=== PATIENT | female | born 1940 | race Caucasian/White ===

== ENCOUNTER → 2017-05-03 12:42 | Outpatient (CLI) | payer MEDICARE, SELFPAY ==
--- NOTE | 2017-05-03 12:50 | RAD_ITS ---
STUDY: X-RAY CHEST REASON FOR EXAM: Female, 76 years old. COPD, hypoxemia TECHNIQUE: PA and lateral views of the chest. COMPARISON: Previous study of April 03, 2015 FINDINGS: The lungs are hyperinflated. There is no demonstrated pleural abnormality. Normal size heart. Normal mediastinum and grace. Normal visualized pulmonary arteries. Normal visualized aortic arch and descending thoracic aorta. The bones are osteopenic. There is an increased thoracic kyphosis. There is endplate spondylosis of the upper thoracic spine. A mid thoracic dextroscoliosis is present. Normal visualized ribs, clavicles, and shoulders. There is a small hiatal hernia. RAD/Chest PA and Lateral IMPRESSION: 1. Hyperinflation of the lungs consistent with COPD. 2. Increased thoracic kyphosis and mild thoracic dextroscoliosis. Generalized osteopenia. Spondylosis of the upper thoracic spine. 3. Small hiatal hernia. 4. No acute cardiopulmonary disease process is seen. Chest findings are stable in the interval. Electronically Signed: Morgan Wills MD at 18:45 EDT , Service support ,
== END ==
PROVIDERS: Family Provider Internal Medicine; PCP Internal Medicine; Visit Provider Internal Medicine Pulmonary Disease
DX: J44.9 Chronic obstructive pulmonary disease, unspecified (principal); R09.02 Hypoxemia
CPT/HCPCS: 71046

== ENCOUNTER → 2017-08-14 13:28 | Outpatient (CLI) | payer MEDICARE, SELFPAY | LOC: LAB 13:29 → LABSPEC 13:31 | PROVIDERS: Family Provider Internal Medicine; PCP Internal Medicine; Visit Provider Internal Medicine Pulmonary Disease | DX: R05 Cough (principal) | CPT/HCPCS: 87015; 87116; 87206 ==

== ENCOUNTER → 2020-06-10 | Outpatient (CLI) | payer MEDICARE, SELFPAY ==
[2020-06-10 14:31] LABS: Hemoglobin A1c 5.2 % (3.8-5.6)
== END | disposition home or self-care (01) ==
PROVIDERS: Referring Provider Nurse Practitioner; Visit Provider Nurse Practitioner
DX: Z13.1 Encounter for screening for diabetes mellitus (principal)
CPT/HCPCS: 83036

== ENCOUNTER 2021-01-30 15:43 | Observation (INO) | payer MEDICARE, SELFPAY ==
[2021-01-30 15:45] VITALS: BP 142/67; PULSE 86; RESP 14; TEMP 36.7; O2SAT 98; BMI 17.6
--- NOTE | 2021-01-30 18:44 | EKG12_ITS ---
Test Reason : FALL Blood Pressure : / mmHG Vent. Rate : 085 BPM Atrial Rate : 085 BPM P-R Int : 138 ms QRS Dur : 110 ms QT Int : 388 ms P-R-T Axes : 080 -61 056 degrees QTc Int : 461 ms Normal sinus rhythm Left axis deviation Abnormal ECG Confirmed by LEONARDO OLGUIN, DAVIS ([id number]), editorial project manager JADE PRABHAKAR ([id number]) on 02/01/2021 12:12:32 PM Referred By: CHIDI Confirmed By:DAVIS PATTERSON MD
--- NOTE | 2021-01-30 18:44 | CT_ITS ---
STUDY: CT BRAIN WITHOUT CONTRAST REASON FOR EXAM: Female, 80 years old. ALTERED MENTAL STATUS Fall change in mental status Individualized dose optimization techniques were used for this CT. TECHNIQUE: Transaxial CT imaging of the brain was performed without administration of intravenous contrast material. COMPARISON: None FINDINGS: There are calcifications around the carotid artery. These are noted in the cavernous carotid arteries. Normal calvarium. Normal soft tissues. There is mild cerebral atrophy with widening of the extra-axial spaces and ventricular dilatation. There are areas of decreased attenuation within the white matter tracts of the supratentorial brain, consistent with microvascular disease changes. Normal basal ganglia and thalami. Normal brainstem. There is mild cerebellar atrophy. There is no intracranial hemorrhage. There are no findings of an acute ischemic infarction. Normal visualized paranasal sinuses. ASPECTS Score for Acute Strokes: 11/27 CT/Brain/Head without Contrast IMPRESSION: There are no acute findings. Chronic involutional changes of the brain. Electronically Signed: Juan Reeder MD at 19:34 EST , Service support ,
[2021-01-30 19:22] VITALS: BP 146/81; PULSE 84; RESP 19; O2SAT 96
[2021-01-30 19:48] LABS: Absolute Lymphocyte Count 2.18 X10^3/uL (0.83-4.51); Absolute Neutrophil Count 3.2 X10^3/uL (2.0-7.7); Basophil# 0.01 X10^3/uL; Basophil% 0.2 % (0-1); Eosinophil# 0.24 X10^3/uL; Eosinophils% 3.9 % (0-5); Hematocrit 42.4 % (37-47); Hemoglobin 13.6 g/dL (12.0-15.0); Lymphocyte # 2.18 X10^3/ul (0.83-4.51); Lymphocyte % 35.4 % (19-41); Mean Corp Hgb Conc 32.1 g/dL (32-36); Mean Corpuscular Hgb 30.5 pg (27.0-32.0); Mean Corpuscular Volume 95.1 fL (81-99); Mean Platelet Vol. 8.7 fl (6.2-12.0); Monocyte# 0.53 X10^3/uL; Monocyte% 8.6 % (0-10); NRBC Flagged by Analyzer 0 % (0-5); Neutrophil # 3.18 X10^3/uL (2.7-7.7); Neutrophil % 51.7 % (47-70); Platelet Count 259 K/mm3 (150-450); RBC Distribution Width CV 12.7 % (11.6-14.6); RBC Distribution Width SD 44.7 fl (35.1-43.9); Red Blood Count 4.46 M/mm3 (4.2-5.4); White Blood Count 6.2 K/mm3 (4.4-11.0)
[2021-01-30 19:58] LABS: Bacteria 0 SEEN /hpf (None Seen); Mucous, Urine 0 SEEN /hpf (<or=2+); Red Blood Cells-Urine 0 SEEN /hpf (0-5); Squamous Epithelial Cells - UA 0 SEEN /hpf (5-10); White Blood Cells 0 SEEN /hpf (0-5)
--- NOTE | 2021-01-30 20:07 | EX.ED.DYSGE1 ---
HPI History of Present Illness Chief Complaint: Fall Detail of Chief Complaint: Altered mental status, fall, generalized weakness Informant: patient and family Onset/Context/Timing Onset: Today (Today prior to arrival unable to get up and walk even with assistance was difficult) and Yesterday (Patient fell yesterday. Unwitnessed.) Context: Sudden Onset Current Severity: Unable to quantitate or qualitate Maximum Severity: Unable to quantitate or qualitate Worsened by: Nothing Relieved by: Nothing Associated Symptoms Associated Symptoms: Nothing Narrative Narrative: Patient is an 80-year-old woman who lives with family. She does have dementia. She has deteriorated according to family. Yesterday she fell. She had an unwitnessed fall. Everything sprawled out on the floor. Family did not think much of it. At that time she did not complain of head pain or headache. Today she was in the chair. She was unable to get out of the chair. Even with assistance she was unable to ambulate. Patient is not able to contribute to history because of dementia. Patient denied head pain. She denied trouble with her vision. She denied chest pain. She denied shortness of breath. She denied abdominal pain. She denies vomiting or diarrhea. She denies urinary symptoms. She presently has no complaints. Prior similar symptoms: No Recent Illness/Hospitalization: No PFSH PFSH Home Medications fluticasone furoate-vilanterol [Breo Ellipta Inhaler] 1 ea IH DAILY 04/04/15 [History Last Taken Unknown] hydroxyzine HCl 10 mg PO Q6H PRN 04/04/15 [History Last Taken Unknown] lorazepam 1 mg PO DAILY PRN PRN 04/04/15 [History Last Taken 04/05/15] tiotropium bromide [Spiriva 18 MCG] 1 puff INHALATION DAILY 04/04/15 [History Last Taken Unknown] Allergy/AdvReac Type Severity Reaction Status Date / Time Tetanus Vaccines and Toxoid Allergy Unknown Verified 01/30/21 15:45 [Tetanus Vaccines & Toxoid] Surgical History unable to obtain unable to obtain Social History (Updated 01/30/21 @ 20:[address] Enrique Torres MD) household members: family Smoking Status: Never smoker substance use type: does not use ROS ROS ED Review of Systems ROS Unobtainable: due to mental status Constitutional Constitutional ED: Denies chills, fever(s), subjective or sweats Eyes Eyes: Denies blurry vision or change in vision ENT ENT ED: Denies ear pain, rhinorrhea or sore throat Cardiovascular Cardiovascular: Denies chest pain or palpitations Respiratory/Chest Respiratory/Chest: Denies cough, dyspnea or dyspnea on exertion Gastrointestinal Gastrointestinal: Denies abdominal pain, diarrhea, nausea or vomiting Genitourinary Genitourinary ED: Denies dysuria, hematuria or urinary frequency Musculoskeletal Musculoskeletal: Denies arthralgias, back pain, myalgias or neck pain Integumentary Denies Abrasions or rash Neurologic Neurologic: Reports weakness; Denies headache(s) or paresthesias Endocrine Endocrinology: Denies polydipsia, polyphagia or polyuria Allergic/Immunologic Allergic/Immunologic ED: Denies urticaria EXAM Physical Exam Const Vital Signs: 01/30/21 15:45 01/30/21 19:20 01/30/21 19:22 Temperature 98.1 F Temperature Source Temporal Pulse Rate 86 84 Respiratory Rate 14 19 H Respiratory Effort Normal Respiratory Depth Normal Respiratory Pattern Normal Blood Pressure 142/67 H 146/81 H Blood Pressure Mean 92 102 Pulse Ox 98 96 Oxygen Delivery Method Nasal Cannula Room Air Oxygen Flow Rate (L/min) 3 Positive well nourished and well developed; Negative for obese, cachectic or contractures General Appearance ED: well developed and NAD; Negative for cachectic, contractures, cyanotic, diaphoretic or pallor Nutritional Appearance: Negative for cachectic or obese HEENT Reports TM's clear and moist mucous membranes Negative for trauma or tenderness Tympanic Membrane ED: Yes TM's clear Eyes PERRL and EOMs intact bilaterally General Eye ED: Negative for pale conjunctiva or scleral icterus Neck no lymphadenopathy, supple and no JVD General: Negative for tenderness Chest Wall inspection of chest normal and palpation of chest normal Resp normal respiratory effort and clear to auscultation bilaterally Cardio regular rate, regular rhythm, S1 normal heart sound, S2 normal heart sound and no murmurs GI normal to inspection, nondistended, normoactive bowel sounds and non-tender Palpation: soft Back/Spine no CVA tenderness Cervical Spine: Negative for cervical spine tenderness Thoracic Spine / Upper Back: Negative for thoracic spinal tenderness Extremity normal to inspection Neuro No oriented x3 and CN's II-XII intact bilaterally Sensorium / Orientation: alert Motor Exam: strength 5/5 throughout Psych mental status grossly normal Skin no rashes or lesions noted and no wounds General Skin Exam: Negative for jaundice or pallor MDM MDM MDM Narrative Medical decision making narrative: With history of change in mental status obtain CT of the head rule out intracranial process and specifically bleed. Since he is elderly will obtain UA to rule out UA urinary tract infection. Will obtain cath specimen. CBC to assess white count and rule out anemia. Basic metabolic panel to assess renal function, glucose and electrolytes since she needs a work-up to rule out metabolic and infectious causes for her change in mental status. Patient is unable to get out of bed. The 2 attempt she made resulted in near falls. Nurse states she is very unstable and is not safe to go home. Therefore hospitalist was paged. Lab Data Attestation: I reviewed the patient's lab results. Labs: Laboratory Results - last 24 hr 01/30/21 01/30/21 01/30/21 19:45 19:45 19:50 WBC 6.2 RBC 4.46 Hgb 13.6 Hct 42.4 MCV 95.1 MCH 30.5 MCHC 32.1 RDW Std Deviation 44.7 H RDW Coeff of Toney 12.7 Plt Count 259 MPV 8.7 Immature Gran % (Auto) 0.200 Neut % (Auto) 51.7 Lymph % (Auto) 35.4 [place] % (Auto) 8.6 Eos % (Auto) 3.9 Baso % (Auto) 0.2 Absolute Neuts (auto) 3.2 Absolute Lymphs (auto) 2.18 Nucleated RBC % 0 Sodium 142 Potassium 3.9 Chloride 105 Carbon Dioxide 34.0 H Anion Gap 3 L BUN 19 H Creatinine 0.64 Estim Creat Clear Calc 32.54 Est GFR (MDRD) Af Amer 114 Est GFR (MDRD) Non-Af 94 BUN/Creatinine Ratio 29.5 H Glucose 88 Calcium 9.6 Total Bilirubin 0.50 AST 19 ALT 18 Alkaline Phosphatase 91 Total Protein 7.6 Albumin 3.5 Globulin 4.1 Albumin/Globulin Ratio 0.9 Urine Color Yellow Urine Clarity Clear Urine pH 6.0 Ur Specific [place] 1.015 Urine Protein Negative Urine Glucose (UA) Normal Urine Ketones Negative Urine Occult Blood Negative Urine Nitrite Negative Urine Bilirubin Negative Urine Urobilinogen Normal Ur Leukocyte Esterase Negative Radiography Diagnostic Testing: Clinical Impression(s) from Imaging Studies Brain CT 12/13/21 18:44 IMPRESSION: There are no acute findings. Chronic involutional changes of the brain. Electronically Signed: Juan Reeder MD at 19:34 EST , Service support , EKG Initial EKG: Attestation: I personally reviewed and interpreted this EKG as follows: Interpretation: Sinus Rhythm (Ventricular rate is 85. AK interval is 138 ms. Cures duration under 10 ms. QT duration 388 ms. [place] is left. Other than the left axis EKG is unremarkable/.) Discharge Plan Triage Chief Complaint: Fall ED Provider: Enrique Torres Dx/Rx/DC Orders Clinical Impression: Debility, Inability to walk, Acute alteration in mental status, Falls Prescriptions: No Action lorazepam 1 MG tablet 1 mg PO DAILY PRN PRN (Reason: Anxiety) RF: 0 hydroxyzine HCl 10 MG tablet 10 mg PO Q6H PRN RF: 0 tiotropium bromide [Spiriva with HandiHaler] 1 PUFF inhaler 1 puff inhalation DAILY RF: 0 fluticasone furoate-vilanterol [Breo Ellipta] 1 EACH Aer.Pow.Ba 1 ea IH DAILY RF: 0 Primary Care Provider: Marcello Cobb Referrals: Marcello Cobb MD [Primary Care Provider] -
[2021-01-30 20:12] LABS: Color, Urine Yellow (Yellow); Glucose, Dipstick Normal (Normal); Ketone-Dipstick Negative (Negative); Leukocyte Esterase-Dipstick Negative /ul (Negative); Nitrite-Dipstick Negative (Negative); Occult Blood-Urine Negative /ul (Negative); Protein-Dipstick Negative (Negative); Specific Gravity, Urine 1.015 (1.002-1.030); Urine Bilirubin Dipstick Negative (Negative); Urine Clarity Clear (Clear); Urine Urobilinogen Normal (Normal)
[2021-01-30 20:13] LABS: ALB/GLOB Ratio 0.9 RATIO (0.9-2.4); AST(SGOT) 19 U/L (15-37); Alanine Aminotransfer ALT/SGPT 18 U/L (13-56); Albumin, Serum 3.5 g/dL (3.2-5.0); Alkaline Phosphatase 91 U/L (45-117); Anion Gap 3 (5-15); BUN 19 mg/dL (7-18); BUN/Creat Ratio 29.5 RATIO (10-20); Calcium,Total 9.6 mg/dL (8.5-10.1); Chloride 105 mmol/L (98-107); Creatinine, Serum 0.64 mg/dL (0.55-1.02); EST Glomerular Filtration Rate 94 mL/min (>60); Est Glom Filt Rate - Afr Amer 114 mL/min (>60); Estimated Creatinine Clearance 32.54 ml/min; Globulin 4.1 g/dL (2.2-4.2); Glucose 88 mg/dL (74-106); Potassium 3.9 mmol/L (3.5-5.1); Protein, Total 7.6 g/dL (6.4-8.2); Sodium Level 142 mmol/L (136-145)
--- NOTE | 2021-01-30 20:49 | ED.RN ---
Attempt to walk patient was unsuccessful as patient was unable to stand at side of bed without becoming unsteady and weak. Attempt x2 was same and patient was helped back into bed.
[2021-01-30 20:54] VITALS: BP 134/107; PULSE 87; RESP 16; TEMP 36.3
[2021-01-30 21:19] VITALS: PULSE 93; RESP 15
--- NOTE | 2021-01-30 21:51 | ED.RN ---
Patient and family requested patient to eat something, refused options that was available to them.
[2021-01-30] MEDS: LORazepam 2 MG/ML Syringe 1 MG IV (22:05)
--- NOTE | 2021-01-30 22:29 | PCM.HP.STD ---
HPI - General General Date of Admission: 01/30/21 HPI Narrative NEERAJ LYNN, is a 80 F who presents to the emergency room with a change in mental status. The patient has a significant past medical history of severe dementia and is a very poor historian. She was seen in the emergency room with her daughter present who states the patient had a significant fall yesterday and was found sprawled across the room but denied any injuries and she stayed at home at that time. Today she is unable to get herself up from a chair or stand safely and this is different from her normal baseline. CT scan of the head reveals no acute changes in the emergency room and urinary tract infection has been ruled out. CBC and BMP are also unremarkable. The patient will be admitted due to change in her physical strength and sudden weakness. The patient wishes to be full code and this was verified with her daughter present. The daughter was adamant that the patient would not go to a halfway however she did not feel safe to take her home in her present condition. PFSH Home Medications hydroxyzine HCl 10 mg PO Q6H PRN 04/04/15 [History Last Taken Unknown] lorazepam 1 mg PO DAILY PRN PRN 04/04/15 [History Last Taken 04/05/15] albuterol sulfate 01/30/21 [History Last Taken Unknown] albuterol sulfate 1 puff INHALATION DAILY 01/30/21 [History Last Taken Unknown] fluconazole 150 mg PO DAILY 01/30/21 [History Last Taken Unknown] bxxdvhezwyi-ufwdvxoca-onkrmopc [Trelegy Ellipta] 1 inh INHALATION DAILY 01/30/21 [History Last Taken Unknown] Allergy/AdvReac Type Severity Reaction Status Date / Time Tetanus Vaccines and Toxoid Allergy Unknown Verified 01/30/21 15:45 [Tetanus Vaccines & Toxoid] Surgical History unable to obtain Social History (Updated 01/30/21 @ 20:[address] Enrique Torres MD) household members: family Smoking Status: Never smoker substance use type: does not use ROS Review of Systems ROS Unobtainable: due to mental condition Vital Signs Vital Signs Vital Signs: 01/30/21 15:45 01/30/21 19:20 01/30/21 19:22 Temperature 98.1 F Temperature Source Temporal Pulse Rate 86 84 Respiratory Rate 14 19 H Respiratory Effort Normal Respiratory Depth Normal Respiratory Pattern Normal Blood Pressure 142/67 H 146/81 H Blood Pressure Mean 92 102 Pulse Ox 98 96 Oxygen Delivery Method Nasal Cannula Room Air Oxygen Flow Rate (L/min) 3 01/30/21 20:54 01/30/21 21:19 Temperature 97.3 F L Temperature Source Temporal Pulse Rate 87 93 Respiratory Rate 16 15 Respiratory Effort Respiratory Depth Respiratory Pattern Blood Pressure 134/107 H Blood Pressure Mean 116 Pulse Ox Oxygen Delivery Method Oxygen Flow Rate (L/min) Weight Weight: 103 lb Body Mass Index (BMI) 17.6 Physical Exam Const alert General Appearance: cooperative Orientation / Consciousness: confused HEENT normocephalic and head/scalp atraumatic Eyes PERRL Neck supple Lymph Lymphatic: no lymphadenopathy noted Resp normal respiratory effort and clear to auscultation bilaterally Cardio regular rate, regular rhythm, S1 normal heart sound and S2 normal heart sound GI normal to inspection, nondistended, normoactive bowel sounds Extremity no clubbing, cyanosis or edema Skin General Skin Exam: turgor normal Neuro Motor Exam: general weakness Psych Psych Narrative: AxOX1 Results Lab / Micro Data Result Diagrams: 01/30/21 19:45 01/30/21 19:45 Labs: Laboratory Results - last 24 hr 01/30/21 19:45: WBC 6.2, RBC 4.46, Hgb 13.6, Hct 42.4, MCV 95.1, MCH 30.5, MCHC 32.1, RDW Std Deviation 44.7 H, RDW Coeff of Tonye 12.7, Plt Count 259, MPV 8.7, Immature Gran % (Auto) 0.200, Neut % (Auto) 51.7, Lymph % (Auto) 35.4, [place] % (Auto) 8.6, Eos % (Auto) 3.9, Baso % (Auto) 0.2, Absolute Neuts (auto) 3.2, Absolute Lymphs (auto) 2.18, Nucleated RBC % 0 01/30/21 19:45: Sodium 142, Potassium 3.9, Chloride 105, Carbon Dioxide 34.0 H, Anion Gap 3 L, BUN 19 H, Creatinine 0.64, Estim Creat Clear Calc 32.54, Est GFR (MDRD) Af Amer 114, Est GFR (MDRD) Non-Af 94, BUN/Creatinine Ratio 29.5 H, Glucose 88, Calcium 9.6, Total Bilirubin 0.50, AST 19, ALT 18, Alkaline Phosphatase 91, Total Protein 7.6, Albumin 3.5, Globulin 4.1, Albumin/Globulin Ratio 0.9 01/30/21 19:50: Urine Color Yellow, Urine Clarity Clear, Urine pH 6.0, Ur Specific [place] 1.015, Urine Protein Negative, Urine Glucose (UA) Normal, Urine Ketones Negative, Urine Occult Blood Negative, Urine Nitrite Negative, Urine Bilirubin Negative, Urine Urobilinogen Normal, Ur Leukocyte Esterase Negative, Urine RBC 0 SEEN, Urine WBC 0 SEEN, Ur Squamous Epith Cells 0 SEEN, Urine Bacteria 0 SEEN, Urine Mucus 0 SEEN Radiology Impression Brain CT 01/30/21 18:44 IMPRESSION: There are no acute findings. Chronic involutional changes of the brain. Electronically Signed: Juan Reeder MD at 19:34 EST , Service support , Assessment & Plan Assessment/Plan (1) Debility: (2) Inability to walk: (3) Acute alteration in mental status: (4) Falls: (5) COPD (chronic obstructive pulmonary disease): (6) Dementia: PLAN: 1. Inability to walk, change in mental status and generalized weakness with falls?admit patient to medical surgical floor, consult case management for discharge planning, consult physical therapy for evaluation and treatment, repeat CBC and BMP in the morning, consult nutrition and check prealbumin level and nutritional status. Patient daughter will not likely agree to rehab facility however she may be amenable to home health assistance. 2. Dementia?irreversible seems to be progressing 3. Fall risk?add fall precautions 4. DVT prophylaxis?SCDs Charges/Coding Visit Charges OBSV E&M: 87589 Initial observation care L2
[2021-01-30 23:39] VITALS: BP 146/77; PULSE 94; RESP 22; TEMP 36.6; O2SAT 98; BMI 17.6
--- NOTE | 2021-01-31 02:44 | PCS.PANDOC ---
PANDEMIC DOCUMENTATION INITIATED: Date: 01/30/2021 Time: 1132
[2021-01-31 06:03] LABS: Absolute Neutrophil Count 4.8 X10^3/uL (2.0-7.7); Basophil# 0.01 X10^3/uL; Basophil% 0.1 % (0-1); Eosinophil# 0.36 X10^3/uL; Eosinophils% 4.4 % (0-5); Hematocrit 41.8 % (37-47); Hemoglobin 14.1 g/dL (12.0-15.0); Lymphocyte % 28.1 % (19-41); Mean Corp Hgb Conc 33.7 g/dL (32-36); Mean Corpuscular Hgb 31.1 pg (27.0-32.0); Mean Corpuscular Volume 92.3 fL (81-99); Mean Platelet Vol. 8.8 fl (6.2-12.0); Monocyte# 0.66 X10^3/uL; Monocyte% 8.1 % (0-10); NRBC Flagged by Analyzer 0 % (0-5); Neutrophil # 4.83 X10^3/uL (2.7-7.7); Neutrophil % 59.1 % (47-70); Platelet Count 268 K/mm3 (150-450); RBC Distribution Width CV 12.8 % (11.6-14.6); RBC Distribution Width SD 43.2 fl (35.1-43.9); Red Blood Count 4.53 M/mm3 (4.2-5.4); White Blood Count 8.2 K/mm3 (4.4-11.0)
[2021-01-31 06:34] LABS: Anion Gap 4 (5-15); BUN 25 mg/dL (7-18); BUN/Creat Ratio 38.8 RATIO (10-20); Calcium,Total 9.8 mg/dL (8.5-10.1); Chloride 105 mmol/L (98-107); Creatinine, Serum 0.64 mg/dL (0.55-1.02); EST Glomerular Filtration Rate 94 mL/min (>60); Est Glom Filt Rate - Afr Amer 113 mL/min (>60); Estimated Creatinine Clearance 32.54 ml/min; Glucose 105 mg/dL (74-106); Potassium 3.8 mmol/L (3.5-5.1); Sodium Level 141 mmol/L (136-145)
[2021-01-31] MEDS: Ipratropium/Albuterol Sulfate 3 ML AMPUL.NEB INHALATION ×2 (07:18→13:13)
[2021-01-31] MEDS: Budesonide Respules 0.5 MG/2 ML AMPUL.NEB. INHALATION (07:18)
[2021-01-31 07:19] VITALS: PULSE 101; RESP 18; O2SAT 92
[2021-01-31 09:06] VITALS: BP 142/84; PULSE 104; RESP 18; TEMP 36.7; O2SAT 95
[2021-01-31] MEDS: FLUCONAZOLE 150 MG TABLET PO (09:10)
--- NOTE | 2021-01-31 09:10 | NURSING ---
PT SITTING IN CHAIR IN [facility] [employer], IV ACCESS REMOVED BY PT.PT VOICES DESIRE TO GO HOME. PT DAUGHTER STATES THAT PT WAS REPORTING DIZZINESS. PT DENIES DIZZINESS. WILL NOTIFY DR OF PT'S DESIRE TO GO HOME.
--- NOTE | 2021-01-31 09:45 | CASEMGMT ---
RN CLIFF Face to Face with patient for initial transition planning/care coordination assessment. RN CM introduced self and role at [facility]. Patient sitting in chair, alert and oriented, daughter at bedside, slightly confused at times. Patient and daughter willing to participate in assessment and is able to answer all questions appropriately. Care providers, pharmacy, and demographics verified. Patient wishes to discharge home, denies need for home health at this time. Patient provided with list of HHC agency in-network with insurance. RN CM updated patient and daughter that if they reconsider HHC after discharge, to follow-up with PCP for setup. Daughter, Fani, voiced understanding. Patient states she has no further needs or concerns at this time. CM to follow for discharge planning needs that may arise. PCP: Reza Specialists: Nataliia Marcelo Pharmacy: [facility] Insurance: [employer] [facility] Prescription Benefit: yes Living Will/HPOA: none, SW updated regarding request for information. LNOK: , daughter Living Arrangements: Patient lives with and daughter in a 2 story home with bed and bath on first floor for patient. 4-5 steps and railing to enter the home. Patient states she is independent for self care, daughter able to assist if needed. Transportation: DME/HHC: Patient states she has walker, wheelchair, nebulizer, and home oxygen with portable concentrator through [facility] at 3lpm. Patient denies previous HHC or SNF. Disposition Plan: Patient to discharge home with family support and follow-up plans in place. Angelica PURI, RN, CM
--- NOTE | 2021-01-31 12:40 | PCM.PN.HOSP ---
Objective Data Objective Data Vital Signs: Vital Signs Temp Pulse Resp BP Pulse Ox 98.1 F 104 H 18 142/84 H 95 01/31/21 09:06 01/31/21 09:06 01/31/21 09:06 01/31/21 09:06 01/31/21 09:06 Oxygen Flow Rate (L/min) 3 Oxygen Delivery Method Nasal Cannula Weight: 46.72 kg Body Mass Index (BMI) 17.6 Lab / Micro Data Result Diagrams: 01/31/21 05:50 01/31/21 05:50 Labs: Laboratory Results - last 24 hr 01/30/21 19:45: WBC 6.2, RBC 4.46, Hgb 13.6, Hct 42.4, MCV 95.1, MCH 30.5, MCHC 32.1, RDW Std Deviation 44.7 H, RDW Coeff of Toney 12.7, Plt Count 259, MPV 8.7, Immature Gran % (Auto) 0.200, Neut % (Auto) 51.7, Lymph % (Auto) 35.4, [place] % (Auto) 8.6, Eos % (Auto) 3.9, Baso % (Auto) 0.2, Absolute Neuts (auto) 3.2, Absolute Lymphs (auto) 2.18, Nucleated RBC % 0 01/30/21 19:45: Sodium 142, Potassium 3.9, Chloride 105, Carbon Dioxide 34.0 H, Anion Gap 3 L, BUN 19 H, Creatinine 0.64, Estim Creat Clear Calc 32.54, Est GFR (MDRD) Af Amer 114, Est GFR (MDRD) Non-Af 94, BUN/Creatinine Ratio 29.5 H, Glucose 88, Calcium 9.6, Total Bilirubin 0.50, AST 19, ALT 18, Alkaline Phosphatase 91, Total Protein 7.6, Albumin 3.5, Globulin 4.1, Albumin/Globulin Ratio 0.9 01/30/21 19:50: Urine Color Yellow, Urine Clarity Clear, Urine pH 6.0, Ur Specific [place] 1.015, Urine Protein Negative, Urine Glucose (UA) Normal, Urine Ketones Negative, Urine Occult Blood Negative, Urine Nitrite Negative, Urine Bilirubin Negative, Urine Urobilinogen Normal, Ur Leukocyte Esterase Negative, Urine RBC 0 SEEN, Urine WBC 0 SEEN, Ur Squamous Epith Cells 0 SEEN, Urine Bacteria 0 SEEN, Urine Mucus 0 SEEN 01/31/21 05:50: WBC 8.2, RBC 4.53, Hgb 14.1, Hct 41.8, MCV 92.3, MCH 31.1, MCHC 33.7, RDW Std Deviation 43.2, RDW Coeff of Toney 12.8, Plt Count 268, MPV 8.8, Immature Gran % (Auto) 0.200, Neut % (Auto) 59.1, Lymph % (Auto) 28.1, [place] % (Auto) 8.1, Eos % (Auto) 4.4, Baso % (Auto) 0.1, Absolute Neuts (auto) 4.8, Absolute Lymphs (auto) 2.30, Nucleated RBC % 0 01/31/21 05:50: Sodium 141, Potassium 3.8, Chloride 105, Carbon Dioxide 32.0, Anion Gap 4 L, BUN 25 H, Creatinine 0.64, Estim Creat Clear Calc 32.54, Est GFR (MDRD) Af Amer 113, Est GFR (MDRD) Non-Af 94, BUN/Creatinine Ratio 38.8 H, Glucose 105, Calcium 9.8 Radiography Diagnostic Testing: Radiology Impression Brain CT 01/30/21 18:44 IMPRESSION: There are no acute findings. Chronic involutional changes of the brain. Electronically Signed: Juan Reeder MD at 19:34 EST , Service support , Assessment & Plan Assessment/Plan (1) Debility: (2) Inability to walk: (3) Acute alteration in mental status: (4) Falls: (5) COPD (chronic obstructive pulmonary disease): (6) Dementia: PLAN: 1. Inability to walk, change in mental status and generalized weakness with falls?admit patient to medical surgical floor, consult case management for discharge planning, consult physical therapy for evaluation and treatment, repeat CBC and BMP in the morning, consult nutrition and check prealbumin level and nutritional status. Patient daughter will not likely agree to rehab facility however she may be amenable to home health assistance. 2. Dementia?irreversible seems to be progressing 3. Fall risk?add fall precautions 4. DVT prophylaxis?SCDs
--- NOTE | 2021-01-31 12:57 | PCM.DC ---
Discharge Instructions Follow Up Care Test Results: Test results from this visit will be discussed in further detail at your follow-up appointment, if applicable. 1. Plan to follow-up with Dr. Cobb in the next 7 to 10 days 2. As discussed with Fani, ask Dr. Cobb about palliative care services Discharge Plan Admission Admit Date/Time: 01/30/21 22:36 Primary Reason for Your Visit: Weakness and fall Attending Provider: Karl Vela Primary Care Provider: Marcello Cobb Discharge Orders/Prescriptions Prescriptions: Continued lorazepam 1 MG tablet 1 mg PO DAILY PRN PRN (Reason: Anxiety) RF: 0 albuterol sulfate 2.5 mg /3 mL (0.083 %) solution for nebulization RF: 0 fluconazole 150 mg tablet 150 mg PO DAILY RF: 0 albuterol sulfate 90 mcg/actuation HFA aerosol inhaler 1 puff INHALATION DAILY RF: 0 Trelegy Ellipta 100-62.5-25 mcg blister with device 1 inh INHALATION DAILY RF: 0 Discontinued hydroxyzine HCl 10 MG tablet 10 mg PO Q6H PRN RF: 0 Referrals / Follow Up: Marcello Cobb MD [Primary Care Provider] - Disposition Disposition (needs filled in before D/C Order can be placed): Home, Self Care
[2021-01-31 13:14] VITALS: PULSE 110; RESP 18
--- NOTE | 2021-01-31 15:34 | PCM.DC.SUM ---
Providers Date of Admission: 01/30/21 Primary Care Physician: Dr. Marcello Cobb MD Reason For Visit: DEBILITY, FALL RISK, ALTERED MENTAL STATE Diagnosis Discharge Diagnosis (1) Dementia: Status: Acute Code(s): F03.90 - Unspecified dementia without behavioral disturbance (2) Debility: Status: Acute Code(s): R53.81 - Other malaise (3) Falls: Status: Acute Code(s): W19.XXXA - Unspecified fall, initial encounter (4) COPD (chronic obstructive pulmonary disease): Status: Chronic Code(s): J44.9 - Chronic obstructive pulmonary disease, unspecified Medications at Discharge Home Medications lorazepam 1 mg PO DAILY PRN PRN 04/04/15 Trelegy Ellipta 1 inh INHALATION DAILY 01/30/21 albuterol sulfate 01/30/21 albuterol sulfate 1 puff INHALATION DAILY 01/30/21 fluconazole 150 mg PO DAILY 01/30/21 Hospital Course Summary of Care Provided Hospital Course: The patient was hospitalized because of a change in mental status and a fall at home. The patient was unable to provide any details of her presentation because of her baseline dementia. According to the daughter, she was unable to stand safely and this was different from her baseline. Her work-up in the emergency department did not show any acute issues by CT scan of the head and she had no clinical evidence of a UTI. Her white blood cell count was in the 6200 range her hemoglobin was 13.6 (these were stable during her stay). Her serum bicarbonate was at the 34 range on presentation and her BUN was 19 with a creatinine of 0.64 (her serum bicarbonate went down to 32 and her creatinine was at 0.64 at discharge as well). UA was clear with no nitrites or leukocyte esterase or bacteria. The patient was placed under observation status given her inability to walk and her reported change in mental status with generalized weakness. The admitting provider discussed the possibility of discharge to a rehab facility but the family was confident that the patient would be able to return home under their care. Patient was treated with IV fluids given her compromised nutritional status. By the morning of 01/31/2021, the patient was able to stand independently. While her mental status remained compromised, she was cooperative and talkative. The patient was unable to provide any details of her presentation, hospital stay, or plan of care. I did speak with both the patient's at the bedside as well as with the patient's daughter, Fani, by phone. We talked at length about her severe protein calorie malnutrition and her declining oral intake in the context of her dementia. The patient's daughter, Fani, was somewhat surprised by the discussion of the dementia. We talked about the progression of her disease. In retrospect, Fani noted that her mother had been having problems with memory for some time (she has noted a decreased memory at least over the past year and likely longer). We talked about the implications of her memory loss, weight loss, compromised oral intake, and falls. As result, I explained the benefits of palliative care services (the patient is approaching comfort care with hospice services as well given her FAST score in the 6b range) and the daughter was open to the discussion and was willing to talk to the patient's primary care provider about a palliative care referral at discharge. In the patient's clinical stability, improvement in her balance, and plans for supportive care, she was recommended for discharge home on 01/31/2021. Physical Exam Narrative Patient was sitting up in the bedside chair fully clothed wearing her jacket. She was kyphotic with temporal wasting and prominent clavicles. She had decreased breath sounds but no rales, rhonchi, or wheezing. She had distant, regular heart sounds with a heart rate in the 90s to 100s. Her abdomen was soft and nontender with normal bowel sounds. She had no pretibial edema or chronic venous stasis changes. She had a flat affect and was withdrawn but engaged when directly addressed. She was unaware of her circumstances, location, plan of care. She did know her name but did not know the day, date, month, or year. Weight / BMI Weight Weight: 103 lb Body Mass Index (BMI) 17.6 ABG / Lab / Microbiology Data Result Diagrams: 01/31/21 05:50 01/31/21 05:50 Laboratory: Laboratory Results - last 24 hr 01/31/21 05:50: WBC 8.2, RBC 4.53, Hgb 14.1, Hct 41.8, MCV 92.3, MCH 31.1, MCHC 33.7, RDW Std Deviation 43.2, RDW Coeff of Toney 12.8, Plt Count 268, MPV 8.8, Immature Gran % (Auto) 0.200, Neut % (Auto) 59.1, Lymph % (Auto) 28.1, [place] % (Auto) 8.1, Eos % (Auto) 4.4, Baso % (Auto) 0.1, Absolute Neuts (auto) 4.8, Absolute Lymphs (auto) 2.30, Nucleated RBC % 0 01/31/21 05:50: Sodium 141, Potassium 3.8, Chloride 105, Carbon Dioxide 32.0, Anion Gap 4 L, BUN 25 H, Creatinine 0.64, Estim Creat Clear Calc 32.54, Est GFR (MDRD) Af Amer 113, Est GFR (MDRD) Non-Af 94, BUN/Creatinine Ratio 38.8 H, Glucose 105, Calcium 9.8 Radiography Diagnostic Testing: Radiology Impression Brain CT 01/30/21 18:44 IMPRESSION: There are no acute findings. Chronic involutional changes of the brain. Electronically Signed: Juan Reeder MD at 19:34 EST , Service support , D/C Instructions Additional Instructions: The family is to follow-up with a palliative care referral pursue comfort care measures Meaningful Use Info Meaningful Use Diagnoses (Choose all that apply): None applicable Discharge Plan Admission Admit Date/Time: 01/30/21 22:36 Primary Reason for Your Visit: Weakness and fall Attending Provider: Karl Vela Primary Care Provider: Marcello Cobb Instructions Additional Instructions / Restrictions: 1. Plan to follow-up with Dr. Cobb in the next 7 to 10 days 2. As discussed with Fani, ask Dr. Cobb about palliative care services Discharge Orders/Prescriptions Prescriptions: Continued lorazepam 1 MG tablet 1 mg PO DAILY PRN PRN (Reason: Anxiety) RF: 0 albuterol sulfate 2.5 mg /3 mL (0.083 %) solution for nebulization RF: 0 fluconazole 150 mg tablet 150 mg PO DAILY RF: 0 albuterol sulfate 90 mcg/actuation HFA aerosol inhaler 1 puff INHALATION DAILY RF: 0 Trelegy Ellipta 100-62.5-25 mcg blister with device 1 inh INHALATION DAILY RF: 0 Discontinued hydroxyzine HCl 10 MG tablet 10 mg PO Q6H PRN RF: 0 Referrals / Follow Up: Marcello Cobb MD [Primary Care Provider] - Disposition Disposition (needs filled in before D/C Order can be placed): Home, Self Care Charges/Coding Visit Charges OBSV E&M: 56043 Observation care discharge
== END 2021-01-31 13:30 | disposition home or self-care (01) ==
LOC: ED 19:55 → MS3 23:12
PROVIDERS: Admitting Provider Family Medicine; Emergency Provider Emergency Medicine; PCP Internal Medicine; Visit Provider Internal Medicine
DX: F03.90 Unspecified dementia, unspecified severity, without behavioral disturbance, psychotic disturbance, mood disturbance, and anxiety (principal); J44.9 Chronic obstructive pulmonary disease, unspecified; R53.1 Weakness; R26.2 Difficulty in walking, not elsewhere classified; Z79.899 Other long term (current) drug therapy; Z79.51 Long term (current) use of inhaled steroids; Z91.81 History of falling
CPT/HCPCS: 36415; 70450; 80048; 80053; 81001; 85025; 93005; 94640; 96374; 99218; 99285; P9612; A4216; G0378

== ENCOUNTER → 2021-12-29 | Outpatient (CLI) | payer MEDICARE, SELFPAY ==
--- NOTE | 2021-12-29 16:11 | RAD_ITS ---
STUDY: XR Chest 2 Views 12/29/2021 4:18 PM REASON FOR EXAM: Female, 81 years old. CHEST PAIN COUGH COMPARISON: 05/03/17 TECHNIQUE: XR Chest 2 Views FINDINGS: There is no demonstrated pleural abnormality. The lung avila are hyperexpanded. Normal heart size. Normal mediastinum. Normal grace. Prominent appearing increased interstitial lung markings. Normal visualized pulmonary arteries. There is atherosclerotic calcification of the aortic arch with tortuosity. There are diffuse degenerative changes of the visualized thoracic spine. There is degenerative osteoarthritis of the bilateral shoulders. There is no demonstrated abnormality of the visualized soft tissue structures of the upper abdomen. RAD/Chest PA and Lateral IMPRESSION: There are no acute findings. Electronically Signed: Juan Reeder MD at 17:13 EST ,
[2021-12-29 18:06] LABS: BNP,B-Type NATRIURETIC PEPTIDE 16.8 pg/mL (0-100)
== END | disposition home or self-care (01) ==
PROVIDERS: PCP Internal Medicine; Referring Provider Internal Medicine Pulmonary Disease; Visit Provider Internal Medicine Pulmonary Disease
DX: R05.9 Cough, unspecified (principal); J44.9 Chronic obstructive pulmonary disease, unspecified; I10 Essential (primary) hypertension; R07.9 Chest pain, unspecified; R06.02 Shortness of breath
CPT/HCPCS: 36415; 71046; 83880

== ENCOUNTER → 2021-12-30 | Outpatient (CLI) | payer MEDICARE, SELFPAY | END | disposition home or self-care (01) | LOC: LABSPEC 12:37 | PROVIDERS: PCP Internal Medicine; Referring Provider Internal Medicine Pulmonary Disease; Visit Provider Internal Medicine Pulmonary Disease | DX: R05.9 Cough, unspecified (principal); J44.9 Chronic obstructive pulmonary disease, unspecified; I10 Essential (primary) hypertension | CPT/HCPCS: 87070; 87205 ==

== ENCOUNTER 2022-03-14 15:49 | Inpatient (IN) | payer MEDICARE, SELFPAY ==
[2022-03-14] VITALS (13 sets, daily range): BP systolic 107–162; BP diastolic 65–130; PULSE 115–130; RESP 15–31; TEMP 36.4–37; O2SAT 84–97; BMI 16.9; BMI 16.8
--- NOTE | 2022-03-14 15:58 | ED.VIS.FALL ---
HPI HPI - Fall History of Present Illness Chief Complaint: Fall Informant: patient Occured/Mechanism Occurred: Today Mechanism/Context: Yes same level fall and Yes trip Pain/Injury Pain Location: head and chest Quality of Pain: Aching and - (Heaviness) Worsened by: Nothing Relieved by: Nothing Associated Symptoms Associated Symptoms: Negative for Parasthesias, Weakness, Loss of function, Inability to ambulate or Loss of consciousness Narrative Narrative: Patient presents with headache that began after a fall today. Patient states she tripped and fell. Patient denies any loss of consciousness. Patient is unsure if she hit her head. Patient states her pain is mainly over the top of her head. Patient states nothing makes it better nothing makes it worse. Patient denies any other injuries. Patient does admit to some heaviness in her chest as well. Patient also admits to some shortness of breath. Patient denies any fevers or chills. Patient denies any paresthesias or weakness. Patient states she was able to ambulate after the fall. [facility] Medical History (Updated 03/14/22 @ 22:[address] Jose Rebolledo DO) Anxiety Anxiety and depression Chronic respiratory failure with hypoxia Emphysema lung Pulmonary fibrosis Pulmonary HTN Severe protein-calorie malnutrition Valvular heart disease Home Medications lorazepam 1 mg tablet 1 mg PO DAILY PRN PRN Anxiety 04/04/15 [History Last Taken 04/05/15] albuterol sulfate 90 mcg/actuation aerosol inhaler 1 puff inhalation DAILY shortness of breath 01/30/21 [History Last Taken Unknown] fluticasone fur. 100 mcg-umeclid 62.5 mcg-vilant 25 mcg inhalat.powder (Trelegy Ellipta) 1 inh inhalation DAILY emphysema 01/30/21 [History Last Taken Unknown] ropinirole 0.25 mg tablet 0.25 mg PO QHS 03/14/22 [History Last Taken Unknown] venlafaxine 37.5 mg capsule,extended release 24 hr 1 mg PO DAILY 03/14/22 [History Last Taken Unknown] Allergy/AdvReac Type Severity Reaction Status Date / Time Tetanus Vaccines and Toxoid Allergy Unknown Verified 03/14/22 15:58 [Tetanus Vaccines & Toxoid] Surgical History History of cholecystectomy Social History household members: family Smoking Status: Never smoker substance use type: does not use ROS ROS ED Constitutional Constitutional ED: Denies chills or fever(s) Eyes Eyes: Denies blurry vision or change in vision ENT ENT ED: Denies rhinorrhea or sore throat Cardiovascular Cardiovascular: Reports chest pain; Denies palpitations Respiratory/Chest Respiratory/Chest: Denies cough or dyspnea Gastrointestinal Gastrointestinal: Denies nausea or vomiting Genitourinary Genitourinary ED: Denies dysuria or hematuria Musculoskeletal Musculoskeletal: Denies back pain or neck pain Integumentary Denies abscess or rash Neurologic Neurologic: Reports headache(s); Denies weakness Allergic/Immunologic Allergic/Immunologic ED: Denies mouth swelling or urticaria EXAM Physical Exam Const Vital Signs: 03/14/22 15:50 03/14/22 15:58 03/14/22 15:59 Temperature 97.5 F L Temperature Source Temporal Pulse Rate 116 H Respiratory Rate 15 Respiratory Effort Respiratory Depth Respiratory Pattern Blood Pressure 133/84 H Blood Pressure Mean 100 Pulse Ox 84 88 Oxygen Delivery Method Non-Rebreather Nasal Cannula Nasal Cannula Oxygen Flow Rate (L/min) 3 4 03/14/22 15:59 03/14/22 15:59 03/14/22 16:22 Temperature Temperature Source Pulse Rate 115 H Respiratory Rate 26 H Respiratory Effort Respiratory Depth Respiratory Pattern Tachypnea Blood Pressure Blood Pressure Mean Pulse Ox 89 92 Oxygen Delivery Method Nasal Cannula Nasal Cannula Oxygen Flow Rate (L/min) 5 6 03/14/22 16:38 03/14/22 17:32 03/14/22 17:50 Temperature Temperature Source Pulse Rate 119 H Respiratory Rate 26 H Respiratory Effort Normal Non-Labored Respiratory Depth Normal Respiratory Pattern Normal Blood Pressure 159/89 H Blood Pressure Mean 112 Pulse Ox 97 91 Oxygen Delivery Method Nasal Cannula Nasal Cannula Oxygen Flow Rate (L/min) 4 4 03/14/22 19:00 03/14/22 19:31 03/14/22 19:53 Temperature 98.6 F Temperature Source Oral Pulse Rate 127 H 123 H 130 H Respiratory Rate 31 H 25 H 24 H Respiratory Effort Respiratory Depth Respiratory Pattern Blood Pressure 148/130 H 119/106 H 155/93 H Blood Pressure Mean 136 110 113 Pulse Ox 95 95 90 Oxygen Delivery Method Nasal Cannula Room Air Nasal Cannula Oxygen Flow Rate (L/min) 4 6 03/14/22 21:00 Temperature Temperature Source Pulse Rate 125 H Respiratory Rate 24 H Respiratory Effort Respiratory Depth Respiratory Pattern Blood Pressure 107/65 Blood Pressure Mean 79 Pulse Ox 95 Oxygen Delivery Method Room Air Oxygen Flow Rate (L/min) Positive well nourished and well developed General Appearance ED: well developed and NAD HEENT Reports moist mucous membranes Neck supple and no JVD Resp normal respiratory effort Auscultation: diminished lung sounds Cardio regular rhythm Rate: tachycardic GI normal to inspection, nondistended, normoactive bowel sounds and non-tender Palpation: soft Extremity normal to inspection General Extremety ED: Negative for edema or tenderness General Extremity: Negative for edema Neuro oriented x3, CN's II-XII intact bilaterally and no sensory deficits noted Sensorium / Orientation: alert Motor Exam: strength 5/5 throughout Psych mental status grossly normal Skin no rashes or lesions noted MDM MDM MDM Narrative Medical decision making narrative: Patient was placed on oxygen. Differential diagnosis includes head injury, intracranial bleeding, myocardial infarction, cardiac ischemia, pneumonia, CHF, pulmonary embolism, and COPD exacerbation. Will obtain CT scan of the brain to check for intracranial bleeding. Will obtain EKG to assess for cardiac dysrhythmia and ischemia. Will obtain CBC to check for leukocytosis and anemia. We will obtain a basic metabolic profile to assess for electrolyte abnormalities and renal function. Will obtain troponin and repeat 2-hour troponin to assess for cardiac ischemia. Will obtain urinalysis to assess for urinary tract infection and hematuria. Will obtain a D-dimer to assess for possible pulmonary embolism. Will obtain COVID and flu antigens to assess for infection. Will obtain PT with INR and PTT to assess for coagulation status. Will obtain chest x-ray to assess for pneumonia and congestive heart failure. Patient will be given a DuoNeb aerosol. Lab Data Attestation: I reviewed the patient's lab results. Lab results narrative: CBC was reviewed and showed a slight leukocytosis of 11.7. Remainder was within normal limits. PT with INR and PTT were reviewed and were within normal limits. D-dimer was reviewed and was elevated at greater than 20. Basic metabolic profile was reviewed and was essentially within normal limits. Initial high-sensitivity troponin was reviewed and was normal at 8. 2-hour repeat high-sensitivity troponin was reviewed and was normal at 10. Urinalysis was reviewed and showed a leukocyte esterases of 100 with 10-25 white blood cells and positive nitrates. There is 3+ bacteria. COVID-19 rapid antigen was reviewed and was negative. Influenza A and influenza B rapid antigens were reviewed and were negative. Labs: Laboratory Results - last 24 hr 03/14/22 03/14/22 03/14/22 16:15 16:15 16:15 WBC 11.7 H RBC 4.51 Hgb 13.8 Hct 44.4 MCV 98.4 MCH 30.6 MCHC 31.1 L RDW Std Deviation 45.3 H RDW Coeff of Toney 12.5 Plt Count 250 MPV 9.9 Immature Gran % (Auto) 1.200 H Neut % (Auto) 84.9 H Lymph % (Auto) 7.4 L [place] % (Auto) 5.7 Eos % (Auto) 0.5 Baso % (Auto) 0.3 Absolute Neuts (auto) 9.9 H Absolute Lymphs (auto) 0.87 Nucleated RBC % 0 PT 13.6 INR 1.1 APTT 28.8 D-Dimer Quant (PE/DVT) > 20.00 H* Sodium 142 Potassium 4.1 Chloride 103 Carbon Dioxide 36.0 H Anion Gap 3 L BUN 21 H Creatinine 0.56 Estim Creat Clear Calc 30.61 Est GFR (MDRD) Af Amer 133 Est GFR (MDRD) Non-Af 110 BUN/Creatinine Ratio 37.6 H Glucose 114 H Calcium 9.4 Troponin I High Sens 8 Urine Color Urine Clarity Urine pH Ur Specific [place] Urine Protein Urine Glucose (UA) Urine Ketones Urine Occult Blood Urine Nitrite Urine Bilirubin Urine Urobilinogen Ur Leukocyte Esterase Urine RBC Urine WBC Ur Squamous Epith Cells Urine Bacteria Urine Mucus 03/14/22 03/14/22 17:25 18:55 WBC RBC Hgb Hct MCV MCH MCHC RDW Std Deviation RDW Coeff of Toney Plt Count MPV Immature Gran % (Auto) Neut % (Auto) Lymph % (Auto) [place] % (Auto) Eos % (Auto) Baso % (Auto) Absolute Neuts (auto) Absolute Lymphs (auto) Nucleated RBC % PT INR APTT D-Dimer Quant (PE/DVT) Sodium Potassium Chloride Carbon Dioxide Anion Gap BUN Creatinine Estim Creat Clear Calc Est GFR (MDRD) Af Amer Est GFR (MDRD) Non-Af BUN/Creatinine Ratio Glucose Calcium Troponin I High Sens 10 Urine Color Yellow Urine Clarity Clear Urine pH 5.0 Ur Specific [place] 1.020 Urine Protein 15 H Urine Glucose (UA) Normal Urine Ketones Negative Urine Occult Blood 50 Urine Nitrite POSITIVE H Urine Bilirubin Negative Urine Urobilinogen Normal Ur Leukocyte Esterase 100 H Urine RBC 0 SEEN Urine WBC 10-25 SEEN Ur Squamous Epith Cells 0 SEEN Urine Bacteria 3+ Urine Mucus 0 SEEN Radiography Diagnostic Testing: Clinical Impression(s) from Imaging Studies Brain CT 03/14/22 16:03 IMPRESSION: No acute intracranial findings. Stable senescent changes. Electronically Signed: Francisco Bran MD at 17:18 EST , Chest X-Ray 03/14/22 16:50 IMPRESSION: No radiographic evidence of acute cardiopulmonary disease. COPD. Electronically Signed: Francisco Bran MD at 17:23 EST Reading Location ID and State: [facility] / [place] Tel , Service support , Chest CTA 03/14/22 17:21 IMPRESSION: Normal CTA chest examination, without a demonstrated pulmonary embolism or arterial dissection. COPD with scattered groundglass pulmonary opacities of unknown chronicity. In the appropriate clinical setting these findings may indicate infection including atypical or viral pneumonia. Electronically Signed: Francisco Bran MD at 19:09 EST , Lumbar Spine X-Ray 03/14/22 21:00 IMPRESSION: No acute bony abnormality or significant degenerative disc disease. Electronically Signed: Francisco Bran MD at 21:26 EST , Portable 1 view chest x-ray was obtained. On my independent interpretation, lung avila show evidence of COPD but there is no acute infiltrate. There is normal cardiac silhouette. Bony thorax is normal. There is no acute process noted. Radiologist also interpreted the x-ray and agrees. X-rays of the lumbar spine were obtained. There are 3 views. On my independent interpretation, there is degenerative changes noted. There is no acute fracture or spondylolisthesis. Radiologist also interpreted the x-rays and agrees. Because of the elevated D-dimer, CTA of the chest was obtained. On my independent review, there is no evidence of pulmonary embolism or aortic dissection. Radiologist also interpreted the CTA of the chest and showed scattered ground glass pulmonary opacities of unknown chronicity. EKG Initial EKG: Attestation: I personally reviewed and interpreted this EKG as follows: Interpretation: Sinus Tachycardia (114) and Non-Specific ST Changes Comments: EKG was obtained. On my interpretation it shows a sinus tachycardia with a rate of 114. IA interval was at 148 ms. QRS interval was normal at 100 ms. QTc interval was 468 ms. There is left axis deviation at -74. There are nonspecific ST-T wave changes. This is unchanged compared to previous EKG dated 01/30/2021. Prior EKG tracings: available for review Prior: Unchanged Treatment and Re-Evaluation Narrative: Patient and family were advised of the findings. Given the patient's hypoxia, I recommended admission to the hospital. Patient was given a dose of prednisone here. Urine culture was ordered. Patient was started on Rocephin for the urinary tract infection. Case was discussed with the hospitalist. She will admit the patient to the hospital. Patient and family understood and were agreeable with the plan. All questions were answered. Discharge Plan Triage Chief Complaint: Fall ED Provider: Jose Rebolledo Dx/Rx/DC Orders Clinical Impression: Hypoxia, Acute exacerbation of chronic obstructive pulmonary disease (COPD), Urinary tract infection Prescriptions: No Action lorazepam 1 MG tablet 1 mg PO DAILY PRN PRN (Reason: Anxiety) albuterol sulfate 90 mcg/actuation HFA aerosol inhaler 1 puff INHALATION DAILY Trelegy Ellipta 100-62.5-25 mcg blister with device 1 inh INHALATION DAILY venlafaxine 37.5 mg capsule,extended release 24hr 1 mg PO DAILY Label Comments: TAKE 1 CAPSULE BY MOUTH ONCE DAILY ropinirole 0.25 mg tablet 0.25 mg PO QHS Label Comments: TAKE 1 TO 2 TABLETS BY MOUTH ONE HOUR BEFORE BEDTIME Primary Care Provider: Marcello Cobb Referrals: Marcello Cobb MD [Primary Care Provider] - Disposition Disposition: Acute Care Hospital [facility]
--- NOTE | 2022-03-14 16:03 | CT_ITS ---
INDICATION: Trauma, fall, head injury EXAMINATION: CT BRAIN - CT Head or Brain W/O Contrast Injection TECHNIQUE: Multiple axial images were obtained of the head without intravenous contrast. A radiation dose optimization technique was used for this scan. IV Contrast dosage and agent: None. COMPARISON: 01/30/2021 FINDINGS: BRAIN PARENCHYMA: No intra- or extra-axial hemorrhage. No evidence of acute infarct. No intracranial mass or mass effect. Stable volume loss with low attenuation of the periventricular white matter typical of chronic small vessel disease. Posterior fossa structures are unremarkable. CSF SPACES: Appropriate for age. No hydrocephalus. Basal cisterns are patent. CALVARIUM, SKULL BASE, PARANASAL SINUSES AND MASTOID AIR CELLS: Scattered mucoperiosteal thickening. No acute fracture. CT/Brain/Head without Contrast IMPRESSION: No acute intracranial findings. Stable senescent changes. Electronically Signed: Francisco Bran MD at 17:18 EST ,
[2022-03-14] MEDS: Ipratropium/Albuterol Sulfate 3 ML AMPUL.NEB INHALATION (16:17)
[2022-03-14 16:29] LABS: Absolute Lymphocyte Count 0.87 X10^3/uL (0.83-4.51); Absolute Neutrophil Count 9.9 X10^3/uL (2.0-7.7); Basophil# 0.04 X10^3/uL; Basophil% 0.3 % (0-1); Eosinophil# 0.06 X10^3/uL; Eosinophils% 0.5 % (0-5); Hematocrit 44.4 % (37-47); Hemoglobin 13.8 g/dL (12.0-15.0); Lymphocyte # 0.87 X10^3/ul (0.83-4.51); Lymphocyte % 7.4 % (19-41); Mean Corp Hgb Conc 31.1 g/dL (32-36); Mean Corpuscular Hgb 30.6 pg (27.0-32.0); Mean Corpuscular Volume 98.4 fL (81-99); Mean Platelet Vol. 9.9 fl (6.2-12.0); Monocyte# 0.67 X10^3/uL; Monocyte% 5.7 % (0-10); NRBC Flagged by Analyzer 0 % (0-5); Neutrophil # 9.92 X10^3/uL (2.7-7.7); Neutrophil % 84.9 % (47-70); Platelet Count 250 K/mm3 (150-450); RBC Distribution Width CV 12.5 % (11.6-14.6); RBC Distribution Width SD 45.3 fl (35.1-43.9); Red Blood Count 4.51 M/mm3 (4.2-5.4); White Blood Count 11.7 K/mm3 (4.4-11.0)
[2022-03-14 16:49] LABS: Anion Gap 3 (5-15); BUN 21 mg/dL (7-18); BUN/Creat Ratio 37.6 RATIO (10-20); Calcium,Total 9.4 mg/dL (8.5-10.1); Chloride 103 mmol/L (98-107); Creatinine, Serum 0.56 mg/dL (0.55-1.02); EST Glomerular Filtration Rate 110 mL/min (>60); Est Glom Filt Rate - Afr Amer 133 mL/min (>60); Estimated Creatinine Clearance 30.61 ml/min; Glucose 114 mg/dL (74-106); Potassium 4.1 mmol/L (3.5-5.1); Sodium Level 142 mmol/L (136-145); Troponin-I HS (w/2H Reflex) 8 pg/mL (3.0-54.0)
--- NOTE | 2022-03-14 16:50 | RAD_ITS ---
INDICATION: Dyspnea EXAMINATION/TECHNIQUE: X-RAY - portable upright AP chest x-ray COMPARISON: 12/29/2021 FINDINGS: LINES/DEVICES: None. LUNGS: Stable hyperinflation with coarsening of interstitial markings. No consolidation, vascular congestion or pleural effusion. MEDIASTINUM AND CARDIOVASCULAR STRUCTURES: Cardiac silhouette not enlarged. Central airways and mediastinal contour are unremarkable. BONES AND SOFT TISSUES: No acute changes. RAD/Chest 1 View (Portable) IMPRESSION: No radiographic evidence of acute cardiopulmonary disease. COPD. Electronically Signed: Francisco Bran MD at 17:23 EST ,
[2022-03-14 17:10] LABS: International Normalized Ratio 1.1; Partial Thromboplast Time 28.8 Seconds (24.1-36.2); Prothrombin Time (Protime)PT. 13.6 SECONDS (11.7-14.9)
[2022-03-14 17:17] LABS: D-Dimer Quantitative (DVT/PE) > 20.00 FEU/ug/m (0.27-0.49)
--- NOTE | 2022-03-14 17:18 | ED.RN ---
d-dimer eleveted provider aware.
--- NOTE | 2022-03-14 17:21 | CT_ITS ---
STUDY: CTA CHEST REASON FOR EXAM: Female, 81 years old. Dyspnea and elevated d-dimer RADIATION DOSAGE (If Supplied By Facility): CTDIvol = ( 4.75 ) mGy, DLP = ( 176.90 ) mGycm TECHNIQUE: The examination was performed with the intravenous administration of 100mL Isovue-370. Post-processing of the angiographic images was performed, with multiplanar reformation and 3D reconstruction. Individualized dose optimization techniques were used for this CT. COMPARISON: 04/06/2016 FINDINGS: Normal enhancement of the main pulmonary artery and right and left pulmonary arteries. Normal enhancement of the bilateral peripheral pulmonary arteries. There is no demonstrated pulmonary embolism. Mild ectasia ascending thoracic aorta. There is no demonstrated aortic dissection. Normal heart and pericardium. Normal mediastinum. Normal hilar regions. Normal visualized trachea and bronchi. Diffuse emphysematous changes with scattered groundglass opacities, upper lobe predominant. No consolidations or pleural effusions. Normal chest wall structures. No acute or aggressive osseous abnormality. Stable moderate hiatal hernia. No acute findings in the upper abdomen. CT/CTA Chest W/WO Contrast IMPRESSION: Normal CTA chest examination, without a demonstrated pulmonary embolism or arterial dissection. COPD with scattered groundglass pulmonary opacities of unknown chronicity. In the appropriate clinical setting these findings may indicate infection including atypical or viral pneumonia. Electronically Signed: Francisco Bran MD at 19:09 EST ,
[2022-03-14 17:40] LABS: Mucous, Urine 0 SEEN /hpf (<or=2+); Red Blood Cells-Urine 0 SEEN /hpf (0-5); Squamous Epithelial Cells - UA 0 SEEN /hpf (5-10)
[2022-03-14 17:51] LABS: Color, Urine Yellow (Yellow); Glucose, Dipstick Normal (Normal); Ketone-Dipstick Negative (Negative); Urine Bilirubin Dipstick Negative (Negative); Urine Clarity Clear (Clear)
[2022-03-14 17:52] LABS: Leukocyte Esterase-Dipstick 100 /ul (Negative); Nitrite-Dipstick POSITIVE (Negative); Occult Blood-Urine 50 /ul (Negative); Protein-Dipstick 15 mg/dl (Negative); Urine Urobilinogen Normal (Normal)
[2022-03-14 17:55] LABS: White Blood Cells 10-25 SEEN /hpf (0-5)
[2022-03-14 17:56] LABS: Bacteria 3+ /hpf (None Seen)
[2022-03-14 18:21] LABS: Reflex Troponin-HS? (from REC) Y
[2022-03-14] MEDS: LORazepam 2 MG/ML Syringe 0.5 MG IV (19:15)
[2022-03-14 19:32] LABS: Troponin-I HS 10 pg/mL (3.0-54.0)
--- NOTE | 2022-03-14 20:07 | CPS ---
CHIE[employer] INS[employer]OR holding off on Aerosal Breathing TX due to HR in the 120's. ED Dr. HILTON and nurse aware
[2022-03-14] MEDS: predniSONE 20 MG Tablet 60 MG PO (20:45)
--- NOTE | 2022-03-14 21:00 | RAD_ITS ---
INDICATION: Injury/Pain EXAMINATION/TECHNIQUE: X-RAY - XR Spine Lumbar 2 or 3 Views COMPARISON: None. FINDINGS: VERTEBRAE: Preserved vertebral body height. No acute fracture. No spondylolisthesis. Preservation of the normal lumbar lordosis. DISCS: Disc spaces are maintained. INCLUDED ABDOMEN: Residual contrast in the bilateral renal collecting systems. RAD/Lumbar Spine 2 or 3 Views IMPRESSION: No acute bony abnormality or significant degenerative disc disease. Electronically Signed: Francisco Bran MD at 21:26 EST ,
--- NOTE | 2022-03-14 21:31 | ED.RN ---
Pt d/c own IV. Another IV placed by Allegra GUAJARDO.
[2022-03-14] MEDS: Ceftriaxone 1 GM/50 ML BAG IV (22:02)
--- NOTE | 2022-03-14 23:17 | PCM.HP.STD ---
HPI - General General Date of Admission: 03/14/22 Date of Service: 03/14/22 Chief Complaint: Fall, headache, dyspnea/chest heaviness HPI Narrative The patient is an 81 y/o F w/ PMHx: COPD w/ Chronic Hypoxic Respiratory Failure (3-4L NC) with no tobacco use history but significant heavy tobacco exposure, Anxiety and Depression, RLS, Dementia unclear type with unclear behavioral disturbance history, Severe Protein-Calorie Malnutrition, Valvular Heart Disease who presents to the [facility] ED on 03/14/22 with history of onset of headache following a fall the day prior reportedly tripping and falling with no loss of consciousness although unsure if she hit her head or not with discomfort primarily on the top of her head and ongoing with some concurrent heaviness in her chest with some dyspnea associated with no recent fevers or chills however given ongoing head discomfort as well as heaviness and aching in her chest with dyspnea sensation prompted ED evaluation. Patient has had recent increased productive cough but is mostly clear she notes. She denies any marked weight gain or orthopnea. From discussion with patient and family she is chronically soft-spoken. Work-up in the ED included initially T97.5, heart 116, BP 133/84, initially presented on a nonrebreather 83% on 3 L nasal cannula eventually requiring 6 L nasal cannula to maintain 90% oxygenation with most recent vital signs heart rate 130, BP 155/93, respiratory rate 24, CBC with WBC 11.7, hemoglobin 13.8, platelet 258 with left shift, coags with D-dimer greater than 20 otherwise not marked appearing, BMP with carbon oxide 36, BUN/creat 21/0.56, glucose 114, initial troponin 8 with delta repeat 10, urinalysis with positive nitrite, leukocyte Estrace 100, urine WC is 10-25 with 3+ urine bacteria, urine culture pending per ED, rapid SARS COVID and influenza antigens negative, CT the brain with no acute intracranial findings with stable senescent changes, chest x-ray with no acute cardiopulmonary findings with chronic COPD type changes, CTPA with no obvious evidence of PE or dissection, COPD with scattered ground-glass pulmonary opacities of unknown chronicity potentially indicative of infection including atypical or viral pneumonia, EKG with ST 114 with nonspecific changes without acute evidence of ischemia, plan film of the lumbar spine with degenerative changes only. In the ED patient administered oral prednisone 60 mg x 1, Zofran 4 mg IV x1, Ativan 0.5 mg IV x1 as well as albuterol and DuoNeb therapies and IV rocephin. [facility] Medical History (Updated 03/14/22 @ 22:[address] Jose Rebolledo DO) Anxiety Anxiety and depression Chronic respiratory failure with hypoxia Emphysema lung Pulmonary fibrosis Pulmonary HTN Severe protein-calorie malnutrition Valvular heart disease Home Medications lorazepam 1 mg tablet 1 mg PO DAILY PRN PRN Anxiety 04/04/15 [History Last Taken 04/05/15] albuterol sulfate 90 mcg/actuation aerosol inhaler 1 puff inhalation DAILY shortness of breath 01/30/21 [History Last Taken Unknown] fluticasone fur. 100 mcg-umeclid 62.5 mcg-vilant 25 mcg inhalat.powder (Trelegy Ellipta) 1 inh inhalation DAILY emphysema 01/30/21 [History Last Taken Unknown] ropinirole 0.25 mg tablet 0.25 mg PO QHS 03/14/22 [History Last Taken Unknown] venlafaxine 37.5 mg capsule,extended release 24 hr 1 mg PO DAILY 03/14/22 [History Last Taken Unknown] Allergy/AdvReac Type Severity Reaction Status Date / Time Tetanus Vaccines and Toxoid Allergy Unknown Verified 03/14/22 15:58 [Tetanus Vaccines & Toxoid] Family History other other (Denies marked maternal/paternal family history including HD, DM, CA.) Surgical History History of cholecystectomy Social History (Updated 03/14/22 @ 23:[address] Kalli Malcolm MD) household members: spouse and family Smoking Status: Never smoker alcohol intake: never substance use type: does not use ROS ROS Narrative Admission Review of Systems: CONSTITUTIONAL: No weight loss, fever, chills, + weakness or fatigue. HEENT: Eyes: No visual loss, blurred vision, double vision or yellow sclerae. Ears, Nose, Throat: No hearing loss, sneezing, congestion, runny nose or sore throat. SKIN: No rash or itching, lesions, wounds. CARDIOVASCULAR: + Pleuritic discomfort, worse with coughing, No palpitations, edema, orthopnea, syncopal events. RESPIRATORY: + shortness of breath, cough with increased colorless sputum, wheezing, No hemoptysis. GASTROINTESTINAL: + anorexia, No nausea, vomiting or diarrhea, abdominal pain, melena, BRBPR. GENITOURINARY: No dysuria, frequency, urgency or retention. NEUROLOGICAL: + headache, No dizziness, syncope, paralysis, ataxia, numbness or tingling in the extremities, focal weakness, change in bowel or bladder control, seizure. MUSCULOSKELETAL: + muscle, back pain, joint pain or stiffness. HEMATOLOGIC: + Easy bleeding or bruising. LYMPHATICS: No enlarged nodes. No history of splenectomy. PSYCHIATRIC: + history of depression or anxiety. ENDOCRINOLOGIC: No reports of sweating, cold or heat intolerance. No polyuria or polydipsia. ALLERGIES: + history of rhinitis. Vital Signs Vital Signs Vital Signs: 03/14/22 15:50 03/14/22 15:58 03/14/22 15:59 Temperature 97.5 F L Temperature Source Temporal Pulse Rate 116 H Respiratory Rate 15 Respiratory Effort Respiratory Depth Respiratory Pattern Blood Pressure 133/84 H Blood Pressure Mean 100 Pulse Ox 84 88 Oxygen Delivery Method Non-Rebreather Nasal Cannula Nasal Cannula Oxygen Flow Rate (L/min) 3 4 03/14/22 15:59 03/14/22 15:59 03/14/22 16:22 Temperature Temperature Source Pulse Rate 115 H Respiratory Rate 26 H Respiratory Effort Respiratory Depth Respiratory Pattern Tachypnea Blood Pressure Blood Pressure Mean Pulse Ox 89 92 Oxygen Delivery Method Nasal Cannula Nasal Cannula Oxygen Flow Rate (L/min) 5 6 03/14/22 16:38 03/14/22 17:32 03/14/22 17:50 Temperature Temperature Source Pulse Rate 119 H Respiratory Rate 26 H Respiratory Effort Normal Non-Labored Respiratory Depth Normal Respiratory Pattern Normal Blood Pressure 159/89 H Blood Pressure Mean 112 Pulse Ox 97 91 Oxygen Delivery Method Nasal Cannula Nasal Cannula Oxygen Flow Rate (L/min) 4 4 03/14/22 19:00 03/14/22 19:31 03/14/22 19:53 Temperature 98.6 F Temperature Source Oral Pulse Rate 127 H 123 H 130 H Respiratory Rate 31 H 25 H 24 H Respiratory Effort Respiratory Depth Respiratory Pattern Blood Pressure 148/130 H 119/106 H 155/93 H Blood Pressure Mean 136 110 113 Pulse Ox 95 95 90 Oxygen Delivery Method Nasal Cannula Room Air Nasal Cannula Oxygen Flow Rate (L/min) 4 6 Weight Weight: 98 lb 8.746 oz Body Mass Index (BMI) 16.9 Physical Exam Narrative Physical Examination: General: Awake, alert, oriented to self, place and recent events, very soft-spoken which is chronic, remains cooperative, laying in the ED bed, fatigued. Skin: Normal color, normal turgor, no icterus, no cyanosis except occasional staged ecchymoses. HEENT: AT/NC, EOMI, PERRLA, dry MM, chronically soft-spoken, no carotid bruits or JVD noted. Lungs: Severely diminished, greater bases, occasional end expiratory wheeze, mildly increased respiratory rate but distress noted, no marked rhonchi or rales. Heart: Mildly tachycardic with regular rhythm; no gallop, rub audible. Abdomen: Soft, thin cachectic habitus, NTTP, ND, distant normal BS, no HSM. Extremities: No cyanosis, clubbing, or edema. Neurological: Patient awake, alert, oriented as noted, cognitive function appears baseline intact per discussion with family; pupils equally reactive to light and accommodation, cranial nerves grossly normal, moving all 4 extremities, no focal deficits, strength severely global decrease secondary to acute presentation Psychiatric: Affect appears fatigued, flat, no acute evidence of depressive or anxiety feelings. Results Lab / Micro Data Result Diagrams: 03/14/22 16:15 03/14/22 16:15 Labs: Laboratory Results - last 24 hr 03/14/22 16:15: WBC 11.7 H, RBC 4.51, Hgb 13.8, Hct 44.4, MCV 98.4, MCH 30.6, MCHC 31.1 L, RDW Std Deviation 45.3 H, RDW Coeff of Toney 12.5, Plt Count 250, MPV 9.9, Immature Gran % (Auto) 1.200 H, Neut % (Auto) 84.9 H, Lymph % (Auto) 7.4 L, Dillon % (Auto) 5.7, Eos % (Auto) 0.5, Baso % (Auto) 0.3, Absolute Neuts (auto) 9.9 H, Absolute Lymphs (auto) 0.87, Nucleated RBC % 0 03/14/22 16:15: PT 13.6, INR 1.1, APTT 28.8, D-Dimer Quant (PE/DVT) > 20.00 H* 03/14/22 16:15: Sodium 142, Potassium 4.1, Chloride 103, Carbon Dioxide 36.0 H, Anion Gap 3 L, BUN 21 H, Creatinine 0.56, Estim Creat Clear Calc 30.61, Est GFR (MDRD) Af Amer 133, Est GFR (MDRD) Non-Af 110, BUN/Creatinine Ratio 37.6 H, Glucose 114 H, Calcium 9.4, Troponin I High Sens 8 03/14/22 17:25: Urine Color Yellow, Urine Clarity Clear, Urine pH 5.0, Ur Specific [place] 1.020, Urine Protein 15 H, Urine Glucose (UA) Normal, Urine Ketones Negative, Urine Occult Blood 50, Urine Nitrite POSITIVE H, Urine Bilirubin Negative, Urine Urobilinogen Normal, Ur Leukocyte Esterase 100 H, Urine RBC 0 SEEN, Urine WBC 10-25 SEEN, Ur Squamous Epith Cells 0 SEEN, Urine Bacteria 3+, Urine Mucus 0 SEEN 03/14/22 18:55: Troponin I High Sens 10 Micro: Microbiology 03/14/22 16:35 Nasal Secretion SARS-CoV-2 & FLU Antigen (Rapid) - Final Radiology Impression Brain CT 03/14/22 16:03 IMPRESSION: No acute intracranial findings. Stable senescent changes. Electronically Signed: Francisco Bran MD at 17:18 EST , Chest X-Ray 03/14/22 16:50 IMPRESSION: No radiographic evidence of acute cardiopulmonary disease. COPD. Electronically Signed: Francisco Bran MD at 17:23 EST , Chest CTA 03/14/22 17:21 IMPRESSION: Normal CTA chest examination, without a demonstrated pulmonary embolism or arterial dissection. COPD with scattered groundglass pulmonary opacities of unknown chronicity. In the appropriate clinical setting these findings may indicate infection including atypical or viral pneumonia. Electronically Signed: Francisco Bran MD at 19:09 EST , Assessment & Plan Assessment/Plan (1) Acute exacerbation of chronic obstructive pulmonary disease (COPD): PLAN: Plan The patient is an 81 y/o F w/ PMHx: COPD w/ Chronic Hypoxic Respiratory Failure (3-4L NC) with no tobacco use history but significant heavy tobacco exposure, Anxiety and Depression, RLS, Dementia unclear type with unclear behavioral disturbance history, Severe Protein-Calorie Malnutrition, Valvular Heart Disease who presents to the [facility] ED on 03/14/22 with history of onset of headache following a fall the day prior reportedly tripping and falling with no loss of consciousness although unsure if she hit her head or not with discomfort primarily on the top of her head and ongoing with some concurrent heaviness in her chest with some dyspnea associated with no recent fevers or chills however given ongoing head discomfort as well as heaviness and aching in her chest with dyspnea sensation prompted ED evaluation. #1. Frequent falls, debility, multifactorial, likely secondary to Acute on Chronic COPD exacerbation/pulmonary fibrosis following with Dr. William with Acute Hypoxia on Chronic Hypoxic Respiratory Failure with questionable possible underlying acute viral syndrome/pneumonia/atypical pneumonia (Lower suspicion) and #2 UTI: Will admit to PCU, maintain on oxygen with wean as tolerated to home oxygen supplementation, continue ATC budesonide given therapy associated tachycardia noted in the ED, PRN albuterol, IV methylprednisolone, HOB, IS parameters, given concurrent possible UTI will maintain on IV rocephin, requesting sputum Cx, urine antigens, full respiratory viral panel, procalcitonin, BNP also requested, ECHO requested especially given significant prior valvular heart disease which certainly if worsening could be contributing, maintain on telemetry and will continue to cycle enyzmes to be cautious. #2. Possible Acute Urinary Tract Infection: Patient with no marked urinary symptoms but she has increased weakness fatigue and falls which certainly could be associated, UA upon ED evaluation remarkable, pending UCx, monitor I/Os, continue IV Rocephin w/ transition as able pending sensitivities and speciation. If no marked findings on urine culture we will de-escalate off antibiotic therapy as able. #3. Valvular heart disease: Patient with significant history of aortic disease, most recent ECHO noted 12/14/14 w/ EF 65%, mild concentric LVH, stage I diastolic dysfunction, RVSP 40 mmHg, mild pulmonary hypertension, moderate aortic stenosis based on valve inspection. Repeat ECHO requested. #4. Dementia, unclear type with unclear behavioral disturbance history: Complicates presentation, maintain on fall and aspiration precautions, therapies and case management consulted for discharge planning. #5. Severe protein calorie malnutrition: Evidenced by significantly reduced BMI, obvious muscle and fat loss, nutrition consulted. #6. Anxiety and depression: We will continue patient home venlafaxine as well as Ativan regimen. #7. Restless leg syndrome: We will continue nightly Requip regimen. #8. DVT prophylaxis: SCDs, renally dosed lovenox. #9. CODE status: Patient's spouse and her daughter are present. Discussed CODE status at length including difference between FULL code, DNR-CCA and DNR-CC status. Following discussions about the differences in these status, requested Full Code status. Discussed given patient's advanced age and underlying history certainly would have a poor prognosis if patient did have a cardiopulmonary arrest event and family and patient noted understanding this. Advanced Care Planning Face to Face Time: 16 minutes. Admission Evaluation Time spent evaluating chart, patient history, patient evaluation, care planning and discussion with specialists: 76 minutes. Charges/Coding Visit Charges Inpatient E&M: 12530 Init Hosp L3 Procedures Hospitalists Procedures: 87131 Advncd Care Plan 30 Min
--- NOTE | 2022-03-14 23:26 | ECHOD_ITS ---
Reason For Study: OTHER Procedure This was a 2D Doppler, Color Flow transthoracic echocardiogram. The study was technically difficult. Exam performed portable in patient room. Left Ventricle Based upon the 2D echocardiographic images obtained there appears to be normal left ventricular size, wall motion, and systolic function. The estimated ejection fraction is 65 %. Stage 2 diastolic dysfunction. Right Ventricle Based upon the 2D echocardiographic images obtained there appears to be normal right ventricular size and systolic function. Atria Normal left atrium. Normal right atrium. No doppler evidence for ASD. Mitral Valve There is mild mitral annular calcification. Normal mitral valve. Trivial mitral valve insufficiency. Tricuspid Valve Normal tricuspid valve. Moderate (2+) tricuspid valve insufficiency. Right ventricular systolic pressure estimated to be 52 mmHg. Aortic Valve Trisinus/trileaflet aortic valve. Severe diffuse aortic valve calcification. Moderate to severe calcific aortic valve stenosis. Pulmonic Valve The pulmonic valve is not well visualized. Great Vessels Normal sized aortic root. Pericardium/Pleural No pericardial effusion. MMode/2D Measurements & Calculations LVIDd: 3.3 cm IVSd: 0.74 cm Ao root diam: 3.0 cm LVIDs: 1.8 cm LVPWd: 0.98 cm RVDd: 2.8 cm FS: 45.9 % LAV(MOD-bp): 23.0 ml LA A4 area: 10.1 cm2 LA dimension(2D): 3.1 cm LAV(MOD-bp) Indexed: 16.2 ml/m2 LAV(MOD-sp2): 22.7 ml LAV(MOD-sp4): 20.7 ml Time Measurements MV dec time: 0.23 sec Doppler Measurements & Calculations MV E max bret: 65.0 cm/sec Lat Peak E' Bret: 8.8 cm/sec Med Peak E' Bret: 4.1 cm/sec MV A max bret: 108.4 cm/sec E/E' lat: 7.4 E/E' med: 16.0 MV E/A: 0.60 Ao V2 max: 314.3 cm/sec LV V1 max: 85.7 cm/sec PA V2 max: 80.3 cm/sec Ao max P.7 mmHg LV V1 max P.9 mmHg Ao V2 mean: 238.8 cm/sec LV V1 mean P.8 mmHg Ao mean P.0 mmHg LV V1 mean: 65.6 cm/sec Ao V2 VTI: 50.8 cm LV V1 VTI: 14.0 cm AV (velocity ratio): 0.28 TR max bret: 350.0 cm/sec TR max P.0 mmHg ECHO/Echo Complete Interpretation Summary The study was technically difficult. Based upon the 2D echocardiographic images obtained there appears to be normal left ventricular size, wall motion, and systolic function. The estimated ejection fraction is 65 %. There is mild mitral annular calcification. Trivial mitral valve insufficiency. Moderate (2+) tricuspid valve insufficiency. Moderate to severe calcific aortic valve stenosis. Right ventricular systolic pressure estimated to be 52 mmHg c/w pulmonary hyper tension. Stage 2 diastolic dysfunction. Ordering Physician: Kalli Malcolm Referring Physician: Marcello Cobb Performed By: Lisbeth Carson RDCS, RVT
[2022-03-14 23:43] LABS: BNP,B-Type NATRIURETIC PEPTIDE 21.1 pg/mL (0-100)
[2022-03-15] VITALS (25 sets, daily range): BP systolic 100–146; BP diastolic 72–98; PULSE 114–140; RESP 11–30; TEMP 36.5–37.1; O2SAT 90–100
[2022-03-15 00:54] LABS: Troponin-I HS 10 pg/mL (3.0-54.0)
[2022-03-15 00:59] LABS: Procalcitonin 0.05 ng/mL (0.00-0.09)
[2022-03-15] MEDS: Pramipexole Di-HCl 0.125 MG Tablet PO ×2 (01:20→22:22)
[2022-03-15] MEDS: 0.9% Saline Lock 10 ML Syringe IV ×2 (02:43→05:38)
[2022-03-15 04:48] LABS: Absolute Lymphocyte Count 0.47 X10^3/uL (0.83-4.51); Absolute Neutrophil Count 8.5 X10^3/uL (2.0-7.7); Basophil# 0.01 X10^3/uL; Basophil% 0.1 % (0-1); Hematocrit 40.3 % (37-47); Hemoglobin 12.8 g/dL (12.0-15.0); Lymphocyte # 0.47 X10^3/ul (0.83-4.51); Lymphocyte % 5.2 % (19-41); Mean Corp Hgb Conc 31.8 g/dL (32-36); Mean Corpuscular Hgb 30.4 pg (27.0-32.0); Mean Corpuscular Volume 95.7 fL (81-99); Mean Platelet Vol. 10.4 fl (6.2-12.0); Monocyte# 0.08 X10^3/uL; Monocyte% 0.9 % (0-10); NRBC Flagged by Analyzer 0 % (0-5); Neutrophil # 8.49 X10^3/uL (2.7-7.7); Neutrophil % 93.4 % (47-70); POSITIVE DIFFERENTIAL YES; Platelet Count 232 K/mm3 (150-450); RBC Distribution Width CV 12.5 % (11.6-14.6); RBC Distribution Width SD 43.7 fl (35.1-43.9); Red Blood Count 4.21 M/mm3 (4.2-5.4); White Blood Count 9.1 K/mm3 (4.4-11.0)
[2022-03-15 04:54] LABS: Differential Indicated SCAN CRITERIA MET
[2022-03-15 05:31] LABS: ALB/GLOB Ratio 0.9 RATIO (0.9-2.4); AST(SGOT) 23 U/L (15-37); Alanine Aminotransfer ALT/SGPT 19 U/L (13-56); Albumin, Serum 3.2 g/dL (3.2-5.0); Alkaline Phosphatase 92 U/L (45-117); Anion Gap 8 (5-15); BUN 19 mg/dL (7-18); Calcium,Total 8.6 mg/dL (8.5-10.1); Chloride 103 mmol/L (98-107); Creatinine, Serum 0.48 mg/dL (0.55-1.02); EST Glomerular Filtration Rate 133 mL/min (>60); Est Glom Filt Rate - Afr Amer 161 mL/min (>60); Estimated Creatinine Clearance 29.51 ml/min; Globulin 3.4 g/dL (2.2-4.2); Glucose 143 mg/dL (74-106); Potassium 4.2 mmol/L (3.5-5.1); Protein, Total 6.6 g/dL (6.4-8.2); Sodium Level 142 mmol/L (136-145)
[2022-03-15] MEDS: Budesonide Respules 0.5 MG/2 ML AMPUL.NEB. INHALATION ×2 (07:47→19:07)
--- NOTE | 2022-03-15 07:56 | PN.HOSP_ITS ---
Subjective Subjective Follow-up generalized debility, fall, chest heaviness and mild dyspnea Objective Data Objective Data Vital Signs: Vital Signs Temp Pulse Resp BP Pulse Ox O2 Del Method O2 Flow Rate 97.8 F 114 H 27 H 145/98 H 99 Nasal Cannula 5 03/15/22 06:00 03/15/22 07:00 03/15/22 06:00 03/15/22 06:00 03/15/22 06:00 03/15/22 06:00 03/15/22 06:00 Oxygen Flow Rate (L/min) 5 Oxygen Delivery Method Nasal Cannula Weight: 95 lb 0.308 oz Body Mass Index (BMI) 16.8 Intake & Output: Intake and Output for Last 24 Hours 03/13/22 03/14/22 03/15/22 23:59 23:59 23:59 Intake Total 50 / 50 500 / 500 Balance 50 / 50 500 / 500 Lab / Micro Data Result Diagrams: 03/15/22 03:52 03/15/22 03:52 Labs: Laboratory Results - last 24 hr 03/14/22 16:15: WBC 11.7 H, RBC 4.51, Hgb 13.8, Hct 44.4, MCV 98.4, MCH 30.6, MCHC 31.1 L, RDW Std Deviation 45.3 H, RDW Coeff of Toney 12.5, Plt Count 250, MPV 9.9, Immature Gran % (Auto) 1.200 H, Neut % (Auto) 84.9 H, Lymph % (Auto) 7.4 L, [place] % (Auto) 5.7, Eos % (Auto) 0.5, Baso % (Auto) 0.3, Absolute Neuts (auto) 9.9 H, Absolute Lymphs (auto) 0.87, Nucleated RBC % 0 03/14/22 16:15: PT 13.6, INR 1.1, APTT 28.8, D-Dimer Quant (PE/DVT) > 20.00 H* 03/14/22 16:15: Sodium 142, Potassium 4.1, Chloride 103, Carbon Dioxide 36.0 H, Anion Gap 3 L, BUN 21 H, Creatinine 0.56, Estim Creat Clear Calc 30.61, Est GFR (MDRD) Af Amer 133, Est GFR (MDRD) Non-Af 110, BUN/Creatinine Ratio 37.6 H, Glucose 114 H, Calcium 9.4, Troponin I High Sens 8 03/14/22 16:15: B-Natriuretic Peptide 21.1 03/14/22 16:15: Procalcitonin 0.05 03/14/22 17:25: Urine Color Yellow, Urine Clarity Clear, Urine pH 5.0, Ur Specific [place] 1.020, Urine Protein 15 H, Urine Glucose (UA) Normal, Urine Ketones Negative, Urine Occult Blood 50, Urine Nitrite POSITIVE H, Urine Bilirubin Negative, Urine Urobilinogen Normal, Ur Leukocyte Esterase 100 H, Urine RBC 0 SEEN, Urine WBC 10-25 SEEN, Ur Squamous Epith Cells 0 SEEN, Urine Bacteria 3+, Urine Mucus 0 SEEN 03/14/22 18:55: Troponin I High Sens 10 03/15/22 00:03: Troponin I High Sens 10 03/15/22 03:52: WBC 9.1, RBC 4.21, Hgb 12.8, Hct 40.3, MCV 95.7, MCH 30.4, MCHC 31.8 L, RDW Std Deviation 43.7, RDW Coeff of Toney 12.5, Plt Count 232, MPV 10.4, Immature Gran % (Auto) 0.400, Neut % (Auto) 93.4 H, Lymph % (Auto) 5.2 L, [place] % (Auto) 0.9, Eos % (Auto) 0.0, Baso % (Auto) 0.1, Absolute Neuts (auto) 8.5 H, Absolute Lymphs (auto) 0.47 L, Nucleated RBC % 0 03/15/22 03:52: Sodium 142, Potassium 4.2, Chloride 103, Carbon Dioxide 31.0, Anion Gap 8, BUN 19 H, Creatinine 0.48 L, Estim Creat Clear Calc 29.51, Est GFR (MDRD) Af Amer 161, Est GFR (MDRD) Non-Af 133, BUN/Creatinine Ratio 40.0 H, Glucose 143 H, Calcium 8.6, Total Bilirubin 0.60, AST 23, ALT 19, Alkaline Phosphatase 92, Total Protein 6.6, Albumin 3.2, Globulin 3.4, Albumin/Globulin Ratio 0.9 Micro: Microbiology 03/15/22 03:25 Mucosa - Nasopharyngeal Respiratory Panel (PCR) - Final 03/14/22 16:35 Nasal Secretion SARS-CoV-2 & FLU Antigen (Rapid) - Final Radiography Diagnostic Testing: Radiology Impression Brain CT 03/14/22 16:03 IMPRESSION: No acute intracranial findings. Stable senescent changes. Electronically Signed: Francisco Bran MD at 17:18 EST , Chest X-Ray 03/14/22 16:50 IMPRESSION: No radiographic evidence of acute cardiopulmonary disease. COPD. Electronically Signed: Francisco Bran MD at 17:23 EST , Chest CTA 03/14/22 17:21 IMPRESSION: Normal CTA chest examination, without a demonstrated pulmonary embolism or arterial dissection. COPD with scattered groundglass pulmonary opacities of unknown chronicity. In the appropriate clinical setting these findings may indicate infection including atypical or viral pneumonia. Electronically Signed: Francisco Bran MD at 19:09 EST , Lumbar Spine X-Ray 03/14/22 21:00 IMPRESSION: No acute bony abnormality or significant degenerative disc disease. Electronically Signed: Francisco Bran MD at 21:26 EST , Physical Exam Narrative Patient fell down. Does not remember well. I talked to the patient's daughter and she has some vocal cord paralysis and her voice is too low. She answers questions mainly by nodding head. Denies burning micturition or new urinary tract symptoms. Physical exam General: Mildly lethargic. Awake on voice command. Orientation cannot be ascertained HEENT: Atraumatic, PERRLA, EOMI, Normocephalic Oral: White exudate on bilateral lateral pharyngeal wall. Uvula Moves more to the right. No Gingival or oral ulcerations Neck: Supple, No JVD, Negative Carotid Bruits Lungs: Air entry diminished in bilateral lung bases. No crepitation/rhonchi Cardiovascular: Regular rate, Regular Rhythm, Normal S1, Normal S2, No murmurs Abdomen: Bowel Sounds Present, Soft, Non Tender, Non-Distended : No renal angle tenderness. No suprapubic tenderness. Extremities: No edema, Capillary Refill Less than 3 Seconds Skin: No rashes, No breakdown Musculoskeletal: No Tenderness to Palpation of Joints or Extremities, muscle strength 4/5 at knee and hip joints. Moderate muscle atrophy of extremities. Neurological: Cranial nerves II-XII grossly intact, DTR 2+/4. Psych/Mental Status: Flat affect. Assessment & Plan Assessment/Plan (1) Acute exacerbation of chronic obstructive pulmonary disease (COPD): PLAN: Plan The patient is an 81 y/o F who was admitted with headache after a fall day prior due to trip with no loss of consciousness. Unclear whether she hit her head. Patient has mild chest heaviness and dyspnea but no fever or chill. #1. Frequent falls, debility multifactorial due to COPD exacerbation, pulmonary fibrosis, chronic hypoxic respiratory failure with suspicion of atypical or viral pneumonia: Brain CT does not show acute intracranial finding. Chest x-ray no radiographic evidence of acute cardiopulmonary process but COPD. Chest CTA was done which did not show PE or arterial dissection. It showed scattered groundglass opacity of unknown chronicity but may indicate have atypical or viral pneumonia. Pneumonia work-up is ordered with a sputum culture. Antibiotics, respiratory pa misty. Patient on bronchodilator, budesonide, oxygen therapy. IV Rocephin for possible UTI. #2. Suspicion of UTI: Patient does not have acute urinary tract symptoms including burning micturition but might have atypical symptoms of fall and fatigue. Urine culture has been ordered. On empirically IV Rocephin #3. Valvular heart disease: Patient with significant history of aortic disease, most recent ECHO noted 12/14/14 w/ EF 65%, mild concentric LVH, stage I diastolic dysfunction, RVSP 40 mmHg, mild pulmonary hypertension, moderate aortic stenosis based on valve inspection. Repeat ECHO requested. #4. Dementia, unclear type with unclear behavioral disturbance history: Complicates presentation, maintain on fall and aspiration precautions, therapies and case management consulted for discharge planning. #5. Severe protein calorie malnutrition: Evidenced by significantly reduced BMI, obvious muscle and fat loss, nutrition consulted. #6. Anxiety and depression: We will continue patient home venlafaxine as well as Ativan regimen. #7. Restless leg syndrome: We will continue nightly Requip regimen. #8. DVT prophylaxis: SCDs, renally dosed lovenox. #9. CODE status: Patient's spouse and her daughter are present. Discussed CODE status at length including difference between FULL code, DNR-CCA and DNR-CC status. Following discussions about the differences in these status, requested Full Code status. Charges/Coding Visit Charges Inpatient E&M: 13103 Subs Hosp L2
[2022-03-15] MEDS: Enoxaparin 30 MG/0.3 ML Syringe SC (08:48)
[2022-03-15] MEDS: Venlafaxine XR 37.5 MG Capsule PO (08:48)
[2022-03-15] MEDS: Ensure Plus High Protein 120 ML LIQUID PO ×2 (08:48→16:29)
[2022-03-15] MEDS: LORazepam 1 MG Tablet PO (10:02)
--- NOTE | 2022-03-15 15:00 | CASEMGMT ---
BENNETT CORONADO Face to Face with patient for initial transition planning/care coordination assessment. RN CM introduced self and role at [facility]. Patient lying in bed, alert and oriented, and daughter at bedside. Patient willing to participate in assessment and is able to answer all questions appropriately. Care providers, pharmacy, and demographics verified. Patient wishes to discharge home, denies need for home health at this time. Patient states she has no further needs or concerns at this time. CM to follow for discharge planning needs that may arise. PCP: Reza Specialists: Nataliia Marcelo Pharmacy: [facility] Insurance: [employer] [facility] Prescription Benefit: yes Living Will/HPOA: none LNOK: , daughter Living Arrangements: Patient lives with and daughter in a 2 story home with bed and bath on first floor, 5 steps and railing to enter the home. Daughter assists patient with ADLs. Transportation: DME/HHC: Patient has cane, walker, wheelchair, pulse ox, and home oxygen through [facility] with portability at 3-4lpm. No previous HHC or SNF. Patient declining HHC at this time. Disposition Plan: Patient to discharge home with family support and follow-up plans in place. Angelica PURI, RN, CM
--- NOTE | 2022-03-15 15:38 | CHAPLAIN ---
Type of Pastoral Visit _x__ Initial Visit ___ Follow-up Visit ___ On-call Visit ___ General Patient Visit ___ Spiritual Assessment ___ Family Conference ___ Bereavement ___ Rapid Response ___ Code Blue ___ Other (describe below) Pastoral Care Referral From _x__ Patient ___ Family ___ Nurse ___ Physician ___ Shoe Patternmaker ___ Commercial Construction Superintendent ___ Other (describe below) Sacrament/Intervention ___ Active listening ___ Anointing ___ Scientology ___ Bereavement ___ Communion ___ Tatyana exploration ___ ___ Life review _x__ Prayer ___ Reconciliation ___ Sacrament of Sick _x__ Supportive presence ___ Wedding ___ Other (describe below) Pastoral Comments patient has a very weak and low voice; daughter is able to answer questions about her situation; spouse of pt is also in the room; pt goal is to go home; familiy agrees that this is best; patient requests prayer; no other needs identified
[2022-03-15] MEDS: busPIRone 5 MG Tablet PO ×2 (16:29→22:22)
[2022-03-15] MEDS: LORazepam 0.5 MG Tablet PO (22:22)
[2022-03-15] MEDS: Ceftriaxone 1 GM/50 ML BAG IV (22:34)
[2022-03-16] VITALS (10 sets, daily range): BP systolic 111–140; BP diastolic 68–87; PULSE 96–123; RESP 17–20; TEMP 36.6–37; O2SAT 91–100
[2022-03-16] MEDS: busPIRone 5 MG Tablet PO ×2 (05:37→15:03)
[2022-03-16] MEDS: Acetaminophen 325 MG Tablet 650 MG PO (05:37)
[2022-03-16] MEDS: LORazepam 0.5 MG Tablet PO ×2 (05:37→15:03)
[2022-03-16] MEDS: Budesonide Respules 0.5 MG/2 ML AMPUL.NEB. INHALATION (06:44)
--- NOTE | 2022-03-16 07:58 | PN.HOSP_ITS ---
Objective Data Objective Data Vital Signs: Vital Signs Temp Pulse Resp BP Pulse Ox O2 Del Method O2 Flow Rate 97.9 F 111 H 18 125/80 H 97 Nasal Cannula 2 03/16/22 07:00 03/16/22 07:00 03/16/22 07:00 03/16/22 07:00 03/16/22 07:00 03/16/22 07:00 03/16/22 07:00 Oxygen Flow Rate (L/min) 2 Oxygen Delivery Method Nasal Cannula Weight: 93 lb 4.089 oz Body Mass Index (BMI) 16.8 Intake & Output: Intake and Output for Last 24 Hours 03/14/22 03/15/22 03/16/22 23:59 23:59 23:59 Intake Total 50 / 50 550 / 550 Balance 50 / 50 550 / 550 Medical Nutrition Assessment Dietitian: Malnutrition Criteria Met Start: 03/15/22 11:45 Freq: Status: Active Protocol: Document 03/15/22 11:45 AG (Rec: 03/15/22 11:45 AG [id number]) Nutrition Malnutrition Evidence of Malnutrition Exists Yes Malnutrition (severe): Chronic Evidenced By Suboptimal Energy Intake ( Severe),Physical Changes ( Severe) Clinical Problem Chronic Disease or Condition Related Malnutrition Etiology chronic severe malnutrition related to advanced age, dementia Signs/Symptoms as evidenced by reported poor PO intake meeting <75% of estimated energy needs > 3 months; Severe muscle wasting/ fat loss evident per physical exam in orbital, clavicle, acromion, and temporal areas; BMI 16.8 Status Active Problem Recommendation Dietitian Recommendations/Changes regular diet; will fortify foods w/ meals and adjust ensure to 120mL 4x/day w/ medpass for additional calories/protein if consumed. Lab / Micro Data Result Diagrams: 03/15/22 03:52 03/15/22 03:52 Micro: Microbiology 03/14/22 17:25 Urine Catheter - Catheter Urine Culture - Final Presumptive E. coli 03/14/22 17:25 Urine Catheter - Catheter Legionella Antigen - Final 03/14/22 17:25 Urine Catheter - Catheter Streptococcus pneumoniae Antigen (M - Final 03/15/22 03:25 Mucosa - Nasopharyngeal Respiratory Panel (PCR) - Final 03/14/22 16:35 Nasal Secretion SARS-CoV-2 & FLU Antigen (Rapid) - Final Radiography Diagnostic Testing: Radiology Impression Echocardiogram 03/14/22 23:26 Interpretation Summary The study was technically difficult. Based upon the 2D echocardiographic images obtained there appears to be normal left ventricular size, wall motion, and systolic function. The estimated ejection fraction is 65 %. There is mild mitral annular calcification. Trivial mitral valve insufficiency. Moderate (2+) tricuspid valve insufficiency. Moderate to severe calcific aortic valve stenosis. Right ventricular systolic pressure estimated to be 52 mmHg c/w pulmonary hypertension. Stage 2 diastolic dysfunction. Ordering Physician: Kalli Malcolm Referring Physician: Marcello Cobb Performed By: Lisbeth Carson, RDCS, RVT Physical Exam Narrative Patient fell down. Does not remember well. I talked to the patient's daughter and she has some vocal cord paralysis and her voice is too low. She answers questions mainly by nodding head. Denies burning micturition or new urinary tract symptoms. Physical exam General: Mildly lethargic. Awake on voice command. Orientation cannot be ascertained HEENT: Atraumatic, PERRLA, EOMI, Normocephalic Oral: White exudate on bilateral lateral pharyngeal wall. Uvula Moves more to the right. No Gingival or oral ulcerations Neck: Supple, No JVD, Negative Carotid Bruits Lungs: Air entry diminished in bilateral lung bases. No crepitation/rhonchi Cardiovascular: Regular rate, Regular Rhythm, Normal S1, Normal S2, No murmurs Abdomen: Bowel Sounds Present, Soft, Non Tender, Non-Distended : No renal angle tenderness. No suprapubic tenderness. Extremities: No edema, Capillary Refill Less than 3 Seconds Skin: No rashes, No breakdown Musculoskeletal: No Tenderness to Palpation of Joints or Extremities, muscle strength 4/5 at knee and hip joints. Moderate muscle atrophy of extremities. Neurological: Cranial nerves II-XII grossly intact, DTR 2+/4. Psych/Mental Status: Flat affect. Assessment & Plan Assessment/Plan (1) Acute exacerbation of chronic obstructive pulmonary disease (COPD): PLAN: Plan The patient is an 81 y/o F who was admitted with headache after a fall day prior due to trip with no loss of consciousness. Unclear whether she hit her head. Patient has mild chest heaviness and dyspnea but no fever or chill. #1. Frequent falls, debility multifactorial due to COPD exacerbation, pulmonary fibrosis, chronic hypoxic respiratory failure with suspicion of atypical or viral pneumonia: Brain CT does not show acute intracranial finding. Chest x-ray no radiographic evidence of acute cardiopulmonary process but COPD. Chest CTA was done which did not show PE or arterial dissection. It showed scattered groundglass opacity of unknown chronicity but may indicate have atypical or viral pneumonia. Pneumonia work-up is ordered with a sputum culture. Antibiotics, respiratory panel. Patient on bronchodilator, budesonide, oxygen therapy. IV Rocephin for possible UTI. #2. Suspicion of UTI: Patient does not have acute urinary tract symptoms including burning micturition but might have atypical symptoms of fall and fatigue. Urine culture has been ordered. On empirically IV ceftriaxone 03/16: Urine culture preliminary shows E. coli more than 100,000 ESBL negative, pansensitive. Continue IV ceftriaxone #3. Valvular heart disease: Patient with significant history of aortic disease, most recent ECHO noted 12/14/14 w/ EF 65%, mild concentric LVH, stage I diastolic dysfunction, RVSP 40 mmHg, mild pulmonary hypertension, moderate aortic stenosis based on valve inspection. 03/16: Echo on 03/15 showed EF 65%, stage II diastolic dysfunction, 2+ TR, RVSP 52 mmHg, suggestive of moderate pulmonary hypertension #4. Dementia, unclear type with unclear behavioral disturbance history: Complicates presentation, maintain on fall and aspiration precautions, therapies and case management consulted for discharge planning. #5. Severe protein calorie malnutrition: Evidenced by significantly reduced BMI, obvious muscle and fat loss, nutrition consulted. #6. Anxiety and depression: We will continue patient home venlafaxine as well as Ativan regimen. #7. Restless leg syndrome: We will continue nightly Requip regimen. #8. DVT prophylaxis: SCDs, renally dosed lovenox. #9. CODE status: Patient's spouse and her daughter are present. Discussed CODE status at length including difference between FULL code, DNR-CCA and DNR-CC st [facility]. Following discussions about the differences in these status, requested Full Code status.
[2022-03-16] MEDS: Venlafaxine XR 37.5 MG Capsule PO (08:37)
[2022-03-16] MEDS: predniSONE 20 MG Tablet 40 MG PO (08:38)
[2022-03-16] MEDS: Enoxaparin 30 MG/0.3 ML Syringe SC (08:39)
--- NOTE | 2022-03-16 11:53 | DCINST_ITS ---
Discharge Instructions Diet Discharge Diet: No restrictions Activity Discharge Activity: Return to Normal Activity Weight Bearing Status: Weight bearing as tolerated Dressing / Incision Call your doctor if you observe: Fever of 101 or Higher, Coldness, Increased Pain, Numbness or Tingling, Change in Color, Inability to urinate, Inability to have a bowel movement, Using more than 1 pad per hour, Shortness of breath, Dizziness, Fainting spells, Swelling in the ankles, Chest pain, Prolonged hiccupping, Increased palpitations (irregular heartbeat) and Calf discomfort Follow Up Care When: IN 2 WEEKS Test Results: Test results from this visit will be discussed in further detail at your follow- up appointment, if applicable. Discharge Plan Admission Admit Date/Time: 03/14/22 21:33 Primary Reason for Your Visit: Fall, mild COPD exacerbation, E. coli UTI UTI Attending Provider: Edmar Orlando Primary Care Provider: Marcello Cobb Consulting Providers: Kalli Malcolm Discharge Orders/Prescriptions Prescriptions: New metoprolol tartrate 25 mg Tablet 12.5 mg PO BID 30 Days Qty: 30 0RF Rx Instructions: Hold for heart less than 60 or systolic blood pressure less than 100 mmHg. sulfamethoxazole-trimethoprim [Bactrim DS] 800-160 mg tablet 1 tab PO BID 3 Days Qty: 6 0RF Continued albuterol sulfate 90 mcg/actuation HFA aerosol inhaler 1 puff INHALATION DAILY Trelegy Ellipta 100-62.5-25 mcg blister with device 1 inh INHALATION DAILY venlafaxine 37.5 mg capsule,extended release 24hr 1 mg PO DAILY Label Comments: TAKE 1 CAPSULE BY MOUTH ONCE DAILY ropinirole 0.25 mg tablet 0.25 mg PO QHS Label Comments: TAKE 1 TO 2 TABLETS BY MOUTH ONE HOUR BEFORE BEDTIME Changed lorazepam 1 MG tablet 0.5 mg PO TID PRN (Reason: Anxiety) Qty: 5 0RF Referrals / Follow Up: Marcello Cobb MD [Primary Care Provider] - Within 2 Weeks Disposition Disposition (needs filled in before D/C Order can be placed): Home Health Service
--- NOTE | 2022-03-16 12:17 | PCM.DC.SUM ---
Providers Date of Admission: 03/14/22 Date of Discharge: 03/16/22 Primary Care Physician: Dr. Marcello Cobb MD Reason For Visit: ACUTE HYPOXIA ON CHRONIC, COPD EXAC, UTI Diagnosis Discharge Diagnosis (1) Acute exacerbation of chronic obstructive pulmonary disease (COPD): Status: Chronic Code(s): J44.1 - Chronic obstructive pulmonary disease with (acute) exacerbation Medications at Discharge Home Medications albuterol sulfate 90 mcg/actuation aerosol inhaler 1 puff inhalation DAILY shortness of breath 01/30/21 fluticasone fur. 100 mcg-umeclid 62.5 mcg-vilant 25 mcg inhalat.powder (Trelegy Ellipta) 1 inh inhalation DAILY emphysema 01/30/21 ropinirole 0.25 mg tablet 0.25 mg PO QHS restless legs 03/14/22 venlafaxine 37.5 mg capsule,extended release 24 hr 1 mg PO DAILY mental health 03/14/22 lorazepam 1 mg tablet 0.5 mg PO TID PRN Anxiety #5 tabs 03/16/22 metoprolol tartrate 25 mg tablet 12.5 mg PO BID 30 days #30 tabs 03/16/22 sulfamethoxazole 800 mg-trimethoprim 160 mg tablet (Bactrim DS) 1 tab PO BID 3 days #6 tabs 03/16/22 Hospital Course Summary of Care Provided Hospital Course: The patient is an 81 y/o F who was admitted with headache after a fall day prior due to trip? with no loss of consciousness.? Unclear whether she hit her head.? Patient has mild chest heaviness and dyspnea but no fever or chill. #1.? Frequent falls, debility multifactorial due to COPD exacerbation, pulmonary fibrosis, chronic hypoxic respiratory failure with suspicion of atypical or viral pneumonia: Brain CT does not show acute intracranial finding.? Chest x-ray no radiographic evidence of acute cardiopulmonary process but COPD.? Chest CTA was done which did not show PE or arterial dissection.? It showed scattered groundglass opacity of unknown chronicity but may indicate have atypical or viral pneumonia. Pneumonia work-up is ordered with a sputum culture.? Antibiotics, respiratory panel. Patient on bronchodilator, budesonide, oxygen therapy.? On ceftriaxone 03/16: Discussed with patient's daughter. Patient daughter prefers home with home health care. Patient respiratory status is improved. IV Solu-Medrol discontinued #she gets very tachycardic. Patient has a scheduled Trelegy at home and albuterol inhaler. COPD exacerbation was very mild. Respiratory panel is negative. Patient is sinus tachycardic, heart rate 120/min but controlled on metoprolol IV 1 dose. Discharged on low-dose metoprolol 12.5 mg twice daily with holding parameters. I think her sinus tachycardia may be multifactorial, aortic stenosis, respiratory driven, physiologic, deconditioned and valvular heart disease. #2.? E. coli ESBL cystitis/lower UTI: Patient does not have acute urinary tract symptoms including burning micturition but might have atypical symptoms of fall and fatigue.? Urine culture has been ordered.? On empirically IV Rocephin 03/16: Urine culture shows E. coli more than 100,000 colonies. Patient had 2 doses of IV ceftriaxone. Discharged on 3 more days of Bactrim DS. #3.? Valvular heart disease: Patient with significant history of aortic stenosis, most recent ECHO noted 12/14/14 w/ EF 65%, mild concentric LVH, stage I diastolic dysfunction, RVSP 40 mmHg, mild pulmonary hypertension, moderate aortic stenosis based on valve inspection. Repeat ECHO requested. 03/16 one 2D echo was done. EF 65%, 2+ TR, RVSP 52 mmHg consistent with pulmonary hypertension, stage II diastolic dysfunction, moderate to severe calcific aortic valve stenosis with mild mitral annular calcification and trivial MR. Based on echo report it seems her aortic valve stenosis severity increased. Follow-up with physical meteorologist as an outpatient but patient has restricted mobility and dementia therefore do not think she is a candidate for surgical evaluation of severe aortic stenosis. #4.? Dementia, unclear type with unclear behavioral disturbance history: Complicates presentation, maintain on fall and aspiration precautions, therapies and case management consulted for discharge planning. #5.? Severe protein calorie malnutrition: Evidenced by significantly reduced BMI, obvious muscle and fat loss, nutrition consulted. #6.? Anxiety and depression: We will continue patient home venlafaxine as well as Ativan regimen. #7.? Restless leg syndrome: We will continue nightly Requip regimen. #8.? DVT prophylaxis: SCDs, renally dosed lovenox. #9.? CODE status: Patient's daughter are present. Discussed CODE status at length including difference between FULL code, DNR-CCA and DNR-CC status. Following discussions about the differences in these status, requested Full Code status.? I explained detail regarding complications of CPR with her deconditioning and physical and mental status along with intubation ventilator and other resuscitative measures but she wants to keep full code and will discuss with patient's who is POA Discharge medication reconciliation done. Discharge follow-up instructions completed. Discharge process discussed with the patient and all questions were answered to patient's satisfaction. Home with home health. Total time spent, exact 35 minutes on discharge meds reconciliation, examination, coordination of care with nurses and ancillary staff, review of imaging and blood test and discussion with the patient on follow-up instructions. Physical Exam Narrative Seen and examined. Very limited data to direct interaction with patient as she is mostly sleepy and has advanced dementia. Patient is more awake and alert as compared to yesterday. I talked to the patient's daughter and she has some vocal cord paralysis and her voice is too low. 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 Orientation cannot be ascertained HEENT: Atraumatic, PERRLA, EOMI, Normocephalic Oral: White exudate on bilateral lateral pharyngeal wall. Uvula Moves more to the right.? No Gingival or oral ulcerations Neck: Supple, No JVD, Negative Carotid Bruits Lungs:? Air entry diminished in bilateral lung bases.? No crepitation/rhonchi Cardiovascular: Sinus tachycardia, low intensity heart sounds. Systolic murmur over right second ICS and LLSB. Abdomen: Bowel Sounds Present, Soft, Non Tender, Non-Distended : No dysuria. No renal angle tenderness.? No suprapubic tenderness. Extremities: No edema, Capillary Refill Less than 3 Seconds Skin: No rashes, No breakdown Musculoskeletal: No Tenderness to Palpation of Joints or Extremities, muscle strength 4/5 at knee and hip joints.? Moderate muscle atrophy of extremities. Neurological: Cranial nerves II-XII grossly intact, DTR? 2+/4. No focal weakness. Psych/Mental Status: Flat affect. Dementia. Medical Records Data Medical Nutrition Assessment Dietitian: Malnutrition Criteria Met Start: 03/15/22 11:45 Freq: Status: Active Protocol: Document 03/15/22 11:45 AG (Rec: 01/26/23 11:45 AG [id number]) Nutrition Malnutrition Evidence of Malnutrition Exists Yes Malnutrition (severe): Chronic Evidenced By Suboptimal Energy Intake ( Severe),Physical Changes ( Severe) Clinical Problem Chronic Disease or Condition Related Malnutrition Etiology chronic severe malnutrition related to advanced age, dementia Signs/Symptoms as evidenced by reported poor PO intake meeting <75% of estimated energy needs > 3 months; Severe muscle wasting/ fat loss evident per physical exam in orbital, clavicle, acromion, and temporal areas; BMI 16.8 Status Active Problem Recommendation Dietitian Recommendations/Changes regular diet; will fortify foods w/ meals and adjust ensure to 120mL 4x/day w/ medpass for additional calories/protein if consumed. Weight / BMI Weight Weight: 93 lb 4.089 oz Body Mass Index (BMI) 16.8 ABG / Lab / Microbiology Data Result Diagrams: 03/15/22 03:52 03/15/22 03:52 Microbiology: Microbiology 03/14/22 17:25 Urine Catheter - Catheter Urine Culture - Final Presumptive E. coli 03/14/22 17:25 Urine Catheter - Catheter Legionella Antigen - Final 03/14/22 17:25 Urine Catheter - Catheter Streptococcus pneumoniae Antigen (M - Final 03/15/22 03:25 Mucosa - Nasopharyngeal Respiratory Panel (PCR) - Final 03/14/22 16:35 Nasal Secretion SARS-CoV-2 & FLU Antigen (Rapid) - Final Radiography Diagnostic Testing: Radiology Impression Echocardiogram 03/14/22 23:26 Interpretation Summary The study was technically difficult. Based upon the 2D echocardiographic images obtained there appears to be normal left ventricular size, wall motion, and systolic function. The estimated ejection fraction is 65 %. There is mild mitral annular calcification. Trivial mitral valve insufficiency. Moderate (2+) tricuspid valve insufficiency. Moderate to severe calcific aortic valve stenosis. Right ventricular systolic pressure estimated to be 52 mmHg c/w pulmonary hypertension. Stage 2 diastolic dysfunction. Ordering Physician: Kalli Malcolm Referring Physician: Marcello Cobb Performed By: Alli, Lisbeth, RDCS, RVT D/C Instructions Discharge Diet: No restrictions Weight Bearing Status: Weight bearing as tolerated Call your doctor if you observe: Fever of 101 or Higher, Coldness, Increased Pain, Numbness or Tingling, Change in Color, Inability to urinate, Inability to have a bowel movement, Using more than 1 pad per hour, Shortness of breath, Dizziness, Fainting spells, Swelling in the ankles, Chest pain, Prolonged hiccupping, Increased palpitations (irregular heartbeat) and Calf discomfort When: IN 2 WEEKS Meaningful Use Info Meaningful Use Diagnoses (Choose all that apply): None applicable Discharge Plan Admission Admit Date/Time: 03/14/22 21:33 Primary Reason for Your Visit: Fall, mild COPD exacerbation, E. coli UTI UTI Attending Provider: Edmar Orlando Primary Care Provider: Marcello Cobb Consulting Providers: Kalli Malcolm Discharge Orders/Prescriptions Prescriptions: New metoprolol tartrate 25 mg Tablet 12.5 mg PO BID 30 Days Qty: 30 0RF Rx Instructions: Hold for heart less than 60 or systolic blood pressure less than 100 mmHg. sulfamethoxazole-trimethoprim [Bactrim DS] 800-160 mg tablet 1 tab PO BID 3 Days Qty: 6 0RF Continued albuterol sulfate 90 mcg/actuation HFA aerosol inhaler 1 puff INHALATION DAILY Trelegy Ellipta 100-62.5-25 mcg blister with device 1 inh INHALATION DAILY venlafaxine 37.5 mg capsule,extended release 24hr 1 mg PO DAILY Label Comments: TAKE 1 CAPSULE BY MOUTH ONCE DAILY ropinirole 0.25 mg tablet 0.25 mg PO QHS Label Comments: TAKE 1 TO 2 TABLETS BY MOUTH ONE HOUR BEFORE BEDTIME Changed lorazepam 1 MG tablet 0.5 mg PO TID PRN (Reason: Anxiety) Qty: 5 0RF Referrals / Follow Up: Marcello Cobb MD [Primary Care Provider] - Within 2 Weeks Disposition Disposition (needs filled in before D/C Order can be placed): Home Health Service Charges/Coding Visit Charges Inpatient E&M: 06742 Disch Hosp >30min
[2022-03-16] MEDS: Metoprolol Tartrate 5 MG/5 ML Vial IV (12:58)
[2022-03-16] MEDS: 0.9% Saline Lock 10 ML Syringe IV (13:03)
--- NOTE | 2022-03-16 14:41 | CASEMGMT ---
BENNETT CORONADO in to follow up with family regarding HHC at discharge. Patient and family declining HHC at this time and wish to follow-up with PCP. A list of HHC providers including quality and resource use data and consistent with the patient?s preferred geographical region, medical needs, and insurance network were provided from the [employer] Guide. BENNETT CORONADO insturcted family to follow-up with PCP should they reconsider HHC.
[2022-03-16] MEDS: Metoprolol Tartrate 25 MG Tablet PO (14:58)
== END 2022-03-16 16:43 | disposition home or self-care (01) | DRG 190 ==
LOC: ED 22:25 → PCU 22:37
PROVIDERS: Admitting Provider Family Medicine; Emergency Provider Emergency Medicine; PCP Internal Medicine; Visit Provider Internal Medicine
DX: J44.1 Chronic obstructive pulmonary disease with (acute) exacerbation (principal); E43 Unspecified severe protein-calorie malnutrition; J12.9 Viral pneumonia, unspecified; J96.11 Chronic respiratory failure with hypoxia; Z68.1 Body mass index [BMI] 19.9 or less, adult; Z16.12 Extended spectrum beta lactamase (ESBL) resistance; J84.10 Pulmonary fibrosis, unspecified; F03.90 Unspecified dementia, unspecified severity, without behavioral disturbance, psychotic disturbance, mood disturbance, and anxiety; G25.81 Restless legs syndrome; I35.0 Nonrheumatic aortic (valve) stenosis; F41.9 Anxiety disorder, unspecified; N30.90 Cystitis, unspecified without hematuria; I34.81 Nonrheumatic mitral (valve) annulus calcification; B96.20 Unspecified Escherichia coli [E. coli] as the cause of diseases classified elsewhere; F32.A Depression, unspecified; R53.81 Other malaise; Z20.822 Contact with and (suspected) exposure to COVID-19; Z79.899 Other long term (current) drug therapy
CPT/HCPCS: 36415; 70450; 71045; 71275; 72100; 80048; 80053; 81001; 83880; 84145; 84484; 85025; 85379; 85610; 85730; 87086; 87088; 87186; 87428; 87449; 87633; 93005; 93306; 94640; 94668; 94762; 97110; 97162; 97166; 97530; 97802; 99285; J7040; Q9967; A4216; J2405

== ENCOUNTER 2022-07-27 20:27 | Inpatient (IN) | payer MEDICARE, SELFPAY ==
[2022-07-27] VITALS (14 sets, daily range): BP systolic 123–138; BP diastolic 67–95; PULSE 114–121; RESP 12–43; TEMP 36.7–36.8; O2SAT 60–98; BMI 16.6
--- NOTE | 2022-07-27 20:37 | EKG12_ITS ---
Test Reason : SOB Blood Pressure : / mmHG Vent. Rate : 117 BPM Atrial Rate : 117 BPM P-R Int : 168 ms QRS Dur : 094 ms QT Int : 324 ms P-R-T Axes : 084 -72 077 degrees QTc Int : 451 ms Sinus tachycardia Right atrial enlargement Left axis deviation Pulmonary disease pattern Incomplete right bundle branch block Abnormal ECG Confirmed by SANTINO OLGUIN, PATRICIA ([id number]), writer editor JADE PRABHAKAR ([id number]) on 07/30/2022 1:40:22 PM Referred By: SAMANTHA Confirmed By:PATRICIA DE MD
--- NOTE | 2022-07-27 20:38 | ED.VIS.DYS ---
HPI History of Present Illness Chief Complaint: Shortness of Breath Detail of Chief Complaint: Shortness of breath, hypoxia, decreased mental status and wheezing Informant: patient, EMS and other Onset/Context/Timing Onset: - (Uncertain) Context: - (Unknown) Timing: Continuous Quality: Positive for Dyspnea on exertion and Wheezing; Negative for Orthopnea or PND Current Severity: Moderate Maximum Severity: Severe Worsened by: Exertion and Coughing; Not Worsened By Lying flat Relieved by: Nothing Associated Symptoms cough; Negative for rhinorrhea, post nasal drip, ear pain, fever, sore throat, subjective, chills or sweats Chest Pain: Positive for None Narrative Narrative: Patient is an 81-year-old woman with chronic respiratory failure on oxygen by nasal cannula at 5 L who presents because of cyanosis, pulse ox in the 70s, altered mental status and cough. Patient requires repeat questioning to open her eyes and answer questions. She denies fever or chills. She denies rhinorrhea, congestion or postnasal drainage. She denies sore throat. She does endorse cough. The cough is nonproductive. She denies chest discomfort. She denies abdominal discomfort. She denies vomiting or diarrhea. She denies black or maroon-colored stool. She did not realize she is pale. PE Risk Factors: Negative for Cancer, OCP + Smoking + > 35, Prior DVT or PE, Recent immobilization, Recent surgery or Recent travel Prior similar symptoms: Yes Recent Illness/Hospitalization: No PFSH PFS Medical History Anxiety Anxiety and depression Chronic respiratory failure with hypoxia Emphysema lung Pulmonary fibrosis Pulmonary HTN Severe protein-calorie malnutrition Valvular heart disease Home Medications albuterol sulfate 90 mcg/actuation aerosol inhaler 1 puff inhalation DAILY shortness of breath 01/30/21 [History Last Taken Unknown] ropinirole 0.25 mg tablet 0.25 mg PO QHS restless legs 03/14/22 [History Last Taken Unknown] lorazepam 1 mg tablet 0.5 mg PO TID PRN Anxiety #5 tabs 03/16/22 [Rx Last Taken 04/05/15] metoprolol tartrate 25 mg tablet 12.5 mg PO BID 30 days #30 tabs 03/16/22 [Rx Last Taken Unknown] clotrimazole-betamethasone 1 %-0.05 % topical cream 1 applic topical DAILY 07/27/22 [History Last Taken Unknown] mirtazapine 7.5 mg tablet 7.5 mg PO QHS 07/27/22 [History Last Taken Unknown] umeclidinium 62.5 mcg-vilanterol 25 mcg/actuation powdr for inhalation (Anoro Ellipta) 1 inh inhalation DAILY 07/27/22 [History Last Taken Unknown] Allergy/AdvReac Type Severity Reaction Status Date / Time Tetanus Vaccines and Toxoid Allergy Unknown Verified 07/27/22 20:31 [Tetanus Vaccines & Toxoid] Surgical History History of cholecystectomy Social History household members: spouse and family Smoking Status: Never smoker alcohol intake: never substance use type: does not use ROS ROS ED Review of Systems ROS Unobtainable: due to mental status Constitutional Constitutional ED: Denies chills or fever(s) Eyes Eyes: Denies blurry vision or change in vision ENT ENT ED: Denies rhinorrhea or sore throat Cardiovascular Cardiovascular: Denies chest pain, orthopnea, palpitations or paroxysmal nocturnal dyspnea Respiratory/Chest Respiratory/Chest: Reports cough, dyspnea and dyspnea on exertion; Denies orthopnea or paroxysmal nocturnal dyspnea Gastrointestinal Gastrointestinal: Denies abdominal pain, diarrhea, melena or vomiting Genitourinary Genitourinary ED: Denies dysuria or hematuria Musculoskeletal Musculoskeletal: Denies arthralgias or myalgias Integumentary Denies rash Neurologic Neurologic: Reports weakness Hematologic/Lymphatic Hematologic/Lymphatic: Denies easy bleeding or easy bruising EXAM Physical Exam Const Vital Signs: 07/27/22 20:27 07/27/22 20:31 07/27/22 20:58 Temperature 98.2 F 98.2 F Temperature Source Temporal Temporal Pulse Rate 116 H 114 H 121 H Respiratory Rate 42 H 43 H 28 H Respiratory Pattern Tachypnea Blood Pressure 138/95 H 138/95 H Blood Pressure Mean 109 109 Pulse Ox 94 93 Oxygen Delivery Method Nasal Cannula Nasal Cannula Oxygen Flow Rate (L/min) 4.5 4.5 Fraction of Inspired Oxygen (FIO2) 07/27/22 21:20 07/27/22 21:27 07/27/22 20:37 Temperature Temperature Source Pulse Rate 120 H Respiratory Rate 36 H 22 H Respiratory Pattern Blood Pressure Blood Pressure Mean Pulse Ox 60 98 90 Oxygen Delivery Method Nasal Cannula Non-Rebreather Nasal Cannula Oxygen Flow Rate (L/min) 5 15 5 Fraction of Inspired Oxygen (FIO2) 07/27/22 21:35 07/27/22 21:47 07/27/22 21:57 Temperature Temperature Source Pulse Rate 121 H 121 H 120 H Respiratory Rate 27 H 32 H 35 H Respiratory Pattern Tachypnea Blood Pressure 123/67 H 133/76 H Blood Pressure Mean 85 95 Pulse Ox 96 95 92 Oxygen Delivery Method Bi-pap Bi-pap Oxygen Flow Rate (L/min) Fraction of Inspired Oxygen (FIO2) 45 35 Positive well developed and cachectic Constitutional Narrative: Patient is drowsy. She is tachypneic and tachycardic. She presently is not hypoxic on 4.5 L by nasal cannula. General Appearance ED: well developed, cachectic and pallor Nutritional Appearance: cachectic HEENT Reports dry mucous membranes HEENT Narrative: Ears are normal. Nares patent. Posterior pharynx is normal. atraumatic Mouth ED: Yes dry mucous membranes Mouth: dry mucous membranes Eyes PERRL and EOMs intact bilaterally General Eye ED: Negative for pale conjunctiva or scleral icterus Neck no lymphadenopathy, supple and no meningeal signs Neck Narrative: Trachea is midline. There is no in-store extra stridor. Chest Wall Chest Narrative: Patient has wasting of her chest wall muscles. There is diminished breath sounds noted bilaterally with increased expiratory phase. There are inspiratory rales and expiratory wheezing noted. Expiratory phase is prolonged. Resp No normal respiratory effort and No clear to auscultation bilaterally Effort and Inspection: Negative for pain with movement Cardio regular rhythm, S1 normal heart sound, S2 normal heart sound and no murmurs Rate: tachycardic GI non-tender, non-distended and no masses GI Narrative: There is no palpable pulsatile mass. There is no abdominal bruit. Auscultation: hypoactive bowel sounds Palpation: soft; Negative for hepatomegaly or splenomegaly Back/Spine no CVA tenderness Extremity normal to inspection General Extremety ED: Negative for edema or tenderness General Extremity: Negative for edema Neuro oriented x3 and CN's II-XII intact bilaterally [place] Coma Scale: document GCS findings To Voice Obeys Commands Oriented 14 Sensorium / Orientation: Negative for alert Speech: speech normal Psych Thought Process: normal thought process Skin no wounds General Skin Exam: pallor; Negative for jaundice Rashes: no rashes MDM MDM MDM Narrative Medical decision making narrative: Suspect patient exacerbation of COPD. Need to evaluate for pneumothorax, pneumonia CHF. ABG was ordered because of concern for hypercapnia causing somnolence. EKG to rule out acute ischemic changes. Monitor reveals a narrow complex tachycardia rate of approximately 115. There is no ectopy noted. She was treated with DuoNeb albuterol and Solu-Medrol. Concerned she may have anemia since she is quite pale. History & Record Review Discussion w/independent historian: Patient Additional record(s) reviewed:: Prior inpatient record (Admitted February 2022 for exacerbated COPD), Prior outpatient record, Prior ED visit (Seen in January 2022 for altered mental status of undetermined etiology) and Prior labs Lab Data Attestation: I reviewed the patient's lab results. Lab results narrative: CBC is unremarkable basic metabolic panel is unremarkable. Lactate 10. Hepatic enzyme workable BNP is 54, which is Labs: Laboratory Results - last 24 hr 07/27/22 07/27/22 07/27/22 20:50 20:50 20:50 WBC 7.9 RBC 4.24 Hgb 13.1 Hct 43.8 MCV 103.3 H MCH 30.9 MCHC 29.9 L RDW Std Deviation 50.7 H RDW Coeff of Toney 13.2 Plt Count 267 MPV 9.7 Immature Gran % (Auto) 0.300 Neut % (Auto) 51.0 Lymph % (Auto) 37.1 [place] % (Auto) 6.3 Eos % (Auto) 5.2 H Baso % (Auto) 0.1 Absolute Neuts (auto) 4.0 Absolute Lymphs (auto) 2.94 Nucleated RBC % 0 Sodium 142 Potassium 4.3 Chloride 100 Carbon Dioxide 40.0 H Anion Gap 2 L BUN 22 H Creatinine 0.50 L Estim Creat Clear Calc 30.13 Est GFR (MDRD) Af Amer 152 Est GFR (MDRD) Non-Af 126 BUN/Creatinine Ratio 44.2 H Glucose 116 H Lactic Acid 1.3 Calcium 9.2 Total Bilirubin 0.30 AST 20 ALT 15 Alkaline Phosphatase 83 Troponin I High Sens 6 B-Natriuretic Peptide Total Protein 7.2 Albumin 3.3 Globulin 3.9 Albumin/Globulin Ratio 0.8 L 07/27/22 20:50 WBC RBC Hgb Hct MCV MCH MCHC RDW Std Deviation RDW Coeff of Toney Plt Count MPV Immature Gran % (Auto) Neut % (Auto) Lymph % (Auto) [place] % (Auto) Eos % (Auto) Baso % (Auto) Absolute Neuts (auto) Absolute Lymphs (auto) Nucleated RBC % Sodium Potassium Chloride Carbon Dioxide Anion Gap BUN Creatinine Estim Creat Clear Calc Est GFR (MDRD) Af Amer Est GFR (MDRD) Non-Af BUN/Creatinine Ratio Glucose Lactic Acid Calcium Total Bilirubin AST ALT Alkaline Phosphatase Troponin I High Sens B-Natriuretic Peptide 54.6 Total Protein Albumin Globulin Albumin/Globulin Ratio ABG Data ABG results: ABG 07/27/22 21:18 Specimen Type ART Sample Site L Radial pH 7.37 Bicarbonate Actual 40.1 H Total CO2 42 Base Excess 15 H O2 Saturation 97 ABG pCO2 69.0 H* ABG pO2 92 [place] Test Positive O2 Delivery Device Cannula Liter Flow 4.5 Crit Call To/Read Back Yes Blood Gas Notified Whom dr. santos Radiography Chest X-Ray - ED: 1 View, Read by ED Physician, No Acute Disease, Chronic Changes, Cardiomegaly, CHF, No Infiltrates, Right Effusion and Left Effusion Diagnostic Testing: Clinical Impression(s) from Imaging Studies Chest X-Ray 07/27/22 21:27 IMPRESSION: No acute findings in the chest. Electronically Signed: Juan Reeder MD at 21:39 EDT Reading Location ID and State: [facility] / [place] , Service support , Rhythm Strip Rhythm Strip: Sinus Tach Rate: 125 Ectopy: None EKG Initial EKG: Attestation: I personally reviewed and interpreted this EKG as follows: Interpretation: Sinus Tachycardia (Rate is 117. [place] to the left. UT interval is 168 ms. Cures duration 94 ms. QT duration 3 and 24 ms. Patient has an RR prime in V1 and V2. There is evidence of pulmonary disease i.e. cor pulmonale with evidence of right atrial enlargement and possibly left atrial enlargement.) Treatment and Re-Evaluation :: Patient desaturated in the emergency department. She was placed on BiPAP and ABG was obtained. ABG reveals normal pH with CO2 retention and significant AA gradient. The hypercapnia is new for patient. This would explain her somnolence. Discussed with and daughter CODE STATUS. They requested all measures. Patient does not have capacity to make that decision at this time. Critical Care Time Critical Care Time: Yes Critical care time (excluding procedures): 30-74 minutes (33), Including time spent: (History, physical, documentation, interpretation laboratory results, initiation of therapy), Discussing w/Patient &/or Family/Patient Services Manager (Spoke to and daughter regarding CODE STATUS and findings.), Discussing w/Consultants and Arranging Admission or Transfer Discharge Plan Dx/Rx/DC Orders Clinical Impression: Acute on chronic respiratory failure with hypoxia and hypercapnia, Dementia, Acute exacerbation of chronic obstructive pulmonary disease (COPD), Acute bronchospasm, Sinus tachycardia Disposition Disposition: Acute Care Hospital [facility]
[2022-07-27] MEDS: Ipratropium/Albuterol Sulfate 3 ML AMPUL.NEB INHALATION (20:57)
[2022-07-27] MEDS: Albuterol 2.5 MG/3 ML VIAL.NEB. INHALATION ×3 (20:57)
[2022-07-27 21:04] LABS: Absolute Lymphocyte Count 2.94 X10^3/uL (0.83-4.51); Basophil# 0.01 X10^3/uL; Basophil% 0.1 % (0-1); Eosinophil# 0.41 X10^3/uL; Eosinophils% 5.2 % (0-5); Hematocrit 43.8 % (37-47); Hemoglobin 13.1 g/dL (12.0-15.0); Lymphocyte # 2.94 X10^3/ul (0.83-4.51); Lymphocyte % 37.1 % (19-41); Mean Corp Hgb Conc 29.9 g/dL (32-36); Mean Corpuscular Hgb 30.9 pg (27.0-32.0); Mean Corpuscular Volume 103.3 fL (81-99); Mean Platelet Vol. 9.7 fl (6.2-12.0); Monocyte% 6.3 % (0-10); NRBC Flagged by Analyzer 0 % (0-5); Neutrophil # 4.04 X10^3/uL (2.7-7.7); Platelet Count 267 K/mm3 (150-450); RBC Distribution Width CV 13.2 % (11.6-14.6); RBC Distribution Width SD 50.7 fl (35.1-43.9); Red Blood Count 4.24 M/mm3 (4.2-5.4); White Blood Count 7.9 K/mm3 (4.4-11.0)
[2022-07-27 21:21] LABS: ALB/GLOB Ratio 0.8 RATIO (0.9-2.4); AST(SGOT) 20 U/L (15-37); Alanine Aminotransfer ALT/SGPT 15 U/L (13-56); Albumin, Serum 3.3 g/dL (3.2-5.0); Alkaline Phosphatase 83 U/L (45-117); Anion Gap 2 (5-15); BUN 22 mg/dL (7-18); BUN/Creat Ratio 44.2 RATIO (10-20); Calcium,Total 9.2 mg/dL (8.5-10.1); Chloride 100 mmol/L (98-107); EST Glomerular Filtration Rate 126 mL/min (>60); Est Glom Filt Rate - Afr Amer 152 mL/min (>60); Estimated Creatinine Clearance 30.13 ml/min; Globulin 3.9 g/dL (2.2-4.2); Glucose 116 mg/dL (74-106); Potassium 4.3 mmol/L (3.5-5.1); Protein, Total 7.2 g/dL (6.4-8.2); Sodium Level 142 mmol/L (136-145); Troponin-I HS (w/2H Reflex) 6 pg/mL (3.0-54.0)
[2022-07-27 21:22] LABS: Allen Test Positive; Base Excess 15 mmol/L (-2 to +2); Bicarbonate 40.1 mmol/L (22-26); Blood Gas Specimen Type ART; LPM 4.5 /min; O2 Delivery Device Cannula; PO2 92 mmHG (75-100); SITE L Radial; SO2 97 % (95-99); Total Carbon Dioxide 42 mmol/L; pH 7.37 (7.35-7.45)
[2022-07-27] MEDS: MethylPREDNISolone 125 MG/2 ML Vial 60 MG IV (21:22)
[2022-07-27 21:24] LABS: BNP,B-Type NATRIURETIC PEPTIDE 54.6 pg/mL (0-100)
--- NOTE | 2022-07-27 21:27 | RAD_ITS ---
EXAM: XR CHEST, 1 VIEW CLINICAL INDICATION: Hypoxia, tachypnea, tachycardia and rales with whe TECHNIQUE: Frontal view of the chest. COMPARISON: 03.14.22 FINDINGS: LUNGS AND PLEURAL SPACES: The lung avila are hyperexpanded. No pneumothorax. No effusion. HEART: Unremarkable. Cardiac silhouette not enlarged. MEDIASTINUM: There is a hiatal hernia. BONES/JOINTS: Unremarkable. SOFT TISSUES: Unremarkable. RAD/Chest 1 View (Portable) IMPRESSION: No acute findings in the chest. Electronically Signed: Juan Reeder MD at 21:39 EDT ,
[2022-07-27 21:34] LABS: Lactic Acid 1.3 mmol/L (0.4-1.9)
--- NOTE | 2022-07-27 22:04 | PCM.HP.STD ---
HPI - General General Date of Admission: 07/27/22 Date of Service: 07/27/22 Chief Complaint: shortness of breath HPI Narrative NEERAJ LYNN, is a 81 F with a significant with a significant history of dementia; COPD on 4 L nasal cannula oxygen and anxiety who presents emergency department with increasing worsening shortness of breath above her baseline. Her symptoms started on the same day of presentation. On patient home oxygen of 4 L his oxygen saturation was about 72 percent. Patient was put on nonrebreather mask and brought to emergency department by paramedics. On presentation her oxygen saturation when off the nonrebreather mask was in the 60s. Patient was placed back on nonrebreather mask and eventually transitioned to BiPAP. [facility] Medical History Anxiety Anxiety and depression Chronic respiratory failure with hypoxia Emphysema lung Protein calorie malnutrition Pulmonary fibrosis Pulmonary HTN Severe protein-calorie malnutrition Valvular heart disease Home Medications albuterol sulfate 90 mcg/actuation aerosol inhaler 1 puff inhalation DAILY shortness of breath 01/30/21 [History Last Taken Unknown] ropinirole 0.25 mg tablet 0.25 mg PO QHS restless legs 03/14/22 [History Last Taken Unknown] lorazepam 1 mg tablet 0.5 mg PO TID PRN Anxiety #5 tabs 03/16/22 [Rx Last Taken 04/05/15] metoprolol tartrate 25 mg tablet 12.5 mg PO BID 30 days #30 tabs 03/16/22 [Rx Last Taken Unknown] clotrimazole-betamethasone 1 %-0.05 % topical cream 1 applic topical DAILY 07/27/22 [History Last Taken Unknown] mirtazapine 7.5 mg tablet 7.5 mg PO QHS 07/27/22 [History Last Taken Unknown] umeclidinium 62.5 mcg-vilanterol 25 mcg/actuation powdr for inhalation (Anoro Ellipta) 1 inh inhalation DAILY 07/27/22 [History Last Taken Unknown] Allergy/AdvReac Type Severity Reaction Status Date / Time Tetanus Vaccines and Toxoid Allergy Unknown Verified 07/27/22 20:31 [Tetanus Vaccines & Toxoid] Family History Other Heart disease Surgical History History of cholecystectomy Social History household members: spouse and family Smoking Status: Never smoker alcohol intake: never substance use type: does not use ROS ROS Narrative Pertinent positives and pertinent negatives as noted in HPI. All other systems were reviewed and are negative Vital Signs Vital Signs Vital Signs: 07/27/22 20:27 07/27/22 20:31 07/27/22 20:58 Temperature 98.2 F 98.2 F Temperature Source Temporal Temporal Pulse Rate 116 H 114 H 121 H Respiratory Rate 42 H 43 H 28 H Respiratory Pattern Tachypnea Blood Pressure 138/95 H 138/95 H Blood Pressure Mean 109 109 Pulse Ox 94 93 Oxygen Delivery Method Nasal Cannula Nasal Cannula Oxygen Flow Rate (L/min) 4.5 4.5 Fraction of Inspired Oxygen (FIO2) 07/27/22 21:20 07/27/22 21:27 07/27/22 20:37 Temperature Temperature Source Pulse Rate 120 H Respiratory Rate 36 H 22 H Respiratory Pattern Blood Pressure Blood Pressure Mean Pulse Ox 60 98 90 Oxygen Delivery Method Nasal Cannula Non-Rebreather Nasal Cannula Oxygen Flow Rate (L/min) 5 15 5 Fraction of Inspired Oxygen (FIO2) 07/27/22 21:35 07/27/22 21:47 07/27/22 21:57 Temperature Temperature Source Pulse Rate 121 H 121 H 120 H Respiratory Rate 27 H 32 H 35 H Respiratory Pattern Tachypnea Blood Pressure 123/67 H 133/76 H Blood Pressure Mean 85 95 Pulse Ox 96 95 92 Oxygen Delivery Method Bi-pap Bi-pap Oxygen Flow Rate (L/min) Fraction of Inspired Oxygen (FIO2) 45 35 Weight Weight: 44 kg Body Mass Index (BMI) 16.6 Physical Exam Narrative Physical exam: General: Well-nourished, well-developed. Head: Normocephalic, atraumatic, no tenderness Eyes: Vision is grossly intact. EOMI ENT, no trauma, moist mucous membranes, no rhinorrhea Neck: Nontender, No thyromegaly. CVS: Regular rate and rhythm. S1-S2 present. No murmur, gallop or rub. Respiratory : Tachypnea; decreased breath. Abdomen: Soft, nontender, nondistended, normal bowel sounds, no masses : Deferred Back: Nontender, no CVA tenderness, no midline spinal tenderness, deformities, step-offs Extremities: Cachectic. Erythema of right foot. Nontender, no increased warmth. Left ankle with edema 1-2+. Skin: Normal color, no trauma, abrasions Neuro: Alert, on BiPAP unable to elicit information from patient Psychiatry: Normal mood. Normal affect. Not depressed. Not anxious. Results Lab / Micro Data Result Diagrams: 07/27/22 20:50 07/27/22 20:50 Labs: Laboratory Results - last 24 hr 07/27/22 20:50: WBC 7.9, RBC 4.24, Hgb 13.1, Hct 43.8, MCV 103.3 H, MCH 30.9, MCHC 29.9 L, RDW Std Deviation 50.7 H, RDW Coeff of Toney 13.2, Plt Count 267, MPV 9.7, Immature Gran % (Auto) 0.300, Neut % (Auto) 51.0, Lymph % (Auto) 37.1, [place] % (Auto) 6.3, Eos % (Auto) 5.2 H, Baso % (Auto) 0.1, Absolute Neuts (auto) 4.0, Absolute Lymphs (auto) 2.94, Nucleated RBC % 0 07/27/22 20:50: Sodium 142, Potassium 4.3, Chloride 100, Carbon Dioxide 40.0 H, Anion Gap 2 L, BUN 22 H, Creatinine 0.50 L, Estim Creat Clear Calc 30.13, Est GFR (MDRD) Af Amer 152, Est GFR (MDRD) Non-Af 126, BUN/Creatinine Ratio 44.2 H, Glucose 116 H, Calcium 9.2, Total Bilirubin 0.30, AST 20, ALT 15, Alkaline Phosphatase 83, Troponin I High Sens 6, Total Protein 7.2, Albumin 3.3, Globulin 3.9, Albumin/Globulin Ratio 0.8 L 07/27/22 20:50: Lactic Acid 1.3 07/27/22 20:50: B-Natriuretic Peptide 54.6 ABG Data ABG results: ABG 07/27/22 21:18 Specimen Type ART Sample Site L Radial pH 7.37 Bicarbonate Actual 40.1 H Total CO2 42 Base Excess 15 H O2 Saturation 97 ABG pCO2 69.0 H* ABG pO2 92 Abrahan Test Positive O2 Delivery Device Cannula Liter Flow 4.5 Crit Call To/Read Back Yes Blood Gas Notified Whom dr. santos Radiology Impression Chest X-Ray 07/27/22 21:27 IMPRESSION: No acute findings in the chest. Electronically Signed: Juan Reeder MD at 21:39 EDT Reading Location ID and State: [facility] / [place] , Service support , Assessment & Plan Assessment/Plan (1) Acute on chronic respiratory failure with hypoxia and hypercapnia: (2) Acute exacerbation of chronic obstructive pulmonary disease (COPD): (3) Protein calorie malnutrition: PLAN: Plan Acute on chronic respiratory failure with hypoxia and hypercapnia secondary to acute admission of COPD ABG showed a PCO2 of 69. Hypoxic at home and at the emergency department. CXR independently reviewed confirms: No acute findings in the chest. Scheduled DuoNeb Albuterol as needed Solu-Medrol ordered Azithromycin IV BiPAP ordered. Admit intensive care unit. Consult energy economist. White count on presentation was stable. Monitor BMP and CBC Severe protein calorie malnutrition Consider nutrition consult and supplemental protein when patient is no longer on BiPAP. DVT prophylaxis: Subcutaneous Lovenox ordered. Charges/Coding Visit Charges Inpatient E&M: 88678 Init Hosp L3
[2022-07-27 22:57] LABS: Reflex Troponin-HS? (from REC) Y
[2022-07-28] VITALS (32 sets, daily range): BP systolic 100–148; BP diastolic 65–125; PULSE 100–130; RESP 12–40; TEMP 36.5–37.1; O2SAT 92–100; BMI 15.9; BMI 16.3; BMI 16.1
[2022-07-28 00:07] LABS: Troponin-I HS 8 pg/mL (3.0-54.0)
--- NOTE | 2022-07-28 05:17 | NURSING ---
to emergency on the unit, unable to chart on pt from [id number]. Pt frequently checked on by other nursing staff and chip tester.
[2022-07-28 06:10] LABS: Absolute Neutrophil Count 7.2 X10^3/uL (2.0-7.7); Hematocrit 39.5 % (37-47); Hemoglobin 12.3 g/dL (12.0-15.0); Lymphocyte % 5.2 % (19-41); Mean Corp Hgb Conc 31.1 g/dL (32-36); Mean Corpuscular Hgb 31.5 pg (27.0-32.0); Mean Corpuscular Volume 101.3 fL (81-99); Mean Platelet Vol. 9.6 fl (6.2-12.0); Monocyte# 0.05 X10^3/uL; Monocyte% 0.7 % (0-10); NRBC Flagged by Analyzer 0 % (0-5); Neutrophil # 7.19 X10^3/uL (2.7-7.7); Neutrophil % 93.8 % (47-70); POSITIVE DIFFERENTIAL YES; Platelet Count 236 K/mm3 (150-450); RBC Distribution Width CV 13.2 % (11.6-14.6); RBC Distribution Width SD 48.8 fl (35.1-43.9); White Blood Count 7.7 K/mm3 (4.4-11.0)
[2022-07-28 06:23] LABS: Anion Gap 6 (5-15); BUN 21 mg/dL (7-18); BUN/Creat Ratio 33.2 RATIO (10-20); Calcium,Total 9.1 mg/dL (8.5-10.1); Chloride 101 mmol/L (98-107); Creatinine, Serum 0.63 mg/dL (0.55-1.02); EST Glomerular Filtration Rate 95 mL/min (>60); Est Glom Filt Rate - Afr Amer 115 mL/min (>60); Glucose 159 mg/dL (74-106); Magnesium 2.1 mg/dL (1.6-2.6); Potassium 4.2 mmol/L (3.5-5.1); Sodium Level 142 mmol/L (136-145)
[2022-07-28 06:37] LABS: Differential Indicated SCAN CRITERIA MET
[2022-07-28] MEDS: Methylprednisolone Sod Succ 40 MG/ML VIAL IV ×3 (06:47→21:32)
[2022-07-28] MEDS: Ipratropium/Albuterol Sulfate 3 ML AMPUL.NEB INHALATION ×4 (07:05→18:55)
[2022-07-28 07:09] LABS: Differential Comment SCANNED
--- NOTE | 2022-07-28 07:45 | CON.PCM.CC_ITS ---
Assessment & Plan Assessment/Plan (1) Acute on chronic respiratory failure with hypoxia and hypercapnia: (2) Protein calorie malnutrition: (3) Debility: (4) Dementia: PLAN: Plan RECOMMENDATIONS: 1. Attempt better rate control 2. Potential diuretics 3. Clarify history with family 4. BiPAP rescue as necessary 5. Consult dietitian/PT/OT IMPRESSIONS: 1. Acute on chronic combined respiratory failure Unclear etiology at this time. Chest x-ray is relatively unremarkable. Patient was started on Solu-Medrol and azithromycin, but responded rapidly to BiPAP therapy. This would be suggestive of an element of pulmonary hypertension/cor pulmonale/pulmonary edema as an etiology. We will attempt better rate control as patient does have significant aortic stenosis on a recent echocardiogram. Okay to continue with antibiotics and steroids for now, but likely discontinue in 48 hours if patient continues to do well. 2. Aortic stenosis/sinus tachycardia Patient with moderate to severe aortic valve calcification and stenosis with elevated pulmonary artery pressures. Unclear if this constitutes all of patient's respiratory failure. Patient would benefit from rate control given diastolic dysfunction. We will transition to IV beta-raine and titrate up as tolerated. Okay to use BiPAP rescue if necessary. 3. Dementia/protein calorie malnutrition/debility/advanced age Complicates care, management, recovery and prognosis. We will place patient on a regular diet. PT/OT will be consulted. We will attempt to clarify baseline status when family arrives. HPI Consult Data Date of Consult: 07/28/22 HPI Narrative HPI Narrative: NEERAJ LYNN is an 81 F, with past medical history listed below, who presents to [facility] on 07/27/2022 secondary to progressive shortness of breath, decreased mental status and wheezing. Patient reportedly does have supplemental oxygen at home, but is unclear on her baseline doses. Family had increased her to 5 L/min secondary to cyanosis and a pulse ox in the 70s. Patient also reportedly did have a cough. Patient had denied any sinus congesti on, rhinorrhea or chest discomfort. Patient describes the cough is nonproductive. Patient had not reported any black or maroon-colored stools. In the ER, patient was tachypneic as high as 43 breaths/min and tachycardic at 121 bpm. Patient was requiring a nonrebreather initially and ultimately had to be placed on a BiPAP to maintain saturations. Laboratory work-up showed a white blood cell count of 7.9, hemoglobin of 13.1 and platelets of 267. Chemistry showed an elevated bicarbonate of 40 with a creatinine of 0.5 and a glucose of 116. Lactate was within normal limits. LFTs were unremarkable and a BNP was 55. An ABG showed fully compensated chronic respiratory acidosis with increased AA gradient. Chest x-ray showed no acute findings and EKG showed sinus tachycardia with evidence of right atrial enlargement. Given patient's need for BiPAP, patient was admitted to the intensive care unit for further evaluation. Patient did receive bronchodilators, Solu-Medrol and azithromycin. On my evaluation this morning, patient is very confused about the pretext of patient's admission. Patient does state that she lives at home and has supplemental oxygen. Patient states she only smoked for a year or 2. Patient is not reporting any palpitations or lower extremity edema. Patient is unclear about her onset of symptoms. Patient does feel she is back to her baseline after being on BiPAP therapy overnight. [facility] Medical History Anxiety Anxiety and depression Chronic respiratory failure with hypoxia Emphysema lung Protein calorie malnutrition Pulmonary fibrosis Pulmonary HTN Severe protein-calorie malnutrition Valvular heart disease Home Medications albuterol sulfate 90 mcg/actuation aerosol inhaler 1 puff inhalation DAILY shortness of breath 01/30/21 [History Last Taken Unknown] ropinirole 0.25 mg tablet 0.25 mg PO QHS restless legs 03/14/22 [History Last Taken Unknown] lorazepam 1 mg tablet 0.5 mg PO TID PRN Anxiety #5 tabs 03/16/22 [Rx Last Taken 04/05/15] metoprolol tartrate 25 mg tablet 12.5 mg PO BID 30 days #30 tabs 03/16/22 [Rx Last Taken Unknown] clotrimazole-betamethasone 1 %-0.05 % topical cream 1 applic topical DAILY 07/27/22 [History Last Taken Unknown] mirtazapine 7.5 mg tablet 7.5 mg PO QHS 07/27/22 [History Last Taken Unknown] umeclidinium 62.5 mcg-vilanterol 25 mcg/actuation powdr for inhalation (Anoro Ellipta) 1 inh inhalation DAILY 07/27/22 [History Last Taken Unknown] Allergy/AdvReac Type Severity Reaction Status Date / Time Tetanus Vaccines and Toxoid Allergy Unknown Verified 07/27/22 20:31 [Tetanus Vaccines & Toxoid] Family History Other Heart disease Surgical History History of cholecystectomy Social History household members: spouse and family Smoking Status: Never smoker alcohol intake: never substance use type: does not use ROS Review of Systems ROS Unobtainable: due to mental status Physical Exam Const alert Constitutional Narrative: Oriented to self only. No conversational dyspnea. Supplemental oxygen in place. General Appearance: frail HEENT normocephalic HEENT Narrative: Some temporal wasting noted. Eyes PERRL, EOMs intact bilaterally, conjunctivae normal and no scleral icterus Neck full ROM Resp Resp Narrative: No conversational dyspnea appreciated. Effort and Inspection: Negative for tachypneic Auscultation: rales; Negative for rhonchi or wheezes Cardio S1 normal heart sound, S2 normal heart sound, no rub and no gallops Rate: tachycardic Heart Sounds: murmur GI normal to inspection, nondistended, normoactive bowel sounds Extremity no clubbing, cyanosis or edema Skin no rashes or lesions noted Neuro CN's II-XII intact bilaterally, moves all extremities and no focal motor deficits Psych Mood & Affect: flat affect Medical Records Data Attestation: I reviewed the patient's medical records Lab / Micro Data Attestation: I reviewed the patient's lab results. Result Diagrams: 07/28/22 05:55 07/28/22 05:55 Labs: Laboratory Results - last 24 hr 07/27/22 20:50: WBC 7.9, RBC 4.24, Hgb 13.1, Hct 43.8, MCV 103.3 H, MCH 30.9, MCHC 29.9 L, RDW Std Deviation 50.7 H, RDW Coeff of Toney 13.2, Plt Count 267, MPV 9.7, Immature Gran % (Auto) 0.300, Neut % (Auto) 51.0, Lymph % (Auto) 37.1, [place] % (Auto) 6.3, Eos % (Auto) 5.2 H, Baso % (Auto) 0.1, Absolute Neuts (auto) 4.0, Absolute Lymphs (auto) 2.94, Nucleated RBC % 0 07/27/22 20:50: Sodium 142, Potassium 4.3, Chloride 100, Carbon Dioxide 40.0 H, Anion Gap 2 L, BUN 22 H, Creatinine 0.50 L, Estim Creat Clear Calc 30.13, Est GFR (MDRD) Af Amer 152, Est GFR (MDRD) Non-Af 126, BUN/Creatinine Ratio 44.2 H, Glucose 116 H, Calcium 9.2, Total Bilirubin 0.30, AST 20, ALT 15, Alkaline Phosphatase 83, Troponin I High Sens 6, Total Protein 7.2, Albumin 3.3, Globulin 3.9, Albumin/Globulin Ratio 0.8 L 07/27/22 20:50: Lactic Acid 1.3 07/27/22 20:50: B-Natriuretic Peptide 54.6 07/27/22 22:43: Troponin I High Sens 8 07/28/22 05:00: Sodium Cancelled, Potassium Cancelled, Chloride Cancelled, Carbon Dioxide Cancelled, Anion Gap Cancelled, BUN Cancelled, Creatinine Cancelled, Estim Creat Clear Calc Cancelled, Est GFR (MDRD) Af Amer Cancelled, Est GFR (MDRD) Non-Af Cancelled, BUN/Creatinine Ratio Cancelled, Glucose Cancelled, Calcium Cancelled, Magnesium Cancelled 07/28/22 05:00: WBC Cancelled, Corrected WBC Cancelled, RBC Cancelled, Hgb Cancelled, Hct Cancelled, MCV Cancelled, MCH Cancelled, MCHC Cancelled, RDW Std Deviation Cancelled, RDW Coeff of Toney Cancelled, Plt Count Cancelled, MPV Cancelled, Immature Gran % (Auto) Cancelled, Neut % (Auto) Cancelled, Lymph % (Auto) Cancelled, [place] % (Auto) Cancelled, Eos % (Auto) Cancelled, Baso % (Auto) Cancelled, Absolute Neuts (auto) Cancelled, Absolute Lymphs (auto) Cancelled, Total Counted Cancelled, Neutrophils % (Manual) Cancelled, Band Neutrophils % Cancelled, Lymphocytes % (Manual) Cancelled, Monocytes % (Manual) Cancelled, Eosinophils % (Manual) Cancelled, Basophils % (Manual) Cancelled, Metamyelocytes % Cancelled, Myelocytes % Cancelled, Promyelocytes % Cancelled, Blast Cells % Cancelled, Plasma Cell % (Manual) Cancelled, Other Cells % Cancelled, Nucleated RBC % Cancelled, Nucleated RBCs/100 WBC Cancelled, Differential Comment Cancelled, Diff Path Review Cancelled, Hypersegmented Neuts Cancelled, Atypical Lymphocytes Cancelled, Reactive Lymphocytes Cancelled, Smudge Cells Cancelled, Toxic Granulation Cancelled, Toxic Vacuolation Cancelled, Dohle Bodies Cancell ed, Milo Rods Cancelled, Platelet Estimate Cancelled, Plt Morphology Comment Cancelled, RBC Morphology Cancelled, Polychromasia Cancelled, Hypochromasia Cancelled, Poikilocytosis Cancelled, Basophilic Stippling Cancelled, Anisocytosis Cancelled, Microcytosis Cancelled, Macrocytosis Cancelled, Sphero cytes Cancelled, Sickle Cells Cancelled, Target Cells Cancelled, Tear Drop Cells Cancelled, Ovalocytes Cancelled, Stomatocytes Cancelled, [place] Bodies Cancelled, Steffen Cells Cancelled, Bite Cells Cancelled, Crenated Cell Cancelled, Acanthocytes (Spur) Cancelled, Rouleaux Cancelled, Schistocytes Cancelled 07/28/22 05:00: Phosphorus Cancelled 07/28/22 05:55: WBC 7.7, RBC 3.90 L, Hgb 12.3, Hct 39.5, MCV 101.3 H, MCH 31.5, MCHC 31.1 L, RDW Std Deviation 48.8 H, RDW Coeff of Toney 13.2, Plt Count 236, MPV 9.6, Immature Gran % (Auto) 0.300, Neut % (Auto) 93.8 H, Lymph % (Auto) 5.2 L, [place] % (Auto) 0.7, Eos % (Auto) 0.0, Baso % (Auto) 0.0, Absolute Neuts (auto) 7.2, Absolute Lymphs (auto) 0.40 L, Nucleated RBC % 0, Differential Comment SCANNED 07/28/22 05:55: Sodium 142, Potassium 4.2, Chloride 101, Carbon Dioxide 35.0 H, Anion Gap 6, BUN 21 H, Creatinine 0.63, Estim Creat Clear Calc 27.80, Est GFR (MDRD) Af Amer 115, Est GFR (MDRD) Non-Af 95, BUN/Creatinine Ratio 33.2 H, Gluco se 159 H, Calcium 9.1, Phosphorus 2.0 L, Magnesium 2.1 ABG Data ABG results: ABG 07/27/22 21:18 Specimen Type ART Sample Site L Radial pH 7.37 Bicarbonate Actual 40.1 H Total CO2 42 Base Excess 15 H O2 Saturation 97 ABG pCO2 69.0 H* ABG pO2 92 Abrahan Test Positive O2 Delivery Device Cannula Liter Flow 4.5 Crit Call To/Read Back Yes Blood Gas Notified Whom dr. santos Attestation: I personally reviewed and interpreted this ABG as follows: (See HPI) Rhythm Strip Rhythm Strip: Sinus Tach Rate: 120 Ectopy: None Radiology Impression Chest X-Ray 07/27/22 21:27 IMPRESSION: No acute findings in the chest. Electronically Signed: Juan Reeder MD at 21:39 EDT Reading Location ID and State: [facility] / [place] , Service support , Charges/Coding Visit Charges Inpatient E&M: 47885 Init Hosp L3
--- NOTE | 2022-07-28 09:23 | PN.HOSP_ITS ---
Subjective Subjective To be doing a little bit better since she was on BiPAP overnight. Currently maintaining oxygen saturations on 2 L nasal cannula Objective Data Objective Data Vital Signs: Vital Signs Temp Pulse Resp BP Pulse Ox O2 Del Method O2 Flow Rate 98.8 F 122 H 27 H 115/74 94 Nasal Cannula 2 07/28/22 08:00 07/28/22 08:00 07/28/22 08:00 07/28/22 08:00 07/28/22 08:00 07/28/22 08:00 07/28/22 08:00 FiO2 35 07/28/22 05:02 Oxygen Flow Rate (L/min) 2 Oxygen Delivery Method Nasal Cannula Weight: 88 lb 2.958 oz Body Mass Index (BMI) 16.1 Intake & Output: Intake and Output for Last 24 Hours 07/27/22 07/28/22 07/29/22 03:59 03:59 03:59 Intake Total 255 / 255 Output Total 0 / 0 Balance 255 / 255 Lab / Micro Data Result Diagrams: 07/28/22 05:55 07/28/22 05:55 Labs: Laboratory Results - last 24 hr 07/27/22 20:50: WBC 7.9, RBC 4.24, Hgb 13.1, Hct 43.8, MCV 103.3 H, MCH 30.9, MCHC 29.9 L, RDW Std Deviation 50.7 H, RDW Coeff of Toney 13.2, Plt Count 267, MPV 9.7, Immature Gran % (Auto) 0.300, Neut % (Auto) 51.0, Lymph % (Auto) 37.1, [place] % (Auto) 6.3, Eos % (Auto) 5.2 H, Baso % (Auto) 0.1, Absolute Neuts (auto) 4.0, Absolute Lymphs (auto) 2.94, Nucleated RBC % 0 07/27/22 20:50: Sodium 142, Potassium 4.3, Chloride 100, Carbon Dioxide 40.0 H, Anion Gap 2 L, BUN 22 H, Creatinine 0.50 L, Estim Creat Clear Calc 30.13, Est GFR (MDRD) Af Amer 152, Est GFR (MDRD) Non-Af 126, BUN/Creatinine Ratio 44.2 H, Glucose 116 H, Calcium 9.2, Total Bilirubin 0.30, AST 20, ALT 15, Alkaline Phosphatase 83, Troponin I High Sens 6, Total Protein 7.2, Albumin 3.3, Globulin 3.9, Albumin/Globulin Ratio 0.8 L 07/27/22 20:50: Lactic Acid 1.3 07/27/22 20:50: B-Natriuretic Peptide 54.6 07/27/22 22:43: Troponin I High Sens 8 07/28/22 05:00: Sodium Cancelled, Potassium Cancelled, Chloride Cancelled, Carbon Dioxide Cancelled, Anion Gap Cancelled, BUN Cancelled, Creatinine Cancelled, Estim Creat Clear Calc Cancelled, Est GFR (MDRD) Af Amer Cancelled, Est GFR (MDRD) Non-Af Cancelled, BUN/Creatinine Ratio Cancelled, Glucose Cancelled, Calcium Cancelled, Magnesium Cancelled 07/28/22 05:00: WBC Cancelled, Corrected WBC Cancelled, RBC Cancelled, Hgb Cancelled, Hct Cancelled, MCV Cancelled, MCH Cancelled, MCHC Cancelled, RDW Std Deviation Cancelled, RDW Coeff of Toney Cancelled, Plt Count Cancelled, MPV Cancelled, Immature Gran % (Auto) Cancelled, Neut % (Auto) Cancelled, Lymph % (Auto) Cancelled, [place] % (Auto) Cancelled, Eos % (Auto) Cancelled, Baso % (Auto) Cancelled, Absolute Neuts (auto) Cancelled, Absolute Lymphs (auto) Cancelled, Total Counted Cancelled, Neutrophils % (Manual) Cancelled, Band Neutrophils % Cancelled, Lymphocytes % (Manual) Cancelled, Monocytes % (Manual) Cancelled, Eosinophils % (Manual) Cancelled, Basophils % (Manual) Cancelled, Metamyelocytes % Cancelled, Myelocytes % Cancelled, Promyelocytes % Cancelled, Blast Cells % Cancelled, Plasma Cell % (Manual) Cancelled, Other Cells % Cancelled, Nucleated RBC % Cancelled, Nucleated RBCs/100 WBC Cancelled, Differential Comment Cancelled, Diff Path Review Cancelled, Hypersegmented Neuts Cancelled, Atypical Lymphocytes Cancelled, Reactive Lymphocytes Cancelled, Smudge Cells Cancelled, Toxic Granulation Cancelled, Toxic Vacuolation Cancelled, Dohle Bodies Cancelled, Milo Rods Cancelled, Platelet Estimate Cancelled, Plt Morphology Comment Cancelled, RBC Morphology Cancelled, Polychromasia Cancelled, Hypochromasia Cancelled, Poikilocytosis Cancelled, Basophilic Stippling Cancelled, Anisocytosis Cancelled, Microcytosis Cancelled, Macrocytosis Cancelled, Spherocytes Cancelled, Sickle Cells Cancelled, Target Cells Canc elled, Tear Drop Cells Cancelled, Ovalocytes Cancelled, Stomatocytes Cancelled, [place] Bodies Cancelled, [place] Cells Cancelled, Bite Cells Cancelled, Crenated Cell Cancelled, Acanthocytes (Spur) Cancelled, Rouleaux Cancelled, Schistocytes Cancelled 07/28/22 05:00: Phosphorus Cancelled 07/28/22 05:55: WBC 7.7, RBC 3.90 L, Hgb 12.3, Hct 39.5, MCV 101.3 H, MCH 31.5, MCHC 31.1 L, RDW Std Deviation 48.8 H, RDW Coeff of Toney 13.2, Plt Count 236, MPV 9.6, Immature Gran % (Auto) 0.300, Neut % (Auto) 93.8 H, Lymph % (Auto) 5.2 L, [place] % (Auto) 0.7, Eos % (Auto) 0.0, Baso % (Auto) 0.0, Absolute Neuts (auto) 7.2, Absolute Lymphs (auto) 0.40 L, Nucleated RBC % 0, Differential Comment SCANNED 07/28/22 05:55: Sodium 142, Potassium 4.2, Chloride 101, Carbon Dioxide 35.0 H, Anion Gap 6, BUN 21 H, Creatinine 0.63, Estim Creat Clear Calc 27.80, Est GFR (MDRD) Af Amer 115, Est GFR (MDRD) Non-Af 95, BUN/Creatinine Ratio 33.2 H, Glucose 159 H, Calcium 9.1, Phosphorus 2.0 L, Magnesium 2.1 ABG Data ABG results: ABG 07/27/22 21:18 Specimen Type ART Sample Site L Radial pH 7.37 Bicarbonate Actual 40.1 H Total CO2 42 Base Excess 15 H O2 Saturation 97 ABG pCO2 69.0 H* ABG pO2 92 Abrahan Test Positive O2 Delivery Device Cannula Liter Flow 4.5 Crit Call To/Read Back Yes Blood Gas Notified Whom dr. santos Radiography Diagnostic Testing: Radiology Impression Chest X-Ray 07/27/22 21:27 IMPRESSION: No acute findings in the chest. Electronically Signed: Juan Reeder MD at 21:39 EDT , Rhythm Strip Rhythm Strip: Sinus Tach Rate: 120 Ectopy: None Physical Exam Narrative General: Alert, Oriented x1, Cooperative, No apparent distress HEENT: Atraumatic, PERRLA, EOMI, Normocephalic, cachectic Oral: Moist Mucosa Neck: Supple, No JVD Lungs: Diminished, Normal air movement, No rhonchi, No wheeze, No rales Cardiovascular: Tachycardic, Regular Rhythm, Normal S1, Normal S2, murmurs Abdomen: Soft, Non Tender, Non-Distended, No Hepato-splenomegaly Extremities: No edema, Capillary Refill Less than 3 Seconds Skin: No rashes, No breakdown Musculoskeletal: No Tenderness to Palpation of Joints or Extremities Neurological: Motor Exam 5/5 strength throughout, Sensory exam intact to light touch and pain Psych/Mental Status: Flat affect Assessment & Plan Assessment/Plan (1) Acute on chronic respiratory failure with hypoxia and hypercapnia: (2) Acute exacerbation of chronic obstructive pulmonary disease (COPD): (3) Protein calorie malnutrition: PLAN: Plan 1. Acute on chronic respiratory failure with hypoxia and hypercapnia secondary to acute COPD exacerbation versus pulmonary edema ? She is better after BiPAP use indicative of pulmonary edema ? She did have an echo in February 2022 with an EF of 65%, stage II diastolic dysfunction and RVSP of 52 mmHg, she also had moderate to severe aortic stenosis ? Continue with steroids ? Continue with antibiotics ? We will attempt a control her heart rate in the setting of her aortic stenosis 2. Chronic diastolic CHF/aortic stenosis ? We will try to improve rate control ? We will consider diuretics if we have difficulty improving her respiratory status 3. Debility ? PT/OT evaluation for possible placement 4. Severe protein calorie malnutrition ?Consider nutrition consult and supplemental protein when patient is no longer on BiPAP. DVT: Lovenox Charges/Coding Visit Charges Inpatient E&M: 02280 Subs Hosp L2
[2022-07-28] MEDS: Enoxaparin 30 MG/0.3 ML Syringe SC (10:37)
[2022-07-28] MEDS: Clotrimazole/Betamethasone 1 Tube 1 APPLIC TOPICAL (10:38)
[2022-07-28] MEDS: Ensure Plus High Protein 120 ML LIQUID PO ×3 (10:38→21:42)
[2022-07-28] MEDS: Metoprolol Tartrate 5 MG/5 ML Vial 2.5 MG IV (10:38)
[2022-07-28] MEDS: LORazepam 0.5 MG Tablet PO (11:42)
--- NOTE | 2022-07-28 12:00 | CASEMGMT ---
RN CM Face to Face with patient for initial transition planning/care coordination assessment. RN CM introduced self and role at [facility]. Patient lying in bed, alert and slightly confused, daughter at bedside. Patient willing to participate in assessment and is able to answer all questions appropriately. Care providers, pharmacy, and demographics verified. Patient wishes to discharge home, discussed possible HHC with daughter at discharge. A list of HHC providers including quality and resource use data and consistent with the patient?s preferred geographical region, medical needs, and insurance network were provided from the [employer] Guide.. Patient and daughter state they have no further needs or concerns at this time. CM to follow for discharge planning needs that may arise. PCP: Reza Specialists: Nataliia certified industrial hygienist; Preferred Pharmacy: [facility] Insurance: [employer] [facility] Prescription Benefit: yes Living Will/HPOA: Daughter was not sure if there were HPOA papers LNOK: , daughter Living Arrangements: Patient lives with and daughter in a 2.5 story home with bed and bath on first floor, 4 steps and railing to enter the home. Daughter assists patient with ADLs Transportation: DME/HHC: Patient has cane, walker, wheelchair, nebulizer, pulse ox, and home oxygen through [facility]. No previous HHC or SNF. Disposition Plan: Patient to discharge home with family support and follow-up plans in place. Will monitor progress with therapy for HHC. Angelica PURI, RN, CM
[2022-07-28] MEDS: Metoprolol Tartrate 5 MG/5 ML Vial IV ×2 (17:51→23:33)
[2022-07-28] MEDS: Pramipexole Di-HCl 0.125 MG Tablet PO (21:32)
[2022-07-28] MEDS: Mirtazapine 15 MG Tablet 7.5 MG PO (21:32)
[2022-07-28] MEDS: 0.9% Saline Lock 10 ML Syringe IV (21:33)
[2022-07-29] VITALS (18 sets, daily range): BP systolic 114–142; BP diastolic 51–108; PULSE 89–113; RESP 16–28; TEMP 36.6–37.1; O2SAT 90–98; BMI 16.1
[2022-07-29 04:00] LABS: Absolute Lymphocyte Count 0.94 X10^3/uL (0.83-4.51); Absolute Neutrophil Count 9.1 X10^3/uL (2.0-7.7); Basophil# 0.01 X10^3/uL; Basophil% 0.1 % (0-1); Eosinophil# 0.03 X10^3/uL; Eosinophils% 0.3 % (0-5); Hematocrit 38.8 % (37-47); Hemoglobin 11.9 g/dL (12.0-15.0); Lymphocyte # 0.94 X10^3/ul (0.83-4.51); Mean Corp Hgb Conc 30.7 g/dL (32-36); Mean Corpuscular Hgb 31.3 pg (27.0-32.0); Mean Corpuscular Volume 102.1 fL (81-99); Mean Platelet Vol. 10.3 fl (6.2-12.0); Monocyte# 0.24 X10^3/uL; Monocyte% 2.3 % (0-10); NRBC Flagged by Analyzer 0 % (0-5); Neutrophil # 9.13 X10^3/uL (2.7-7.7); Neutrophil % 87.8 % (47-70); POSITIVE COUNT YES; Platelet Count 224 K/mm3 (150-450); RBC Distribution Width CV 13.4 % (11.6-14.6); RBC Distribution Width SD 50.6 fl (35.1-43.9); White Blood Count 10.4 K/mm3 (4.4-11.0)
[2022-07-29 04:11] LABS: Anion Gap 2 (5-15); BUN 21 mg/dL (7-18); BUN/Creat Ratio 42.3 RATIO (10-20); Calcium,Total 9.2 mg/dL (8.5-10.1); Chloride 100 mmol/L (98-107); EST Glomerular Filtration Rate 126 mL/min (>60); Est Glom Filt Rate - Afr Amer 153 mL/min (>60); Estimated Creatinine Clearance 27.39 ml/min; Glucose 102 mg/dL (74-106); Potassium 4.4 mmol/L (3.5-5.1); Sodium Level 140 mmol/L (136-145)
[2022-07-29] MEDS: Methylprednisolone Sod Succ 40 MG/ML VIAL IV ×2 (05:40→15:42)
[2022-07-29] MEDS: Metoprolol Tartrate 5 MG/5 ML Vial IV (05:40)
--- NOTE | 2022-07-29 06:50 | PCM.PN.INT ---
Assessment & Plan Assessment/Plan (1) Acute on chronic respiratory failure with hypoxia and hypercapnia: (2) Protein calorie malnutrition: (3) Debility: (4) Dementia: PLAN: Plan RECOMMENDATIONS: 1. Transition to p.o. Lopressor 2. Challenge with diuretics 3. Clarify history with family 4. BiPAP rescue as necessary 5. Consult dietitian/PT/OT 6. Delirium protocol. Avoid Ativan 7. Okay to leave the intensive care unit from my perspective IMPRESSIONS: 1. Acute on chronic combined respiratory failure Unclear etiology at this time. Chest x-ray is relatively unremarkable. Patient was started on Solu-Medrol and azithromycin, but responded rapidly to BiPAP therapy. This would be suggestive of an element of pulmonary hypertension/cor pulmonale/pulmonary edema as an etiology. We will attempt better rate control as patient does have significant aortic stenosis on a recent echocardiogram. Likely discontinue antibiotics and steroids tomorrow if continues to improve. We will challenge with diuretics 2. Aortic stenosis/sinus tachycardia Patient with moderate to severe aortic valve calcification and stenosis with elevated pulmonary artery pressures. Unclear if this constitutes all of patient's respiratory failure. Patient would benefit from rate control given diastolic dysfunction. Transition to p.o. Lopressor. Okay to use BiPAP rescue if necessary. 3. Dementia/protein calorie malnutrition/debility/advanced age Complicates care, management, recovery and prognosis. We will place patient on a regular diet. PT/OT will be consulted. We will attempt to clarify baseline status when family arrives. Subjective Subjective Patient did okay overnight. Patient has had confusion with removal of IVs. Patient with complaints of chronic pain. Patient's family was in the visit yesterday Objective Data Objective Data Vital Signs: Vital Signs Temp Pulse Resp BP Pulse Ox O2 Del Method O2 Flow Rate 36.6 C 89 21 H 119/74 98 Nasal Cannula 4 07/29/22 06:00 07/29/22 06:00 07/29/22 06:00 07/29/22 06:00 07/29/22 06:00 07/29/22 06:00 07/29/22 06:00 FiO2 50 07/28/22 22:55 Oxygen Flow Rate (L/min) 4 Oxygen Delivery Method Nasal Cannula Weight: 40 kg Body Mass Index (BMI) 16.1 Intake & Output: Intake and Output for Last 24 Hours 07/27/22 07/28/2207/29/23 23:59 23:59 23:59 Intake Total 510 / 630 360 / 360 Output Total 100 / 100 1100 / 1100 Balance 410 / 530 -740 / -740 Medical Nutrition Assessment Dietitian: Malnutrition Criteria Met Start: 07/28/22 09:52 Freq: Status: Active Protocol: Document 07/28/22 09:52 (Rec: 07/28/22 09:52 [id number]) Nutrition Malnutrition Evidence of Malnutrition Exists Yes Malnutrition (severe): Chronic Evidenced By Suboptimal Energy Intake ( Severe),Physical Changes ( Severe) Clinical Problem Chronic Disease or Condition Related Malnutrition Etiology severe, chronic malnutriton related to inadequate energy intake w/ increased energy needs d/t chronic resp. failure Signs/Symptoms as evidenced by estimated PO intake meeting <75% of estimated energy needs > 3 months; Severe muscle wasting/ fat loss evident per physical exam in orbital, clavicle, acromion, and temporal areas; BMI 16.1 Status Active Problem Recommendation Dietitian Recommendations/Changes regular diet; will add Ensure Plus High Protein 120mL 4x/day w/ medpass and fortify foods at meals as able to increase protein/calories consumed. Lab / Micro Data Attestation: I reviewed the patient's lab results. Result Diagrams: 07/29/22 03:55 07/29/22 03:55 Labs: Laboratory Results - last 24 hr 07/28/22 05:55: Differential Comment SCANNED 07/29/22 03:55: WBC 10.4, RBC 3.80 L, Hgb 11.9 L, Hct 38.8, MCV 102.1 H, MCH 31.3, MCHC 30.7 L, RDW Std Deviation 50.6 H, RDW Coeff of Toney 13.4, Plt Count 224, MPV 10.3, Immature Gran % (Auto) 0.500, Neut % (Auto) 87.8 H, Lymph % (Auto) 9.0 L, [place] % (Auto) 2.3, Eos % (Auto) 0.3, Baso % (Auto) 0.1, Absolute Neuts (auto) 9.1 H, Absolute Lymphs (auto) 0.94, Nucleated RBC % 0 07/29/22 03:55: Sodium 140, Potassium 4.4, Chloride 100, Carbon Dioxide 38.0 H, Anion Gap 2 L, BUN 21 H, Creatinine 0.50 L, Estim Creat Clear Calc 27.39, Est GFR (MDRD) Af Amer 153, Est GFR (MDRD) Non-Af 126, BUN/Creatinine Ratio 42.3 H, Glucose 102, Calcium 9.2 Rhythm Strip Rhythm Strip: Sinus Tach Rate: 107 Ectopy: None Physical Exam Const alert Constitutional Narrative: Oriented to self only. No conversational dyspnea. Supplemental oxygen in place. General Appearance: frail HEENT normocephalic Eyes PERRL, EOMs intact bilaterally, conjunctivae normal and no scleral icterus Neck full ROM Resp Resp Narrative: No conversational dyspnea appreciated. Effort and Inspection: Negative for tachypneic Auscultation: rales; Negative for rhonchi or wheezes Cardio S1 normal heart sound, S2 normal heart sound, no rub and no gallops Rate: tachycardic Heart Sounds: murmur GI normal to inspection, nondistended, normoactive bowel sounds Extremity no clubbing, cyanosis or edema Skin no rashes or lesions noted Neuro CN's II-XII intact bilaterally, moves all extremities and no focal motor deficits Psych Mood & Affect: flat affect Charges/Coding Visit Charges Inpatient E&M: 14313 Subs Hosp L2
[2022-07-29] MEDS: Ipratropium/Albuterol Sulfate 3 ML AMPUL.NEB INHALATION ×2 (07:22→19:50)
[2022-07-29] MEDS: Clotrimazole/Betamethasone 1 Tube 1 APPLIC TOPICAL (07:23)
[2022-07-29] MEDS: Metoprolol Tartrate 25 MG Tablet PO ×2 (07:23→21:19)
[2022-07-29] MEDS: Enoxaparin 30 MG/0.3 ML Syringe SC (07:23)
[2022-07-29] MEDS: Furosemide 20 MG Tablet PO (07:23)
--- NOTE | 2022-07-29 09:13 | PCM.PN.HOSP ---
Subjective Subjective Doing well, no issues overnight. She has had significant improvement with BiPAP Objective Data Objective Data Vital Signs: Vital Signs Temp Pulse Resp BP Pulse Ox O2 Del Method O2 Flow Rate 98.4 F 95 22 H 119/81 H 97 Nasal Cannula 4 07/29/22 08:00 07/29/22 09:00 07/29/22 09:00 07/29/22 09:00 07/29/22 09:00 07/29/22 09:00 07/29/22 09:00 FiO2 50 07/28/22 22:55 Oxygen Flow Rate (L/min) 4 Oxygen Delivery Method Nasal Cannula Weight: 88 lb 2.958 oz Body Mass Index (BMI) 16.1 Intake & Output: Intake and Output for Last 24 Hours 07/28/22 07/29/22 07/30/22 03:59 03:59 03:59 Intake Total 630 / 870 240 / 240 Output Total 100 / 1000 1100 / 1100 Balance 530 / -130 -860 / -860 Medical Nutrition Assessment Dietitian: Malnutrition Criteria Met Start: 07/28/22 09:52 Freq: Status: Active Protocol: Document 07/28/22 09:52 (Rec: 07/28/22 09:52 [id number]) Nutrition Malnutrition Evidence of Malnutrition Exists Yes Malnutrition (severe): Chronic Evidenced By Suboptimal Energy Intake ( Severe),Physical Changes ( Severe) Clinical Problem Chronic Disease or Condition Related Malnutrition Etiology severe, chronic malnutriton related to inadequate energy intake w/ increased energy needs d/t chronic resp. failure Signs/Symptoms as evidenced by estimated PO intake meeting <75% of estimated energy needs > 3 months; Severe muscle wasting/ fat loss evident per physical exam in orbital, clavicle, acromion, and temporal areas; BMI 16.1 Status Active Problem Recommendation Dietitian Recommendations/Changes regular diet; will add Ensure Plus High Protein 120mL 4x/day w/ medpass and fortify foods at meals as able to increase protein/calories consumed. Lab / Micro Data Result Diagrams: 07/29/22 03:55 07/29/22 03:55 Labs: Laboratory Results - last 24 hr 07/29/22 03:55: WBC 10.4, RBC 3.80 L, Hgb 11.9 L, Hct 38.8, MCV 102.1 H, MCH 31.3, MCHC 30.7 L, RDW Std Deviation 50.6 H, RDW Coeff of Toney 13.4, Plt Count 224, MPV 10.3, Immature Gran % (Auto) 0.500, Neut % (Auto) 87.8 H, Lymph % (Auto) 9.0 L, [place] % (Auto) 2.3, Eos % (Auto) 0.3, Baso % (Auto) 0.1, Absolute Neuts (auto) 9.1 H, Absolute Lymphs (auto) 0.94, Nucleated RBC % 0 07/29/22 03:55: Sodium 140, Potassium 4.4, Chloride 100, Carbon Dioxide 38.0 H, Anion Gap 2 L, BUN 21 H, Creatinine 0.50 L, Estim Creat Clear Calc 27.39, Est GFR (MDRD) Af Amer 153, Est GFR (MDRD) Non-Af 126, BUN/Creatinine Ratio 42.3 H, Glucose 102, Calcium 9.2 Rhythm Strip Rhythm Strip: Sinus Tach Rate: 107 Ectopy: None Physical Exam Narrative General: Alert, Oriented x1, Cooperative, No apparent distress HEENT: Atraumatic, PERRLA, EOMI, Normocephalic, cachectic Oral: Moist Mucosa Neck: Supple, No JVD Lungs: Diminished, Normal air movement, No rhonchi, No wheeze, No rales Cardiovascular: Tachycardic, Regular Rhythm, Normal S1, Normal S2, murmurs Abdomen: Soft, Non Tender, Non-Distended, No Hepato-splenomegaly Extremities: No edema, Capillary Refill Less than 3 Seconds Skin: No rashes, No breakdown Musculoskeletal: No Tenderness to Palpation of Joints or Extremities Neurological: Motor Exam 5/5 strength throughout, Sensory exam intact to light touch and pain Psych/Mental Status: Flat affect Assessment & Plan Assessment/Plan (1) Acute on chronic respiratory failure with hypoxia and hypercapnia: (2) Acute exacerbation of chronic obstructive pulmonary disease (COPD): (3) Protein calorie malnutrition: PLAN: Plan 1. Acute on chronic respiratory failure with hypoxia and hypercapnia secondary to acute COPD exacerbation versus pulmonary edema ? She is better after BiPAP use indicative of pulmonary edema ? She did have an echo in February 2022 with an EF of 65%, stage II diastolic dysfunction and RVSP of 52 mmHg, she also had moderate to severe aortic stenosis ? Continue with steroids ? Continue with antibiotics ? We will attempt a control her heart rate in the setting of her aortic stenosis ? She was given a trial of diuretics by pulmonology will monitor for improvement 2. Chronic diastolic CHF/aortic stenosis ? We will try to improve rate control ? We will consider diuretics if we have difficulty improving her respiratory status 3. Debility ? PT/OT evaluation for possible placement 4. Severe protein calorie malnutrition ?Consider nutrition consult and supplemental protein when patient is no longer on BiPAP. DVT: Lovenox Charges/Coding Visit Charges Inpatient E&M: 67726 Subs Hosp L2
--- NOTE | 2022-07-29 12:22 | CPS ---
Patient asked to skip treatment, visiting with daughter and eating lunch.
--- NOTE | 2022-07-29 14:37 | CPS ---
Pt just got to PCU, ordered food and visiting with . Stated I just cant right now its too much.
[2022-07-29] MEDS: Ensure Plus High Protein 120 ML LIQUID PO (21:19)
[2022-07-29] MEDS: LORazepam 0.5 MG Tablet PO (21:19)
[2022-07-29] MEDS: Mirtazapine 15 MG Tablet 7.5 MG PO (21:20)
[2022-07-29] MEDS: Pramipexole Di-HCl 0.125 MG Tablet PO (21:21)
--- NOTE | 2022-07-29 23:20 | NURSING ---
This RN placed pt on bipap, but pt immediately pulled it off and started to get more irritable. pt switched back on 4L w/ saturation in 93-95%. pt's daughter in room, no further concerns at this time.
[2022-07-30] VITALS (9 sets, daily range): BP systolic 100–110; BP diastolic 54–86; PULSE 91–102; RESP 14–24; TEMP 36.4–37.1; O2SAT 89–98; BMI 16.1
[2022-07-30 05:56] LABS: Absolute Lymphocyte Count 1.32 X10^3/uL (0.83-4.51); Absolute Neutrophil Count 7.8 X10^3/uL (2.0-7.7); Basophil# 0.01 X10^3/uL; Basophil% 0.1 % (0-1); Hematocrit 36.1 % (37-47); Hemoglobin 11.2 g/dL (12.0-15.0); Lymphocyte # 1.32 X10^3/ul (0.83-4.51); Mean Corpuscular Hgb 30.6 pg (27.0-32.0); Mean Corpuscular Volume 98.6 fL (81-99); Mean Platelet Vol. 10.6 fl (6.2-12.0); Monocyte# 0.98 X10^3/uL; Monocyte% 9.6 % (0-10); NRBC Flagged by Analyzer 0 % (0-5); Neutrophil # 7.82 X10^3/uL (2.7-7.7); Neutrophil % 76.9 % (47-70); Platelet Count 223 K/mm3 (150-450); RBC Distribution Width CV 13.3 % (11.6-14.6); RBC Distribution Width SD 48.5 fl (35.1-43.9); Red Blood Count 3.66 M/mm3 (4.2-5.4); White Blood Count 10.2 K/mm3 (4.4-11.0)
[2022-07-30 06:24] LABS: Anion Gap 2 (5-15); BUN 35 mg/dL (7-18); BUN/Creat Ratio 67.6 RATIO (10-20); Chloride 100 mmol/L (98-107); Creatinine, Serum 0.52 mg/dL (0.55-1.02); EST Glomerular Filtration Rate 120 mL/min (>60); Est Glom Filt Rate - Afr Amer 146 mL/min (>60); Estimated Creatinine Clearance 27.46 ml/min; Glucose 97 mg/dL (74-106); Potassium 3.8 mmol/L (3.5-5.1); Sodium Level 140 mmol/L (136-145)
[2022-07-30] MEDS: Ipratropium/Albuterol Sulfate 3 ML AMPUL.NEB INHALATION (06:58)
[2022-07-30] MEDS: predniSONE 20 MG Tablet 40 MG PO (09:07)
[2022-07-30] MEDS: Menthol/Lanolin/Calamine/Znox 113 GM Tube 1 APPLIC TOPICAL (09:07)
[2022-07-30] MEDS: Metoprolol Tartrate 25 MG Tablet PO (09:09)
[2022-07-30] MEDS: Azithromycin 250 MG Tablet 500 MG PO (09:10)
[2022-07-30] MEDS: Clotrimazole/Betamethasone 1 Tube 1 APPLIC TOPICAL (09:10)
[2022-07-30] MEDS: Enoxaparin 30 MG/0.3 ML Syringe SC (09:10)
[2022-07-30] MEDS: Ensure Plus High Protein 120 ML LIQUID PO ×2 (09:12→15:41)
--- NOTE | 2022-07-30 09:54 | PN.HOSP_ITS ---
Reason for Visit Reason for Visit: Diagnoses Unspecified protein-calorie malnutrition (07/27/22) Unspecified dementia, unspecified severity, without behavioral disturbance, psychotic disturbance, mood disturbance, and anxiety (07/27/22) Chronic obstructive pulmonary disease with (acute) exacerbation (07/27/22) Acute and chronic respiratory failure with hypoxia (07/27/22) Acute and chronic respiratory failure with hypercapnia (07/27/22) Other malaise (07/27/22) Subjective Subjective Breathing well. Objective Data Objective Data Vital Signs: Vital Signs Temp Pulse Resp BP Pulse Ox O2 Del Method O2 Flow Rate 37.1 C 102 H 14 100/54 L 98 Nasal Cannula 4 07/30/22 08:51 07/30/22 09:09 07/30/22 08:51 07/30/22 09:09 07/30/22 08:51 07/30/22 08:51 07/30/22 08:51 FiO2 50 07/28/22 22:55 Oxygen Flow Rate (L/min) 4 Oxygen Delivery Method Nasal Cannula Weight: 40.1 kg Body Mass Index (BMI) 16.1 Intake & Output: Intake and Output for Last 24 Hours 07/28/22 07/29/22 07/30/22 23:59 23:59 23:59 Intake Total 510 / 630 480 / 480 Output Total 100 / 100 1100 / 1100 Balance 410 / 530 -620 / -620 Medical Nutrition Assessment Dietitian: Malnutrition Criteria Met Start: 07/28/22 09:52 Freq: Status: Active Protocol: Document 07/28/22 09:52 (Rec: 07/28/22 09:52 [id number]) Nutrition Malnutrition Evidence of Malnutrition Exists Yes Malnutrition (severe): Chronic Evidenced By Suboptimal Energy Intake ( Severe),Physical Changes ( Severe) Clinical Problem Chronic Disease or Condition Related Malnutrition Etiology severe, chronic malnutriton related to inadequate energy intake w/ increased energy needs d/t chronic resp. failure Signs/Symptoms as evidenced by estimated PO intake meeting <75% of estimated energy needs > 3 months; Severe muscle wasting/ fat loss evident per physical exam in orbital, clavicle, acromion, and temporal areas; BMI 16.1 Status Active Problem Recommendation Dietitian Recommendations/Changes regular diet; will add Ensure Plus High Protein 120mL 4x/day w/ medpass and fortify foods at meals as able to increase protein/calories consumed. Lab / Micro Data Result Diagrams: 07/30/22 04:53 07/30/22 04:53 Labs: Laboratory Results - last 24 hr 07/30/22 04:53: WBC 10.2, RBC 3.66 L, Hgb 11.2 L, Hct 36.1 L, MCV 98.6, MCH 30.6, MCHC 31.0 L, RDW Std Deviation 48.5 H, RDW Coeff of Toney 13.3, Plt Count 223, MPV 10.6, Immature Gran % (Auto) 0.400, Neut % (Auto) 76.9 H, Lymph % (Auto) 13.0 L, [place] % (Auto) 9.6, Eos % (Auto) 0.0, Baso % (Auto) 0.1, Absolute Neuts (auto) 7.8 H, Absolute Lymphs (auto) 1.32, Nucleated RBC % 0 07/30/22 04:53: Sodium 140, Potassium 3.8, Chloride 100, Carbon Dioxide 38.0 H, Anion Gap 2 L, BUN 35 H, Creatinine 0.52 L, Estim Creat Clear Calc 27.46, Est GFR (MDRD) Af Amer 146, Est GFR (MDRD) Non-Af 120, BUN/Creatinine Ratio 67.6 H, Glucose 97, Calcium 9.0 Rhythm Strip Rhythm Strip: Sinus Tach Rate: 107 Ectopy: None Physical Exam Narrative does not know the year. thinks she is 19 years old and that she lives with her parents. Const alert and no apparent distress Orientation / Consciousness: confused HEENT head/scalp atraumatic and moist oral mucous membranes Resp normal respiratory effort, no retractions, no use of accessory muscles and clear to auscultation bilaterally Cardio regular rate, regular rhythm, S1 normal heart sound and S2 normal heart sound GI normal to inspection, nondistended, normoactive bowel sounds, soft to palpation, non-tender and non-distended Extremity normal to inspection Assessment & Plan Assessment/Plan (1) Acute on chronic respiratory failure with hypoxia and hypercapnia: PLAN: Acute on chronic respiratory failure with hypoxia and hypercapnia secondary to acute COPD exacerbation versus pulmonary edema ? She is better after BiPAP use indicative of pulmonary edema ? She did have an echo in February 2022 with an EF of 65%, stage II diastolic dysfunction and RVSP of 52 mmHg, she also had moderate to severe aortic stenosis ? Continue with steroids ? Continue with antibiotics ? We will attempt a control her heart rate in the setting of her aortic stenosis ? She was given a trial of diuretics by pulmonology will monitor for improvement (2) Acute exacerbation of chronic obstructive pulmonary disease (COPD): PLAN: as above (3) Protein calorie malnutrition: PLAN: Severe protein calorie malnutrition ?Consider nutrition consult and supplemental protein when patient is no longer on BiPAP. PLAN: Plan Chronic conditions: * Chronic diastolic CHF/aortic stenosis? We will try to improve rate control? We will consider diuretics if we have difficulty improving her respiratory status * Debility? PT/OT evaluation for possible placement * dementia: complicates care. DVT: Lovenox DC home with C. Charges/Coding Visit Charges Inpatient E&M: 70931 Subs Hosp L2
--- NOTE | 2022-07-30 14:28 | DCINST_ITS ---
Discharge Instructions Diet Discharge Diet: Low fat / Low cholesterol Dressing / Incision Call your doctor if you observe: Fever of 101 or Higher and Shortness of breath Follow Up Care Test Results: Test results from this visit will be discussed in further detail at your follow- up appointment, if applicable. Discharge Plan Admission Admit Date/Time: 07/27/22 22:04 Primary Reason for Your Visit: COPD exacerbation Attending Provider: Jose Dumont Primary Care Provider: Marcello Cobb Consulting Providers: Adarsh Tipton ; Magdi Camarillo ; Zachary Mcknight Discharge Orders/Prescriptions Prescriptions: New metoprolol tartrate 25 mg Tablet 25 mg PO BID Qty: 60 0RF prednisone 20 mg Tablet 40 mg PO BREAKFAST 4 Days Qty: 8 0RF Continued albuterol sulfate 90 mcg/actuation HFA aerosol inhaler 1 puff INHALATION DAILY ropinirole 0.25 mg tablet 0.25 mg PO QHS Label Comments: TAKE 1 TO 2 TABLETS BY MOUTH ONE HOUR BEFORE BEDTIME lorazepam 1 MG tablet 0.5 mg PO TID PRN (Reason: Anxiety) Qty: 5 0RF Anoro Ellipta 62.5-25 mcg/actuation blister with device 1 inh INHALATION DAILY Label Comments: INHALE 1 PUFF BY MOUTH ONCE DAILY WITH GOOD ORAL CARE. clotrimazole-betamethasone 1-0.05 % cream 1 applic TOPICAL DAILY Label Comments: APPLY TO AFFECTED AREA OF RASH ON THE FEET, BUT NOT IN BETWEEN TOES, TWICE DAILY FOR 14 DAYS mirtazapine 7.5 mg tablet 7.5 mg PO QHS Label Comments: TAKE 1 TABLET BY MOUTH ONCE DAILY AT BEDTIME Discontinued metoprolol tartrate 25 mg Tablet 12.5 mg PO BID 30 Days Qty: 30 0RF Rx Instructions: Hold for heart less than 60 or systolic blood pressure less than 100 mmHg. Referrals / Follow Up: Marcello Cobb MD [Primary Care Provider] - Within 2 Weeks Disposition Disposition (needs filled in before D/C Order can be placed): Home Health Service
--- NOTE | 2022-07-30 14:39 | DS.PCM_ITS ---
Providers Date of Admission: 07/27/22 Primary Care Physician: Dr. Marcello Cobb MD Consultations 07/28/22 01:16 Consult: Chief Mechanical Officer / Pulmonary Medicine Routine Consulting Provider: Magdi Camarillo Reason for Consult: Acute hypercapnic and hypoxemic respiratory failure EMERGENT Consult: No MD Notified: Yes Date Notified: 07/27/22 Time Notified: 22:18 Method of Notification: Verbal Method of Consult:: In-Person Reason For Visit: ACUTE EXACERBATION OF COPD Diagnosis Discharge Diagnosis (1) Acute on chronic respiratory failure with hypoxia and hypercapnia: Status: Chronic Code(s): J96.21 - Acute and chronic respiratory failure with hypoxia; J96.22 - Acute and chronic respiratory failure with hypercapnia Plan: Acute on chronic respiratory failure with hypoxia and hypercapnia secondary to acute COPD exacerbation versus pulmonary edema ? She is better after BiPAP use indicative of pulmonary edema ? She did have an echo in February 2022 with an EF of 65%, stage II diastolic dysfunction and RVSP of 52 mmHg, she also had moderate to severe aortic stenosis ? Continue with steroids ? Continue with antibiotics ? We will attempt a control her heart rate in the setting of her aortic stenosis ? She was given a trial of diuretics by pulmonology will monitor for improvement (2) Acute exacerbation of chronic obstructive pulmonary disease (COPD): Status: Chronic Code(s): J44.1 - Chronic obstructive pulmonary disease with (acute) exacerbation Plan: as above (3) Protein calorie malnutrition: Status: Acute Code(s): E46 - Unspecified protein-calorie malnutrition Plan: Severe protein calorie malnutrition ?Consider nutrition consult and supplemental protein when patient is no longer on BiPAP. Plan Chronic conditions: * Chronic diastolic CHF/aortic stenosis? We will try to improve rate control? We will consider diuretics if we have difficulty improving her respiratory status * Debility? PT/OT evaluation for possible placement * dementia: complicates care. DVT: Lovenox DC home with [facility]. Medications at Discharge Home Medications albuterol sulfate 90 mcg/actuation aerosol inhaler 1 puff inhalation DAILY shortness of breath 01/30/21 ropinirole 0.25 mg tablet 0.25 mg PO QHS restless legs 03/14/22 lorazepam 1 mg tablet 0.5 mg PO TID PRN Anxiety #5 tabs 03/16/22 clotrimazole-betamethasone 1 %-0.05 % topical cream 1 applic topical DAILY 07/27/22 mirtazapine 7.5 mg tablet 7.5 mg PO QHS 07/27/22 umeclidinium 62.5 mcg-vilanterol 25 mcg/actuation powdr for inhalation (Anoro Ellipta) 1 inh inhalation DAILY 07/27/22 metoprolol tartrate 25 mg tablet 25 mg PO BID #60 tabs 07/30/22 prednisone 20 mg tablet 40 mg PO BREAKFAST 4 days #8 tabs 07/30/22 Medical Records Data Medical Nutrition Assessment Dietitian: Malnutrition Criteria Met Start: 07/28/22 09:52 Freq: Status: Active Protocol: Document 07/28/22 09:52 (Rec: 07/28/22 09:52 [id number]) Nutrition Malnutrition Evidence of Malnutrition Exists Yes Malnutrition (severe): Chronic Evidenced By Suboptimal Energy Intake ( Severe),Physical Changes ( Severe) Clinical Problem Chronic Disease or Condition Related Malnutrition Etiology severe, chronic malnutriton related to inadequate energy intake w/ increased energy needs d/t chronic resp. failure Signs/Symptoms as evidenced by estimated PO intake meeting <75% of estimated energy needs > 3 months; Severe muscle wasting/ fat loss evident per physical exam in orbital, clavicle, acromion, and temporal areas; BMI 16.1 Status Active Problem Recommendation Dietitian Recommendations/Changes regular diet; will add Ensure Plus High Protein 120mL 4x/day w/ medpass and fortify foods at meals as able to increase protein/calories consumed. Weight / BMI Weight Weight: 40.1 kg Body Mass Index (BMI) 16.1 ABG / Lab / Microbiology Data Result Diagrams: 07/30/22 04:53 07/30/22 04:53 Laboratory: Laboratory Results - last 24 hr 07/30/22 04:53: WBC 10.2, RBC 3.66 L, Hgb 11.2 L, Hct 36.1 L, MCV 98.6, MCH 30.6, MCHC 31.0 L, RDW Std Deviation 48.5 H, RDW Coeff of Toney 13.3, Plt Count 223, MPV 10.6, Immature Gran % (Auto) 0.400, Neut % (Auto) 76.9 H, Lymph % (Auto) 13.0 L, [place] % (Auto) 9.6, Eos % (Auto) 0.0, Baso % (Auto) 0.1, Absolute Neuts (auto) 7.8 H, Absolute Lymphs (auto) 1.32, Nucleated RBC % 0 07/30/22 04:53: Sodium 140, Potassium 3.8, Chloride 100, Carbon Dioxide 38.0 H, Anion Gap 2 L, BUN 35 H, Creatinine 0.52 L, Estim Creat Clear Calc 27.46, Est GFR (MDRD) Af Amer 146, Est GFR (MDRD) Non-Af 120, BUN/Creatinine Ratio 67.6 H, Glucose 97, Calcium 9.0 D/C Instructions Discharge Diet: Low fat / Low cholesterol Call your doctor if you observe: Fever of 101 or Higher and Shortness of breath Meaningful Use Info Meaningful Use Diagnoses (Choose all that apply): None applicable Discharge Plan Admission Admit Date/Time: 07/27/22 22:04 Primary Reason for Your Visit: COPD exacerbation Attending Provider: Jose Dumont Primary Care Provider: Marcello Cobb Consulting Providers: Adarsh Tipton ; Magdi Camarillo ; Zachary Mcknight Discharge Orders/Prescriptions Prescriptions: New metoprolol tartrate 25 mg Tablet 25 mg PO BID Qty: 60 0RF prednisone 20 mg Tablet 40 mg PO BREAKFAST 4 Days Qty: 8 0RF Continued albuterol sulfate 90 mcg/actuation HFA aerosol inhaler 1 puff INHALATION DAILY ropinirole 0.25 mg tablet 0.25 mg PO QHS Label Comments: TAKE 1 TO 2 TABLETS BY MOUTH ONE HOUR BEFORE BEDTIME lorazepam 1 MG tablet 0.5 mg PO TID PRN (Reason: Anxiety) Qty: 5 0RF Anoro Ellipta 62.5-25 mcg/actuation blister with device 1 inh INHALATION DAILY Label Comments: INHALE 1 PUFF BY MOUTH ONCE DAILY WITH GOOD ORAL CARE. clotrimazole-betamethasone 1-0.05 % cream 1 applic TOPICAL DAILY Label Comments: APPLY TO AFFECTED AREA OF RASH ON THE FEET, BUT NOT IN BETWEEN TOES, TWICE DAILY FOR 14 DAYS mirtazapine 7.5 mg tablet 7.5 mg PO QHS Label Comments: TAKE 1 TABLET BY MOUTH ONCE DAILY AT BEDTIME Discontinued metoprolol tartrate 25 mg Tablet 12.5 mg PO BID 30 Days Qty: 30 0RF Rx Instructions: Hold for heart less than 60 or systolic blood pressure less than 100 mmHg. Referrals / Follow Up: Marcello Cobb MD [Primary Care Provider] - Within 2 Weeks Disposition Disposition (needs filled in before D/C Order can be placed): Home Health Service Charges/Coding Visit Charges Inpatient E&M: 20025 Disch Hosp
--- NOTE | 2022-07-30 15:05 | PHA.DC.MC ---
Pharmacy Service has performed discharge medication reconciliation and counseling for this patient. 1. PREDNISONE 40MG PO BREAKFAST X 4 DAYS The patient's discharge medication list was reviewed for discrepancies and discrepancies were resolved. Home Medications albuterol sulfate 90 mcg/actuation aerosol inhaler 1 puff inhalation DAILY shortness of breath 01/30/21 ropinirole 0.25 mg tablet 0.25 mg PO QHS restless legs 03/14/22 lorazepam 1 mg tablet 0.5 mg PO TID PRN Anxiety #5 tabs 03/16/22 clotrimazole-betamethasone 1 %-0.05 % topical cream 1 applic topical DAILY 07/27/22 mirtazapine 7.5 mg tablet 7.5 mg PO QHS 07/27/22 umeclidinium 62.5 mcg-vilanterol 25 mcg/actuation powdr for inhalation (Anoro Ellipta) 1 inh inhalation DAILY 07/27/22 metoprolol tartrate 25 mg tablet 25 mg PO BID #60 tabs 07/30/22 prednisone 20 mg tablet 40 mg PO BREAKFAST 4 days #8 tabs 07/30/22 The patient was counseled on the following discharge medications and changes in medications for homegoing were reviewed. The Reason for Use, instructions for use, and potential side effects were reviewed for all new medications. The patient's questions regarding all of their medications were answered. The patient was able to verbally demonstrate an understanding of their discharge medications.
--- NOTE | 2022-07-30 15:09 | CASEMGMT ---
Addendum entered by Angelica Joel 07/30/22 15:21: RN CM received call back from [facility] and they are able to accept the patient with planned start of care for tomorrow. RN updated patient and discharge plan. Original Note: BENNETT CM in to discuss discharge planning with patient, patient is agreeable to [facility] and prefers [facility] after reviewing list. Patient wanted to make sure daughter was alright with [facility]. BENNETT CORONADO called daughter Fani to update regarding discharge today and to have portable tank from home for discharge. BENNETT CORONADO discussed HHC with Fani and she would also like patient to have HHC at discharge. Fani had no further questions or concerns at this time. BENNETT CORONADO called [facility] and placed referral, awaiting acceptance. CM to continue to follow this patient and plan for a safe discharge.
--- NOTE | 2022-07-30 16:21 | CASEMGMT ---
Sw met with patient at bedside, introduced self and explained sw role during hospitalization. Sw asked patient if she has advanced directives in place. Patient reports that she does not and asked for copy of documentation. Sw provided patient with paperwork for advanced directives. Patient asked sw to come back tomorrow to potentially assist with comleting them. Hemant Pritchett, VICE PRESIDENT [employer]ALENT MANAGEMENT, TUBE BUILDER
== END 2022-07-30 16:25 | disposition home health service (06) | DRG 189 ==
LOC: ED 22:14 → ICU 22:41 → PCU 07-29 12:59
PROVIDERS: Family Medicine; Internal Medicine Critical Care Medicine; Admitting Provider Hospitalist; Emergency Provider Emergency Medicine; PCP Internal Medicine
DX: J96.21 Acute and chronic respiratory failure with hypoxia (principal); E43 Unspecified severe protein-calorie malnutrition; J81.1 Chronic pulmonary edema; I50.32 Chronic diastolic (congestive) heart failure; Z68.1 Body mass index [BMI] 19.9 or less, adult; I27.20 Pulmonary hypertension, unspecified; F03.90 Unspecified dementia, unspecified severity, without behavioral disturbance, psychotic disturbance, mood disturbance, and anxiety; J43.9 Emphysema, unspecified; J96.22 Acute and chronic respiratory failure with hypercapnia; I35.0 Nonrheumatic aortic (valve) stenosis; J98.01 Acute bronchospasm; G89.29 Other chronic pain; R53.81 Other malaise; Z99.81 Dependence on supplemental oxygen; Z79.899 Other long term (current) drug therapy
CPT/HCPCS: 36415; 36600; 71045; 80048; 80053; 82803; 83605; 83735; 83880; 84100; 84484; 85025; 93005; 94002; 94003; 94640; 94762; 97110; 97162; 97166; 97530; 97535; 97802; 99285; A4216

== ENCOUNTER 2022-10-18 13:07 | Emergency (ER) | payer MEDICARE, SELFPAY ==
[2022-10-18 13:09] VITALS: BP 150/89; PULSE 106; RESP 30; TEMP 36.9; O2SAT 88; BMI 17.0
[2022-10-18 13:12] VITALS: RESP 30; O2SAT 89
[2022-10-18 13:13] VITALS: O2SAT 91
--- NOTE | 2022-10-18 13:24 | EDS_ITS ---
HPI History of Present Illness Chief Complaint: Shortness of Breath [facility] Medical History Anxiety Anxiety and depression Chronic respiratory failure with hypoxia Emphysema lung Protein calorie malnutrition Pulmonary fibrosis Pulmonary HTN Severe protein-calorie malnutrition Valvular heart disease Home Medications albuterol sulfate 90 mcg/actuation aerosol inhaler 1 puff inhalation DAILY shortness of breath 01/30/21 [History Last Taken Unknown] ropinirole 0.25 mg tablet 0.25 mg PO QHS restless legs 03/14/22 [History Last Taken Unknown] lorazepam 1 mg tablet 0.5 mg (1/2 x 1 mg) PO TID PRN Anxiety #5 tabs 03/16/22 [Rx Last Taken 04/05/15] clotrimazole-betamethasone 1 %-0.05 % topical cream 1 applic topical DAILY 07/27/22 [History Last Taken Unknown] mirtazapine 7.5 mg tablet 7.5 mg PO QHS 07/27/22 [History Last Taken Unknown] umeclidinium 62.5 mcg-vilanterol 25 mcg/actuation powdr for inhalation (Anoro Ellipta) 1 inh inhalation DAILY 07/27/22 [History Last Taken Unknown] metoprolol tartrate 25 mg tablet 25 mg PO BID #60 tabs 07/30/22 [Rx Last Taken Unknown] prednisone 20 mg tablet 40 mg (2 x 20 mg) PO BREAKFAST 4 days #8 tabs 07/30/22 [Rx Last Taken Unknown] prednisone 50 mg tablet 50 mg PO DAILY 5 days #5 tabs 10/18/22 [Rx Last Taken Unknown] Allergy/AdvReac Type Severity Reaction Status Date / Time Tetanus Vaccines and Toxoid Allergy Unknown Verified 07/27/22 20:31 [Tetanus Vaccines & Toxoid] Family History Other Heart disease Surgical History History of cholecystectomy Social History household members: spouse and family Smoking Status: Never smoker alcohol intake: never substance use type: does not use EXAM Physical Exam Const Vital Signs: 10/18/22 13:09 10/18/22 13:12 10/18/22 13:13 Temperature 98.4 F Temperature Source Oral Pulse Rate 106 H Respiratory Rate 30 H 30 H Respiratory Effort Short of Breath Labored Respiratory Pattern Tachypnea Blood Pressure 150/89 H Blood Pressure Mean 109 Pulse Ox 88 89 Oxygen Delivery Method Nasal Cannula Nasal Cannula Nasal Cannula Oxygen Flow Rate (L/min) 5 6 6 10/18/22 13:27 10/18/22 15:18 10/18/22 15:23 Temperature 98.4 F 98.4 F Temperature Source Oral Oral Pulse Rate 87 79 Respiratory Rate 28 H 26 H Respiratory Effort Respiratory Pattern Blood Pressure 133/71 H 120/93 H Blood Pressure Mean 91 102 Pulse Ox 94 98 97 Oxygen Delivery Method Nasal Cannula Nasal Cannula Nasal Cannula Oxygen Flow Rate (L/min) 6 5 4 MDM MDM MDM Narrative Medical decision making narrative: HISTORY OF PRESENT ILLNESS: 82-year-old female here with shortness of breath. She states she is short of breath. States this worsened just prior to arrival. Denies any chest pain. States she got worked up until called EMS for further evaluation. She denies history of blood clots, unilateral leg swelling, estrogen use, hemoptysis. Denies any fever or cough. Denies any chest pain to me. REVIEW OF SYSTEMS: Pertinent positives: Shortness of breath Pertinent negatives: CP PHYSICAL EXAM: Nursing triage notes reviewed, Vital signs reviewed Constitutional: please see mdm HENT: MMM Eyes: Pupils equal round and reactive to light, Extraocular muscles intact Neck: No stridor, no JVD, full neck ROM Lungs: C lungs with diffuse crackles, prolonged expiratory phase, there is increased work of breathing, tachypnea, accessory muscle use Heart: Regular rate and rhythm, No murmurs, No rubs and No gallops, 2+ distal pulses (radial, femoral, posterior tibial) in all extremities Abdomen: Soft, there is no tenderness, rigidity, rebound or guarding, no obvious peritoneal signs, no palpable pulsatile abdominal masses, no auscultated abdominal bruit : No CVAT Extremities: Trace pitting edema bilateral lower extremities Neuro: At baseline. No focal neurological deficits, cranial nerves II through XII intact, 5/5 strength in all extremities. Intact sensation to light touch in all extremities, 2+ reflexes bilateral patella tendons. Normal gait. No ataxia. Skin: Nondescript erythematous changes to bilateral lower extremities MEDICAL DECISION MAKING: Chief Complaint: Shortness of breath External records reviewed: Prior imaging studies reviewed: Echocardiogram from 2022 shows ejection fraction 65% , noted stage II diastolic dysfunction Factors affecting care: History of pulmonary hypertension, pulmonary fibrosis, COPD (4 L baseline oxygen) Social determinants of health: Elderly History obtained from others: The patient's daughter Consults: none ALL IMAGES (IF OBTAINED) HAVE BEEN PERSONALLY REVIEWED AND INTERPRETED BY MYSELF. EKG shows normal sinus rhythm, left axis deviation, no obvious STEMI MDM Narrative: Patient was initially tachycardic, tachypneic saturating 89% by nasal cannula which is appropriate for patient with COPD. I considered the following differential diagnosis: Worsening chronic lung disease, COPD exacerbation, PE, pneumonia, ACS, arrhythmia Patient was noted to be tachypneic with increased work of breathing she is on 6 L of oxygen upon arrival. She was then placed on high flow nasal cannula to improve oxygenation given history of pulmonary fibrosis and signs of increased WOB. A broad lab and imaging work-up was undertaken to further elucidate the etiology the patient's complaints. There is no signs of arrhythmia, myocardial ischemia. No signs of heart failure. Patient's ABG did have CO2 retention however appeared well compensated and chronic based on the patient's pH of 7.3. Chest x-ray showed no evidence of pneumonia, pulmonary edema, pneumothorax. I considered pulmonary embolism however the patient had a low risk Wells score and as such there is no indication for emergent CTA of the chest at this time. Patient's COVID and flu swab was also negative. No clear life-limiting etiology to be ascertained. High flow nasal cannula was weaned to her baseline home oxygen. Patient's tachypnea improved tachycardia improved she appeared comfortable. There is no increased work of breathing or conversational dyspnea noted. I did discuss the case with the patient and her daughter. Shared decision-making was undertaken. Patient is agreeable to return home to continue her home breathing treatments continue home oxygen return if symptoms change or worsen. The patient and/or family, caregivers express understanding. The patient and/or family, caregivers agrees with the plan. Shared decision making: I will have a discussion with the patient and or visitors regarding risk/benefits of further testing or admission. They will be made aware of of the risk/benefits inherent in this decision they will be given the opportunity to voice understanding. Total critical care time today provided was at least 0 minutes. This excludes separately billable procedures. Critical care time (if documented) is secondary to the patient having high probability of clinically significant/life threatening deterioration in the patient's condition which required my urgent intervention. Impression: Dyspnea Tachypnea History of COPD History of pulmonary fibrosis CO2 retention Disposition: Discharge home Lab Data Attestation: I reviewed the patient's lab results. Lab results narrative: CBC with no leukocytosis to suggest systemic inflammation, mild anemia, no thrombocytopenia BMP without evidence of significant electrolyte abnormalities, no anion gap, no acute kidney injury. Troponin is negative, no evidence of myocardial ischemia BNP shows no evidence of increased myocyte stretch, volume overload or increased transmural pressure ABG shows no evidence new or acute of respiratory acidosis, there is significant CO2 retention but this appears chronic based on patient's normal bicarb, there is no evidence of hypoxia Labs: Laboratory Results - last 24 hr 10/18/22 12:56 WBC 6.4 RBC 4.08 L Hgb 12.4 Hct 41.9 MCV 102.7 H MCH 30.4 MCHC 29.6 L RDW Std Deviation 47.7 H RDW Coeff of Toney 12.6 Plt Count 237 MPV 10.3 Immature Gran % (Auto) 0.300 Neut % (Auto) 54.8 Lymph % (Auto) 33.2 [place] % (Auto) 6.5 Eos % (Auto) 5.0 Baso % (Auto) 0.2 Absolute Neuts (auto) 3.5 Absolute Lymphs (auto) 2.14 Nucleated RBC % 0 Sodium 137 Potassium 3.8 Chloride 95 L Carbon Dioxide 42.0 H Anion Gap 0 L BUN 17 Creatinine 0.51 L Estim Creat Clear Calc 30.28 Est GFR (MDRD) Af Amer 148 Est GFR (MDRD) Non-Af 122 BUN/Creatinine Ratio 33.3 H Glucose 137 H Calcium 9.4 Troponin I High Sens 7 B-Natriuretic Peptide 26.3 ABG Data ABG results: ABG 10/18/22 14:53 Specimen Type ART Sample Site L Radial pH 7.33 L Bicarbonate Actual 45.6 H Total CO2 48 Base Excess 20 H O2 Saturation 99 ABG pCO2 86.3 H* ABG pO2 175 H Abrahan Test Positive O2 Delivery Device Cannula Liter Flow 8.0 Crit Call To/Read Back Yes Blood Gas Notified Whom isaias Radiography Chest X-Ray - ED: Read by ED Physician Diagnostic Testing: Clinical Impression(s) from Imaging Studies Chest X-Ray 10/18/22 13:44 IMPRESSION: Hyperexpanded lungs with chronic interstitial changes, no superimposed acute pulmonary process Electronically Signed: Joselo Muller MD at 13:57 EDT , I have personally reviewed the patient's chest x-ray. Chest x-ray is unremarkable for pulmonary edema, pneumothorax, pneumonia or focal cardiopulmonary abnormality. Discharge Plan Triage Chief Complaint: Shortness of Breath ED Provider: Efren Pereira Dx/Rx/DC Orders Clinical Impression: History of pulmonary fibrosis, COPD with exacerbation, SOB (shortness of breath) Instructions: ED COPD Flare Prescriptions: New prednisone 50 mg tablet 50 mg PO DAILY 5 Days Qty: 5 0RF No Action albuterol sulfate 90 mcg/actuation HFA aerosol inhaler 1 puff INHALATION DAILY ropinirole 0.25 mg tablet 0.25 mg PO QHS Patient Comments: TAKE 1 TO 2 TABLETS BY MOUTH ONE HOUR BEFORE BEDTIME lorazepam 1 MG tablet 0.5 mg PO TID PRN (Reason: Anxiety) Qty: 5 0RF Anoro Ellipta 62.5-25 mcg/actuation blister with device 1 inh INHALATION DAILY Patient Comments: INHALE 1 PUFF BY MOUTH ONCE DAILY WITH GOOD ORAL CARE. clotrimazole-betamethasone 1-0.05 % cream 1 applic TOPICAL DAILY Patient Comments: APPLY TO AFFECTED AREA OF RASH ON THE FEET, BUT NOT IN BETWEEN TOES, TWICE DAILY FOR 14 DAYS mirtazapine 7.5 mg tablet 7.5 mg PO QHS Patient Comments: TAKE 1 TABLET BY MOUTH ONCE DAILY AT BEDTIME metoprolol tartrate 25 mg Tablet 25 mg PO BID Qty: 60 0RF prednisone 20 mg Tablet 40 mg PO BREAKFAST 4 Days Qty: 8 0RF Primary Care Provider: Marcello Cobb Referrals: Marcello Cobb MD [Primary Care Provider] - Activity Restrictions/Additional Instructions: Thank you for trusting us with your care today! Please take prednisone as prescribed. Please take Tylenol (2 pills, 650 mg), ibuprofen (2 pills, 400 mg) every 6 hours as needed for pain and fever control. Please return to the emergency department if your symptoms change or worsen. Please follow with your primary care physician for further outpatient evaluation and management. Disposition Disposition: Home, Self Care Discharge Date/Time: 10/18/22 18:56
[2022-10-18 13:27] VITALS: BP 133/71; PULSE 87; RESP 28; TEMP 36.9; O2SAT 94
--- NOTE | 2022-10-18 13:40 | EKG12_ITS ---
Test Reason : SOB Blood Pressure : / mmHG Vent. Rate : 093 BPM Atrial Rate : 093 BPM P-R Int : 138 ms QRS Dur : 096 ms QT Int : 358 ms P-R-T Axes : 085 -71 072 degrees QTc Int : 445 ms Normal sinus rhythm Right atrial enlargement Left axis deviation Pulmonary disease pattern Incomplete right bundle branch block Minimal voltage criteria for LVH, may be normal variant ( Ino product ) Abnormal ECG Confirmed by STEPHANIE KAPLAN ([id number]), features editor JOSH STODDARD ([id number]) on 11/07/2022 1:56:57 PM Referred By: ELIDA/MANOJ Confirmed By:STEPHANIE KAPLAN
--- NOTE | 2022-10-18 13:44 | RAD_ITS ---
STUDY: X-RAY CHEST REASON FOR EXAM: Female, 82 years old. Fever and cough TECHNIQUE: Single AP portable view of the chest. COMPARISON: 07/27/2022 FINDINGS: EKG leads overlie the chest Lungs are hyperexpanded with chronic interstitial changes and evidence of chronic bronchitis. No organizing infiltrate or effusion, no significant interval change. There is no demonstrated pleural abnormality. Normal size heart. Normal mediastinum and grace. Normal visualized pulmonary arteries. There is atherosclerotic calcification of the aortic arch with tortuosity. There are diffuse degenerative changes of the visualized thoracic spine. There is degenerative osteoarthritis of the bilateral shoulders. There is no demonstrated abnormality of the visualized soft tissue structures of the upper abdomen. RAD/Chest 1 View (Portable) IMPRESSION: Hyperexpanded lungs with chronic interstitial changes, no superimposed acute pulmonary process Electronically Signed: Joselo Muller MD at 13:57 EDT ,
[2022-10-18 13:52] LABS: Absolute Lymphocyte Count 2.14 X10^3/uL (0.83-4.51); Absolute Neutrophil Count 3.5 X10^3/uL (2.0-7.7); Basophil# 0.01 X10^3/uL; Basophil% 0.2 % (0-1); Eosinophil# 0.32 X10^3/uL; Hematocrit 41.9 % (37-47); Hemoglobin 12.4 g/dL (12.0-15.0); Lymphocyte # 2.14 X10^3/ul (0.83-4.51); Lymphocyte % 33.2 % (19-41); Mean Corp Hgb Conc 29.6 g/dL (32-36); Mean Corpuscular Hgb 30.4 pg (27.0-32.0); Mean Corpuscular Volume 102.7 fL (81-99); Mean Platelet Vol. 10.3 fl (6.2-12.0); Monocyte# 0.42 X10^3/uL; Monocyte% 6.5 % (0-10); NRBC Flagged by Analyzer 0 % (0-5); Neutrophil # 3.53 X10^3/uL (2.7-7.7); Neutrophil % 54.8 % (47-70); Platelet Count 237 K/mm3 (150-450); RBC Distribution Width CV 12.6 % (11.6-14.6); RBC Distribution Width SD 47.7 fl (35.1-43.9); Red Blood Count 4.08 M/mm3 (4.2-5.4); White Blood Count 6.4 K/mm3 (4.4-11.0)
[2022-10-18 14:10] LABS: Anion Gap 0 (5-15); BUN 17 mg/dL (7-18); BUN/Creat Ratio 33.3 RATIO (10-20); Calcium,Total 9.4 mg/dL (8.5-10.1); Chloride 95 mmol/L (98-107); Creatinine, Serum 0.51 mg/dL (0.55-1.02); EST Glomerular Filtration Rate 122 mL/min (>60); Est Glom Filt Rate - Afr Amer 148 mL/min (>60); Estimated Creatinine Clearance 30.28 ml/min; Glucose 137 mg/dL (74-106); Potassium 3.8 mmol/L (3.5-5.1); Sodium Level 137 mmol/L (136-145); Troponin-I HS 7 pg/mL (3.0-54.0)
[2022-10-18 14:16] LABS: BNP,B-Type NATRIURETIC PEPTIDE 26.3 pg/mL (0-100)
[2022-10-18 14:58] LABS: Allen Test Positive; Base Excess 20 mmol/L (-2 to +2); Bicarbonate 45.6 mmol/L (22-26); Blood Gas Specimen Type ART; O2 Delivery Device Cannula; PO2 175 mmHG (75-100); SITE L Radial; SO2 99 % (95-99); Total Carbon Dioxide 48 mmol/L; pCO2 86.3 mmHg (35-45); pH 7.33 (7.35-7.45)
[2022-10-18 15:18] VITALS: BP 120/93; PULSE 79; RESP 26; TEMP 36.9; O2SAT 98
[2022-10-18 15:23] VITALS: O2SAT 97
--- NOTE | 2022-10-18 17:43 | NURSING ---
CALLED [facility], ETA IS 60 TO 90 MIN
== END 2022-10-18 18:56 | disposition home or self-care (01) ==
PROVIDERS: Emergency Provider Emergency Medicine; PCP Internal Medicine; Visit Provider Emergency Medicine
DX: R06.00 Dyspnea, unspecified (principal); E87.29 Other acidosis
CPT/HCPCS: 36600; 71045; 80048; 82803; 83880; 84484; 85025; 87428; 93005; 99285

== ENCOUNTER 2022-12-10 19:27 | Inpatient (IN) | payer MEDICARE, SELFPAY ==
[2022-12-10] VITALS (10 sets, daily range): BP systolic 119–140; BP diastolic 70–82; PULSE 115–124; RESP 12–40; TEMP 36.4; O2SAT 92–98; BMI 12.2; BMI 15.0
--- NOTE | 2022-12-10 19:42 | EKG12_ITS ---
Test Reason : SOB/CP Blood Pressure : / mmHG Vent. Rate : 114 BPM Atrial Rate : 114 BPM P-R Int : 116 ms QRS Dur : 110 ms QT Int : 334 ms P-R-T Axes : 078 -76 078 degrees QTc Int : 460 ms SINUS TACHYCARDIA Left axis deviation Septal infarct , age undetermined Abnormal ECG When compared with ECG of 10-DEC-2022 19:39, MANUAL COMPARISON REQUIRED, DATA IS UNCONFIRMED Reconfirmed by SANTINO OLGUIN, PATRICIA ([id number]), editor magazine JOSH STODDARD ([id number]) on 12/20/2022 9:14:22 AM Referred By: CITLALI Confirmed By:PATRICIA DE MD
--- NOTE | 2022-12-10 19:44 | EDS_ITS ---
HPI <LAINE Andrade - Last Filed: 12/10/22 21:06> History of Present Illness Chief Complaint: Shortness of Breath Narrative Narrative: Patient is 82-year-old female with history of COPD, dementia who wears oxygen daily. Was more short of breath today, daughter called the ambulance. On squad arrival, the patient was on the couch, he states that she was in significant respiratory distress with a 62% pulse oxygenation. She is supposed to wear oxygen daily however secondary to the oxygen not working, she was not wearing it. Patient is here for evaluation. Denies any fever or chills, denies any chest pain PFSH <LAINE Andrade - Last Filed: 12/10/22 21:06> [facility] Medical History Anxiety Anxiety and depression Chronic respiratory failure with hypoxia Emphysema lung Protein calorie malnutrition Pulmonary fibrosis Pulmonary HTN Severe protein-calorie malnutrition Valvular heart disease Home Medications albuterol sulfate 90 mcg/actuation aerosol inhaler 1 puff inhalation DAILY shortness of breath 01/30/21 [History Last Taken Unknown] ropinirole 0.25 mg tablet 0.25 mg PO QHS restless legs 03/14/22 [History Last Taken Unknown] lorazepam 1 mg tablet 0.5 mg (1/2 x 1 mg) PO TID PRN Anxiety #5 tabs 03/16/22 [Rx Last Taken 04/05/15] clotrimazole-betamethasone 1 %-0.05 % topical cream 1 applic topical DAILY 07/27/22 [History Last Taken Unknown] mirtazapine 7.5 mg tablet 7.5 mg PO QHS 07/27/22 [History Last Taken Unknown] umeclidinium 62.5 mcg-vilanterol 25 mcg/actuation powdr for inhalation (Anoro Ellipta) 1 inh inhalation DAILY 07/27/22 [History Last Taken Unknown] metoprolol tartrate 25 mg tablet 25 mg PO BID #60 tabs 07/30/22 [Rx Last Taken Unknown] prednisone 20 mg tablet 40 mg (2 x 20 mg) PO BREAKFAST 4 days #8 tabs 07/30/22 [Rx Last Taken Unknown] prednisone 50 mg tablet 50 mg PO DAILY 5 days #5 tabs 10/18/22 [Rx Last Taken Unknown] Allergy/AdvReac Type Severity Reaction Status Date / Time Tetanus Vaccines and Toxoid Allergy Unknown Verified 07/27/22 20:31 [Tetanus Vaccines & Toxoid] Family History Other Heart disease Surgical History History of cholecystectomy Social History household members: spouse and family Smoking Status: Never smoker alcohol intake: never substance use type: does not use ROS <LAINE Andrade - Last Filed: 12/10/22 21:06> ROS ED ROS Narrative Constitutional: Negative for fever, chills, weight loss. Positive for weakness Eyes: Negative for vision loss, vision change, double vision ENT: Negative for any sore throat, ear pain, congestion Cardiovascular: Negative for any chest pain, tightness, palpitations Respiratory: Negative for any cough, sputum production, hemoptysis.positive for dyspnea, dyspnea on exertion, orthopnea Gastrointestinal: Negative for any abdominal pain, nausea, vomiting, diarrhea, constipation, blood in stool, blood in vomit : Negative for any urinary frequency, dysuria, retention, blood in urine Muscle skeletal: Negative for any muscle joint pain, stiffness, myalgias, arthralgias, neck pain, back pain Neurological: Negative for any headache, syncope, numbness or tingling, dizziness Skin: Negative for any rashes, lumps, itching, abrasions, lacerations Psychiatric: Negative for any depression, anxiety, stress, suicidal ideation, homicidal ideation Hematologic: Negative for any easy bruising, excessive bruising, easy bleeding Allergies: Negative for any eczema, hives, rash EXAM <LAINE Andrade - Last Filed: 12/10/22 21:06> Physical Exam Narrative Exam Narrative: Vital signs reviewed. Patient on initial arrival. Cachectic, tachypneic, on nonrebreather, patient was 94%. HEET: Head normocephalic atraumatic, TMs clear bilaterally. Posterior pharynx is clear, dry mucous membranes. Nares clear bilaterally. Neck: Supple with no lymphadenopathy or tenderness. No signs of meningismus, negative jolt sign. Cardiac: Tachycardic rate no murmurs gallops or rubs, equal peripheral pulses bilaterally. Respiratory: Patient has crackles throughout, also some expiratory wheeze. Right worse than left. Diminished lung sounds in the bases.. No chest tenderness. Abdomen: Soft, nontender, nondistended. No abdominal bruit or pulsatile masses. No hepatosplenomegaly Extremities: No peripheral edema, no signs of gross trauma or deformity. Active full range of motion of all extremities. Neuro: Cranial nerves II through XII intact, no focal neurological deficits. Skin: Clean dry and intact with no rash, purpura, petechiae, vesicles or pustules. Backs/flank: No CVA tenderness, no midline spinal tenderness, no deformity. Psych: Normal mood and affect. No SI, HI or acute psychosis. Const Vital Signs: 12/10/22 19:28 12/10/22 19:36 12/10/22 19:38 Temperature 97.6 F L 97.6 F L Temperature Source Temporal Temporal Pulse Rate 117 H 115 H Respiratory Rate 30 H 30 H Respiratory Effort Short of Breath Labored Respiratory Depth Deep Respiratory Pattern Tachypnea Blood Pressure 130/82 H 130/82 H Blood Pressure Mean 98 98 Pulse Ox 96 98 Oxygen Delivery Method Non-Rebreather Venturi Mask Non-Rebreather Oxygen Flow Rate (L/min) 10 10 10 Fraction of Inspired Oxygen (FIO2) 12/10/22 19:48 12/10/22 19:55 12/10/22 19:55 Temperature Temperature Source Pulse Rate 117 H 115 H Respiratory Rate 33 H 34 H Respiratory Effort Respiratory Depth Respiratory Pattern Tachypnea Blood Pressure Blood Pressure Mean Pulse Ox 97 95 Oxygen Delivery Method Nasal Cannula Nasal Cannula Oxygen Flow Rate (L/min) 4 4 Fraction of Inspired Oxygen (FIO2) 12/10/22 19:55 12/10/22 20:46 Temperature Temperature Source Pulse Rate 120 H Respiratory Rate 22 H Respiratory Effort Respiratory Depth Respiratory Pattern Blood Pressure 140/77 H Blood Pressure Mean 98 Pulse Ox 95 92 Oxygen Delivery Method Nasal Cannula Bi-pap Oxygen Flow Rate (L/min) 4 Fraction of Inspired Oxygen (FIO2) 50 Positive cachectic and unkempt General Appearance ED: unkempt and cachectic Nutritional Appearance: cachectic Psych Appearance: unkempt <Dr. Carlo Torres MD - Last Filed: 12/10/22 20:39> Physical Exam Const Vital Signs: 12/10/22 19:28 12/10/22 19:36 12/10/22 19:38 Temperature 97.6 F L 97.6 F L Temperature Source Temporal Temporal Pulse Rate 117 H 115 H Respiratory Rate 30 H 30 H Respiratory Effort Short of Breath Labored Respiratory Depth Deep Respiratory Pattern Tachypnea Blood Pressure 130/82 H 130/82 H Blood Pressure Mean 98 98 Pulse Ox 96 98 Oxygen Delivery Method Non-Rebreather Venturi Mask Non-Rebreather Oxygen Flow Rate (L/min) 10 10 10 Fraction of Inspired Oxygen (FIO2) 12/10/22 19:48 12/10/22 19:55 12/10/22 19:55 Temperature Temperature Source Pulse Rate 117 H 115 H Respiratory Rate 33 H 34 H Respiratory Effort Respiratory Depth Respiratory Pattern Tachypnea Blood Pressure Blood Pressure Mean Pulse Ox 97 95 Oxygen Delivery Method Nasal Cannula Nasal Cannula Oxygen Flow Rate (L/min) 4 4 Fraction of Inspired Oxygen (FIO2) 12/10/22 19:55 12/10/22 20:46 Temperature Temperature Source Pulse Rate 120 H Respiratory Rate 22 H Respiratory Effort Respiratory Depth Respiratory Pattern Blood Pressure 140/77 H Blood Pressure Mean 98 Pulse Ox 95 92 Oxygen Delivery Method Nasal Cannula Bi-pap Oxygen Flow Rate (L/min) 4 Fraction of Inspired Oxygen (FIO2) 50 [facility] <LAINE Andrade - Last Filed: 12/10/22 21:06> [facility] Lab Data Labs: Laboratory Results - last 24 hr 12/10/22 19:45 WBC 8.7 RBC 4.19 L Hgb 12.6 Hct 42.4 MCV 101.2 H MCH 30.1 MCHC 29.7 L RDW Std Deviation 47.7 H RDW Coeff of Toney 12.8 Plt Count 240 MPV 9.8 Immature Gran % (Auto) 0.300 Neut % (Auto) 66.7 Lymph % (Auto) 21.5 Graves % (Auto) 7.7 Eos % (Auto) 3.6 Baso % (Auto) 0.2 Absolute Neuts (auto) 5.8 Absolute Lymphs (auto) 1.87 Nucleated RBC % 0 Sodium 143 Potassium 5.1 Chloride 97 L Carbon Dioxide > 45.0 H* Anion Gap TNP BUN 31 H Creatinine 0.61 Estim Creat Clear Calc 21.80 Est GFR (MDRD) Af Amer 121 Est GFR (MDRD) Non-Af 100 BUN/Creatinine Ratio 51.2 H Glucose 190 H Calcium 9.4 Troponin I High Sens 7 B-Natriuretic Peptide 27.0 ABG Data ABG results: ABG 12/10/22 20:27 Specimen Type ART Sample Site L Radial pH 7.29 L Bicarbonate Actual 42.0 H Total CO2 45 Base Excess 15 H O2 Saturation 83 L O2 % 4.0 ABG pCO2 88.3 H* ABG pO2 57 L Abrahan Test Positive O2 Delivery Device Cannula Vent Mode Not entered Crit Call To/Read Back Yes Blood Gas Notified Whom Brian Blood Gas Notified Time 20:28:57 EKG Tachycardia: Attestation: I personally reviewed and interpreted this EKG as follows: Interpretation: Sinus Rhythm Comments: Sinus tachycardia with a rate of 117 bpm, MO 128 ms, QRS duration 114 ms, no acute ST elevation, no acute infarct. Treatment and Re-Evaluation :: Patient arrives in moderate respiratory distress. Patient is tachypneic, on nonrebreather. She was 62% at home, her oxygen is not currently working. Nonrebreather, patient is 94%. Patient EKG shows sinus tachycardia, patient received a lactic acidosis, we worked up for cardiac, respiratory work-up. Differential diagnosis includes COPD exacerbation, CHF exacerbation, [place], ACS, pneumonia. Patient be given breathing treatments, 500 cc of normal saline. Patient will need to be admitted to the hospital. After speaking with the patient's daughter, the patient daughter made a mistake, and had not turned the patient's oxygen on. Patient's laboratory values showed a normal CBC, patient's chemistries showed a carbon oxide was a critical hide greater than 45. Patient's glucose is 190. Patient's respiratory blood gas showed an acidotic pH of 7.285, CO2 of 88.3 with O2 of 57.4. Patient's oxygen was 83.4%. Secondary this finding, patient was placed on BiPAP. After 20 minutes to 30 minutes on BiPAP, the patient did feel much better. Patient will need to be admitted to the hospital. At this time, there is no evidence suspect any pneumonia. Patient was treated for COPD exacerbation including breathing treatments, IV steroids. Patient stable for admission. Patient single view chest x-ray interpreted by the ER physician showed chronic changes, no acute process, negative for any pleural effusion, pneumonia <Dr. Carlo Torres MD - Last Filed: 12/10/22 20:39> MDM MDM Narrative Medical decision making narrative: I have personally performed a face to face assessment of the patient and have reviewed the MOON Note. I performed a substantive portion of the visit including all aspects of the following. My [place] findings include: History is [82-year-old female with shortness of breath. She is on chronic O2 secondary to COPD and her oxygen tank was out at home. She was found with a pulse ox in the 60s. Was brought in by squad. Patient is a very limited informant.] Exam is [H EENT exam unremarkable. No trauma. Neck nontender no JVD. Lungs coarse breath sounds bilaterally. Few scattered wheezes. No rhonchi. Heart tachycardic 115. Abdomen soft nontender. No peritoneal signs no distention. Moving all 4 extremities. Neurologically she is decreased mental status most likely from hypoxia may be CO2 retention. ABG will be obtained. She may need BiPAP.] Medical Decision Making [patient with COPD and respiratory failure. Cardiac and respiratory work-up. Aerosols and steroids.] Other additions or changes: [None] History & Record Review Discussion w/independent historian: EMS personnel and Patient Additional record(s) reviewed:: Prior inpatient record, Prior outpatient record, Prior ED visit, Prior labs and No prior records Lab Data Attestation: I reviewed the patient's lab results. Lab results narrative: CBC white count 8.7 H&H 12 and 42. Platelets 240. Sinus tach EKG was sinus tachycardia. Labs: Laboratory Results - last 24 hr 12/10/22 19:45 WBC 8.7 RBC 4.19 L Hgb 12.6 Hct 42.4 MCV 101.2 H MCH 30.1 MCHC 29.7 L RDW Std Deviation 47.7 H RDW Coeff of Toney 12.8 Plt Count 240 MPV 9.8 Immature Gran % (Auto) 0.300 Neut % (Auto) 66.7 Lymph % (Auto) 21.5 Graves % (Auto) 7.7 Eos % (Auto) 3.6 Baso % (Auto) 0.2 Absolute Neuts (auto) 5.8 Absolute Lymphs (auto) 1.87 Nucleated RBC % 0 Sodium 143 Potassium 5.1 Chloride 97 L Carbon Dioxide > 45.0 H* Anion Gap TNP BUN 31 H Creatinine 0.61 Estim Creat Clear Calc 21.80 Est GFR (MDRD) Af Amer 121 Est GFR (MDRD) Non-Af 100 BUN/Creatinine Ratio 51.2 H Glucose 190 H Calcium 9.4 Troponin I High Sens 7 B-Natriuretic Peptide 27.0 ABG Data ABG results: ABG 12/10/22 20:27 Specimen Type ART Sample Site L Radial pH 7.29 L Bicarbonate Actual 42.0 H Total CO2 45 Base Excess 15 H O2 Saturation 83 L O2 % 4.0 ABG pCO2 88.3 H* ABG pO2 57 L Abrahan Test Positive O2 Delivery Device Cannula Vent Mode Not entered Crit Call To/Read Back Yes Blood Gas Notified Whom Brian Blood Gas Notified Time 20:28:57 <Dr. Carlo Torres MD - Last Filed: 12/10/22 20:39> Critical Care Time Critical Care Time: Yes Critical care time (excluding procedures): 30-74 minutes, Including time spent:, Discussing w/Patient &/or Family/Supervisor Phosphoric Acid, Discussing w/Consultants, Arranging Admission or Transfer, Performing Direct Patient Care at Bedside and - (40 min) Discharge Plan Dx/Rx/DC Orders Clinical Impression: History of COPD, Respiratory failure, Hypoxia, Acute respiratory acidosis Disposition Disposition: Acute Care [facility]
[2022-12-10] MEDS: Albuterol 2.5 MG/3 ML VIAL.NEB. INHALATION (19:55)
[2022-12-10] MEDS: Ipratropium/Albuterol Sulfate 3 ML AMPUL.NEB INHALATION (19:55)
[2022-12-10] MEDS: 0.9% Normal Saline (500mL Bag) 500 ML 999 ML IV (20:01)
[2022-12-10] MEDS: MethylPREDNISolone 125 MG/2 ML Vial IV (20:01)
[2022-12-10 20:14] LABS: Absolute Lymphocyte Count 1.87 X10^3/uL (0.83-4.51); Absolute Neutrophil Count 5.8 X10^3/uL (2.0-7.7); Basophil# 0.02 X10^3/uL; Basophil% 0.2 % (0-1); Eosinophil# 0.31 X10^3/uL; Eosinophils% 3.6 % (0-5); Hematocrit 42.4 % (37-47); Hemoglobin 12.6 g/dL (12.0-15.0); Lymphocyte # 1.87 X10^3/ul (0.83-4.51); Lymphocyte % 21.5 % (19-41); Mean Corp Hgb Conc 29.7 g/dL (32-36); Mean Corpuscular Hgb 30.1 pg (27.0-32.0); Mean Corpuscular Volume 101.2 fL (81-99); Mean Platelet Vol. 9.8 fl (6.2-12.0); Monocyte# 0.67 X10^3/uL; Monocyte% 7.7 % (0-10); NRBC Flagged by Analyzer 0 % (0-5); Neutrophil # 5.78 X10^3/uL (2.7-7.7); Neutrophil % 66.7 % (47-70); Platelet Count 240 K/mm3 (150-450); RBC Distribution Width CV 12.8 % (11.6-14.6); RBC Distribution Width SD 47.7 fl (35.1-43.9); Red Blood Count 4.19 M/mm3 (4.2-5.4); White Blood Count 8.7 K/mm3 (4.4-11.0)
[2022-12-10 20:32] LABS: Allen Test Positive; Base Excess 15 mmol/L (-2 to +2); Blood Gas Specimen Type ART; Mode Not entered; O2 Delivery Device Cannula; PO2 57 mmHG (75-100); SITE L Radial; SO2 83 % (95-99); Total Carbon Dioxide 45 mmol/L; pCO2 88.3 mmHg (35-45); pH 7.29 (7.35-7.45)
[2022-12-10 20:45] LABS: BUN 31 mg/dL (7-18); BUN/Creat Ratio 51.2 RATIO (10-20); Calcium,Total 9.4 mg/dL (8.5-10.1); Carbon Dioxide > 45.0 mmol/L (21.0-32.0); Chloride 97 mmol/L (98-107); Creatinine, Serum 0.61 mg/dL (0.55-1.02); EST Glomerular Filtration Rate 100 mL/min (>60); Est Glom Filt Rate - Afr Amer 121 mL/min (>60); Glucose 190 mg/dL (74-106); Potassium 5.1 mmol/L (3.5-5.1); Sodium Level 143 mmol/L (136-145); Troponin-I HS (w/2H Reflex) 7 pg/mL (3.0-54.0)
--- NOTE | 2022-12-10 21:00 | RAD_ITS ---
EXAM: XR CHEST, 1 VIEW CLINICAL INDICATION: cough TECHNIQUE: Frontal view of the chest. COMPARISON: 10/18/2022 FINDINGS: LUNGS AND PLEURAL SPACES: The lungs are hyperinflated. There is scarring right lung base. No pneumothorax. No effusion. HEART: Unremarkable. Cardiac silhouette not enlarged. MEDIASTINUM: Central airways and mediastinal contour are unremarkable. BONES/JOINTS: Unremarkable. SOFT TISSUES: Unremarkable. RAD/Chest 1 View (Portable) IMPRESSION: Pulmonary hyperinflation with interstitial scarring. There is no acute pulmonary abnormality. There has been no significant change from the reference exam. Electronically Signed: Osei Moss MD at 21:47 EDT ,
--- NOTE | 2022-12-10 21:23 | HP.PCM.HOS_ITS ---
HPI - General General Date of Admission: 12/10/22 Date of Service: 12/10/22 Chief Complaint: Patient was very high short of breath, respiratory distress and her daughter turndown oxygen concentrator HPI Narrative NEERAJ LYNN, is a 82 F was brought by EMS when patient had difficulty breathing, respiratory distress, shallow breathing for about an hour. Patient is usually on home O2 for emphysema follows consulting software engineer, Dr. William. Appa rently patient was short of breath and her daughter changed and by mistake turned down the oxygen concentrator and then she was very pale, hypoxic, shallow breathing and respiratory distress. Pulse ox was found 62% on room air. EMS turned on the oxygen concentrator to 15 L/min, patient was less responsive and was given DuoNeb treatment in route. In ED, patient was put on nonrebreather. ABG was done and shows pH 7.2 on O2 probably 4 L. Patient was put on BiPAP 50%. Her color, mentation, respiratory distress is much improved. Patient herself and her daughter denies any recent onset of bronchitis-like symptoms including cough, fever, wheezing except that happened suddenly today. Patient is a non-smoker. As per the ER nurse, patient also has dry and poor perineal health and aging. Patient herself denies any discharge but per the nurse noticed some whitish discharge. [facility] Medical History Anxiety Anxiety and depression Chronic respiratory failure with hypoxia Dementia Emphysema lung Protein calorie malnutrition Pulmonary fibrosis Pulmonary HTN Severe protein-calorie malnutrition Valvular heart disease Home Medications albuterol sulfate 90 mcg/actuation aerosol inhaler 1 puff inhalation DAILY altaf rtness of breath 01/30/21 [History Last Taken Unknown] ropinirole 0.25 mg tablet 0.25 mg PO QHS restless legs 03/14/22 [History Last Taken Unknown] lorazepam 1 mg tablet 0.5 mg (1/2 x 1 mg) PO TID PRN Anxiety #5 tabs 03/16/22 [Rx Last Taken 04/05/15] clotrimazole-betamethasone 1 %-0.05 % topical cream 1 applic topical DAILY 07/27/22 [History Last Taken Unknown] mirtazapine 7.5 mg tablet 7.5 mg PO QHS 07/27/22 [History Last Taken Unknown] umeclidinium 62.5 mcg-vilanterol 25 mcg/actuation powdr for inhalation (Anoro Ellipta) 1 inh inhalation DAILY 07/27/22 [History Last Taken Unknown] metoprolol tartrate 25 mg tablet 25 mg PO BID #60 tabs 07/30/22 [Rx Last Taken Unknown] prednisone 20 mg tablet 40 mg (2 x 20 mg) PO BREAKFAST 4 days #8 tabs 07/30/22 [Rx Last Taken Unknown] prednisone 50 mg tablet 50 mg PO DAILY 5 days #5 tabs 10/18/22 [Rx Last Taken Unknown] Allergy/AdvReac Type Severity Reaction Status Date / Time Tetanus Vaccines and Toxoid Allergy Unknown Verified 07/27/22 20:31 [Tetanus Vaccines & Toxoid] Family History Other Heart disease Surgical History History of cholecystectomy Social History household members: spouse and family Smoking Status: Never smoker alcohol intake: never substance use type: does not use ROS ROS Narrative Constitutional: No acute fatigue and weakness. No fever. HEENT: Reports systems reviewed and no addt'l complaints, except as documented Respiratory/Chest: As described in HPI. CVS: No chest pain or pressure. Gastrointestinal: Denies coffee ground emesis, hematemesis or vomiting Genitourinary: Perineal itching. Denies burning urination or new urinary tract symptoms Musculoskeletal: Denies acute joint pain or limited range of motion. No acute injury Neurologic: Denies seizure-like symptoms. No strokelike symptoms. skin: Rash near perineum as per the nurse. Endocrinology: Reports systems reviewed and no addt'l complaints, except as documented Hematologic/Lymphatic: Reports systems reviewed and no addt'l complaints, except as documented Rest 14 ROS are negative except as mentioned in HPI Vital Signs Vital Signs Vital Signs: 12/10/22 19:28 12/10/22 19:36 12/10/22 19:38 Temperature 97.6 F L 97.6 F L Temperature Source Temporal Temporal Pulse Rate 117 H 115 H Respiratory Rate 30 H 30 H Respiratory Effort Short of Breath Labored Respiratory Depth Deep Respiratory Pattern Tachypnea Blood Pressure 130/82 H 130/82 H Blood Pressure Mean 98 98 Pulse Ox 96 98 Oxygen Delivery Method Non-Rebreather Venturi Mask Non-Rebreather Oxygen Flow Rate (L/min) 10 10 10 Fraction of Inspired Oxygen (FIO2) 12/10/22 19:48 12/10/22 19:55 12/10/22 19:55 Temperature Temperature Source Pulse Rate 117 H 115 H Respiratory Rate 33 H 34 H Respiratory Effort Respiratory Depth Respiratory Pattern Tachypnea Blood Pressure Blood Pressure Mean Pulse Ox 97 95 Oxygen Delivery Method Nasal Cannula Nasal Cannula Oxygen Flow Rate (L/min) 4 4 Fraction of Inspired Oxygen (FIO2) 12/10/22 19:55 12/10/22 20:46 12/10/22 20:45 Temperature Temperature Source Pulse Rate 120 H 124 H Respiratory Rate 22 H 40 H Respiratory Effort Respiratory Depth Respiratory Pattern Tachypnea Blood Pressure 140/77 H Blood Pressure Mean 98 Pulse Ox 95 92 93 Oxygen Delivery Method Nasal Cannula Bi-pap Oxygen Flow Rate (L/min) 4 Fraction of Inspired Oxygen (FIO2) 50 50 Weight Weight: 71 lb 6.876 oz Body Mass Index (BMI) 12.2 Physical Exam Narrative General: Alert, Oriented x3, Cooperative HEENT: Atraumatic, PERRLA, EOMI, Normocephalic Oral: On BiPAP. Neck: Supple, No JVD, Negative Carotid Bruits Lungs: Air entry diminished in bilateral lung bases. No crepitation/rhonchi Cardiovascular: Sinus tachycardia, Normal S1, Normal S2, systolic murmur right second ICS. Abdomen: Bowel Sounds Present, Soft, Non Tender, Non-Distended : No renal angle tenderness. No suprapubic tenderness. Extremities: No edema, Capillary Refill Less than 3 Seconds Skin: Rash around perineal region as per the nurse. Musculoskeletal: moderate muscle atrophy of extremities. Loss of subcutaneous fat. No Tenderness to Palpation of Joints or Extremities Neurological: Cranial nerves II-XII grossly intact, DTR 2+/4. No acute focal neurological deficit. Psych/Mental Status: Flat affect. Results Lab / Micro Data 12/10/22 19:45 12/10/22 19:45 Labs: Laboratory Results - last 24 hr 12/10/22 19:45: WBC 8.7, RBC 4.19 L, Hgb 12.6, Hct 42.4, MCV 101.2 H, MCH 30.1, MCHC 29.7 L, RDW Std Deviation 47.7 H, RDW Coeff of Toney 12.8, Plt Count 240, MPV 9.8, Immature Gran % (Auto) 0.300, Neut % (Auto) 66.7, Lymph % (Auto) 21.5, [place] % (Auto) 7.7, Eos % (Auto) 3.6, Baso % (Auto) 0.2, Absolute Neuts (auto) 5.8, Absolute Lymphs (auto) 1.87, Nucleated RBC % 0, Sodium 143, Potassium 5.1, Chloride 97 L, Carbon Dioxide > 45.0 H*, Anion Gap TNP, BUN 31 H, Creatinine 0.61, Estim Creat Clear Calc 21.80, Est GFR (MDRD) Af Amer 121, Est GFR (MDRD) Non-Af 100, BUN/Creatinine Ratio 51.2 H, Glucose 190 H, Calcium 9.4, Troponin I High Sens 7, B-Natriuretic Peptide 27.0 Micro: Microbiology 12/10/22 20:00 Nasal Secretion SARS-CoV-2 & FLU Antigen (Rapid) - Final ABG Data ABG results: ABG 12/10/22 20:27 Specimen Type ART Sample Site L Radial pH 7.29 L Bicarbonate Actual 42.0 H Total CO2 45 Base Excess 15 H O2 Saturation 83 L O2 % 4.0 ABG pCO2 88.3 H* ABG pO2 57 L Abrahan Test Positive O2 Delivery Device Cannula Vent Mode Not entered Crit Call To/Read Back Yes Blood Gas Notified Whom Torres Blood Gas Notified Time 20:28:57 Assessment & Plan Assessment/Plan (1) Acute on chronic respiratory failure with hypoxia and hypercapnia: (2) Acute exacerbation of chronic obstructive pulmonary disease (COPD): PLAN: Plan This is a 82-year-old female being brought to ED after she was in respiratory distress and severe hypoxia and decreased responsiveness. 1. Acute on chronic combined respiratory failure exact etiology unclear possible COPD exacerbation: Patient is being admitted in PCU, looks much better after BiPAP. ABG shows respiratory acidosis with compensated chronic metabolic alkalosis. Previous labs shows her bicarb about 38-42. This time bicarb more than 45 and pH 7.29 with PCO2 88.3. We will keep the BiPAP and repeat ABG after an hour. Chest x-ray initially reviewed and does not seem acute consolidation or infiltrate. Chronic changes of emphysema. 2. COPD exacerbation: Patient denies any recent or change in respiratory status until today. She did not had fever, acute onset cough wheezing or suddenly she got very short of breath and respiratory distress.Respiratory panel ordered. Rapid COVID-19 antigen. Patient is being managed on scheduled bronchodilator, IV Solu-Medrol, Mucinex, incentive spirometry and Pep. Zithromax 500 mg daily. Patient was last admitted in July 2022 for similar health condition associated COPD exacerbation. 3. Chronic diastolic heart failure and aortic stenosis: Patient had echo in 03/16 one 2D echo was done. EF 65%, 2+ TR, RVSP 52 mmHg consistent with pulmonary hypertension, stage II diastolic dysfunction, moderate to severe calcific aortic valve stenosis with mild mitral annular calcification and trivial MR. Based on echo report it seems her aortic valve stenosis severity increased. Follow-up with antisqueak chalker as an outpatient but patient has restricted mobility and dementia therefore do not think she is a candidate for surgical evaluation of severe aortic stenosis. 4. Dementia and debility and severe protein calorie malnutrition: PT and OT ordered. Patient has restricted mobility, compromised ADL. Failure to thrive. Patient's daughter near the bedside stated she needs more help for her care and probably home health care will be good. manager diversity consult. Nutritional consult. She has moderate atrophy of muscles of extremity and craniofacial muscle loss. Tenuous fat. Living will/advanced directive/end of life care: Patient does have living will or advanced directive. Her daughter is the power of real estate associate attorney for health. After discussion of benefits/risks procedures involved with full code, DNR CC arrest and DNR CC, the patient opted for full code. Patient does want artificial life support including intubation, tube feed, ventilator and/chest compression, central venous catheter, vasopressor and DC shock if needed Total time spent in radb-[id number] encounter in discussion of advanced directive 17 minutes. Microbiology Past 72 Hours 12/10/22 20:00 Nasal Secretion SARS-CoV-2 & FLU Antigen (Rapid) - Final Laboratory Results 12/10/22 19:45: WBC 8.7, RBC 4.19 L, Hgb 12.6, Hct 42.4, MCV 101.2 H, MCH 30.1, MCHC 29.7 L, RDW Std Deviation 47.7 H, RDW Coeff of Toney 12.8, Plt Count 240, MPV 9.8, Immature Gran % (Auto) 0.300, Neut % (Auto) 66.7, Lymph % (Auto) 21.5, [place] % (Auto) 7.7, Eos % (Auto) 3.6, Baso % (Auto) 0.2, Absolute Neuts (auto) 5.8, Absolute Lymphs (auto) 1.87, Nucleated RBC % 0, Sodium 143, Potassium 5.1, C hloride 97 L, Carbon Dioxide > 45.0 H*, Anion Gap TNP, BUN 31 H, Creatinine 0.61, Estim Creat Clear Calc 21.80, Est GFR (MDRD) Af Amer 121, Est GFR (MDRD) Non-Af 100, BUN/Creatinine Ratio 51.2 H, Glucose 190 H, Calcium 9.4, Troponin I High Sens 7, B-Natriuretic Peptide 27.0 12/10/22 20:27: Specimen Type ART, Sample Site L Radial, pH 7.29 L, Bicarbonate Actual 42.0 H, Total CO2 45, Base Excess 15 H, O2 Saturation 83 L, O2 % 4.0, ABG pCO2 88.3 H*, ABG pO2 57 L, Abrahan Test Positive, O2 Delivery Device Cannula, Vent Mode Not entered, Crit Call To/Read Back Yes, Blood Gas Notified Whom Brian Blood Gas Notified Time 20:28:57 12/10/22 21:31: Magnesium 2.4 Clinical Impression(s) from Imaging Studies Chest X-Ray 12/10/22 21:00 IMPRESSION: Pulmonary hyperinflation with interstitial scarring. There is no acute pulmonary abnormality. There has been no significant change from the reference exam. Charges/Coding Visit Charges Inpatient E&M: 07445 Init Hosp L3 Procedures Hospitalists Procedures: 35887 Advncd Care Plan 30 Min
[2022-12-10 21:53] LABS: Magnesium 2.4 mg/dL (1.6-2.6)
[2022-12-10 22:02] LABS: Reflex Troponin-HS? (from REC) Y
[2022-12-10 23:06] LABS: Troponin-I HS 14 pg/mL (3.0-54.0)
[2022-12-11] VITALS (32 sets, daily range): BP systolic 97–140; BP diastolic 58–104; PULSE 90–124; RESP 12–38; TEMP 36.3–36.7; O2SAT 83–100; BMI 15.0
[2022-12-11 00:30] LABS: Allen Test Positive; Base Excess 13 mmol/L (-2 to +2); Bicarbonate 38.8 mmol/L (22-26); Blood Gas Specimen Type ART; Mode Not entered; O2 Delivery Device Cannula; PO2 72 mmHG (75-100); SITE L Radial; SO2 93 % (95-99); Total Carbon Dioxide 41 mmol/L; pH 7.35 (7.35-7.45)
[2022-12-11] MEDS: 0.45% Normal Saline 1,000 ML 100 ML IV (00:45)
[2022-12-11] MEDS: 0.9% Saline Lock 10 ML Syringe IV (00:58)
[2022-12-11] MEDS: Azithromycin 250 MG Tablet 500 MG PO ×2 (01:22→20:59)
[2022-12-11] MEDS: Mirtazapine 15 MG Tablet 7.5 MG PO ×2 (01:22→20:59)
[2022-12-11] MEDS: Pramipexole Di-HCl 0.125 MG Tablet PO ×2 (01:23→20:59)
[2022-12-11] MEDS: Heparin Injection (Vial) 5,000 UNIT/ML VIAL 5000 UNIT SC ×4 (01:24→20:59)
[2022-12-11] MEDS: Methylprednisolone Sod Succ 40 MG/ML VIAL IV ×3 (01:25→15:23)
[2022-12-11] MEDS: Estrogens,Conj. 1 Tube 1 DOSE VAGINAL ×2 (01:43→09:34)
[2022-12-11] MEDS: LORazepam 0.5 MG Tablet PO (04:49)
[2022-12-11 05:54] LABS: Absolute Neutrophil Count 6.8 X10^3/uL (2.0-7.7); Basophil# 0.01 X10^3/uL; Basophil% 0.1 % (0-1); Hemoglobin 12.4 g/dL (12.0-15.0); Lymphocyte % 5.5 % (19-41); Mean Corp Hgb Conc 31.8 g/dL (32-36); Mean Corpuscular Hgb 31.6 pg (27.0-32.0); Mean Corpuscular Volume 99.2 fL (81-99); Mean Platelet Vol. 9.7 fl (6.2-12.0); Monocyte# 0.04 X10^3/uL; Monocyte% 0.6 % (0-10); NRBC Flagged by Analyzer 0 % (0-5); Neutrophil # 6.79 X10^3/uL (2.7-7.7); Neutrophil % 93.5 % (47-70); POSITIVE DIFFERENTIAL YES; Platelet Count 217 K/mm3 (150-450); RBC Distribution Width CV 12.7 % (11.6-14.6); RBC Distribution Width SD 46.5 fl (35.1-43.9); Red Blood Count 3.93 M/mm3 (4.2-5.4); White Blood Count 7.3 K/mm3 (4.4-11.0)
[2022-12-11 06:01] LABS: Differential Indicated SCAN CRITERIA MET
[2022-12-11 06:33] LABS: Anion Gap 2 (5-15); BUN 25 mg/dL (7-18); BUN/Creat Ratio 46.3 RATIO (10-20); Calcium,Total 9.2 mg/dL (8.5-10.1); Chloride 101 mmol/L (98-107); Creatinine, Serum 0.54 mg/dL (0.55-1.02); EST Glomerular Filtration Rate 115 mL/min (>60); Est Glom Filt Rate - Afr Amer 139 mL/min (>60); Estimated Creatinine Clearance 26.04 ml/min; Glucose 167 mg/dL (74-106); Potassium 4.2 mmol/L (3.5-5.1); Sodium Level 139 mmol/L (136-145)
[2022-12-11 06:54] LABS: Differential Comment SCANNED
[2022-12-11] MEDS: Ipratropium/Albuterol Sulfate 3 ML AMPUL.NEB INHALATION ×5 (07:44→23:00)
--- NOTE | 2022-12-11 08:39 | PN.HOSP_ITS ---
Reason for Visit Reason for Visit: Diagnoses Chronic obstructive pulmonary disease with (acute) exacerbation (12/10/22) Acute and chronic respiratory failure with hypoxia (12/10/22) Acute and chronic respiratory failure with hypercapnia (12/10/22) Subjective Subjective Breathing ok. Apparently, oxygen at home was off. Normally on 4l/m of oxygen. Objective Data Objective Data Vital Signs: Vital Signs Temp Pulse Resp BP Pulse Ox O2 Del Method O2 Flow Rate 36.3 C L 115 H 32 H 130/75 H 95 Bi-pap 5 12/11/22 06:00 12/11/22 07:45 12/11/22 07:45 12/11/22 07:00 12/11/22 07:45 12/11/22 07:00 12/11/22 03:00 FiO2 40 12/11/22 07:45 Oxygen Flow Rate (L/min) 5 Oxygen Delivery Method Bi-pap Weight: 38.7 kg Body Mass Index (BMI) 15.0 Intake & Output: Intake and Output for Last 24 Hours 12/09/22 12/10/22 12/11/22 23:59 23:59 23:59 Intake Total 500 / 620 120 / 120 Output Total 200 / 200 Balance 500 / 620 -80 / -80 Lab / Micro Data 12/11/22 05:37 12/11/22 05:37 Labs: Laboratory Results - last 24 hr 12/10/22 19:45: WBC 8.7, RBC 4.19 L, Hgb 12.6, Hct 42.4, MCV 101.2 H, MCH 30.1, MCHC 29.7 L, RDW Std Deviation 47.7 H, RDW Coeff of Toney 12.8, Plt Count 240, MPV 9.8, Immature Gran % (Auto) 0.300, Neut % (Auto) 66.7, Lymph % (Auto) 21.5, [place] % (Auto) 7.7, Eos % (Auto) 3.6, Baso % (Auto) 0.2, Absolute Neuts (auto) 5.8, A bsolute Lymphs (auto) 1.87, Nucleated RBC % 0, Sodium 143, Potassium 5.1, Chloride 97 L, Carbon Dioxide > 45.0 H*, Anion Gap TNP, BUN 31 H, Creatinine 0.61, Estim Creat Clear Calc 21.80, Est GFR (MDRD) Af Amer 121, Est GFR (MDRD) N on-Af 100, BUN/Creatinine Ratio 51.2 H, Glucose 190 H, Calcium 9.4, Troponin I High Sens 7, B-Natriuretic Peptide 27.0 12/10/22 21:31: Magnesium 2.4 12/10/22 22:30: Troponin I High Sens 14 12/11/22 05:37: WBC 7.3, RBC 3.93 L, Hgb 12.4, Hct 39.0, MCV 99.2 H, MCH 31.6, MCHC 31.8 L D, RDW Std Deviation 46.5 H, RDW Coeff of Toney 12.7, Plt Count 217, MPV 9.7, Immature Gran % (Auto) 0.300, Neut % (Auto) 93.5 H, Lymph % (Auto) 5.5 L, [place] % (Auto) 0.6, Eos % (Auto) 0.0, Baso % (Auto) 0.1, Absolute Neuts (auto) 6.8, Absolute Lymphs (auto) 0.40 L, Nucleated RBC % 0, Differential Comment SCANNED, Sodium 139, Potassium 4.2, Chloride 101, Carbon Dioxide 36.0 H, Anion Gap 2 L, BUN 25 H, Creatinine 0.54 L, Estim Creat Clear Calc 26.04, Est GFR (MDRD) Af Amer 139, Est GFR (MDRD) Non-Af 115, BUN/Creatinine Ratio 46.3 H, Glucose 167 H, Calcium 9.2 Micro: Microbiology 12/11/22 00:05 Mucosa - Nasopharyngeal Respiratory Panel (PCR) - Final 12/10/22 20:00 Nasal Secretion SARS-CoV-2 & FLU Antigen (Rapid) - Final ABG Data ABG results: ABG 12/10/22 12/11/22 20:27 00:24 Specimen Type ART ART Sample Site L Radial L Radial pH 7.29 L 7.35 Bicarbonate Actual 42.0 H 38.8 H Total CO2 45 41 Base Excess 15 H 13 H O2 Saturation 83 L 93 L O2 % 4.0 6.0 ABG pCO2 88.3 H* 70.0 H* ABG pO2 57 L 72 L Abrahan Test Positive Positive O2 Delivery Device Cannula Cannula Vent Mode Not entered Not entered Crit Call To/Read Back Yes Yes Blood Gas Notified Whom Brian Orlando Blood Gas Notified Time 20:28:57 00:26:02 Radiography Diagnostic Testing: Radiology Impression Chest X-Ray 12/10/22 21:00 IMPRESSION: Pulmonary hyperinflation with interstitial scarring. There is no acute pulmonary abnormality. There has been no significant change from the reference exam. Electronically Signed: Osei Moss MD at 21:47 EDT , Physical Exam Const alert and no apparent distress HEENT head/scalp atraumatic and moist oral mucous membranes Resp normal respiratory effort and no retractions Resp Narrative: diminished breath sounds bilateral. Cardio regular rate, regular rhythm, S1 normal heart sound and S2 normal heart sound GI normal to inspection, nondistended, normoactive bowel sounds, soft to palpation, non-tender and non-distended Extremity normal to inspection and full ROM Assessment & Plan Assessment/Plan (1) Acute on chronic respiratory failure with hypoxia and hypercapnia: PLAN: ABG shows respiratory acidosis with compensated chronic metabolic alkalosis. Previous labs shows her bicarb about 38-42. This time bicarb more than 45 and pH 7.29 with PCO2 88.3. We will keep the BiPAP and repeat ABG after an hour. Chest x-ray initially reviewed and does not seem acute consolidation or infiltrate. Chronic changes of emphysema. Likely exacerbated by oxygen being turned off accidently at home. (2) Acute exacerbation of chronic obstructive pulmonary disease (COPD): PLAN: Respiratory panel negative. COVID, influenza negative. Rapid COVID-19 antigen. Patient is being managed on scheduled bronchodilator, IV Solu-Medrol, Mucinex, incentive spirometry and Pep. Zithromax 500 mg daily. Patient was last admitted in July 2022 for similar health condition associated COPD exacerbation. DC methylpred. Start prednisone PLAN: Plan Chronic conditions: * Chronic diastolic heart failure and aortic stenosis: Patient had echo in 03/16 one 2D echo was done. EF 65%, 2+ TR, RVSP 52 mmHg consistent with pulmonary hypertension, stage II diastolic dysfunction, moderate to severe calcific aortic valve stenosis with mild mitral annular calcification and trivial MR. Based on echo report it seems her aortic valve stenosis severity increased. Follow-up with candy maker helper as an outpatient but patient has restricted mobility and dementia therefore do not think she is a candidate for surgical evaluation of severe aortic stenosis. * Dementia and debility and severe protein calorie malnutrition: PT and OT ordered. Patient has restricted mobility, compromised ADL. Failure to thrive. Patient's daughter near the bedside stated she needs more help for her care and probably home health care will be good. air operations manager consult. Nutritional consult. She has moderate atrophy of muscles of extremity and craniofacial muscle loss. VTE prophylaxis: SQ heparin Code status: full code. Disposition: monitor overnight. Ensure stability with change to prednisone from methylprednisolone. Poor performance status at baseline, wheelchair. Charges/Coding Visit Charges Inpatient E&M: 60342 Subs Hosp L2
[2022-12-11] MEDS: Metoprolol Tartrate 25 MG Tablet PO ×2 (09:32→20:59)
[2022-12-11] MEDS: guaiFENesin 10 ML UDC (200MG/10ML) PO ×2 (09:34→15:22)
--- NOTE | 2022-12-11 15:00 | CASEMGMT ---
BENNETT CORONADO Face to Face with patient for initial transition planning/care coordination assessment. RN CM introduced self and role at [facility]. Patient sitting in chair, alert and confused at times, daughter at bedside. Daughter willing to participate in assessment and is able to answer all questions appropriately. Care providers, pharmacy, and demographics verified. Patient and daughter wish to discharge home with [facility]. Patient and daughter prefer [facility] and declined HHC list. Daughter states she has no further needs or concerns at this time. CM to follow for discharge planning needs that may arise. PCP: Reza Specialists: none Preferred Pharmacy: [facility] Insurance: [employer] [facility] Prescription Benefit: yes Living Will/HPOA: none LNOK: and daughter Living Arrangements: Patient lives with daughter in a 2 story home with bed and bath on first floor. is currently at [facility]. Daughter assists patient with ADLs. Transportation: Public, family DME/HHC: Patient has cane, walker, wheelchair, grab bars, and home oxygen at 4lpm with [facility] with portability. No previous SNF. Patient has had [facility]. Daughter states she has been overwhelmed and scatter brain as she has misplaced important documents and is unable to find them. She states she will do better taking care of patient. RN CM updated SW. Referral made with [facility] and they are able to accept the patient with planned start of care for Saturday. Disposition Plan: Patient to discharge home with family support and follow-up plans in place. Angelica PURI, RN, CM
--- NOTE | 2022-12-11 15:08 | CHAPLAIN ---
Type of Pastoral Visit _x__ Initial Visit ___ Follow-up Visit ___ On-call Visit ___ General Patient Visit ___ Spiritual Assessment ___ Family Conference ___ Bereavement ___ Rapid Response ___ Code Blue ___ Other (describe below) Pastoral Care Referral From _x__ Patient ___ Family ___ Nurse ___ Physician ___ Floor Covering Printer Assistant ___ Service Delivery Director ___ Other (describe below) Sacrament/Intervention _x__ Active listening ___ Anointing ___ Spiritism ___ Bereavement ___ Communion _x__ Tatyana exploration ___ _x__ Life review _x__ Prayer ___ Reconciliation ___ Sacrament of Sick _x__ Supportive presence ___ Wedding ___ Other (describe below Pastoral Comments patient appears to be anxious and fidgety; attempt to distract patient with conversation and the outdoor sunshine; asked pt about family and her tatyana community; gave calm words of assurance and scripture to bring pt to remembrance of her tatyana
[2022-12-12] VITALS (11 sets, daily range): BP systolic 97–130; BP diastolic 50–76; PULSE 96–110; RESP 18–23; TEMP 36.3–36.8; O2SAT 90–100; BMI 15.0
[2022-12-12] MEDS: guaiFENesin 10 ML UDC (200MG/10ML) PO ×3 (06:12→15:00)
[2022-12-12] MEDS: Heparin Injection (Vial) 5,000 UNIT/ML VIAL 5000 UNIT SC ×2 (06:12→15:00)
[2022-12-12] MEDS: predniSONE 20 MG Tablet 40 MG PO (07:51)
--- NOTE | 2022-12-12 08:34 | PCM.PN.HOSP ---
Reason for Visit Reason for Visit: Diagnoses Chronic obstructive pulmonary disease with (acute) exacerbation (12/10/22) Acute and chronic respiratory failure with hypoxia (12/10/22) Acute and chronic respiratory failure with hypercapnia (12/10/22) Subjective Subjective No events. Patient's daughter was there stated that patient's oxygen actually was off and that occasionally they will put her on tank rather than condenser but she realized that the actual oxygen which she had placed on the tank was actually not on. Objective Data Objective Data Vital Signs: Vital Signs Temp Pulse Resp BP Pulse Ox O2 Del Method O2 Flow Rate 36.3 C L 108 H 20 H 104/50 L 98 High Flow 3 12/12/22 07:30 12/12/22 07:30 12/12/22 07:30 12/12/22 07:30 12/12/22 07:30 12/12/22 07:30 12/12/22 07:30 FiO2 40 12/11/22 07:45 Oxygen Flow Rate (L/min) 3 Oxygen Delivery Method High Flow Weight: 38.7 kg Body Mass Index (BMI) 15.0 Intake & Output: Intake and Output for Last 24 Hours 12/10/22 12/11/22 12/12/22 23:59 23:59 23:59 Intake Total 500 / 620 1348.33 / 1348.33 Output Total 200 / 200 Balance 500 / 620 1148.33 / 1148.33 Medical Nutrition Assessment Dietitian: Malnutrition Criteria Met Start: 12/11/22 14:16 Freq: Status: Active Protocol: Document 12/11/22 14:16 AG (Rec: 12/11/22 14:16 AG Desktop) Nutrition Malnutrition Evidence of Malnutrition Exists Yes Malnutrition (severe): Chronic Evidenced By Suboptimal Energy Intake ( Severe),Weight Loss (Severe), Physical Changes (Severe) Clinical Problem Chronic Disease or Condition Related Malnutrition Etiology severe, chronic malnutrition related to inadequate energy intake Signs/Symptoms as evidenced by unintentional 13% wt loss x 9 months, estimated PO in take meeting < 75% of estimated energy needs > 3 months, Severe muscle wasting/fat loss evident per physical exam in orbital, clavicle, acromion, and temporal areas, BMI 15.1 Status Active Problem Recommendation Dietitian Recommendations/Changes continue regular diet; will add 120mL ensure plus high protein 4x/day w/ medpass given evidence of malnutrition Lab / Micro Data 10/24/23 05:37 12/11/22 05:37 Micro: Microbiology 12/11/22 00:05 Mucosa - Nasopharyngeal Respiratory Panel (PCR) - Final 12/10/22 20:00 Nasal Secretion SARS-CoV-2 & FLU Antigen (Rapid) - Final Physical Exam Const alert Resp normal respiratory effort, no retractions, no use of accessory muscles and clear to auscultation bilaterally Cardio regular rate, regular rhythm, S1 normal heart sound and S2 normal heart sound GI normal to inspection, nondistended, normoactive bowel sounds, soft to palpation, non-tender and non-distended Extremity normal to inspection and full ROM Assessment & Plan Assessment/Plan (1) Acute on chronic respiratory failure with hypoxia and hypercapnia: PLAN: ABG shows respiratory acidosis with compensated chronic metabolic alkalosis. Previous labs shows her bicarb about 38-42. This time bicarb more than 45 and pH 7.29 with PCO2 88.3. We will keep the BiPAP and repeat ABG after an hour. Chest x-ray initially reviewed and does not seem acute consolidation or infiltrate. Chronic changes of emphysema. Likely exacerbated by oxygen being accidently turned off accidently at home. (2) Acute exacerbation of chronic obstructive pulmonary disease (COPD): PLAN: Respiratory panel negative. COVID, influenza negative. Rapid COVID-19 antigen. Patient is being managed on scheduled bronchodilator, IV Solu-Medrol, Mucinex, incentive spirometry and Pep. Zithromax 500 mg daily. Patient was last admitted in July 2022 for similar health condition associated COPD exacerbation. DC methylpred. Start prednisone PLAN: Plan Chronic conditions: Chronic diastolic heart failure and aortic stenosis: Patient had echo in 03/16 one 2D echo was done. EF 65%, 2+ TR, RVSP 52 mmHg consistent with pulmonary hypertension, stage II diastolic dysfunction, moderate to severe calcific aortic valve stenosis with mild mitral annular calcification and trivial MR. Based on echo report it seems her aortic valve stenosis severity increased. Follow-up with refinery operator reforming unit as an outpatient but patient has restricted mobility and dementia therefore do not think she is a candidate for surgical evaluation of severe aortic stenosis. Dementia and debility and severe protein calorie malnutrition: PT and OT ordered. Patient has restricted mobility, compromised ADL. Failure to thrive. Patient's daughter near the bedside stated she needs more help for her care and probably home health care will be good. regional branch manager consult. Nutritional consult. She has moderate atrophy of muscles of extremity and craniofacial muscle loss. VTE prophylaxis: SQ heparin Code status: full code. Disposition: DC home with home care
[2022-12-12] MEDS: Metoprolol Tartrate 25 MG Tablet PO (10:18)
[2022-12-12] MEDS: 0.9% Saline Lock 10 ML Syringe IV (10:27)
[2022-12-12] MEDS: Estrogens,Conj. 1 Tube 1 DOSE VAGINAL (10:27)
--- NOTE | 2022-12-12 10:28 | CASEMGMT ---
BENNETT CORONADO updated that patient will be discharging today. BENNETT CORONADO in to discuss discharge with patient and daugther. BENNETT CORONADO updated daughter regarding [facility] start of care for Saturday. BENNETT CORONADO inquired if daughter brought oxygen tank from home, she has not but will arrange to bring tank in this afternoon. Daughter and patient had no further questions or concerns at this time.
--- NOTE | 2022-12-12 12:39 | PCM.DC.SUM ---
Providers Date of Admission: 12/10/22 Primary Care Physician: Dr. Marcello Cobb MD Reason For Visit: ACUTE ON CHR COMBINED RESP FAILURE Diagnosis Discharge Diagnosis (1) Acute on chronic respiratory failure with hypoxia and hypercapnia: Status: Resolved Code(s): J96.21 - Acute and chronic respiratory failure with hypoxia; J96.22 - Acute and chronic respiratory failure with hypercapnia Plan: ABG shows respiratory acidosis with compensated chronic metabolic alkalosis. Previous labs shows her bicarb about 38-42. This time bicarb more than 45 and pH 7.29 with PCO2 88.3. We will keep the BiPAP and repeat ABG after an hour. Chest x-ray initially reviewed and does not seem acute consolidation or infiltrate. Chronic changes of emphysema. Likely exacerbated by oxygen being accidently turned off accidently at home. (2) Acute exacerbation of chronic obstructive pulmonary disease (COPD): Status: Resolved Code(s): J44.1 - Chronic obstructive pulmonary disease with (acute) exacerbation Plan: Respiratory panel negative. COVID, influenza negative. Rapid COVID-19 antigen. Patient is being managed on scheduled bronchodilator, IV Solu-Medrol, Mucinex, incentive spirometry and Pep. Zithromax 500 mg daily. Patient was last admitted in July 2022 for similar health condition associated COPD exacerbation. DC methylpred. Start prednisone Plan Chronic conditions: Chronic diastolic heart failure and aortic stenosis: Patient had echo in 03/16 one 2D echo was done. EF 65%, 2+ TR, RVSP 52 mmHg consistent with pulmonary hypertension, stage II diastolic dysfunction, moderate to severe calcific aortic valve stenosis with mild mitral annular calcification and trivial MR. Based on echo report it seems her aortic valve stenosis severity increased. Follow-up with senior designer/art director as an outpatient but patient has restricted mobility and dementia therefore do not think she is a candidate for surgical evaluation of severe aortic stenosis. Dementia and debility and severe protein calorie malnutrition: PT and OT ordered. Patient has restricted mobility, compromised ADL. Failure to thrive. Patient's daughter near the bedside stated she needs more help for her care and probably home health care will be good. logistics and planning manager consult. Nutritional consult. She has moderate atrophy of muscles of extremity and craniofacial muscle loss. VTE prophylaxis: SQ heparin Code status: full code. Disposition: DC home with home care Medications at Discharge Home Medications albuterol sulfate 90 mcg/actuation aerosol inhaler 1 puff inhalation DAILY shortness of breath 01/30/21 ropinirole 0.25 mg tablet 0.25 mg PO QHS restless legs 03/14/22 lorazepam 1 mg tablet 0.5 mg (1/2 x 1 mg) PO TID PRN Anxiety #5 tabs 03/16/22 clotrimazole-betamethasone 1 %-0.05 % topical cream 1 applic topical DAILY 07/27/22 mirtazapine 7.5 mg tablet 7.5 mg PO QHS 07/27/22 umeclidinium 62.5 mcg-vilanterol 25 mcg/actuation powdr for inhalation (Anoro Ellipta) 1 inh inhalation DAILY 07/27/22 metoprolol tartrate 25 mg tablet 25 mg PO BID #60 tabs 07/30/22 prednisone 20 mg tablet 40 mg (2 x 20 mg) PO BREAKFAST #8 tabs 12/12/22 Hospital Course Operations None Procedures None Summary of Care Provided Minutes Spent on Discharge: 32 Hospital Course: Patient presents with shortness of breath. Accidentally, her oxygen was not turned on when she was switched over to a tank from the condenser. She was short of breath and presented with COPD exacerbation. Patient was started methylprednisolone and switch over the prednisone. Patient has done well since then. Patient has a poor baseline performance status and requires help getting up. Patient is otherwise stable and be discharged home in stable condition with home care. Medical Records Data Medical Nutrition Assessment Dietitian: Malnutrition Criteria Met Start: 12/11/22 14:16 Freq: Status: Active Protocol: Document 12/11/22 14:16 AG (Rec: 12/11/22 14:16 AG Desktop) Nutrition Malnutrition Evidence of Malnutrition Exists Yes Malnutrition (severe): Chronic Evidenced By Suboptimal Energy Intake ( Severe),Weight Loss (Severe), Physical Changes (Severe) Clinical Problem Chronic Disease or Condition Related Malnutrition Etiology severe, chronic malnutrition related to inadequate energy intake Signs/Symptoms as evidenced by unintentional 13% wt loss x 9 months, estimated PO in take meeting < 75% of estimated energy needs > 3 months, Severe muscle wasting/fat loss evident per physical exam in orbital, clavicle, acromion, and temporal areas, BMI 15.1 Status Active Problem Recommendation Dietitian Recommendations/Changes continue regular diet; will add 120mL ensure plus high protein 4x/day w/ medpass given evidence of malnutrition Weight / BMI Weight Weight: 38.7 kg Body Mass Index (BMI) 15.0 ABG / Lab / Microbiology Data 12/11/22 05:37 12/11/22 05:37 Microbiology: Microbiology 12/11/22 00:05 Mucosa - Nasopharyngeal Respiratory Panel (PCR) - Final 12/10/22 20:00 Nasal Secretion SARS-CoV-2 & FLU Antigen (Rapid) - Final D/C Instructions Discharge Diet: No restrictions Meaningful Use Info Meaningful Use Diagnoses (Choose all that apply): None applicable Discharge Plan Admission Admit Date/Time: 12/10/22 21:24 Primary Reason for Your Visit: COPD exacerbation Attending Provider: Jose Dumont Primary Care Provider: Marcello Cobb Consulting Providers: Edmar Orlando Discharge Orders/Prescriptions Prescriptions: New prednisone 20 mg Tablet 40 mg PO BREAKFAST Qty: 8 0RF Continued albuterol sulfate 90 mcg/actuation HFA aerosol inhaler 1 puff INHALATION DAILY ropinirole 0.25 mg tablet 0.25 mg PO QHS Patient Comments: TAKE 1 TO 2 TABLETS BY MOUTH ONE HOUR BEFORE BEDTIME lorazepam 1 MG tablet 0.5 mg PO TID PRN (Reason: Anxiety) Qty: 5 0RF Anoro Ellipta 62.5-25 mcg/actuation blister with device 1 inh INHALATION DAILY Patient Comments: INHALE 1 PUFF BY MOUTH ONCE DAILY WITH GOOD ORAL CARE. clotrimazole-betamethasone 1-0.05 % cream 1 applic TOPICAL DAILY Patient Comments: APPLY TO AFFECTED AREA OF RASH ON THE FEET, BUT NOT IN BETWEEN TOES, TWICE DAILY FOR 14 DAYS mirtazapine 7.5 mg tablet 7.5 mg PO QHS Patient Comments: TAKE 1 TABLET BY MOUTH ONCE DAILY AT BEDTIME metoprolol tartrate 25 mg Tablet 25 mg PO BID Qty: 60 0RF Discontinued prednisone 20 mg Tablet 40 mg PO BREAKFAST 4 Days Qty: 8 0RF Hold Instructions: not taking prednisone 50 mg tablet 50 mg PO DAILY 5 Days Qty: 5 0RF Hold Instructions: not taking Referrals / Follow Up: Marcello Cobb MD [Primary Care Provider] - Within 2 Weeks Disposition Disposition (needs filled in before D/C Order can be placed): Home Health Service Charges/Coding Visit Charges Inpatient E&M: 92298 Disch Hosp >30min
--- NOTE | 2022-12-12 15:24 | NURSING ---
Answered patients call light, patient family member states she is leaving and asked if staff could stay with patient while she was gone. This YEAST WASHER stated we could check on her frequently but we don't have the staff abilities to just sit with the patient while family is gone. Family states well she has dementia and is confused and worried. This YEAST WASHER again states we will happily check on her and reassure her when we can. Patient family member leaves. This YEAST WASHER spend 5 minutes in room with patient making sure she is comfortable and aware that family will be back around 5:30. Patient is comfortable and asks for TV to be turned on to watch. TV changed to channel patient wants to watch at this time. YEAST WASHER again reassures patient daughter will be back at 5:30. YEAST WASHER makes sure bed exit is on, call light and patient personal cell phone are all in reach. YEAST WASHER immediately goes to charge nurse and asks for room camera to be turned on to also help ensure patient safety and care. Charge nurse Aide and Patient Nurse Kely notified patient daughter leaving will return at 5:30. YEAST WASHER walks past patient room again patient laying in bed comfortably watching TV.
== END 2022-12-12 18:55 | disposition home health service (06) | DRG 189 ==
LOC: ED 20:39 → PCU 21:36
PROVIDERS: Nurse Practitioner; Admitting Provider Internal Medicine; Emergency Provider Emergency Medicine; PCP Internal Medicine
DX: J96.22 Acute and chronic respiratory failure with hypercapnia (principal); E43 Unspecified severe protein-calorie malnutrition; E87.4 Mixed disorder of acid-base balance; I50.32 Chronic diastolic (congestive) heart failure; Z68.1 Body mass index [BMI] 19.9 or less, adult; I27.20 Pulmonary hypertension, unspecified; J43.9 Emphysema, unspecified; F03.90 Unspecified dementia, unspecified severity, without behavioral disturbance, psychotic disturbance, mood disturbance, and anxiety; J96.21 Acute and chronic respiratory failure with hypoxia; I35.0 Nonrheumatic aortic (valve) stenosis; R62.7 Adult failure to thrive; I34.81 Nonrheumatic mitral (valve) annulus calcification; Z11.52 Encounter for screening for COVID-19; Z99.81 Dependence on supplemental oxygen
CPT/HCPCS: 36415; 36600; 71045; 80048; 82803; 83735; 83880; 84484; 85025; 87428; 87633; 92610; 93005; 94002; 94003; 94640; 94762; 97162; 97166; 97530; 97535; 97802; 99285; J7040; A4216

== ENCOUNTER 2022-12-14 11:15 | Inpatient (IN) | payer MEDICARE, SELFPAY ==
[2022-12-14] VITALS (20 sets, daily range): BP systolic 93–177; BP diastolic 54–134; PULSE 76–117; RESP 12–38; TEMP 36.2–36.7; O2SAT 87–100; BMI 17.2; BMI 15.3
--- NOTE | 2022-12-14 11:27 | RAD_ITS ---
STUDY: X-RAY CHEST REASON FOR EXAM: Female, 82 years old. Weakness and shortness of breath. TECHNIQUE: AP and lateral views of the chest. COMPARISON: Comparison is made with prior study December 10, 2022. FINDINGS: EKG electrodes are seen. There is hyperinflation of the lungs consistent with chronic obstructive lung disease (COPD). There is no demonstrated pleural abnormality. Normal size heart. Normal mediastinum and grace. Normal visualized pulmonary arteries. There is atherosclerotic calcification of the aortic arch with tortuosity. There are diffuse degenerative changes of the visualized thoracic spine. Increased kyphosis. Demineralization of the vertebrae. Normal visualized ribs, clavicles, and shoulders. There is no demonstrated abnormality of the visualized soft tissue structures of the upper abdomen. RAD/Chest PA and Lateral IMPRESSION: Hyperinflation. No acute abnormality seen. Electronically Signed: Juan Miguel Beyer MD at 12:38 EDT ,
--- NOTE | 2022-12-14 11:32 | EDS_ITS ---
HPI History of Present Illness Chief Complaint: Shortness of Breath Detail of Chief Complaint: Patient sent in because of shortness of breath, low pulse ox Informant: patient and EMS Onset/Context/Timing Onset: Today Context: - (Unknown) Timing: Continuous Quality: Positive for Wheezing Current Severity: Mild Worsened by: - (Unknown) Relieved by: Nothing and - Associated Symptoms cough; Negative for rhinorrhea, post nasal drip or fever Chest Pain: Positive for None Narrative Narrative: Patient is a 82-year-old woman. 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 She normally has a pulse ox between 87 and 90%. When the nurse came to visit her her pulse ox was 80%. She increased the O2 to 6 L and had a reading of 87%. She did not feel comfortable with this. She called squad. Patient arrived by ambulance. Patient is disoriented. PE Risk Factors: Positive for Recent immobilization; Negative for Cancer, OCP + Smoking + > 35, Recent surgery or Recent travel Prior similar symptoms: Yes Recent Illness/Hospitalization: No PFSH PFSH Medical History Anxiety Anxiety and depression Chronic respiratory failure with hypoxia Dementia Emphysema lung Protein calorie malnutrition Pulmonary fibrosis Pulmonary HTN Severe protein-calorie malnutrition Valvular heart disease Home Medications albuterol sulfate 90 mcg/actuation aerosol inhaler 1 puff inhalation DAILY shortness of breath 01/30/21 [History Last Taken Unknown] ropinirole 0.25 mg tablet 0.25 mg PO QHS restless legs 03/14/22 [History Last Taken Unknown] lorazepam 1 mg tablet 0.5 mg (1/2 x 1 mg) PO TID PRN Anxiety #5 tabs 03/16/22 [Rx Last Taken 04/05/15] clotrimazole-betamethasone 1 %-0.05 % topical cream 1 applic topical DAILY 07/27/22 [History Last Taken Unknown] mirtazapine 7.5 mg tablet 7.5 mg PO QHS 07/27/22 [History Last Taken Unknown] umeclidinium 62.5 mcg-vilanterol 25 mcg/actuation powdr for inhalation (Anoro Ellipta) 1 inh inhalation DAILY 07/27/22 [History Last Taken Unknown] metoprolol tartrate 25 mg tablet 25 mg PO BID #60 tabs 07/30/22 [Rx Last Taken Unknown] prednisone 20 mg tablet 40 mg (2 x 20 mg) PO BREAKFAST #8 tabs 12/12/22 [Rx Last Taken Unknown] Allergy/AdvReac Type Severity Reaction Status Date / Time Tetanus Vaccines and Toxoid Allergy Unknown Verified 07/27/22 20:31 [Tetanus Vaccines & Toxoid] Family History Other Heart disease Surgical History History of cholecystectomy Social History household members: spouse and family Smoking Status: Never smoker alcohol intake: never substance use type: does not use ROS ROS ED Review of Systems ROS Unobtainable: due to mental status Constitutional Constitutional ED: Denies chills, fever(s), sweats or weight loss Respiratory/Chest Respiratory/Chest: Reports cough and dyspnea Gastrointestinal Gastrointestinal: Denies abdominal pain, nausea or vomiting Musculoskeletal Musculoskeletal: Denies back pain Neurologic Neurologic: Reports weakness; Denies paresthesias Psychiatric Psychiatric: Denies anxiety Endocrine Endocrinology: Denies heat intolerance Hematologic/Lymphatic Hematologic/Lymphatic: Denies easy bleeding EXAM Physical Exam Const Vital Signs: 12/14/22 11:16 12/14/22 11:26 12/14/22 11:28 Temperature 97.1 F L Temperature Source Temporal Pulse Rate 117 H 117 H Respiratory Rate 28 H 24 H Respiratory Effort Short of Breath Accessory Muscle Use Respiratory Depth Shallow Respiratory Pattern Tachypnea Blood Pressure 177/134 H 102/54 L Blood Pressure Mean 148 70 Pulse Ox 87 87 Oxygen Delivery Method Nasal Cannula Nasal Cannula Nasal Cannula Oxygen Flow Rate (L/min) 6 6 6 Fraction of Inspired Oxygen (FIO2) 12/14/22 11:58 12/14/22 11:59 12/14/22 12:04 Temperature Temperature Source Pulse Rate 105 H 103 H Respiratory Rate 28 H 18 Respiratory Effort Respiratory Depth Respiratory Pattern Normal Blood Pressure 113/78 Blood Pressure Mean 89 Pulse Ox 97 Oxygen Delivery Method Nasal Cannula Oxygen Flow Rate (L/min) 5 Fraction of Inspired Oxygen (FIO2) 12/14/22 12:23 Temperature Temperature Source Pulse Rate 115 H Respiratory Rate 32 H Respiratory Effort Respiratory Depth Respiratory Pattern Tachypnea Blood Pressure Blood Pressure Mean Pulse Ox Oxygen Delivery Method Oxygen Flow Rate (L/min) Fraction of Inspired Oxygen (FIO2) 50 Positive well developed and cachectic Constitutional Narrative: Patient has minimal use of accessory muscles. Vital signs remarkable for being tachycardic and tachypneic. General Appearance ED: well developed and cachectic; Negative for NAD or pallor Nutritional Appearance: cachectic HEENT Reports TM's clear and dry mucous membranes HEENT Narrative: Mucosa is dry. Uvula is midline. Posterior pharynx out erythema. atraumatic Tympanic Membrane ED: Yes TM's clear Mouth ED: Yes dry mucous membranes Mouth: dry mucous membranes Eyes PERRL and EOMs intact bilaterally General Eye ED: Negative for pale conjunctiva or scleral icterus Neck no lymphadenopathy, supple, no meningeal signs and no JVD Neck Narrative: Trachea is midline. There is no in-store expiratory stridor. Resp No normal respiratory effort and No clear to auscultation bilaterally Auscultation: rales diffuse and wheezes expiratory wheezes and scattered wheezes Cardio regular rhythm, S1 normal heart sound, S2 normal heart sound and no murmurs Rate: tachycardic GI non-tender, non-distended and no masses GI Narrative: There is no palpable or pulsatile mass. There is no abdominal bruit. Auscultation: hypoactive bowel sounds Back/Spine no CVA tenderness and normal to inspection Extremity normal to inspection Extremity Narrative: Bilateral pedal edema only. Neuro No oriented x3, CN's II-XII intact bilaterally and no sensory deficits noted [place] Coma Scale: document GCS findings Spontaneous Obeys Commands Confused 14 Sensorium / Orientation: Negative for alert Psych Psych Narrative: Difficult to assess Skin no wounds Skin Narrative: Patient has what appears to be a fungal rash right lower extremity. There is also evidence of venous stasis. General Skin Exam: Negative for jaundice or pallor Lesions: no lesions MDM MDM MDM Narrative Medical decision making narrative: CODE STATUS was addressed by hospitalist past July. Patient is a full go. Because patient is not oriented she has not capacity to discuss CODE STATUS. Since patient is disoriented hypoxic and concern for CO2 retention ABG was obtained. Chest x-ray was obtained because of abnormal oscillatory findings to assess for pneumonia, congestive heart failure, exacerbation of COPD. EKG was obtained to rule out cardiac ischemia. CBC to assess white count and H&H. Electrolyte panel was obtained to rule out hyponatremia, hypokalemia versus hy perkalemia and assess renal function. History & Record Review Discussion w/independent historian: Patient Additional record(s) reviewed:: Prior inpatient record (CODE STATUS discussed and documented by hospitalist.), Prior ED visit and Prior labs Lab Data Attestation: I reviewed the patient's lab results. Lab results narrative: White count is normal. H&H is normal. MCV is elevated at 104.3. Basic metabolic panel is marked for an elevated CO2 42.0. GFR is normal. Glucose slight elevated 115 within normal's anion gap. Troponin is 8 and is normal. Labs: Laboratory Results - last 24 hr 12/14/22 11:50 WBC 9.2 RBC 3.93 L Hgb 12.1 Hct 41.0 MCV 104.3 H D MCH 30.8 MCHC 29.5 L D RDW Std Deviation 50.2 H RDW Coeff of Toney 13.0 Plt Count 214 MPV 9.7 Immature Gran % (Auto) 0.300 Neut % (Auto) 73.5 H Lymph % (Auto) 18.5 L [place] % (Auto) 7.5 Eos % (Auto) 0.1 Baso % (Auto) 0.1 Absolute Neuts (auto) 6.8 Absolute Lymphs (auto) 1.71 Nucleated RBC % 0 Sodium 143 Potassium 3.9 Chloride 103 Carbon Dioxide 42.0 H Anion Gap -2 L BUN 32 H Creatinine 0.55 Estim Creat Clear Calc 26.98 Est GFR (MDRD) Af Amer 136 Est GFR (MDRD) Non-Af 112 BUN/Creatinine Ratio 58.3 H Glucose 115 H Lactic Acid 2.1 H* Calcium 9.1 Troponin I High Sens 8 ABG Data Attestation: I personally reviewed and interpreted this ABG as follows: Interpretation: ABG reveals acute on chronic respiratory acidosis with acute on chronic hypercapnia and acute on chronic hypoxia. Plan is BiPAP. ABG results: ABG 12/14/22 12:16 Specimen Type ART Sample Site Not entered pH 7.29 L Bicarbonate Actual 50.2 H Total CO2 > 50 Base Excess 24 H O2 Saturation 94 L O2 % 5.0 ABG pCO2 104.5 H* ABG pO2 84 O2 Delivery Device Cannula Vent Mode Not entered Crit Call To/Read Back Yes Blood Gas Notified Whom santos Blood Gas Notified Time 12:17:38 Radiography Diagnostic Testing: Clinical Impression(s) from Imaging Studies Chest X-Ray 12/14/22 11:27 IMPRESSION: Hyperinflation. No acute abnormality seen. Electronically Signed: Juan Miguel Beyer MD at 12:38 EDT , EKG Initial EKG: Attestation: I personally reviewed and interpreted this EKG as follows: Interpretation: Sinus Tachycardia (Rate is 106. There is significant artifact due to patient's labored breathing. [place] interval is 124 ms per cures duration 104 ms. [place] to the right. There is evidence of cor pulmonale with an incomplete right bundle branch block. Computer is reading minimal voltage criteria for LVH or normal vari) Treatment and Re-Evaluation :: Patient's breathing has improved slightly after treatments, Solu-Medrol and BiPAP. Will contact hospitalist for admission. Critical Care Time Critical Care Time: Yes Critical care time (excluding procedures): 30-74 minutes (34), Including time spent: (History, physical, documentation, treatment for COPD and acute on chronic respiratory failure), Discussing w/Consultants and Arranging Admission or Transfer Discharge Plan Triage Chief Complaint: Shortness of Breath ED Provider: Enrique Santos Dx/Rx/DC Orders Clinical Impression: Acute on chronic respiratory failure with hypoxia and hypercapnia, Debility, Acute exacerbation of chronic obstructive pulmonary disease, Acute bronchospasm, Acute alteration in mental status, Cachectic Prescriptions: No Action albuterol sulfate 90 mcg/actuation HFA aerosol inhaler 1 puff INHALATION DAILY ropinirole 0.25 mg tablet 0.25 mg PO QHS Patient Comments: TAKE 1 TO 2 TABLETS BY MOUTH ONE HOUR BEFORE BEDTIME lorazepam 1 MG tablet 0.5 mg PO TID PRN (Reason: Anxiety) Qty: 5 0RF Anoro Ellipta 62.5-25 mcg/actuation blister with device 1 inh INHALATION DAILY Patient Comments: INHALE 1 PUFF BY MOUTH ONCE DAILY WITH GOOD ORAL CARE. clotrimazole-betamethasone 1-0.05 % cream 1 applic TOPICAL DAILY Patient Comments: APPLY TO AFFECTED AREA OF RASH ON THE FEET, BUT NOT IN BETWEEN TOES, TWICE DAILY FOR 14 DAYS mirtazapine 7.5 mg tablet 7.5 mg PO QHS Patient Comments: TAKE 1 TABLET BY MOUTH ONCE DAILY AT BEDTIME metoprolol tartrate 25 mg Tablet 25 mg PO BID Qty: 60 0RF prednisone 20 mg Tablet 40 mg PO BREAKFAST Qty: 8 0RF Primary Care Provider: Marcello Cobb Referrals: Marcello Cobb MD [Primary Care Provider] - Disposition Disposition: Acute Care Hospital [facility]
[2022-12-14] MEDS: Ipratropium/Albuterol Sulfate 3 ML AMPUL.NEB INHALATION ×3 (11:41→22:53)
[2022-12-14] MEDS: Albuterol 2.5 MG/3 ML VIAL.NEB. INHALATION ×3 (11:41→11:59)
[2022-12-14 11:56] LABS: Absolute Lymphocyte Count 1.71 X10^3/uL (0.83-4.51); Absolute Neutrophil Count 6.8 X10^3/uL (2.0-7.7); Basophil# 0.01 X10^3/uL; Basophil% 0.1 % (0-1); Eosinophil# 0.01 X10^3/uL; Eosinophils% 0.1 % (0-5); Hemoglobin 12.1 g/dL (12.0-15.0); Lymphocyte # 1.71 X10^3/ul (0.83-4.51); Lymphocyte % 18.5 % (19-41); Mean Corp Hgb Conc 29.5 g/dL (32-36); Mean Corpuscular Hgb 30.8 pg (27.0-32.0); Mean Corpuscular Volume 104.3 fL (81-99); Mean Platelet Vol. 9.7 fl (6.2-12.0); Monocyte# 0.69 X10^3/uL; Monocyte% 7.5 % (0-10); NRBC Flagged by Analyzer 0 % (0-5); Neutrophil # 6.77 X10^3/uL (2.7-7.7); Neutrophil % 73.5 % (47-70); Platelet Count 214 K/mm3 (150-450); RBC Distribution Width SD 50.2 fl (35.1-43.9); Red Blood Count 3.93 M/mm3 (4.2-5.4); White Blood Count 9.2 K/mm3 (4.4-11.0)
[2022-12-14] MEDS: MethylPREDNISolone 125 MG/2 ML Vial 60 MG IV (12:02)
[2022-12-14 12:21] LABS: Base Excess 24 mmol/L (-2 to +2); Bicarbonate 50.2 mmol/L (22-26); Blood Gas Specimen Type ART; Mode Not entered; O2 Delivery Device Cannula; PO2 84 mmHG (75-100); SITE Not entered; SO2 94 % (95-99); Total Carbon Dioxide > 50 mmol/L; pCO2 104.5 mmHg (35-45); pH 7.29 (7.35-7.45)
[2022-12-14 12:36] LABS: Anion Gap -2 (5-15); BUN 32 mg/dL (7-18); BUN/Creat Ratio 58.3 RATIO (10-20); Calcium,Total 9.1 mg/dL (8.5-10.1); Chloride 103 mmol/L (98-107); Creatinine, Serum 0.55 mg/dL (0.55-1.02); EST Glomerular Filtration Rate 112 mL/min (>60); Est Glom Filt Rate - Afr Amer 136 mL/min (>60); Estimated Creatinine Clearance 26.98 ml/min; Glucose 115 mg/dL (74-106); Potassium 3.9 mmol/L (3.5-5.1); Sodium Level 143 mmol/L (136-145); Troponin-I HS 8 pg/mL (3.0-54.0)
[2022-12-14 12:45] LABS: Lactic Acid 2.1 mmol/L (0.4-1.9)
--- NOTE | 2022-12-14 13:05 | PCM.HP.STD ---
[facility] - General General Date of Service: 12/14/22 Chief Complaint: shortness of breath. [facility] Narrative NEERAJ LYNN, is a 82 F who presents with shortness of breath. Patient was noted to have oxygenation dropping down to the 80s. Patient was also noted to be more confused. Sent to the emergency room and placed on BiPAP. Patient was just discharged yesterday after becoming short of breath after oxygen was accidentally turned off. Patient's daughter is present and states that her oxygen was actually on. [facility] Medical History Anxiety Anxiety and depression Chronic respiratory failure with hypoxia Dementia Emphysema lung Protein calorie malnutrition Pulmonary fibrosis Pulmonary HTN Severe protein-calorie malnutrition Valvular heart disease Home Medications albuterol sulfate 90 mcg/actuation aerosol inhaler 1 puff inhalation DAILY shortness of breath 01/30/21 [History Last Taken 12/13/22] ropinirole 0.25 mg tablet 0.25 mg PO QHS restless legs 03/14/22 [History Last Taken 12/13/22] lorazepam 1 mg tablet 0.5 mg (1/2 x 1 mg) PO TID PRN Anxiety #5 tabs 03/16/22 [Rx Last Taken 12/13/22] mirtazapine 7.5 mg tablet 7.5 mg PO QHS 07/27/22 [History Last Taken 12/13/22] umeclidinium 62.5 mcg-vilanterol 25 mcg/actuation powdr for inhalation (Anoro Ellipta) 1 inh inhalation DAILY 07/27/22 [History Last Taken 12/14/22] metoprolol tartrate 25 mg tablet 25 mg PO BID #60 tabs 07/30/22 [Rx Last Taken 12/14/22] prednisone 20 mg tablet 40 mg (2 x 20 mg) PO BREAKFAST #8 tabs 12/12/22 [Rx Last Taken 12/14/22] Allergy/AdvReac Type Severity Reaction Status Date / Time Tetanus Vaccines and Toxoid Allergy Unknown Verified 07/27/22 20:31 [Tetanus Vaccines & Toxoid] Family History Other Heart disease Surgical History History of cholecystectomy Social History household members: spouse and family Smoking Status: Never smoker alcohol intake: never substance use type: does not use ROS ROS Narrative Patient confused and unable provide any history. Vital Signs Vital Signs Vital Signs: 12/14/22 11:16 12/14/22 11:26 12/14/22 11:28 Temperature 36.2 C L Temperature Source Temporal Pulse Rate 117 H 117 H Respiratory Rate 28 H 24 H Respiratory Effort Short of Breath Accessory Muscle Use Respiratory Depth Shallow Respiratory Pattern Tachypnea Blood Pressure 177/134 H 102/54 L Blood Pressure Mean 148 70 Pulse Ox 87 87 Oxygen Delivery Method Nasal Cannula Nasal Cannula Nasal Cannula Oxygen Flow Rate (L/min) 6 6 6 Fraction of Inspired Oxygen (FIO2) 12/14/22 11:58 12/14/22 11:59 12/14/22 12:04 Temperature Temperature Source Pulse Rate 105 H 103 H Respiratory Rate 28 H 18 Respiratory Effort Respiratory Depth Respiratory Pattern Normal Blood Pressure 113/78 Blood Pressure Mean 89 Pulse Ox 97 Oxygen Delivery Method Nasal Cannula Oxygen Flow Rate (L/min) 5 Fraction of Inspired Oxygen (FIO2) 12/14/22 12:23 Temperature Temperature Source Pulse Rate 115 H Respiratory Rate 32 H Respiratory Effort Respiratory Depth Respiratory Pattern Tachypnea Blood Pressure Blood Pressure Mean Pulse Ox Oxygen Delivery Method Oxygen Flow Rate (L/min) Fraction of Inspired Oxygen (FIO2) 50 Weight Weight: 40.1 kg Body Mass Index (BMI) 17.2 Physical Exam Const Constitutional Narrative: On BiPAP. Confused. Unable to write any history. No respiratory distress. Orientation / Consciousness: confused HEENT normocephalic, head/scalp atraumatic, hearing grossly normal bilaterally and moist oral mucous membranes Resp normal respiratory effort, no retractions, no use of accessory muscles and clear to auscultation bilaterally Cardio regular rate, regular rhythm, S1 normal heart sound and S2 normal heart sound GI normal to inspection, nondistended, normoactive bowel sounds, soft to palpation, non-tender and non-distended Extremity normal to inspection Results Lab / Micro Data Attestation: I reviewed the patient's lab results. Lab results narrative: Chest x-ray reviewed and showed emphysematous changes with kyphosis. No acute process. 12/14/22 11:50 12/14/22 11:50 Labs: Laboratory Results - last 24 hr 12/14/22 11:50: WBC 9.2, RBC 3.93 L, Hgb 12.1, Hct 41.0, MCV 104.3 H D, MCH 30.8, MCHC 29.5 L D, RDW Std Deviation 50.2 H, RDW Coeff of Toney 13.0, Plt Count 214, MPV 9.7, Immature Gran % (Auto) 0.300, Neut % (Auto) 73.5 H, Lymph % (Auto) 18.5 L, [place] % (Auto) 7.5, Eos % (Auto) 0.1, Baso % (Auto) 0.1, Absolute Neuts (auto) 6.8, Absolute Lymphs (auto) 1.71, Nucleated RBC % 0, Sodium 143, Potassium 3.9, Chloride 103, Carbon Dioxide 42.0 H, Anion Gap -2 L, BUN 32 H, Creatinine 0.55, Estim Creat Clear Calc 26.98, Est GFR (MDRD) Af Amer 136, Est GFR (MDRD) Non-Af 112, BUN/Creatinine Ratio 58.3 H, Glucose 115 H, Lactic Acid 2.1 H*, Calcium 9.1, Troponin I High Sens 8 ABG Data ABG results: ABG 12/14/22 12:16 Specimen Type ART Sample Site Not entered pH 7.29 L Bicarbonate Actual 50.2 H Total CO2 > 50 Base Excess 24 H O2 Saturation 94 L O2 % 5.0 ABG pCO2 104.5 H* ABG pO2 84 O2 Delivery Device Cannula Vent Mode Not entered Crit Call To/Read Back Yes Blood Gas Notified Whom santos Blood Gas Notified Time 12:17:38 Radiology Impression Chest X-Ray 12/14/22 11:27 IMPRESSION: Hyperinflation. No acute abnormality seen. Electronically Signed: Juan Miguel Beyer MD at 12:38 EDT , Assessment & Plan Assessment/Plan (1) Acute on chronic respiratory failure with hypoxia and hypercapnia: PLAN: Secondary to COPD exacerbation. Patient has previously been evaluated to see about getting a BiPAP at home but is unable to do so. Daughter states that they will try and arranges through Dr. Dawson office. Currently on BiPAP. Wean BiPAP as tolerated. (2) Acute exacerbation of chronic obstructive pulmonary disease: PLAN: Continue with bronchodilators and methylprednisolone. Patient's oxygen was on this time (3) Encephalopathy: PLAN: Likely secondary to CO2 narcosis. Anticipate improvement as her carbon dioxide level improves. Avoid potentiating medications at this time. (4) Cachectic: PLAN: BMI of 17.3 kg/m?. Consult nutrition for input. PLAN: Plan VTE prophylaxis with enoxaparin CODE STATUS: Currently full. Discussed with the patient's daughter, who is not the power of attorney recruiter. Told her to talk with her father, who is the power of attorney recruiter, about CODE STATUS. I stated that if patient were to go into cardiac arrest that she would very unlikely not survive that. Also discouraged intubation as patient may be difficult to extubate and may require tracheostomy. She states this is the first time as her been brought up to her. Charges/Coding Visit Charges Inpatient E&M: 71128 Init Hosp L3
[2022-12-14 13:23] LABS: Base Excess 20 mmol/L (-2 to +2); Bicarbonate 46.1 mmol/L (22-26); Blood Gas Specimen Type ART; Mode Not entered; O2 Delivery Device BiPAP; PO2 59 mmHG (75-100); RR 14; SITE Not entered; SO2 86 % (95-99); Total Carbon Dioxide 49 mmol/L; pCO2 83.4 mmHg (35-45); pH 7.35 (7.35-7.45)
[2022-12-14 15:52] LABS: Reflex Lactate? Y
[2022-12-14 17:06] LABS: Lactic Acid 1.6 mmol/L (0.4-1.9)
[2022-12-14] MEDS: Methylprednisolone Sod Succ 40 MG/ML VIAL IV (20:45)
[2022-12-15] VITALS (12 sets, daily range): BP systolic 108–146; BP diastolic 64–75; PULSE 79–131; RESP 16–40; TEMP 36.1–36.4; O2SAT 90–100
[2022-12-15] MEDS: Ipratropium/Albuterol Sulfate 3 ML AMPUL.NEB INHALATION ×6 (02:06→23:15)
[2022-12-15] MEDS: Methylprednisolone Sod Succ 40 MG/ML VIAL IV ×3 (05:50→20:27)
[2022-12-15 06:56] LABS: Absolute Lymphocyte Count 0.98 X10^3/uL (0.83-4.51); Basophil# 0.01 X10^3/uL; Basophil% 0.1 % (0-1); Hematocrit 37.9 % (37-47); Hemoglobin 11.4 g/dL (12.0-15.0); Lymphocyte # 0.98 X10^3/ul (0.83-4.51); Lymphocyte % 11.5 % (19-41); Mean Corp Hgb Conc 30.1 g/dL (32-36); Mean Corpuscular Hgb 30.2 pg (27.0-32.0); Mean Corpuscular Volume 100.3 fL (81-99); Mean Platelet Vol. 10.3 fl (6.2-12.0); Monocyte# 0.51 X10^3/uL; NRBC Flagged by Analyzer 0 % (0-5); Neutrophil # 6.96 X10^3/uL (2.7-7.7); Platelet Count 187 K/mm3 (150-450); RBC Distribution Width CV 12.8 % (11.6-14.6); RBC Distribution Width SD 47.8 fl (35.1-43.9); Red Blood Count 3.78 M/mm3 (4.2-5.4); White Blood Count 8.5 K/mm3 (4.4-11.0)
[2022-12-15 07:44] LABS: Anion Gap 3 (5-15); BUN 29 mg/dL (7-18); BUN/Creat Ratio 64.6 RATIO (10-20); Chloride 100 mmol/L (98-107); Creatinine, Serum 0.45 mg/dL (0.55-1.02); EST Glomerular Filtration Rate 142 mL/min (>60); Est Glom Filt Rate - Afr Amer 171 mL/min (>60); Estimated Creatinine Clearance 25.64 ml/min; Glucose 93 mg/dL (74-106); Potassium 4.4 mmol/L (3.5-5.1); Sodium Level 141 mmol/L (136-145)
--- NOTE | 2022-12-15 08:52 | PN.HOSP_ITS ---
Reason for Visit Reason for Visit: Diagnoses Encephalopathy, unspecified (12/14/22) Chronic obstructive pulmonary disease with (acute) exacerbation (12/14/22) Acute and chronic respiratory failure with hypoxia (12/14/22) Acute and chronic respiratory failure with hypercapnia (12/14/22) Cachexia (12/14/22) Subjective Subjective Taken off BiPAP, now on nasal canula 6 liters. Objective Data Objective Data Vital Signs: Vital Signs Temp Pulse Resp BP Pulse Ox O2 Del Method O2 Flow Rate 36.2 C L 79 22 H 110/54 L 91 Nasal Cannula 6 12/14/22 22:00 12/15/22 02:06 12/15/22 02:06 12/14/22 22:00 12/14/22 23:10 12/14/22 23:10 12/14/22 23:10 FiO2 45 12/14/22 19:28 Oxygen Flow Rate (L/min) 6 Oxygen Delivery Method Nasal Cannula Weight: 38.1 kg Body Mass Index (BMI) 15.3 Intake & Output: Intake and Output for Last 24 Hours 12/13/22 12/14/22 12/15/22 23:59 23:59 23:59 Output Total 550 / 550 Balance -550 / -550 Lab / Micro Data 12/15/22 06:27 12/15/22 06:27 Labs: Laboratory Results - last 24 hr 12/14/22 11:50: WBC 9.2, RBC 3.93 L, Hgb 12.1, Hct 41.0, MCV 104.3 H D, MCH 3 0.8, MCHC 29.5 L D, RDW Std Deviation 50.2 H, RDW Coeff of Toney 13.0, Plt Count 214, MPV 9.7, Immature Gran % (Auto) 0.300, Neut % (Auto) 73.5 H, Lymph % (Auto) 18.5 L, [place] % (Auto) 7.5, Eos % (Auto) 0.1, Baso % (Auto) 0.1, Absolute Neuts (auto) 6.8, Absolute Lymphs (auto) 1.71, Nucleated RBC % 0, Sodium 143, Potassium 3.9, Chloride 103, Carbon Dioxide 42.0 H, Anion Gap -2 L, BUN 32 H, Creatinine 0.55, Estim Creat Clear Calc 26.98, Est GFR (MDRD) Af Amer 136, Est GFR (MDRD) Non-Af 112, BUN/Creatinine Ratio 58.3 H, Glucose 115 H, Lactic Acid 2.1 H*, Calcium 9.1, Troponin I High Sens 8 12/14/22 16:16: Lactic Acid 1.6 12/15/22 06:27: WBC 8.5, RBC 3.78 L, Hgb 11.4 L, Hct 37.9, MCV 100.3 H, MCH 30.2, MCHC 30.1 L, RDW Std Deviation 47.8 H, RDW Coeff of Toney 12.8, Plt Count 187, MPV 10.3, Immature Gran % (Auto) 0.400, Neut % (Auto) 82.0 H, Lymph % (Auto) 11.5 L, [place] % (Auto) 6.0, Eos % (Auto) 0.0, Baso % (Auto) 0.1, Absolute Neuts (auto) 7.0, Absolute Lymphs (auto) 0.98, Nucleated RBC % 0, Sodium 141, Potassium 4.4, Chloride 100, Carbon Dioxide 38.0 H, Anion Gap 3 L, BUN 29 H, Creatinine 0.45 L, Estim Creat Clear Calc 25.64, Est GFR (MDRD) Af Amer 171, Est GFR (MDRD) Non-Af 142, BUN/Creatinine Ratio 64.6 H, Glucose 93, Calcium 9.0 ABG Data ABG results: ABG 12/14/22 12/14/22 12:16 13:19 Specimen Type ART ART Sample Site Not entered Not entered pH 7.29 L 7.35 Bicarbonate Actual 50.2 H 46.1 H Total CO2 > 50 49 Base Excess 24 H 20 H O2 Saturation 94 L 86 L O2 % 5.0 50.0 ABG pCO2 104.5 H* 83.4 H* ABG pO2 84 59 L Respiration Rate 14 O2 Delivery Device Cannula BiPAP Vent Mode Not entered Not entered Crit Call To/Read Back Yes Yes Blood Gas Notified Whom santos santos Blood Gas Notified Time 12:17:38 13:21:42 Radiography Diagnostic Testing: Radiology Impression Chest X-Ray 12/14/22 11:27 IMPRESSION: Hyperinflation. No acute abnormality seen. Electronically Signed: Juan Miguel Beyer MD at 12:38 EDT , Physical Exam Const alert and no apparent distress HEENT head/scalp atraumatic and moist oral mucous membranes Resp normal respiratory effort Resp Narrative: diminished breath sounds bilaterally. Cardio regular rate, regular rhythm, S1 normal heart sound and S2 normal heart sound GI normal to inspection, nondistended, normoactive bowel sounds, soft to palpation, non-tender and non-distended Assessment & Plan Assessment/Plan (1) Acute on chronic respiratory failure with hypoxia and hypercapnia: PLAN: Greatly improved. Secondary to COPD exacerbation. Patient has previously been evaluated to see about getting a BiPAP at home but is unable to do so. Daughter states that they will try and arranges through Dr. Dawson office. I am concerned about the lorazepam the patient takes. She has been on this chronically. It is unclear how much this contributed to this episode, however, the risks of it far out weigh the benefits. (2) Acute exacerbation of chronic obstructive pulmonary disease: PLAN: Continue with bronchodilators and methylprednisolone. Patient's oxygen was on this time (3) Encephalopathy: PLAN: Likely secondary to CO2 narcosis. Anticipate improvement as her carbon dioxide level improves. Avoid potentiating medications at this time. (4) Cachectic: PLAN: BMI of 17.3 kg/m?. Consult nutrition for input. (5) Anxiety: PLAN: As above i reviewed her OARRS and she has been receiving this chronically, at least going back to 2020. I recommend that it be weaned to off. Will wean slowly. Chronically it appears she takes it BID, will change to daily for 1 week. then 0.25 mg daily for 1 week, then 0.25mg every other day for 1 week, then stop. I would not use benzodiazepines for her afterwards unless she was made hospice. PLAN: Plan VTE prophylaxis with enoxaparin CODE STATUS: Currently full. Discussed with the patient's daughter, who is not the power of employee benefits attorney. Told her to talk with her father, who is the power of employee benefits attorney, about CODE STATUS. I stated that if patient were to go into cardiac arrest that she would very unlikely not survive that. Also discouraged intubation as patient may be difficult to extubate and may require tracheostomy. She states this is the first time as her been brought up to her. Charges/Coding Visit Charges Inpatient E&M: 12840 Subs Hosp L2
[2022-12-15] MEDS: Metoprolol Tartrate 25 MG Tablet PO ×2 (09:07→20:27)
[2022-12-15] MEDS: Enoxaparin 40 MG/0.4 ML Syringe SC (09:07)
[2022-12-15] MEDS: 0.9% Saline Lock 10 ML Syringe IV ×2 (09:07→14:20)
--- NOTE | 2022-12-15 10:25 | CASEMGMT ---
Social Work SW called pt's daughter in regard to how pt was managing at home and anticipated discharge plan. Daughter explained that home health came out, put the pulse ox on pt's finger and her oxygen dropped. They called the squad to bring pt in. Daughter plans to take pt home, states pt does not want to go to SNF, and daughter states will continue to care for pt at home. She states it's up to pt, and SW can ask her, but she will likely not want to go to SNF. Daughter plans for pt to return home w/home health. SW explained pt has been confused here, so not certain if pt is able to answer this question. Daughter states understanding. SW asked daughter about POA, pt has not completed POA papers. SW inquired if pt's is alert and oriented(as he is in [facility] at present), she states he is. SW explained he would be the decision maker then, daughter states understanding. SW explained will speak w/pt about going to a prison facility if pt is able to participate in the conversation. SW met w/pt in room. SW inquired if she knows where she is. Pt knows she is in the hospital but thinks she is here to get her toenails cut. SW asked with whom she lives, she states she lives w/her mom and dad. SW inquired if she was , she states no. Pt not fully alert and oriented at this time, SW did not inquire with pt about prison facility. SW will continue to follow, will speak w/daughter again later today should she come in to visit. NICOLE Moody
--- NOTE | 2022-12-15 10:35 | CASEMGMT ---
Social Work Pt does not have LW/POA, pt cannot complete at this time due to confusion. NICOLE Moody
--- NOTE | 2022-12-15 15:26 | CASEMGMT ---
Addendum entered by Arin Hall 12/15/22 16:29: Social Work Initial referral sent to [facility] via [facility]. NICOLE Moody Original Note: Social Work SW spoke w/pt and daughter in room. Pt seems less confused this afternoon. Daughter told SW she herself has had a stroke so struggles with time frames. She does state she was needing more help w/pt at home. After some discussion, pt agreeable to try SNF placement. Daughter told pt several times it was her choice. SW explained to daughter that pt would benefit from placement. Daughter and pt both agreeable to [facility], as this is where pt's is. SW did give daughter a list of group home facilities from [facility], in network w/pt's insurance, preferred geographic area, and complete with quality and resource use data. They do want [facility], so referral to be made there. SW called pt's as well, as he is technically the decision maker, he is in agreement w/referral to [facility] as well. SW to follow up on Saturday. NICOLE Moody
--- NOTE | 2022-12-15 15:43 | CASEMGMT ---
BENNETT CORONADO chart review: Patient was admitted 12/10-12/12/22 for acute on chronic respiratory failure. See BENNETT CM assessment from 12/11/22. 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 Patient returned 12/14/22 for SOB after [facility] nurse visited patient and was sating in the 80s on 6lpm and called squad. Patient was initial placed on bipap but is now on 6lpm. Patient has history of dementia. Daughter helps care for patient. is currently at [facility]. SW in to discuss care and patient and daughter agreeable to [facility] at discharge.
[2022-12-15] MEDS: Ensure Plus High Protein 120 ML LIQUID PO (17:44)
[2022-12-15] MEDS: proCHLORPERazine 10 MG/2 ML Vial 5 MG IV (20:27)
--- NOTE | 2022-12-15 21:13 | EKG12_ITS ---
Test Reason : CHEST PRESSURE Blood Pressure : / mmHG Vent. Rate : 118 BPM Atrial Rate : 118 BPM P-R Int : 142 ms QRS Dur : 092 ms QT Int : 316 ms P-R-T Axes : 087 -70 081 degrees QTc Int : 442 ms Sinus tachycardia Right atrial enlargement Left axis deviation Pulmonary disease pattern Minimal voltage criteria for LVH, may be normal variant ( [place] product ) Abnormal ECG When compared with ECG of 14-DEC-2022 11:46, MANUAL COMPARISON REQUIRED, DATA IS UNCONFIRMED Confirmed by SANTINO OLGUIN, PATRICIA ([id number]), editorial director JOSH STODDARD ([id number]) on 12/19/2022 6:32:02 AM Referred By: Confirmed By:PATRICIA DE MD
[2022-12-15] MEDS: Morphine 2 MG/ML Syringe 1 MG IV (21:40)
[2022-12-15] MEDS: Aspirin 325 MG Tablet PO (21:40)
[2022-12-15 22:27] LABS: Troponin-I HS 7 pg/mL (3.0-54.0)
[2022-12-16] VITALS (17 sets, daily range): BP systolic 101–138; BP diastolic 49–93; PULSE 74–114; RESP 16–20; TEMP 36.6–36.9; O2SAT 88–100
[2022-12-16 01:22] LABS: Troponin-I HS 6 pg/mL (3.0-54.0)
[2022-12-16] MEDS: Ipratropium/Albuterol Sulfate 3 ML AMPUL.NEB INHALATION ×4 (03:50→20:28)
[2022-12-16] MEDS: Methylprednisolone Sod Succ 40 MG/ML VIAL IV ×3 (04:36→22:26)
[2022-12-16 07:05] LABS: Troponin-I HS 13 pg/mL (3.0-54.0)
--- NOTE | 2022-12-16 08:32 | PCM.PN.HOSP ---
Reason for Visit Reason for Visit: Diagnoses Anxiety disorder, unspecified (12/14/22) Encephalopathy, unspecified (12/14/22) Chronic obstructive pulmonary disease with (acute) exacerbation (12/14/22) Acute and chronic respiratory failure with hypoxia (12/14/22) Acute and chronic respiratory failure with hypercapnia (12/14/22) Cachexia (12/14/22) Subjective Subjective Breathing ok, but asking for cold air (fan was turned up) Objective Data Objective Data Vital Signs: Vital Signs Temp Pulse Resp BP Pulse Ox O2 Del Method O2 Flow Rate 36.1 C L 87 17 146/75 H 100 Nasal Cannula 5 12/15/22 22:00 12/16/22 07:32 12/16/22 07:32 12/15/22 22:00 12/16/22 07:32 12/16/22 07:32 12/16/22 07:32 FiO2 45 12/14/22 19:28 Oxygen Flow Rate (L/min) 5 Oxygen Delivery Method Nasal Cannula Weight: 38.1 kg Body Mass Index (BMI) 15.3 Intake & Output: Intake and Output for Last 24 Hours 12/14/22 12/15/22 12/16/22 23:59 23:59 23:59 Output Total 700 / 1000 300 / 300 Balance -700 / -1000 -300 / -300 Medical Nutrition Assessment Dietitian: Malnutrition Criteria Met Start: 12/15/22 17:00 Freq: Status: Active Protocol: Document 12/15/22 17:00 [facility] (Rec: 12/15/22 17:01 [facility] [id number]) Nutrition Malnutrition Evidence of Malnutrition Exists Yes Malnutrition (severe): Chronic Evidenced By Suboptimal Energy Intake ( Severe),Weight Loss (Severe), Physical Changes (Severe) Clinical Problem Chronic Disease or Condition Related Malnutrition Etiology related to decreased ability to consume sufficient energy to meet estimated nutrient needs Signs/Symptoms as evidenced by unintentional significant weight loss of 16.7% x 2 months based upon wt of 99lb per EMR wt hx , estimated PO intake meeting < 75% of estimated energy needs > 3 months, severe muscle wasting/fat loss evident per physical exam in orbital, clavicle, acromion, and temporal areas as well as BMI 15.3. Status Active Problem Recommendation Dietitian Recommendations/Changes Recommend diet advancement to regular diet when indicated; will add 120mL ensure plus high protein 4x/day w/ medpass as well as Magic Cup with lunch and dinner given evidence of malnutrition. Obtained some food preferences and updated diet as well. Lab / Micro Data 12/15/22 06:27 12/15/22 06:27 Labs: Laboratory Results - last 24 hr 12/15/22 21:55: Troponin I High Sens 7 12/16/22 00:39: Troponin I High Sens 6 12/16/22 06:16: Troponin I High Sens 13 Physical Exam Const alert and no apparent distress HEENT head/scalp atraumatic Resp normal respiratory effort Resp Narrative: diminished breath sounds. Cardio regular rate, regular rhythm, S1 normal heart sound and S2 normal heart sound GI normal to inspection, nondistended, normoactive bowel sounds, soft to palpation, non-tender and non-distended Extremity normal to inspection and full ROM Neuro Sensorium / Orientation: awake and alert Assessment & Plan Assessment/Plan (1) Acute on chronic respiratory failure with hypoxia and hypercapnia: PLAN: Greatly improved. Secondary to COPD exacerbation. Patient has previously been evaluated to see about getting a BiPAP at home but is unable to do so. Daughter states that they will try and arranges through Dr. Dawson office. I am concerned about the lorazepam the patient takes. She has been on this chronically. It is unclear how much this contributed to this episode, however, the risks of it far out weigh the benefits. (2) Acute exacerbation of chronic obstructive pulmonary disease: PLAN: Continue with bronchodilators and methylprednisolone. Patient's oxygen was on this time (3) Encephalopathy: PLAN: Resolved Secondary to CO2 narcosis. Minimize potentiating medications at this time. (4) Cachectic: PLAN: BMI of 17.3 kg/m?. Consult nutrition for input. (5) Anxiety: PLAN: As above i reviewed her OARRS and she has been receiving this chronically, at least going back to 2020. I recommend that it be weaned to off. Will wean slowly. Chronically it appears she takes it BID, will change to daily for 1 week. then 0.25 mg daily for 1 week, then 0.25mg every other day for 1 week, then stop. I would not use benzodiazepines for her afterwards unless she was made hospice. PLAN: Plan VTE prophylaxis with enoxaparin CODE STATUS: Currently full. Discussed with the patient's daughter, who is not the power of transactional attorney. Told her to talk with her father, who is the power of transactional attorney, about CODE STATUS. I stated that if patient were to go into cardiac arrest that she would very unlikely not survive that. Also discouraged intubation as patient may be difficult to extubate and may require tracheostomy. She states this is the first time as her been brought up to her. Charges/Coding Visit Charges Inpatient E&M: 60679 Subs Hosp L2
[2022-12-16] MEDS: LORazepam 0.5 MG Tablet PO (09:52)
[2022-12-16] MEDS: Enoxaparin 30 MG/0.3 ML Syringe SC (09:52)
[2022-12-16] MEDS: Metoprolol Tartrate 25 MG Tablet PO ×2 (09:52→22:25)
[2022-12-16] MEDS: Ensure Plus High Protein 120 ML LIQUID PO ×4 (09:52→22:25)
[2022-12-16] MEDS: 0.9% Saline Lock 10 ML Syringe IV (22:25)
[2022-12-16] MEDS: Menthol/Lanolin/Calamine/Znox 113 GM Tube 1 APPLIC TOPICAL (23:09)
[2022-12-17] VITALS (17 sets, daily range): BP systolic 97–126; BP diastolic 54–75; PULSE 69–111; RESP 16–22; TEMP 36.6–36.9; O2SAT 84–100
[2022-12-17] MEDS: Methylprednisolone Sod Succ 40 MG/ML VIAL IV ×2 (05:07→13:35)
[2022-12-17] MEDS: 0.9% Saline Lock 10 ML Syringe IV ×2 (05:07→23:04)
[2022-12-17] MEDS: Ipratropium/Albuterol Sulfate 3 ML AMPUL.NEB INHALATION ×5 (07:19→22:54)
--- NOTE | 2022-12-17 08:18 | PCM.PN.HOSP ---
Reason for Visit Reason for Visit: Diagnoses Anxiety disorder, unspecified (12/14/22) Encephalopathy, unspecified (12/14/22) Chronic obstructive pulmonary disease with (acute) exacerbation (12/14/22) Acute and chronic respiratory failure with hypoxia (12/14/22) Acute and chronic respiratory failure with hypercapnia (12/14/22) Cachexia (12/14/22) Subjective Subjective Breathing ok. Objective Data Objective Data Vital Signs: Vital Signs Temp Pulse Resp BP Pulse Ox O2 Del Method O2 Flow Rate 36.6 C 80 20 H 109/75 100 Nasal Cannula 5 12/17/22 05:15 12/17/22 05:15 12/17/22 05:15 12/17/22 05:15 12/17/22 05:15 12/17/22 05:17 12/17/22 05:15 FiO2 45 12/14/22 19:28 Oxygen Flow Rate (L/min) 5 Oxygen Delivery Method Nasal Cannula Weight: 38.1 kg Body Mass Index (BMI) 15.3 Intake & Output: Intake and Output for Last 24 Hours 12/15/22 12/16/22 12/17/22 23:59 23:59 23:59 Intake Total 780 / 780 Output Total 700 / 1000 300 / 300 200 / 200 Balance -700 / -1000 480 / 480 -200 / -200 Medical Nutrition Assessment Dietitian: Malnutrition Criteria Met Start: 12/15/22 17:00 Freq: Status: Active Protocol: Document 12/15/22 17:00 [facility] (Rec: 12/15/22 17:01 [facility] [id number]) Nutrition Malnutrition Evidence of Malnutrition Exists Yes Malnutrition (severe): Chronic Evidenced By Suboptimal Energy Intake ( Severe),Weight Loss (Severe), Physical Changes (Severe) Clinical Problem Chronic Disease or Condition Related Malnutrition Etiology related to decreased ability to consume sufficient energy to meet estimated nutrient needs Signs/Symptoms as evidenced by unintentional significant weight loss of 16.7% x 2 months based upon wt of 99lb per EMR wt hx , estimated PO intake meeting < 75% of estimated energy needs > 3 months, severe muscle wasting/fat loss evident per physical exam in orbital, clavicle, acromion, and temporal areas as well as BMI 15.3. Status Active Problem Recommendation Dietitian Recommendations/Changes Recommend diet advancement to regular diet when indicated; will add 120mL ensure plus high protein 4x/day w/ medpass as well as Magic Cup with lunch and dinner given evidence of malnutrition. Obtained some food preferences and updated diet as well. Lab / Micro Data 12/15/22 06:27 12/15/22 06:27 Physical Exam Const alert and no apparent distress HEENT head/scalp atraumatic and moist oral mucous membranes Resp normal respiratory effort and no retractions Resp Narrative: diminished BS. Cardio regular rate, regular rhythm, S1 normal heart sound and S2 normal heart sound GI normal to inspection, nondistended, normoactive bowel sounds, soft to palpation, non-tender and non-distended Assessment & Plan Assessment/Plan (1) Acute on chronic respiratory failure with hypoxia and hypercapnia: PLAN: Greatly improved. Secondary to COPD exacerbation. Patient has previously been evaluated to see about getting a BiPAP at home but is unable to do so. Daughter states that they will try and arranges through Dr. Dawson office. I am concerned about the lorazepam the patient takes. She has been on this chronically. It is unclear how much this contributed to this episode, however, the risks of it far out weigh the benefits. (2) Acute exacerbation of chronic obstructive pulmonary disease: PLAN: Continue with bronchodilators and methylprednisolone. Patient's oxygen was on this time Wean methylpred (3) Encephalopathy: PLAN: Resolved Secondary to CO2 narcosis. Minimize potentiating medications at this time. (4) Cachectic: PLAN: BMI of 17.3 kg/m?. Consult nutrition for input. (5) Anxiety: PLAN: As above i reviewed her OARRS and she has been receiving this chronically, at least going back to 2020. I recommend that it be weaned to off. Will wean slowly. Chronically it appears she takes it BID, will change to daily for 1 week. then 0.25 mg daily for 1 week, then 0.25mg every other day for 1 week, then stop. I would not use benzodiazepines for her afterwards unless she was made hospice. PLAN: Plan VTE prophylaxis with enoxaparin CODE STATUS: Currently full. Discussed with the patient's daughter, who is not the power of civil litigation attorney. Told her to talk with her father, who is the power of civil litigation attorney, about CODE STATUS. I stated that if patient were to go into cardiac arrest that she would very unlikely not survive that. Also discouraged intubation as patient may be difficult to extubate and may require tracheostomy. She states this is the first time as her been brought up to her. Charges/Coding Visit Charges Inpatient E&M: 00263 Subs Hosp L2
--- NOTE | 2022-12-17 09:12 | CASEMGMT ---
Discharge Planning [facility] has accepted patient. Updates sent and asked for precert to be started. Mary Beth Cuellar, Discharg Planning Asst.
[2022-12-17] MEDS: Acetaminophen 325 MG Tablet 650 MG PO (09:41)
[2022-12-17] MEDS: Enoxaparin 30 MG/0.3 ML Syringe SC (09:41)
[2022-12-17] MEDS: Ensure Plus High Protein 120 ML LIQUID PO ×4 (09:41→23:07)
[2022-12-17] MEDS: Metoprolol Tartrate 25 MG Tablet PO ×2 (09:41→23:02)
[2022-12-17] MEDS: LORazepam 0.5 MG Tablet PO (09:41)
[2022-12-17] MEDS: Menthol/Lanolin/Calamine/Znox 113 GM Tube 1 APPLIC TOPICAL ×2 (09:45→23:03)
[2022-12-18] VITALS (9 sets, daily range): BP systolic 122–123; BP diastolic 54–77; PULSE 83–94; RESP 14–24; TEMP 36.4–36.7; O2SAT 93–100
[2022-12-18] MEDS: Ipratropium/Albuterol Sulfate 3 ML AMPUL.NEB INHALATION ×3 (03:21→11:09)
[2022-12-18] MEDS: Menthol/Lanolin/Calamine/Znox 113 GM Tube 1 APPLIC TOPICAL (08:09)
[2022-12-18] MEDS: Metoprolol Tartrate 25 MG Tablet PO (08:10)
[2022-12-18] MEDS: Ensure Plus High Protein 120 ML LIQUID PO ×2 (08:10→14:39)
[2022-12-18] MEDS: Enoxaparin 30 MG/0.3 ML Syringe SC (08:10)
[2022-12-18] MEDS: 0.9% Saline Lock 10 ML Syringe IV (08:11)
[2022-12-18] MEDS: LORazepam 0.5 MG Tablet PO (08:12)
--- NOTE | 2022-12-18 08:50 | PCM.PN.HOSP ---
Reason for Visit Reason for Visit: Diagnoses Anxiety disorder, unspecified (12/14/22) Encephalopathy, unspecified (12/14/22) Chronic obstructive pulmonary disease with (acute) exacerbation (12/14/22) Acute and chronic respiratory failure with hypoxia (12/14/22) Acute and chronic respiratory failure with hypercapnia (12/14/22) Cachexia (12/14/22) Subjective Subjective Had some agitation today. Objective Data Objective Data Vital Signs: Vital Signs Temp Pulse Resp BP Pulse Ox O2 Del Method O2 Flow Rate 36.4 C L 94 24 H 123/63 H 99 Nasal Cannula 5 12/18/22 05:00 12/18/22 08:10 12/18/22 05:00 12/18/22 05:00 12/18/22 05:00 12/18/22 05:00 12/18/22 05:00 FiO2 45 12/14/22 19:28 Oxygen Flow Rate (L/min) 5 Oxygen Delivery Method Nasal Cannula Weight: 38.1 kg Body Mass Index (BMI) 15.3 Intake & Output: Intake and Output for Last 24 Hours 12/16/22 12/17/22 12/18/22 23:59 23:59 23:59 Intake Total 780 / 780 1060 / 1060 240 / 240 Output Total 300 / 300 900 / 900 200 / 200 Balance 480 / 480 160 / 160 40 / 40 Medical Nutrition Assessment Dietitian: Malnutrition Criteria Met Start: 12/15/22 17:00 Freq: Status: Active Protocol: Document 12/15/22 17:00 [facility] (Rec: 12/15/22 17:01 [facility] [id number]) Nutrition Malnutrition Evidence of Malnutrition Exists Yes Malnutrition (severe): Chronic Evidenced By Suboptimal Energy Intake ( Severe),Weight Loss (Severe), Physical Changes (Severe) Clinical Problem Chronic Disease or Condition Related Malnutrition Etiology related to decreased ability to consume sufficient energy to meet estimated nutrient needs Signs/Symptoms as evidenced by unintentional significant weight loss of 16.7% x 2 months based upon wt of 99lb per EMR wt hx , estimated PO intake meeting < 75% of estimated energy needs > 3 months, severe muscle wasting/fat loss evident per physical exam in orbital, clavicle, acromion, and temporal areas as well as BMI 15.3. Status Active Problem Recommendation Dietitian Recommendations/Changes Recommend diet advancement to regular diet when indicated; will add 120mL ensure plus high protein 4x/day w/ medpass as well as Magic Cup with lunch and dinner given evidence of malnutrition. Obtained some food preferences and updated diet as well. Lab / Micro Data 12/15/22 06:27 12/15/22 06:27 Physical Exam Const alert and no apparent distress Resp Resp Narrative: diminished BS bilaterally. Cardio regular rate, regular rhythm and S1 normal heart sound Assessment & Plan Assessment/Plan (1) Acute on chronic respiratory failure with hypoxia and hypercapnia: PLAN: Greatly improved. Secondary to COPD exacerbation. Patient has previously been evaluated to see about getting a BiPAP at home but is unable to do so. Daughter states that they will try and arranges through Dr. Dawson office. I am concerned about the lorazepam the patient takes. She has been on this chronically. It is unclear how much this contributed to this episode, however, the risks of it far out weigh the benefits. (2) Acute exacerbation of chronic obstructive pulmonary disease: PLAN: Continue with bronchodilators and methylprednisolone. Patient's oxygen was on this time Wean methylpred (3) Encephalopathy: PLAN: Resolved Secondary to CO2 narcosis. Minimize potentiating medications at this time. (4) Cachectic: PLAN: BMI of 17.3 kg/m?. Consult nutrition for input. (5) Anxiety: PLAN: As above i reviewed her OARRS and she has been receiving this chronically, at least going back to 2020. I recommend that it be weaned to off. Will wean slowly. Chronically it appears she takes it BID, will change to daily for 1 week. then 0.25 mg daily for 1 week, then 0.25mg every other day for 1 week, then stop. I would not use benzodiazepines for her afterwards unless she was made hospice. PLAN: Plan VTE prophylaxis with enoxaparin CODE STATUS: Currently full. Discussed with the patient's daughter, who is not the power of urban planning professor. Told her to talk with her father, who is the power of urban planning professor, about CODE STATUS. I stated that if patient were to go into cardiac arrest that she would very unlikely not survive that. Also discouraged intubation as patient may be difficult to extubate and may require tracheostomy. She states this is the first time as her been brought up to her. Charges/Coding Visit Charges Inpatient E&M: 80778 Subs Hosp L2
--- NOTE | 2022-12-18 14:18 | PCM.TXEXTCAR ---
Diet Diet Order/Speech Therapy: 12/15/22 13:49 Diet: Regular - General Type of Dietary Supplement:: Magic Cup Dessert Is pt able to select menu?: No Diet Comments: uma magic cup with lunch and dinner; likes cottage cheese, pudding, yogurt Routine Orders/Code Status Code Status: Full Code Therapies Weight Bearing: Full weight bearing Physical Therapy: Eval and Treat Occupational Therapy: Eval and Treat Problem/Diagnosis (1) Acute on chronic respiratory failure with hypoxia and hypercapnia: Status: Chronic Code(s): J96.21 - Acute and chronic respiratory failure with hypoxia; J96.22 - Acute and chronic respiratory failure with hypercapnia Plan: Greatly improved. Secondary to COPD exacerbation. Patient has previously been evaluated to see about getting a BiPAP at home but is unable to do so. Daughter states that they will try and arranges through Dr. Dawson office. I am concerned about the lorazepam the patient takes. She has been on this chronically. It is unclear how much this contributed to this episode, however, the risks of it far out weigh the benefits. (2) Acute exacerbation of chronic obstructive pulmonary disease: Status: Chronic Code(s): J44.1 - Chronic obstructive pulmonary disease with (acute) exacerbation Plan: Continue with bronchodilators and methylprednisolone. Patient's oxygen was on this time Wean methylpred (3) Encephalopathy: Status: Acute Code(s): G93.40 - Encephalopathy, unspecified Plan: Resolved Secondary to CO2 narcosis. Minimize potentiating medications at this time. (4) Cachectic: Status: Acute Code(s): R64 - Cachexia Plan: BMI of 17.3 kg/m?. Consult nutrition for input. (5) Anxiety: Status: Acute Code(s): F41.9 - Anxiety disorder, unspecified Plan: As above i reviewed her OARRS and she has been receiving this chronically, at least going back to 2020. I recommend that it be weaned to off. Will wean slowly. Chronically it appears she takes it BID, will change to daily for 1 week. then 0.25 mg daily for 1 week, then 0.25mg every other day for 1 week, then stop. I would not use benzodiazepines for her afterwards unless she was made hospice. Plan VTE prophylaxis with enoxaparin CODE STATUS: Currently full. Discussed with the patient's daughter, who is not the power of document review attorney. Told her to talk with her father, who is the power of document review attorney, about CODE STATUS. I stated that if patient were to go into cardiac arrest that she would very unlikely not survive that. Also discouraged intubation as patient may be difficult to extubate and may require tracheostomy. She states this is the first time as her been brought up to her. Allergies/Procedures Done in Hospital Allergies Tetanus Vaccines and Toxoid [Tetanus Vaccines & Toxoid] Allergy (Verified 12/14/22 15:17) Unknown Procedures: None Type of Care/Length of Stay Estimated LOS: Convalescent Care Less Than 30 days Type of Care Needed: Skilled Rehab Potential: Fair Prognosis: Fair Additional Orders/Day of Discharge Day of Discharge: 12/18/22 Dietary and Speech Recommendations Dietitian Recommendations/Changes: Recommend diet advancement to regular diet when indicated; will add 120mL ensure plus high protein 4x/day w/ medpass as well as Magic Cup with lunch and dinner given evidence of malnutrition. Obtained some food preferences and updated diet as well. Discharge Plan Admission Admit Date/Time: 12/14/22 13:12 Primary Reason for Your Visit: respiratory failure. COPD exacerbation. Attending Provider: Jose Dumont Primary Care Provider: Marcello Cobb Discharge Orders/Prescriptions Prescriptions: New Ensure Plus High Protein 0.08 gram-1.5 kcal/mL Liquid 120 ml PO 4X/DAY Qty: 0 0RF Continued albuterol sulfate 90 mcg/actuation HFA aerosol inhaler 1 puff INHALATION DAILY ropinirole 0.25 mg tablet 0.25 mg PO QHS Patient Comments: TAKE 1 TO 2 TABLETS BY MOUTH ONE HOUR BEFORE BEDTIME Anoro Ellipta 62.5-25 mcg/actuation blister with device 1 inh INHALATION DAILY Patient Comments: INHALE 1 PUFF BY MOUTH ONCE DAILY WITH GOOD ORAL CARE. mirtazapine 7.5 mg tablet 7.5 mg PO QHS Patient Comments: TAKE 1 TABLET BY MOUTH ONCE DAILY AT BEDTIME metoprolol tartrate 25 mg Tablet 25 mg PO BID Qty: 60 0RF prednisone 20 mg Tablet 40 mg PO BREAKFAST Qty: 30 0RF Rx Instructions: 4 tabs daily for 3 days, then 3 tabs daily for 3 days, then 2 tabs daily for 3 days, then 1 tab daily for 3 days Changed lorazepam 1 MG tablet 0.5 mg PO BID Qty: 6 0RF Rx Instructions: twice daily for 1 week, then 1 daily for 1 week, then every other day for 3 doses. Referrals / Follow Up: Marcello Cobb MD [Primary Care Provider] - Within 2 Weeks Royal William MD [Med Staff - Active Staff] - Within 1 Month Disposition Disposition (needs filled in before D/C Order can be placed): Detention Facility
--- NOTE | 2022-12-18 14:35 | CASEMGMT ---
Patient is ready for discharge to [facility]. SW completed a 7000 in [facility]. Plan: d/c to [facility] under skilled level of care on a convalescent stay. [facility] patient. Ivon KEENE
--- NOTE | 2022-12-18 15:21 | NURSING ---
report called Kandice GUAJARDO at [facility]
--- NOTE | 2022-12-18 15:28 | CASEMGMT ---
Discharge Planning Discharge orders, signed med list, and transport time sent to [facility] via [facility]. [facility] transport patient by cot at 4:30p. Nursing, SW, patient, and her daughter updated. Several attempts made to patients . Mary Beth Cuellar, Discharge Planning Asst.
--- NOTE | 2022-12-18 16:33 | DS.PCM_ITS ---
Providers Date of Admission: 12/14/22 Primary Care Physician: Dr. Marcello Cobb MD Reason For Visit: RESPIRATORY FAILURE Diagnosis Discharge Diagnosis (1) Acute on chronic respiratory failure with hypoxia and hypercapnia: Status: Chronic Code(s): J96.21 - Acute and chronic respiratory failure with hypoxia; J96.22 - Acute and chronic respiratory failure with hypercapnia Plan: Greatly improved. Secondary to COPD exacerbation. Patient has previously been evaluated to see about getting a BiPAP at home but is unable to do so. Daughter states that they will try and arranges through Dr. Dawson office. I am concerned about the lorazepam the patient takes. She has been on this chronically. It is unclear how much this contributed to this episode, however, the risks of it far out weigh the benefits. (2) Acute exacerbation of chronic obstructive pulmonary disease: Status: Chronic Code(s): J44.1 - Chronic obstructive pulmonary disease with (acute) exacerbation Plan: Continue with bronchodilators and methylprednisolone. Patient's oxygen was on this time Wean methylpred (3) Encephalopathy: Status: Acute Code(s): G93.40 - Encephalopathy, unspecified Plan: Resolved Secondary to CO2 narcosis. Minimize potentiating medications at this time. (4) Cachectic: Status: Acute Code(s): R64 - Cachexia Plan: BMI of 17.3 kg/m?. Consult nutrition for input. (5) Anxiety: Status: Acute Code(s): F41.9 - Anxiety disorder, unspecified Plan: As above i reviewed her OARRS and she has been receiving this chronically, at least going back to 2020. I recommend that it be weaned to off. Will wean slowly. Chronically it appears she takes it BID, will change to daily for 1 week. then 0.25 mg daily for 1 week, then 0.25mg every other day for 1 week, then stop. I would not use benzodiazepines for her afterwards unless she was made hospice. Plan VTE prophylaxis with enoxaparin CODE STATUS: Currently full. Discussed with the patient's daughter, who is not the power of mail sorting supervisor. Told her to talk with her father, who is the power of mail sorting supervisor, about CODE STATUS. I stated that if patient were to go into cardiac arrest that she would very unlikely not survive that. Also discouraged intubation as patient may be difficult to extubate and may require tracheostomy. She states this is the first time as her been brought up to her. Medications at Discharge Home Medications albuterol sulfate 90 mcg/actuation aerosol inhaler 1 puff inhalation DAILY shortness of breath 01/30/21 ropinirole 0.25 mg tablet 0.25 mg PO QHS restless legs 03/14/22 mirtazapine 7.5 mg tablet 7.5 mg PO QHS 07/27/22 umeclidinium 62.5 mcg-vilanterol 25 mcg/actuation powdr for inhalation (Anoro Ellipta) 1 inh inhalation DAILY 07/27/22 metoprolol tartrate 25 mg tablet 25 mg PO BID #60 tabs 07/30/22 food supplemt, lactose-reduced 0.08 gram-1.5 kcal/mL oral liquid (Ensure Plus High Protein) 120 ml PO 4X/DAY #0 mL 12/18/22 lorazepam 1 mg tablet 0.5 mg (1/2 x 1 mg) PO BID #6 tabs 12/18/22 prednisone 20 mg tablet 40 mg (2 x 20 mg) PO BREAKFAST #30 tabs 12/18/22 Hospital Course Operations None Procedures None Summary of Care Provided Minutes Spent on Discharge: 32 Hospital Course: Presents with encephalopathy and respiratory failure. Patient was found to be in CO2 narcosis. Patient was put on BiPAP and mental status did improve with CO2 improving. Patient was taking lorazepam 3 times per day. I advised that this be weaned to off over the coming weeks. The risks of the lorazepam outweigh the benefits. Patient presented within 24 hours after being discharged. Patient had been discharged charged from previous due to her oxygen not being turned on when she was switched over to a tank. So I do not know if patient had been taking the lorazepam at home or verges carbon oxide just to get too high that led to her being readmitted. Patient will need to follow-up with Dr. William to see if she would be a candidate for ventilation respiration at home such as an AVAPS or BiPAP. Weight / BMI Weight Weight: 38.1 kg Body Mass Index (BMI) 15.3 ABG / Lab / Microbiology Data 12/15/22 06:27 12/15/22 06:27 Meaningful Use Info Meaningful Use Diagnoses (Choose all that apply): None applicable Discharge Plan Admission Admit Date/Time: 12/14/22 13:12 Primary Reason for Your Visit: respiratory failure. COPD exacerbation. Attending Provider: Jose Dumont Primary Care Provider: Marcello Cobb Discharge Orders/Prescriptions Prescriptions: New Ensure Plus High Protein 0.08 gram-1.5 kcal/mL Liquid 120 ml PO 4X/DAY Qty: 0 0RF Continued albuterol sulfate 90 mcg/actuation HFA aerosol inhaler 1 puff INHALATION DAILY ropinirole 0.25 mg tablet 0.25 mg PO QHS Patient Comments: TAKE 1 TO 2 TABLETS BY MOUTH ONE HOUR BEFORE BEDTIME Anoro Ellipta 62.5-25 mcg/actuation blister with device 1 inh INHALATION DAILY Patient Comments: INHALE 1 PUFF BY MOUTH ONCE DAILY WITH GOOD ORAL CARE. mirtazapine 7.5 mg tablet 7.5 mg PO QHS Patient Comments: TAKE 1 TABLET BY MOUTH ONCE DAILY AT BEDTIME metoprolol tartrate 25 mg Tablet 25 mg PO BID Qty: 60 0RF prednisone 20 mg Tablet 40 mg PO BREAKFAST Qty: 30 0RF Rx Instructions: 4 tabs daily for 3 days, then 3 tabs daily for 3 days, then 2 tabs daily for 3 days, then 1 tab daily for 3 days Changed lorazepam 1 MG tablet 0.5 mg PO BID Qty: 6 0RF Rx Instructions: twice daily for 1 week, then 1 daily for 1 week, then every other day for 3 doses. Referrals / Follow Up: Royal William MD [Med Staff - Active Staff] - Within 1 Month Marcello Cobb MD [Primary Care Provider] - Within 2 Weeks Disposition Disposition (needs filled in before D/C Order can be placed[facility] Charges/Coding Visit Charges Inpatient E&M: 97815 Disch Hosp >30min
== END 2022-12-18 16:30 | disposition skilled nursing facility (03) | DRG 189 ==
LOC: ED 13:28 → PCU 13:58
PROVIDERS: Hospitalist; Emergency Provider Emergency Medicine; PCP Internal Medicine
DX: J96.21 Acute and chronic respiratory failure with hypoxia (principal); G92.8 Other toxic encephalopathy; E43 Unspecified severe protein-calorie malnutrition; J44.1 Chronic obstructive pulmonary disease with (acute) exacerbation; Z68.1 Body mass index [BMI] 19.9 or less, adult; E88.A Wasting disease (syndrome) due to underlying condition; F03.90 Unspecified dementia, unspecified severity, without behavioral disturbance, psychotic disturbance, mood disturbance, and anxiety; J96.22 Acute and chronic respiratory failure with hypercapnia; F41.9 Anxiety disorder, unspecified; Z99.81 Dependence on supplemental oxygen; Z79.52 Long term (current) use of systemic steroids; Z79.899 Other long term (current) drug therapy
CPT/HCPCS: 36415; 36600; 71046; 80048; 82803; 83605; 84484; 85025; 93005; 94002; 94003; 94640; 94762; 97110; 97116; 97162; 97166; 97530; 97535; 97802; 99285; A4216

== ENCOUNTER 2022-12-26 23:12 | Inpatient (IN) | payer MEDICARE, SELFPAY ==
[2022-12-26 23:12] VITALS: BP 138/79; PULSE 91; RESP 16; TEMP 36.7; O2SAT 89; BMI 18.2
--- NOTE | 2022-12-26 23:26 | RAD_ITS ---
STUDY: X-RAY - PELVIS AND LEFT HIP REASON FOR EXAM: Female, 82 years old. injury/fall TECHNIQUE: 3 views of the pelvis and hip. COMPARISON: None. FINDINGS: Abundant fecal debris within the colon suggestive of constipation. Normal visualized soft tissue structures. There is diffuse demineralization of the osseous structures. There is diffuse muscular atrophy. There is narrowing with cortical sclerosis and osteophyte formation of the sacroiliac joint consistent with degenerative osteoarthritic changes. Normal bilateral superior and inferior pubic rami. Normal pubic symphysis. Normal bilateral ischial tuberosities. There is a left-sided intertrochanteric fracture with mild displacement and angulation. There is a small slightly displaced fracture of the lesser trochanter. There is osteoarthritic spur formation of the acetabular rim. There is moderate to severe articular joint space narrowing of the hip. RAD/HIP, UNI W/ Pelvis 2-3 Views IMPRESSION: Left-sided intertrochanteric fracture as described. 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 No other fractures are seen. Electronically Signed: Grecia Martinez MD at 0:16 EST ,
--- NOTE | 2022-12-26 23:27 | RAD_ITS ---
STUDY: X-RAY CHEST REASON FOR EXAM: Female, 82 years old. preop clearance TECHNIQUE: Single AP portable view of the chest. COMPARISON: 12/14/2022. FINDINGS: Exam is limited due to patient''s rotation. There is hyperinflation of the lungs consistent with chronic obstructive lung disease (COPD). Otherwise lung avila are clear. There is no demonstrated pleural abnormality. Normal size heart. Normal mediastinum and grace. Normal visualized pulmonary arteries. There is atherosclerotic calcification of the aortic arch with tortuosity. There is demineralization of the osseous structures. 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 Right upper quadrant surgical clips seen. RAD/Chest 1 View (Portable) IMPRESSION: Hyperinflated lungs with possible COPD. otherwise no acute cardiopulmonary disease. Electronically Signed: Grecia Martinez MD at 0:14 EST ,
--- NOTE | 2022-12-26 23:27 | EKG12_ITS ---
Test Reason : DYSRHYTHMIA Blood Pressure : / mmHG Vent. Rate : 090 BPM Atrial Rate : 090 BPM P-R Int : 124 ms QRS Dur : 100 ms QT Int : 338 ms P-R-T Axes : 075 -64 063 degrees QTc Int : 413 ms Sinus rhythm with Premature atrial complexes Left axis deviation Incomplete right bundle branch block Septal infarct , age undetermined Abnormal ECG Confirmed by YINKA OLGUIN, DELONTE ([id number]), photography editor JADE PRABHAKAR ([id number]) on 12/31/2022 10:39:18 AM Referred By: Confirmed By:MALU HONEYCUTT MD
--- NOTE | 2022-12-26 23:30 | EDS_ITS ---
HPI HPI - Fall History of Present Illness Chief Complaint: Fall Informant: patient, family (Daughter), EMS and SNF (RN to RN) Narrative Narrative: 82-year-old female fell tonight injuring her left hip, she denies any other injury. EMS concerned about deformity and external rotation/shortening. Patient states she does remember the fall, she states she was walking back into her room and she is not sure if she stumbled or slipped on the floor but she fell. She does not recall hitting her head and has no headache. She has pain in her left hip and was not able to move it or bear weight. [facility] Medical History Anxiety Anxiety and depression Cachectic Chronic respiratory failure with hypoxia Congestive heart failure (CHF) Dementia Dementia Emphysema lung Non-smoker On home oxygen therapy Protein calorie malnutrition Pulmonary fibrosis Pulmonary HTN Severe protein-calorie malnutrition Valvular heart disease Home Medications albuterol sulfate 90 mcg/actuation aerosol inhaler 1 puff inhalation DAILY shortness of breath 01/30/21 [History Last Taken 12/13/22] ropinirole 0.25 mg tablet 0.25 mg PO QHS restless legs 03/14/22 [History Last Taken 12/13/22] mirtazapine 7.5 mg tablet 7.5 mg PO QHS 07/27/22 [History Last Taken 12/13/22] umeclidinium 62.5 mcg-vilanterol 25 mcg/actuation powdr for inhalation (Anoro Ellipta) 1 inh inhalation DAILY 07/27/22 [History Last Taken 12/14/22] metoprolol tartrate 25 mg tablet 25 mg PO BID #60 tabs 07/30/22 [Rx Last Taken 12/14/22] food supplemt, lactose-reduced 0.08 gram-1.5 kcal/mL oral liquid (Ensure Plus High Protein) 120 ml PO 4X/DAY #0 mL 12/18/22 [Rx Last Taken Unknown] acetaminophen 325 mg capsule 650 mg PO Q4H PRN fever or pain 12/26/22 [History Last Taken Unknown] acetaminophen 650 mg rectal suppository 650 mg AL Q4H 12/26/22 [History Last Taken Unknown] albuterol sulfate 90 mcg/actuation aerosol inhaler 2 puff inhalation Q6H PRN sob 12/26/22 [History Last Taken Unknown] lorazepam 0.5 mg tablet 0.5 mg PO BID 12/26/22 [History Last Taken Unknown] prednisone 10 mg tablet 20 mg PO DAILY 12/26/22 [History Last Taken Unknown] sertraline 25 mg tablet 25 mg PO QHS 12/26/22 [History Last Taken Unknown] Allergy/AdvReac Type Severity Reaction Status Date / Time Tetanus Vaccines and Toxoid Allergy Unknown Verified 12/14/22 15:17 [Tetanus Vaccines & Toxoid] Family History Other Heart disease Surgical History History of cholecystectomy Social History household members: spouse and family Smoking Status: Never smoker alcohol intake: never substance use type: does not use ROS ROS ED Constitutional Constitutional ED: Denies chills or fever(s) Eyes Eyes: Denies change in vision or diplopia ENT ENT ED: Denies ear pain, epistaxis, facial pain or rhinorrhea Cardiovascular Cardiovascular: Denies chest pain or palpitations Respiratory/Chest Respiratory/Chest: Denies cough or dyspnea Gastrointestinal Gastrointestinal: Denies abdominal pain, diarrhea, melena, nausea or vomiting Genitourinary Genitourinary ED: Denies dysuria or hematuria Musculoskeletal Musculoskeletal: Reports extremity pain; Denies back pain or neck pain Integumentary Reports Abrasions; Denies abscess, laceration or rash Neurologic Neurologic: Denies confusion, headache(s), paresthesias or weakness EXAM Physical Exam Const Vital Signs: 12/26/22 23:12 12/26/22 23:54 Temperature 98.1 F Temperature Source Temporal Pulse Rate 91 Respiratory Rate 16 Respiratory Effort Normal Non-Labored Respiratory Depth Normal Blood Pressure 138/79 H Blood Pressure Mean 98 Pulse Ox 89 Oxygen Delivery Method Nasal Cannula Oxygen Flow Rate (L/min) 4 Positive well nourished and well developed General Appearance ED: well developed and NAD HEENT Reports nasal mucous membranes and turbinates normal atraumatic; Negative for contusion, hematoma or tenderness Face and Sinus: Negative for facial tenderness Eyes PERRL and EOMs intact bilaterally Visual Acuity: other Other Details: no entrapment or pain with extraocular mo vements Neck full ROM and supple General: Negative for tenderness Chest Wall inspection of chest normal and palpation of chest normal Chest: symmetrical chest wall rise; Negative for crepitus or tenderness Resp normal respiratory effort and clear to auscultation bilaterally Percussion: other equal BS bilat Cardio Rate: regular rate Rhythm: regular rhythm GI normal to inspection, nondistended, normoactive bowel sounds, soft to palpation and non-tender Back/Spine normal ROM Cervical Spine: Negative for cervical spine tenderness Thoracic Spine / Upper Back: Negative for thoracic spinal tenderness Lumbar Spine / Lower Back: Negative for lumbar spinal tenderness Extremity Extremity Narrative: To numbness left lateral hip/greater trochanter with deformity and swelling, some external rotation and shortening of the left lower extremity. She is holding her knee in slight flexion there is no tenderness but limited range of motion there due to pain in hip. The femur otherwise is nontender all compartments are soft and nondistended and there is no deformities otherwise or signs of trauma to the other extremities except for superficial skin tear at the lateral aspect of the left elbow, no limitations of movement there. General Extremety ED: Yes tenderness Neuro CN's II-XII intact bilaterally, moves all extremities, no focal motor deficits and no sensory deficits noted Neuro Narrative: Patient disoriented to the year but otherwise oriented. At baseline mental status according to daughter. George Coma Scale: document GCS findings Spontaneous Obeys Commands Oriented 15 Sensorium / Orientation: awake, alert, oriented to person and oriented to place; Negative for oriented to time Psych mental status grossly normal and thought process normal Skin Skin Narrative: Small contusions along with a superficial skin tear at the lateral aspect of the left elbow without any bony tenderness. No other signs of trauma. Lesions: no lesions Rashes: no rashes MDM MDM MDM Narrative Medical decision making narrative: Preoperative labs, chest x-ray, EKG obtained in preparation for ORIF left hip as fracture highly suspected. This was confirmed, three-view left hip x-ray series shows intertrochanteric fracture to my interpretation. 1 view chest x-ray shows chronic changes but nothing acute. Labs reviewed. Patient's pain was treated. Discussed with orthopedics and hospitalist for admission. Lab Data Attestation: I reviewed the patient's lab results. Labs: Laboratory Results - last 24 hr 12/26/22 23:49 WBC 11.0 RBC 3.45 L Hgb 10.4 L Hct 35.5 L MCV 102.9 H MCH 30.1 MCHC 29.3 L RDW Std Deviation 51.9 H RDW Coeff of Toney 13.8 Plt Count 224 MPV 10.3 Immature Gran % (Auto) 1.500 H Neut % (Auto) 77.5 H Lymph % (Auto) 13.7 L [place] % (Auto) 6.7 Eos % (Auto) 0.5 Baso % (Auto) 0.1 Absolute Neuts (auto) 8.5 H Absolute Lymphs (auto) 1.50 Nucleated RBC % 0 Sodium 139 Potassium 4.8 Chloride 99 Carbon Dioxide 42.0 H Anion Gap -2 L BUN 28 H Creatinine 0.39 L Estim Creat Clear Calc 32.50 Est GFR (MDRD) Af Amer 203 Est GFR (MDRD) Non-Af 168 BUN/Creatinine Ratio 72.2 H Glucose 106 Calcium 8.8 Radiography Diagnostic Testing: Clinical Impression(s) from Imaging Studies Hip/Pelvis X-Ray 12/26/22 23:26 IMPRESSION: Left-sided intertrochanteric fracture as described. 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 No other fractures are seen. Electronically Signed: Grecia Martinez MD at 0:16 EST , Chest X-Ray 12/26/22 23:27 IMPRESSION: Hyperinflated lungs with possible COPD. otherwise no acute cardiopulmonary disease. Electronically Signed: Grecia Martinez MD at 0:14 EST , Rhythm Strip Rhythm Strip: Sinus Rhythm Rate: 90 Ectopy: None EKG Initial EKG: Attestation: I personally reviewed and interpreted this EKG as follows: Interpretation: Sinus Rhythm, No Acute Injury Pattern and LAFB Comments: RSR' Prior EKG tracings: available for review Prior: Unchanged Management Discussion w/another healthcare provider: Hospitalist and [employer] L[employer] Tech (Amadeo Rouse) Discharge Plan Dx/Rx/DC Orders Clinical Impression: Fall from slip, trip, or stumble, Skin tear of left elbow without complication, Closed intertrochanteric fracture of left hip Disposition Disposition: Acute Care Hospital [facility]
[2022-12-26] MEDS: Ondansetron 4 MG/2 ML Vial IV (23:46)
[2022-12-26] MEDS: Morphine 2 MG/ML Syringe IV (23:46)
[2022-12-27] VITALS (36 sets, daily range): BP systolic 60–149; BP diastolic 32–88; PULSE 94–125; RESP 13–25; TEMP 36.1–37.1; O2SAT 40–100; BMI 14.3
[2022-12-27 00:09] LABS: Anion Gap -2 (5-15); BUN 28 mg/dL (7-18); BUN/Creat Ratio 72.2 RATIO (10-20); Calcium,Total 8.8 mg/dL (8.5-10.1); Chloride 99 mmol/L (98-107); Creatinine, Serum 0.39 mg/dL (0.55-1.02); EST Glomerular Filtration Rate 168 mL/min (>60); Est Glom Filt Rate - Afr Amer 203 mL/min (>60); Glucose 106 mg/dL (74-106); Potassium 4.8 mmol/L (3.5-5.1); Sodium Level 139 mmol/L (136-145)
[2022-12-27 00:14] LABS: Absolute Neutrophil Count 8.5 X10^3/uL (2.0-7.7); Basophil# 0.01 X10^3/uL; Basophil% 0.1 % (0-1); Eosinophil# 0.05 X10^3/uL; Eosinophils% 0.5 % (0-5); Hematocrit 35.5 % (37-47); Hemoglobin 10.4 g/dL (12.0-15.0); Lymphocyte % 13.7 % (19-41); Mean Corp Hgb Conc 29.3 g/dL (32-36); Mean Corpuscular Hgb 30.1 pg (27.0-32.0); Mean Corpuscular Volume 102.9 fL (81-99); Mean Platelet Vol. 10.3 fl (6.2-12.0); Monocyte# 0.74 X10^3/uL; Monocyte% 6.7 % (0-10); NRBC Flagged by Analyzer 0 % (0-5); Neutrophil # 8.51 X10^3/uL (2.7-7.7); Neutrophil % 77.5 % (47-70); Platelet Count 224 K/mm3 (150-450); RBC Distribution Width CV 13.8 % (11.6-14.6); RBC Distribution Width SD 51.9 fl (35.1-43.9); Red Blood Count 3.45 M/mm3 (4.2-5.4)
--- NOTE | 2022-12-27 00:38 | PCM.HP.STD ---
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 Ms. Reyes reports her symptoms began approximately 1 hour prior to arrival when she was walking into her room and lost her balance which caused her to fall onto her left hip. She immediately noted deformity with shortening and external rotation with severe pain that was made worse with attempts to move. She does not remember the fall exactly but she does remember walking back into her room and she is not sure if she stumbled or slipped on the floor. She denies loss of consciousness associated with the fall or other significant head trauma and has no headache at this time. She denies associated fever, chills or vomiting - but she does admit to recently developing nausea. In the ER her x-rays were positive for left hip fracture due to a suspected mechanical fall in an elderly debilitated patient struggling with dementia. She was then admitted to the general medical floor for ongoing care for a stay that is expected to extend beyond 48 hours. [facility] Medical History Anxiety Anxiety and depression Cachectic Chronic respiratory failure with hypoxia Congestive heart failure (CHF) Dementia Dementia Emphysema lung Non-smoker On home oxygen therapy Protein calorie malnutrition Pulmonary fibrosis Pulmonary HTN Severe protein-calorie malnutrition Valvular heart disease Home Medications albuterol sulfate 90 mcg/actuation aerosol inhaler 1 puff inhalation DAILY shortness of breath 01/30/21 [History Last Taken 12/13/22] ropinirole 0.25 mg tablet 0.25 mg PO QHS restless legs 03/14/22 [History Last Taken 12/13/22] mirtazapine 7.5 mg tablet 7.5 mg PO QHS 07/27/22 [History Last Taken 12/13/22] umeclidinium 62.5 mcg-vilanterol 25 mcg/actuation powdr for inhalation (Anoro Ellipta) 1 inh inhalation DAILY 07/27/22 [History Last Taken 12/14/22] metoprolol tartrate 25 mg tablet 25 mg PO BID #60 tabs 07/30/22 [Rx Last Taken 12/14/22] food supplemt, lactose-reduced 0.08 gram-1.5 kcal/mL oral liquid (Ensure Plus High Protein) 120 ml PO 4X/DAY #0 mL 12/18/22 [Rx Last Taken Unknown] acetaminophen 325 mg capsule 650 mg PO Q4H PRN fever or pain 12/26/22 [History Last Taken Unknown] acetaminophen 650 mg rectal suppository 650 mg DE Q4H 12/26/22 [History Last Taken Unknown] albuterol sulfate 90 mcg/actuation aerosol inhaler 2 puff inhalation Q6H PRN sob 12/26/22 [History Last Taken Unknown] lorazepam 0.5 mg tablet 0.5 mg PO BID 12/26/22 [History Last Taken Unknown] prednisone 10 mg tablet 20 mg PO DAILY 12/26/22 [History Last Taken Unknown] sertraline 25 mg tablet 25 mg PO QHS 12/26/22 [History Last Taken Unknown] Allergy/AdvReac Type Severity Reaction Status Date / Time Tetanus Vaccines and Toxoid Allergy Unknown Verified 12/14/22 15:17 [Tetanus Vaccines & Toxoid] Family History Other Heart disease Surgical History History of cholecystectomy Social History household members: spouse and family Smoking Status: Never smoker alcohol intake: never substance use type: does not use ROS ROS Narrative Review of systems: Constitutional: Patient denies fevers or chills Eyes: Patient denies changes in vision ENT: Patient denies ear pain, epistaxis, facial pain or runny nose Cardiovascular: Patient denies chest pain or palpitations Respiratory: Patient denies any acute worsening of her chronic dyspnea Gastrointestinal: Patient denies abdominal pain, diarrhea, melena, nausea or vomiting Genitourinary: Patient denies dysuria or hematuria Musculoskeletal: Patient admits to severe left hip pain that is made worse with movement Integumentary: Patient reports abrasions to her left hip but denies abscess, laceration or rash Neurologic: Patient denies confusion headache paresthesia or weakness 14 point review systems otherwise negative except for positives noted in HPI above. Vital Signs Vital Signs Vital Signs: 12/26/22 23:12 12/26/22 23:54 Temperature 98.1 F Temperature Source Temporal Pulse Rate 91 Respiratory Rate 16 Respiratory Effort Normal Non-Labored Respiratory Depth Normal Blood Pressure 138/79 H Blood Pressure Mean 98 Pulse Ox 89 Oxygen Delivery Method Nasal Cannula Oxygen Flow Rate (L/min) 4 Weight Weight: 106 lb 7.732 oz Body Mass Index (BMI) 18.2 Physical Exam Const alert and no apparent distress Constitutional Narrative: Patient appears cachectic and chronically ill. General Appearance: cooperative HEENT normocephalic, head/scalp atraumatic, hearing grossly normal bilaterally and moist oral mucous membranes Eyes PERRL, EOMs intact bilaterally and conjunctivae normal Neck no lymphadenopathy, supple and no JVD Resp Resp Narrative: Decreased air movement throughout. Cardio regular rate and regular rhythm GI normal to inspection, nondistended, normoactive bowel sounds, soft to palpation, non-tender and non-distended Extremity Extremity Narrative: Left lower extremity shortened and externally rotated. She also has abrasions noted over her wrist and elbow. Neuro CN's II-XII intact bilaterally and no focal motor deficits Neuro Narrative: Patient is mildly lethargic after pain medication. Sensorium / Orientation: awake, alert, oriented to person and oriented to place Speech: speech normal Results Medical Records Data Attestation: I reviewed the patient's medical records Lab / Micro Data Attestation: I reviewed the patient's lab results. 12/27/22 04:31 12/27/22 04:31 Labs: Laboratory Results - last 24 hr 12/26/22 23:49: WBC 11.0, RBC 3.45 L, Hgb 10.4 L, Hct 35.5 L, MCV 102.9 H, MCH 30.1, MCHC 29.3 L, RDW Std Deviation 51.9 H, RDW Coeff of Toney 13.8, Plt Count 224, MPV 10.3, Immature Gran % (Auto) 1.500 H, Neut % (Auto) 77.5 H, Lymph % (Auto) 13.7 L, [place] % (Auto) 6.7, Eos % (Auto) 0.5, Baso % (Auto) 0.1, Absolute Neuts (auto) 8.5 H, Absolute Lymphs (auto) 1.50, Nucleated RBC % 0, Sodium 139, Potassium 4.8, Chloride 99, Carbon Dioxide 42.0 H, Anion Gap -2 L, BUN 28 H, Creatinine 0.39 L, Estim Creat Clear Calc 32.50, Est GFR (MDRD) Af Amer 203, Est GFR (MDRD) Non-Af 168, BUN/Creatinine Ratio 72.2 H, Glucose 106, Calcium 8.8 Rhythm Strip Rhythm Strip: Sinus Rhythm Rate: 90 Ectopy: None Radiology Impression Hip/Pelvis X-Ray 12/26/22 23:26 IMPRESSION: Left-sided intertrochanteric fracture as described. 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 No other fractures are seen. Electronically Signed: Grecia Martinez MD at 0:16 EST , Chest X-Ray 12/26/22 23:27 IMPRESSION: Hyperinflated lungs with possible COPD. otherwise no acute cardiopulmonary disease. Electronically Signed: Grecia Martinez MD at 0:14 EST , Assessment & Plan Assessment/Plan (1) Closed intertrochanteric fracture of left hip: PLAN: Plan 1. Left hip fracture after fall-admit to general medical floor. Place Mcknight and also apply 5 pounds of Westfall's traction to the left lower extremity. Give Tylenol for mild to moderate 1-5 pain or fever. Give morphine sulfate IV as needed for severe level 6-10 out of 10 pain. Finally, we will consult Dr. Quinn Rouse of the orthopedic service to see this patient in the a.m. on rounds for recommendations regarding open reduction internal fixation with help appreciated in advance. 2. End-stage COPD with chronic pulmonary fibrosis and chronic hypoxic respiratory insufficiency requiring 4 to 5 L/min continuously complicating #1 - Stable with no evidence of flare at this time. Continue as needed nebulizers as previous. 3. Chronic dementia - Stable, continue home medications as previous. 4. Essential hypertension - Continue home medications as previous. Give IV hydralazine as needed for systolic blood pressure greater than 160 systolic. 5. Depression with anxiety - Continue home medications as previous. Give low-dose as needed Ativan for breakthrough symptoms. 6. DVT prophylaxis - We will avoid preoperative blood thinners due to increased risk of bleeding complications with traumatic fractures. Orthopedic team to decide on postoperative DVT prophylaxis. Total time: Approximately 55 minutes. Charges/Coding Visit Charges Inpatient E&M: 22284 Init Hosp L2
[2022-12-27] MEDS: Ondansetron 4 MG/2 ML Vial IV (01:42)
[2022-12-27 03:23] LABS: Mucous, Urine 0 SEEN /hpf (<or=2+); Squamous Epithelial Cells - UA 0 SEEN /hpf (5-10)
[2022-12-27 03:27] LABS: Color, Urine Yellow (Yellow); Glucose, Dipstick Normal (Normal); Ketone-Dipstick Negative (Negative); Leukocyte Esterase-Dipstick 100 /ul (Negative); Nitrite-Dipstick Negative (Negative); Occult Blood-Urine Negative /ul (Negative); Protein-Dipstick 30 mg/dl (Negative); Specific Gravity, Urine 1.015 (1.002-1.030); Urine Bilirubin Dipstick Negative (Negative); Urine Clarity Sl. Cloudy (Clear); Urine Urobilinogen 1 mg/dl (Normal); Urine pH 6.5 (5.0 - 8.0)
[2022-12-27 03:42] LABS: Bacteria 4+ /hpf (None Seen); Red Blood Cells-Urine 0-5 SEEN /hpf (0-5); White Blood Cells 5-10 SEEN /hpf (0-5)
[2022-12-27] MEDS: Morphine 2 MG/ML Syringe IV ×2 (03:54→08:25)
--- NOTE | 2022-12-27 04:57 | NURSING ---
5 pounds walton's traction applied to left leg as ordered by Dr Bah. Procedure explained to pt. Tolerated procedure without complications.
[2022-12-27 05:12] LABS: Absolute Lymphocyte Count 0.44 X10^3/uL (0.83-4.51); Absolute Neutrophil Count 20.8 X10^3/uL (2.0-7.7); Basophil# 0.03 X10^3/uL; Basophil% 0.1 % (0-1); Hematocrit 29.7 % (37-47); Hemoglobin 8.7 g/dL (12.0-15.0); Lymphocyte # 0.44 X10^3/ul (0.83-4.51); Lymphocyte % 1.9 % (19-41); Mean Corp Hgb Conc 29.3 g/dL (32-36); Mean Corpuscular Hgb 30.5 pg (27.0-32.0); Mean Corpuscular Volume 104.2 fL (81-99); Mean Platelet Vol. 10.3 fl (6.2-12.0); Monocyte# 1.76 X10^3/uL; Monocyte% 7.6 % (0-10); NRBC Flagged by Analyzer 0 % (0-5); Neutrophil % 89.9 % (47-70); POSITIVE DIFFERENTIAL YES; Platelet Count 191 K/mm3 (150-450); RBC Distribution Width CV 13.7 % (11.6-14.6); RBC Distribution Width SD 52.1 fl (35.1-43.9); Red Blood Count 2.85 M/mm3 (4.2-5.4); White Blood Count 23.2 K/mm3 (4.4-11.0)
[2022-12-27 05:14] LABS: Differential Indicated SCAN CRITERIA MET
[2022-12-27 05:46] LABS: Anion Gap 1 (5-15); BUN 33 mg/dL (7-18); BUN/Creat Ratio 53.4 RATIO (10-20); Calcium,Total 8.3 mg/dL (8.5-10.1); Chloride 100 mmol/L (98-107); Creatinine, Serum 0.62 mg/dL (0.55-1.02); EST Glomerular Filtration Rate 98 mL/min (>60); Est Glom Filt Rate - Afr Amer 119 mL/min (>60); Glucose 183 mg/dL (74-106); Potassium 4.9 mmol/L (3.5-5.1); Sodium Level 142 mmol/L (136-145)
[2022-12-27 07:02] LABS: Differential Comment SCANNED
[2022-12-27] MEDS: Ipratropium/Albuterol Sulfate 3 ML AMPUL.NEB INHALATION ×3 (07:49→18:45)
[2022-12-27] MEDS: 0.9% Saline Lock 10 ML Syringe IV ×4 (08:26→17:09)
--- NOTE | 2022-12-27 09:36 | CASEMGMT ---
Social Work SW reviewed chart, pt is here from [facility], went there for rehab recently. SW called [facility], message left inquiring if pt's , who is at [facility] at present, is truly alert and oriented. SW did speak w/him the last time pt was here, and daughter informed SW upon last admission that he is alert and oriented. SW also inquired if they have LW/POA papers. SW spoke w/daughter in room in regard to discharge plan. Daughter states that she wanted to take pt home, spoke w/[facility] about it on Saturday and they were not going to let her go home. She states then that night pt fell and broke her hip. Daughter states that the hospital sent her out there and she had home health set up. SW reminded daughter that she was having a difficult time managing pt at home. SW reminded her that SW gave her a list of intermediate facilities and daughter chose [facility]. (SW did also call pt's at [facility] at that time). Daughter states no, SW gave her a list for her father, not for this pt. She went on to say that her father has fallen there as well, and she is aware of other patients that have fallen there. She states that she does not want pt to return to [facility]. SW spoke w/daughter about options at discharge, if she would want to consider another SNF for pt. Daughter at this time politely insistent she will take pt home w/home health care. She states she also will have palliative care when pt returns home. SW explained will continue to follow, and we can revisit this after pt has surgery and therapy. Plan: TBD, pt to likely need SNF, daughter wants home w/hhc. NICOLE Moody
--- NOTE | 2022-12-27 10:19 | PN.HOSP_ITS ---
Reason for Visit Reason for Visit: Diagnoses Displaced intertrochanteric fracture of left femur, initial encounter for closed fracture (12/27/22) Subjective Subjective Follow-up for hypotension, somnolent unresponsive left hip fracture. Moved to ICU. Objective Data Objective Data Vital Signs: Vital Signs Temp Pulse Resp BP Pulse Ox O2 Del Method O2 Flow Rate 97.1 F L 116 H 16 68/32 L 100 Nasal Cannula 4 12/27/22 10:05 12/27/22 10:05 12/27/22 10:05 12/27/22 10:05 12/27/22 10:05 12/27/22 10:05 12/27/22 10:05 Oxygen Flow Rate (L/min) 4 Oxygen Delivery Method Nasal Cannula Weight: 83 lb 8.883 oz Body Mass Index (BMI) 14.3 Intake & Output: Intake and Output for Last 24 Hours 12/25/22 12/26/22 12/27/22 23:59 23:59 23:59 Intake Total 0 / 0 Output Total 0 / 0 Balance 0 / 0 Lab / Micro Data 12/27/22 04:31 12/27/22 04:31 Labs: Laboratory Results - last 24 hr 12/26/22 23:49: WBC 11.0, RBC 3.45 L, Hgb 10.4 L, Hct 35.5 L, MCV 102.9 H, MCH 30.1, MCHC 29.3 L, RDW Std Deviation 51.9 H, RDW Coeff of Toney 13.8, Plt Count 224, MPV 10.3, Immature Gran % (Auto) 1.500 H, Neut % (Auto) 77.5 H, Lymph % (Auto) 13.7 L, [place] % (Auto) 6.7, Eos % (Auto) 0.5, Baso % (Auto) 0.1, Absolute Neuts (auto) 8.5 H, Absolute Lymphs (auto) 1.50, Nucleated RBC % 0, Sodium 139, Potassium 4.8, Chloride 99, Carbon Dioxide 42.0 H, Anion Gap -2 L, BUN 28 H, Creatinine 0.39 L, Estim Creat Clear Calc 32.50, Est GFR (MDRD) Af Amer 203, Est GFR (MDRD) Non-Af 168, BUN/Creatinine Ratio 72.2 H, Glucose 106, Calcium 8.8 12/27/22 03:11: Urine Color Yellow, Urine Clarity Sl. Cloudy, Urine pH 6.5, Ur Specific [place] 1.015, Urine Protein 30 H, Urine Glucose (UA) Normal, Urine Ke tones Negative, Urine Occult Blood Negative, Urine Nitrite Negative, Urine Bilirubin Negative, Urine Urobilinogen 1 H, Ur Leukocyte Esterase 100 H, Urine RBC 0-5 SEEN, Urine WBC 5-10 SEEN, Ur Squamous Epith Cells 0 SEEN, Urine Bacteria 4+, Urine Mucus 0 SEEN 12/27/22 04:31: WBC 23.2 H, RBC 2.85 L, Hgb 8.7 L, Hct 29.7 L, MCV 104.2 H, MCH 30.5, MCHC 29.3 L, RDW Std Deviation 52.1 H, RDW Coeff of Toney 13.7, Plt Count 191, MPV 10.3, Immature Gran % (Auto) 0.500, Neut % (Auto) 89.9 H, Lymph % (Auto) 1.9 L, [place] % (Auto) 7.6, Eos % (Auto) 0.0, Baso % (Auto) 0.1, Absolute Neuts (auto) 20.8 H, Absolute Lymphs (auto) 0.44 L, Nucleated RBC % 0, Differential Comment SCANNED, Diff Path Review June, Sodium 142, Potassium 4.9, Chloride 100, Carbon Dioxide 41.0 H, Anion Gap 1 L, BUN 33 H, Creatinine 0.62, Estim Creat Clear Calc 25.50, Est GFR (MDRD) Af Amer 119, Est GFR (MDRD) Non-Af 98, BUN/Creatinine Ratio 53.4 H, Glucose 183 H, Calcium 8.3 L, Blood Type O POSITIVE, Antibody Screen NEGATIVE Radiography Diagnostic Testing: Radiology Impression Hip/Pelvis X-Ray 12/26/22 23:26 IMPRESSION: Left-sided intertrochanteric fracture as described. 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 No other fractures are seen. Electronically Signed: Grecia Martinez MD at 0:16 EST , Chest X-Ray 12/26/22 23:27 IMPRESSION: Hyperinflated lungs with possible COPD. otherwise no acute cardiopulmonary disease. Electronically Signed: Grecia Martinez MD at 0:14 EST , Rhythm Strip Rhythm Strip: Sinus Rhythm Rate: 90 Ectopy: None Physical Exam Narrative Patient is somnolent, obtunded. Opens eyes with sternal rub. With hypotension blood pressure systolic 68/32, IV fluid Ringer lactate running The anesthesiologist Dr. Stover called me that patient hemoglobin is low but hemoglobin is 8.7. To me blood pressure is 68/32, heart rate 116 last taken around 1005 but he says blood pressure is not the issue in at this time there. 1 unit of of PRBC ordered. Physical exam General: Unresponsive to touch nonverbal. Eyes closed HEENT: Eyes closed. Atraumatic, PERRLA, EOMI, Normocephalic Oral: Oral mucosa dry. Neck: Supple, No JVD, Negative Carotid Bruits Lungs: Air entry severely diminished in bilateral lung bases. Shallow breathing on 4 L. No crepitation/rhonchi Cardiovascular: Tachycardic, muffled heart sound. Carotid and radial palpable. Systolic murmur present. Abdomen: Bowel Sounds Present, Soft, Non Tender, Non-Distended : No renal angle tenderness. No suprapubic tenderness. Extremities: No edema, Capillary Refill Less than 3 Seconds Skin: No rashes, No breakdown Musculoskeletal: Left hip abducted, flexed and externally rotated and tender. No Tenderness to Palpation of other joints or Extremities Neurological: Unresponsive, detailed neuro exam unobtainable Psych/Mental Status: History of dementia. Assessment & Plan Assessment/Plan (1) Closed intertrochanteric fracture of left hip: QUALIFIERS: Encounter type: initial encounter Fracture alignment: displaced Qualified Code(s): S72.142A - Displaced intertrochanteric fracture of left femur, initial encounter for closed fracture PLAN: Plan 1. Left hip fracture after fall but suspect pathological fracture from osteoporosis, perioperative management-patient is being admitted in PCU. She had Mcknight catheter. She was on morphine but blood pressure normal as described below. Dr. Quinn Rouse consulted. She was supposed to go for hip surgery but canceled due to hypotension. 2. Hypotension, unresponsive, multiple valvular heart disease, severe pulmonary hypertension: Patient blood pressure was low at 68/32 after morphine was given. 1 L of Ringer lactate fluid bolus ordered. Patient is still unresponsive, transferred to ICU. Discussed with drivematic machine operator. Discussed with blemish remover consulted for same. No need for repeat echo. End-stage COPD with chronic pulmonary fibrosis and chronic hypoxic respiratory insufficiency requiring 4 to 5 L/min continuously complicating #1 - Stable with no evidence of flare at this time. Continue as needed nebulizers as previous. 3. Chronic dementia - Stable, continue home medications as previous. 4. Essential hypertension - Continue home medications as previous. Give IV hydralazine as needed for systolic blood pressure greater than 160 systolic. 5. Depression with anxiety - Continue home medications as previous. Give low- dose as needed Ativan for breakthrough symptoms. 6. DVT prophylaxis - We will avoid preoperative blood thinners due to increased risk of bleeding complications with traumatic fractures. Orthopedic team to decide on postoperative DVT prophylaxis. I discussed the prognosis with the daughter with all chronic severe medical conditions mentioned above prognosis is poor. The same thing was explained to anesthesiologist and orthopedic surgeon that risk is high. Daughter is going to talk to her father regarding CODE STATUS. For practical purposes now full code. 2D echo February 2022 Based upon the 2D echocardiographic images obtained there appears to be normal left ventricular size, wall motion, and systolic function. The estimated ejection fraction is 65 %. There is mild mitral annular calcification. Trivial mitral valve insufficiency. Moderate (2+) tricuspid valve insufficiency. Moderate to severe calcific aortic valve stenosis. Right ventricular systolic pressure estimated to be 52 mmHg c/w pulmonary hypertension. Stage 2 diastolic dysfunction. Charges/Coding Addendum Addendum: Total time of the visit including total time spent in counseling or coordination of care, (more than 50% of the total time, spent in obtaining medical information from nurses and other ancillary care providers,explaining to the patient about labs, imaging, diagnosis and management of active complex medical conditions), discussion with anesthesiologist, orthopedic surgeon, blemish remover and drivematic machine operator, review of labs and imaging and clinical update given to patient's daughter is 50 minutes. Visit Charges Inpatient E&M: 49966 Subs Hosp L3
--- NOTE | 2022-12-27 10:30 | CASEMGMT ---
Social Work SW did get a call back from [facility], as per Lina pt's is intermittently alert and oriented though after dialysis is pretty out of it. She states he scores an 11 on his BIMS. She also faxed over POA papers created on 12/20/22, stating daughter Fani is Healthcare POA. SW placed copies on the chart. NICOLE Moody
[2022-12-27] MEDS: Lactated Ringers 1,000 ML 999 ML IV ×2 (11:04→15:23)
[2022-12-27 11:56] LABS: Magnesium 2.4 mg/dL (1.6-2.6); Phosphorus 4.7 mg/dL (2.5-4.9)
--- NOTE | 2022-12-27 12:06 | NURSING ---
1206 Report called to IV+CU nurse Lien
[2022-12-27 12:11] LABS: Hematocrit 26.4 % (37-47); Hemoglobin 7.6 g/dL (12.0-15.0)
[2022-12-27 12:27] LABS: Allen Test Positive; Base Excess 12 mmol/L (-2 to +2); Bicarbonate 41.5 mmol/L (22-26); Blood Gas Specimen Type ART; Mode Not entered; O2 Delivery Device Cannula; PO2 177 mmHG (75-100); SITE R Radial; SO2 99 % (95-99); Total Carbon Dioxide 45 mmol/L; pH 7.12 (7.35-7.45)
--- NOTE | 2022-12-27 12:28 | CON.PCM.CC_ITS ---
Assessment & Plan Assessment/Plan (1) Acute on chronic hypoxic respiratory failure: PLAN: Plan Assessment * Acute on chronic hypoxic and hypercapnic respiratory failure * COPD exacerbation * Acute on chronic respiratory acidosis * Closed intra trochanteric fracture of the left hip with concern of ongoing bleeding. Patient has been hypotensive and her hemoglobin has been trending down * Acute blood loss anemia with shock * lactic acidosis * UTI * End-stage COPD on 4 to 5 L oxygen at home * Dementia * Debility * Severe calorie malnutrition BMI 14 Plan * Patient failed bipap and continued to be very lethargic so she was intubated after discussion with her daughter. * Patient is recovering from a previous COPD exacerbation end of November and on a steroid taper. will restart her on Solu-Medrol 40 every 6h given worsening COPD * Patient's hemoglobin has been trending down. Concern for internal bleeding at the site of hip fracture. Orthopedics is on board. She is receiving unit of blood. H&H Q6. Will obtain CT scan * wean levophed as tolerated * Blood cultures collected, her UA concerning for UTI, started on rocephin. * GI ppx IV protonix * Bowel regimen * DVT ppx SCD Pt has poor prognosis given her advanced age and severe COPD. I discussed that with her daughter (pt's DPOA) who was emotional and wanted to discuss further with the pt's . Emotional support provided and her questions answered. I spent 45 minutes of critical care time excluding the procedure time. I rev iewed lab work, images, previous records and medication list. HPI Consult Data Date of Consult: 12/27/22 HPI Narrative Reason for Consultation: Acute hypoxic and hypercapnic respiratory failure HPI Narrative: NEERAJ LYNN, is a 82 F who presents Patient is an 82-year-old female with past medical history of dementia, end-sta ge COPD on 4 to 5 L of oxygen and hypertension. Patient presented yesterday with after a fall and was found to have a left hip fracture. This morning patient was awake was complaining of pain and received a dose of morphine at around 8 in the morning. Later patient became more lethargic and hypotensive. Thus ICU was consulted. Upon evaluation patient was nonverbal but withdrew to pain and had a gag. Stat ABG showed hypercapnia with a pH of 7.1. I attempted to call the patient's daughter who is her DPOA however she did not answer my call. Primary attending did speak to the daughter who was emotional and stated that we do everything. Given the patient's gag reflex and withdrawal to pain will start her on BiPAP and reevaluate ABGs as well as overall status before intubating. Patient's blood pressure improved after liter bolus but trended down again. [facility] Medical History Anxiety Anxiety and depression Cachectic Chronic respiratory failure with hypoxia Congestive heart failure (CHF) Dementia Dementia Emphysema lung Non-smoker On home oxygen therapy Protein calorie malnutrition Pulmonary fibrosis Pulmonary HTN Severe protein-calorie malnutrition Valvular heart disease Home Medications albuterol sulfate 90 mcg/actuation aerosol inhaler 1 puff inhalation DAILY shortness of breath 01/30/21 [History Last Taken 12/13/22] ropinirole 0.25 mg tablet 0.25 mg PO QHS restless legs 03/14/22 [History Last Taken 12/13/22] mirtazapine 7.5 mg tablet 7.5 mg PO QHS 07/27/22 [History Last Taken 12/13/22] umeclidinium 62.5 mcg-vilanterol 25 mcg/actuation powdr for inhalation (Anoro Ellipta) 1 inh inhalation DAILY 07/27/22 [History Last Taken 12/14/22] metoprolol tartrate 25 mg tablet 25 mg PO BID #60 tabs 07/30/22 [Rx Last Taken 12/14/22] food supplemt, lactose-reduced 0.08 gram-1.5 kcal/mL oral liquid (Ensure Plus High Protein) 120 ml PO 4X/DAY #0 mL 12/18/22 [Rx Last Taken Unknown] acetaminophen 325 mg capsule 650 mg PO Q4H PRN fever or pain 12/26/22 [History Last Taken Unknown] acetaminophen 650 mg rectal suppository 650 mg OR Q4H 12/26/22 [History Last Taken Unknown] albuterol sulfate 90 mcg/actuation aerosol inhaler 2 puff inhalation Q6H PRN sob 12/26/22 [History Last Taken Unknown] lorazepam 0.5 mg tablet 0.5 mg PO BID 12/26/22 [History Last Taken Unknown] prednisone 10 mg tablet 20 mg PO DAILY 12/26/22 [History Last Taken Unknown] sertraline 25 mg tablet 25 mg PO QHS 12/26/22 [History Last Taken Unknown] Allergy/AdvReac Type Severity Reaction Status Date / Time Tetanus Vaccines and Toxoid Allergy Unknown Verified 12/14/22 15:17 [Tetanus Vaccines & Toxoid] Family History Other Heart disease Surgical History History of cholecystectomy Social History household members: spouse and family Smoking Status: Never smoker alcohol intake: never substance use type: does not use
--- NOTE | 2022-12-27 12:28 | EX.PCM.CONCC ---
Assessment & Plan Assessment/Plan (1) Acute on chronic hypoxic respiratory failure: PLAN: Plan Assessment Acute on chronic hypoxic and hypercapnic respiratory failure COPD exacerbation Acute on chronic respiratory acidosis Closed intra trochanteric fracture of the left hip with concern of ongoing bleeding. 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 Patient is recovering from a previous COPD exacerbation end of November and on a steroid taper. will restart her on Solu-Medrol 40 every 6h given worsening COPD Patient's hemoglobin has been trending down. Concern for internal bleeding at the site of hip fracture. Orthopedics is on board. She is receiving unit of blood. H&H Q6. Will obtain CT scan wean levophed as tolerated Blood cultures collected, her UA concerning for UTI, started on rocephin. GI ppx IV protonix Bowel regimen DVT ppx SCD Pt has poor prognosis given her advanced age and severe COPD. I discussed that with her daughter (pt's DPOA) who was emotional and wanted to discuss further with the pt's . Emotional support provided and her questions answered. I spent 45 minutes of critical care time excluding the procedure time. I reviewed lab work, images, previous records and medication list. HPI Consult Data Date of Consult: 12/27/22 HPI Narrative Reason for Consultation: Acute hypoxic and hypercapnic respiratory failure HPI Narrative: NEERAJ LYNN, is a 82 F who presents Patient is an 82-year-old female with past medical history of dementia, end-stage COPD on 4 to 5 L of oxygen and hypertension. Patient presented yesterday with after a fall and was found to have a left hip fracture. This morning patient was awake was complaining of pain and received a dose of morphine at around 8 in the morning. Later patient became more lethargic and hypotensive. Thus ICU was consulted. Upon evaluation patient was nonverbal but withdrew to pain and had a gag. Stat ABG showed hypercapnia with a pH of 7.1. I attempted to call the patient's daughter who is her DPOA however she did not answer my call. Primary attending did speak to the daughter who was emotional and stated that we do everything. Given the patient's gag reflex and withdrawal to pain will start her on BiPAP and reevaluate ABGs as well as overall status before intubating. Patient's blood pressure improved after liter bolus but trended down again. [facility] Medical History Anxiety Anxiety and depression Cachectic Chronic respiratory failure with hypoxia Congestive heart failure (CHF) Dementia Dementia Emphysema lung Non-smoker On home oxygen therapy Protein calorie malnutrition Pulmonary fibrosis Pulmonary HTN Severe protein-calorie malnutrition Valvular heart disease Home Medications albuterol sulfate 90 mcg/actuation aerosol inhaler 1 puff inhalation DAILY shortness of breath 01/30/21 [History Last Taken 12/13/22] ropinirole 0.25 mg tablet 0.25 mg PO QHS restless legs 03/14/22 [History Last Taken 12/13/22] mirtazapine 7.5 mg tablet 7.5 mg PO QHS 07/27/22 [History Last Taken 12/13/22] umeclidinium 62.5 mcg-vilanterol 25 mcg/actuation powdr for inhalation (Anoro Ellipta) 1 inh inhalation DAILY 07/27/22 [History Last Taken 12/14/22] metoprolol tartrate 25 mg tablet 25 mg PO BID #60 tabs 07/30/22 [Rx Last Taken 12/14/22] food supplemt, lactose-reduced 0.08 gram-1.5 kcal/mL oral liquid (Ensure Plus High Protein) 120 ml PO 4X/DAY #0 mL 12/18/22 [Rx Last Taken Unknown] acetaminophen 325 mg capsule 650 mg PO Q4H PRN fever or pain 12/26/22 [History Last Taken Unknown] acetaminophen 650 mg rectal suppository 650 mg IA Q4H 12/26/22 [History Last Taken Unknown] albuterol sulfate 90 mcg/actuation aerosol inhaler 2 puff inhalation Q6H PRN sob 12/26/22 [History Last Taken Unknown] lorazepam 0.5 mg tablet 0.5 mg PO BID 12/26/22 [History Last Taken Unknown] prednisone 10 mg tablet 20 mg PO DAILY 12/26/22 [History Last Taken Unknown] sertraline 25 mg tablet 25 mg PO QHS 12/26/22 [History Last Taken Unknown] Allergy/AdvReac Type Severity Reaction Status Date / Time Tetanus Vaccines and Toxoid Allergy Unknown Verified 12/14/22 15:17 [Tetanus Vaccines & Toxoid] Family History Other Heart disease Surgical History History of cholecystectomy Social History household members: spouse and family Smoking Status: Never smoker alcohol intake: never substance use type: does not use Physical Exam Narrative General lethargic, withdraws to pain HEENT. Normocephalic atraumatic, pupils equal and reactive Respiratory reduced air entry bilaterally, mild end expiratory wheeze, no crackles Cardiac S1-S2, regular rate and rhythm GI abdomen soft and nontender MSK L hip displaced and painful Skin no rashes Neuro no facial droop, doesn't follow commands, withdraws to pain Lab / Micro Data 12/27/22 11:58 12/27/22 04:31 Labs: Laboratory Results - last 24 hr 12/26/22 23:49: WBC 11.0, RBC 3.45 L, Hgb 10.4 L, Hct 35.5 L, MCV 102.9 H, MCH 30.1, MCHC 29.3 L, RDW Std Deviation 51.9 H, RDW Coeff of Toney 13.8, Plt Count 224, MPV 10.3, Immature Gran % (Auto) 1.500 H, Neut % (Auto) 77.5 H, Lymph % (Auto) 13.7 L, Vance % (Auto) 6.7, Eos % (Auto) 0.5, Baso % (Auto) 0.1, Absolute Neuts (auto) 8.5 H, Absolute Lymphs (auto) 1.50, Nucleated RBC % 0, Sodium 139, Potassium 4.8, Chloride 99, Carbon Dioxide 42.0 H, Anion Gap -2 L, BUN 28 H, Creatinine 0.39 L, Estim Creat Clear Calc 32.50, Est GFR (MDRD) Af Amer 203, Est GFR (MDRD) Non-Af 168, BUN/Creatinine Ratio 72.2 H, Glucose 106, Calcium 8.8 12/27/22 03:11: Urine Color Yellow, Urine Clarity Sl. Cloudy, Urine pH 6.5, Ur Specific [place] 1.015, Urine Protein 30 H, Urine Glucose (UA) Normal, Urine Ketones Negative, Urine Occult Blood Negative, Urine Nitrite Negative, Urine Bilirubin Negative, Urine Urobilinogen 1 H, Ur Leukocyte Esterase 100 H, Urine RBC 0-5 SEEN, Urine WBC 5-10 SEEN, Ur Squamous Epith Cells 0 SEEN, Urine Bacteria 4+, Urine Mucus 0 SEEN 12/27/22 04:31: WBC 23.2 H, RBC 2.85 L, Hgb 8.7 L, Hct 29.7 L, MCV 104.2 H, MCH 30.5, MCHC 29.3 L, RDW Std Deviation 52.1 H, RDW Coeff of Toney 13.7, Plt Count 191, MPV 10.3, Immature Gran % (Auto) 0.500, Neut % (Auto) 89.9 H, Lymph % (Auto) 1.9 L, Vance % (Auto) 7.6, Eos % (Auto) 0.0, Baso % (Auto) 0.1, Absolute Neuts (auto) 20.8 H, Absolute Lymphs (auto) 0.44 L, Nucleated RBC % 0, Differential Comment SCANNED, Diff Path Review June, Sodium 142, Potassium 4.9, Chloride 100, Carbon Dioxide 41.0 H, Anion Gap 1 L, BUN 33 H, Creatinine 0.62, Estim Creat Clear Calc 25.50, Est GFR (MDRD) Af Amer 119, Est GFR (MDRD) Non-Af 98, BUN/Creatinine Ratio 53.4 H, Glucose 183 H, Calcium 8.3 L, Phosphorus 4.7, Magnesium 2.4, Blood Type O POSITIVE, Antibody Screen NEGATIVE, Crossmatch See Detail 12/27/22 11:58: Hgb 7.6 L, Hct 26.4 L ABG Data ABG results: ABG 12/27/22 12:21 Specimen Type ART Sample Site R Radial pH 7.12 L* Bicarbonate Actual 41.5 H Total CO2 45 Base Excess 12 H O2 Saturation 99 O2 % 4.0 ABG pCO2 127.0 H* ABG pO2 177 H Abrahan Test Positive O2 Delivery Device Cannula Vent Mode Not entered Crit Call To/Read Back Yes Blood Gas Notified Whom gonzalo Blood Gas Notified Time 12:23:03 Rhythm Strip Rhythm Strip: Sinus Rhythm Rate: 90 Ectopy: None Radiology Impression Hip/Pelvis X-Ray 12/26/22 23:26 IMPRESSION: Left-sided intertrochanteric fracture as described. 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 No other fractures are seen. Electronically Signed: Grecia Martinez MD at 0:16 EST , Chest X-Ray 12/26/22 23:27 IMPRESSION: Hyperinflated lungs with possible COPD. otherwise no acute cardiopulmonary disease. Electronically Signed: Grecia Martinez MD at 0:14 EST , Sepsis Attestation Date exam was performed: 12/27/22 Time exam was performed: 11:45 Possible Source of Sepsis: Unknown Sepsis Organ Dysfunction Criteria Present: SBP < 90 mmHg or MAP < 65 mmHg and Lactic Acid > 2 mmol/L Fluid Resuscitation Fluid resuscitation indicated?: Yes Fluid Resuscitation ordered: 30 ml/kg fluid bolus ordered Amount of fluid ordered: 1,000 Sepsis Note Date exam was performed: 12/27/22 Time exam was performed: 14:00 Sepsis Attestation: Sepsis re-evaluation was performed Response to fluids: Vasopressors started (Combined causes for shock, hgb dropping with concern for internal bleeding as a result of L hip fx) Charges/Coding Procedures Hospitalists Procedures: [id number] [facility] H[facility]
[2022-12-27 12:56] LABS: Bedside Glucose 131 mg/dL (74-106)
[2022-12-27 12:57] LABS: Lactic Acid 3.2 mmol/L (0.4-1.9)
[2022-12-27] MEDS: Norepinephrine 8 MG in 0.9% Normal Saline (250mL Bag) 242 ML 9.4 MG CONT INF (13:15)
[2022-12-27] MEDS: Etomidate 20 MG/10 ML Vial IV (13:21)
--- NOTE | 2022-12-27 13:35 | RAD_ITS ---
STUDY: X-RAY CHEST REASON FOR EXAM: Female, 82 years old. ett placement TECHNIQUE: Single AP portable view of the chest. COMPARISON: Comparison is made with prior study dated December 26, 2022. FINDINGS: An endotracheal tube is seen. The tip is at 2.6 cm proximal to the fany. A nasogastric tube is seen with the tip in the body of the stomach. EKG electrodes are seen. There is hyperinflation of the lungs consistent with chronic obstructive lung disease (COPD). There is no demonstrated pleural abnormality. Normal size heart. Normal mediastinum and grace. Normal visualized pulmonary arteries. Normal visualized aortic arch and descending thoracic aorta. There is demineralization of the osseous structures. Normal visualized ribs, clavicles, and shoulders. There is no demonstrated abnormality of the visualized soft tissue structures of the upper abdomen. RAD/Chest 1 View (Portable) IMPRESSION: The tip of the endotracheal tube is at 2.6 times approximately the fany. The nasogastric tube is seen within the body of the stomach. Hyperinflation. Electronically Signed: Juan Miguel Beyer MD at 14:42 EST ,
--- NOTE | 2022-12-27 13:40 | RAD_ITS ---
STUDY: X-RAY - ABDOMEN/PELVIS REASON FOR EXAM: Female, 82 years old. og placement TECHNIQUE: Single AP view of the abdomen / pelvis. COMPARISON: None. FINDINGS: The tip of the oral gastric tube is in the body of the stomach. A right femoral line is seen. Acute left intertrochanteric fracture. RAD/Abdomen Single View (Portable) IMPRESSION: The tip of the orogastric tube is in the body of the stomach. A right femoral line is seen. Electronically Signed: Juan Miguel Beyer MD at 14:48 EST ,
--- NOTE | 2022-12-27 13:45 | RAD_ITS ---
STUDY: X-RAY - ABDOMEN/PELVIS REASON FOR EXAM: Female, 82 years old. OG TUBE PLACEMENT #2 -- AFTER ADVANCEMENT OF OG TUBE TECHNIQUE: Single AP view of the abdomen / pelvis. COMPARISON: Comparison is made with prior radiograph done earlier in the day. FINDINGS: The tip of the orogastric tube is in the gastric antrum. A right-sided femoral line is seen. Left intertrochanteric fracture. RAD/Abdomen Single View IMPRESSION: The tip of the orogastric tube is in the gastric antrum. Electronically Signed: Juan Miguel Beyer MD at 14:55 EST ,
[2022-12-27] MEDS: fentaNYL drip 100 ML 5 MCG CONT INF (13:57)
[2022-12-27] MEDS: Ceftriaxone 1 GM/50 ML BAG IV (14:11)
--- NOTE | 2022-12-27 14:11 | CT_ITS ---
CT LEFT LOWER EXTREMITY WITH 3-D IMAGING CLINICAL INDICATION: concern for bleeding with recent L hip fx TECHNIQUE: Axial CT images of the LEFT lower extremity was performed IV contrast material. Coronal and sagittal reformats were provided. RADIATION DOSAGE (If Supplied By Facility): CTDIvol = ( 12.06 ) mGy, DLP = ( 587.51 ) mGycm COMPARISON: FINDINGS: Degenerative changes with joint space narrowing at the hip. Comminuted intertrochanteric fracture. Possible subtle fracture at the left inferior pubic ramus. No lytic or blastic osseous masses. Mild effusion at the knee. There is a probable hematoma of the adductor agnes estimated at 4 x 5.2 x [address]/Extremity Lower WITH Contrast IMPRESSION: Intertrochanteric left femoral fracture. Probable hematoma of the abductor agnes Electronically Signed: Mauricio Augustine DO at 17:04 EST Reading Location ID and State: [facility] / [place] Tel [phone], Service support ,
--- NOTE | 2022-12-27 14:11 | CT_ITS ---
INDICATION: concern for bleeding with recent L hip fx EXAMINATION: CT PELVIS BONE - CT Pelvis W/ Contrast Injection TECHNIQUE: Routine noncontrast bone CT protocol was performed of the pelvis. 2-D reformats were performed by the technologist. A radiation dose optimization technique was used for this scan. IV Contrast dosage and agent: None. RADIATION DOSAGE (If Supplied By Facility): CTDIvol = ( 27.95 ) mGy, DLP = ( 758.93 ) mGycm COMPARISON: FINDINGS: Diverticulosis of the visualized colon. Mcknight catheter in a decompressed urinary bladder. 5 mm right renal cyst. There is a comminuted left femoral intertrochanteric fracture. Degenerated hips with joint space narrowing bilaterally. Mild adjacent edema/hematoma in the deep soft tissue window a drainable collection noted. No sclerotic or destructive changes. CT/Pelvis WITH IV Contrast IMPRESSION: Comminuted left femoral intertrochanteric fracture. Electronically Signed: Mauricio Augustine DO at 16:53 EST Reading Location ID and State: [facility] / [place] Tel [phone], Service support ,
--- NOTE | 2022-12-27 14:11 | CT_ITS ---
STUDY: CT BRAIN WITHOUT CONTRAST REASON FOR EXAM: Female, 82 years old. altered mental RADIATION DOSAGE (If Supplied By Facility): CTDIvol = ( 44.99 ) mGy, DLP = ( 829.85 ) mGycm TECHNIQUE: Transaxial CT imaging of the brain was performed without administration of intravenous contrast material. Individualized dose optimization techniques were used for this CT. COMPARISON: No relevant priors. FINDINGS: Normal soft tissue structures. Normal calvarium. Prominent ventricles and extra-axial spaces with mild atrophy. Mild white matter microangiopathic ischemic changes of the cerebral hemispheres. Normal basal ganglia and thalami. Normal brainstem. Normal cerebellum. There is no intracranial hemorrhage. There are no findings of an acute ischemic infarction. Normal visualized paranasal sinuses. CT/Brain/Head without Contrast IMPRESSION: Age-related changes of the brain. Electronically Signed: Mauricio Augustine DO at 16:22 EST ,
--- NOTE | 2022-12-27 14:18 | PRO.PCM_ITS ---
Procedure Report Date of Procedure: 12/27/22 Central Line Procedure Note INDICATION: Shock, need for vascular access. Pt was hemodynamically unstable and needed immediate pressors could not wait for chest x-ray if IJ line was placed. PROCEDURE REGISTERED PHARMACY TECHNICIAN: Hyun De La Cruz MD CONSENT: The procedure was emergent, the patient was unable to provide consent, and a designee was not immediately available. PROCEDURE SUMMARY:My hands were washed immediately prior to the procedure. I wore a surgical cap, mask with protective eyewear, full gown and sterile gloves throughout the procedure. The patient was placed in supine position. RIGHT groin region was prepped using chlorhexidine scrub and draped in sterile fashion using a full drape and sterile probe cover and sterile gel employed. The femoral vein was identified using the ultrasound. Anesthesia was achieved over the vein using 1% lidocaine. Using real-time out of plane guidance, the introducer needle was inserted into the vein under direct ultrasound visualization. Venous blood was withdrawn. The syringe was removed and a guidewire was advanced into the introducer needle. The guidewire was visualized in the Vein by ultrasound. A small incision was made at the skin surface with a scalpel and the introducer needle was exchanged for a dilator over the guidewire. After appropriate dilation was obtained, the dilator was exchanged over the wire for a central venous catheter. The wire was removed and the catheter was sutured in place at _ cm. A sterile sorbaview shield was placed over the catheter at the insertion site. The patient tolerated the procedure without complications. At time of procedure completion, all ports aspirated and flushed properly.
--- NOTE | 2022-12-27 14:23 | PCM.OP.PRO ---
Procedure Report Date of Procedure: 12/27/22 Endotracheal Intubation Procedure Note INDICATION: Acute hypercapnic and hypoxic respiratory failure, failed BiPAP PROCEDURE WAREHOUSE FOREMAN: _ CONSENT: [x] During the informed consent discussion regarding the procedure, or treatment, I explained the following to the next of kin/daughter a. Nature of the procedure or treatment and who will perform the procedure or treatment. b. Necessity for procedure and the possible benefits. c. Risks and complications (most common and serious). d. Alternative treatments and the risks, benefits and side effects of each (including no treatment). e. Likelihood of the patient achieving his/her goals without this procedure and surgery treatment. f. Problems that might occur during the recuperation. g. Conflicts of interest, if any PROCEDURE SUMMARY: A time out was performed. My hands were washed immediately prior to the procedure. I wore a surgical cap, mask and gloves throughout the procedure. The patient was placed on a front desk monitor including continuous pulse oximetry. Rapid Sequence Intubation was conducted. The patient received 20mg of etomidate for induction. Cricoid pressure was maintained from time induction agent was given to time of cuff balloon inflation. Using a 4 MAC direct laryngoscope and a size 7.5 endotracheal tube with stylet, the patient was intubated on the FIRST attempt. The stylet was removed and cuff balloon was inflated. Appropriate endotracheal tube position was confirmed by direct visualization of vocal cord passage, fogging of the tube, CO2 colormetric indicator and symmetric breath sounds. The tube was secured at 23 cm at the lips. Post intubation chest x-ray is pending at this time.
[2022-12-27 14:38] LABS: Allen Test Positive; Base Excess 8 mmol/L (-2 to +2); Bicarbonate 34.1 mmol/L (22-26); Blood Gas Specimen Type ART; Mode AC; O2 Delivery Device Adult Vent; PEEP 5; PO2 144 mmHG (75-100); RR 18; SITE R Radial; SO2 99 % (95-99); Total Carbon Dioxide 36 mmol/L; pCO2 63.3 mmHg (35-45); pH 7.34 (7.35-7.45)
[2022-12-27 14:45] LABS: Hemoglobin 9.3 g/dL (12.0-15.0)
[2022-12-27] MEDS: Pantoprazole Sodium 40 MG in 0.9% Normal Saline (100mL MB+) 100 ML 330 MG IV (14:58)
--- NOTE | 2022-12-27 14:59 | CASEMGMT ---
Addendum entered by Sophy Tucker 12/27/22 15:46: Social Work SW spoke with Abrosyil at [facility]. [facility] will be transporting pt's spouse to [facility] to see pt and will be able to return pt to [facility] at the appropriate time. VILLA met with dgt Fani and updated her of this. Fani appreciative of information. Nursing notified. OZZIE Arias Original Note: Social Work Pt intubated this afternoon. SW met with pt's daughter Fani and offered emotional support. Fani requesting pt's spouse, who lives at [facility], be transported to hospital to see the pt. SW updated daughter that cannot set up transportation for pt but that [facility] should be contacted to assist with this. Dgt states she did call [facility] and did not get transport set up. VILLA placed phone call and left VM with Abrosyil at [facility] and requested return call. Fani was made aware that VILLA left VM at [facility] to discuss transport. OZZIE Yip
[2022-12-27 15:52] LABS: Pathologist Review Reviewed
[2022-12-27 16:09] LABS: Reflex Lactate? Y
[2022-12-27] MEDS: Polyethylene Glycol 3350 17 GM PACKET PO (16:29)
[2022-12-27] MEDS: Senna/Docusate Sodium 1 Tablet 2 TABLET PO ×2 (16:29→21:51)
[2022-12-27] MEDS: Midazolam 2 MG/2 ML Syringe IV ×2 (17:09→21:13)
[2022-12-27 17:34] LABS: Bedside Glucose 131 mg/dL (74-106)
[2022-12-27 17:57] LABS: Lactic Acid 7.4 mmol/L (0.4-1.9)
[2022-12-27 20:16] LABS: Hematocrit 28.9 % (37-47)
[2022-12-27] MEDS: Chlorhexidine 15 ML PO (21:13)
[2022-12-27] MEDS: Pramipexole Di-HCl 0.125 MG Tablet PO (21:51)
[2022-12-27] MEDS: fentaNYL drip 100 ML 15 MCG CONT INF (21:51)
[2022-12-28] VITALS (42 sets, daily range): BP systolic 84–125; BP diastolic 53–83; PULSE 92–139; RESP 12–18; TEMP 36.8–39.2; O2SAT 95–98
[2022-12-28 00:23] LABS: Bedside Glucose 174 mg/dL (74-106)
[2022-12-28] MEDS: Norepinephrine 8 MG in 0.9% Normal Saline (250mL Bag) 242 ML 28.1 MG CONT INF (00:29)
[2022-12-28] MEDS: Ipratropium/Albuterol Sulfate 3 ML AMPUL.NEB INHALATION ×4 (00:59→19:11)
[2022-12-28] MEDS: Midazolam 2 MG/2 ML Syringe IV ×4 (01:18→23:31)
[2022-12-28] MEDS: 0.9% Normal Saline (500mL Bag) 500 ML 999 ML IV (01:50)
[2022-12-28] MEDS: fentaNYL drip 100 ML 7.5 MCG CONT INF (05:32)
[2022-12-28 05:47] LABS: Absolute Neutrophil Count 12.7 X10^3/uL (2.0-7.7); Basophil# 0.02 X10^3/uL; Basophil% 0.1 % (0-1); Hematocrit 25.8 % (37-47); Hemoglobin 8.2 g/dL (12.0-15.0); Lymphocyte % 2.9 % (19-41); Mean Corp Hgb Conc 31.8 g/dL (32-36); Mean Corpuscular Volume 94.5 fL (81-99); Mean Platelet Vol. 11.1 fl (6.2-12.0); Monocyte# 0.46 X10^3/uL; Monocyte% 3.4 % (0-10); NRBC Flagged by Analyzer 0 % (0-5); Neutrophil % 92.9 % (47-70); POSITIVE COUNT YES; POSITIVE DIFFERENTIAL YES; Platelet Count 98 K/mm3 (150-450); RBC Distribution Width CV 16.8 % (11.6-14.6); Red Blood Count 2.73 M/mm3 (4.2-5.4); White Blood Count 13.7 K/mm3 (4.4-11.0)
[2022-12-28 05:54] LABS: Differential Indicated SCAN CRITERIA MET
[2022-12-28 05:59] LABS: Anion Gap 5 (5-15); BUN 44 mg/dL (7-18); BUN/Creat Ratio 36.4 RATIO (10-20); Calcium,Total 8.1 mg/dL (8.5-10.1); Chloride 103 mmol/L (98-107); Creatinine, Serum 1.21 mg/dL (0.55-1.02); EST Glomerular Filtration Rate 45 mL/min (>60); Est Glom Filt Rate - Afr Amer 55 mL/min (>60); Estimated Creatinine Clearance 21.08 ml/min; Glucose 177 mg/dL (74-106); Potassium 5.2 mmol/L (3.5-5.1); Sodium Level 140 mmol/L (136-145)
[2022-12-28 06:00] LABS: Bedside Glucose 172 mg/dL (74-106)
[2022-12-28 06:20] LABS: Lactic Acid 3.9 mmol/L (0.4-1.9)
[2022-12-28 06:35] LABS: Differential Comment SCANNED; Hypochromasia 2+; Platelet Estimate SLT DEC (ADEQ)
[2022-12-28] MEDS: 0.9% Saline Lock 10 ML Syringe IV ×2 (07:53→09:45)
--- NOTE | 2022-12-28 08:31 | ECHOD_ITS ---
Reason For Study: OTHER Procedure This was a 2D Doppler, Color Flow transthoracic echocardiogram. Exam performed portable in ICU/CCU. Left Ventricle Normal LV size. The estimated ejection fraction is 75 %. No regional wall motion abnormalities noted. Right Ventricle Mildly dilated right ventricle. Normal systolic function. Atria Normal left atrium. Normal right atrium. No doppler evidence for ASD. Mitral Valve There is no mitral valve stenosis. No mitral valve insufficiency. Tricuspid Valve There is no tricuspid stenosis. Mild tricuspid valve insufficiency. Pulmonary artery systolic pressure is 95 mmHg. Severe pulmonary hypertension. Aortic Valve Severe diffuse aortic valve thickening. Moderate aortic stenosis. No aortic valve insufficiency. Pulmonic Valve There is no pulmonic valvular stenosis. No pulmonic valve insufficiency. Great Vessels Normal aortic root. Pericardium/Pleural No pericardial effusion. MMode/2D Measurements & Calculations LVIDd: 2.7 cm IVSd: 1.2 cm LVOT diam: 1.8 cm LVIDs: 2.3 cm LVPWd: 1.2 cm LVOT area: 2.5 cm2 FS: 14.5 % LA dimension(2D): 2.4 cm TAPSE: 2.0 cm Time Measurements MV dec time: 0.06 sec Doppler Measurements & Calculations MV E max bret: 63.4 cm/sec Med Peak E' Bret: 8.9 cm/sec MV V2 max: 146.5 cm/sec MV A max bret: 103.9 cm/sec E/E' med: 7.1 MV max P.6 mmHg MV E/A: 0.61 MV V2 mean: 99.5 cm/sec MV mean P.3 mmHg MV V2 VTI: 27.6 cm Ao V2 max: 363.8 cm/sec LV V1 max: 7.9 cm/sec MV dec slope: 1023 cm/sec2 Ao max P.0 mmHg LV V1 max P.02 mmHg Ao V2 mean: 256.5 cm/sec Ao mean P.3 mmHg Ao V2 VTI: 71.5 cm AMALIA(V,D): 0.05 cm2 TR max bret: 466.3 cm/sec TR max P.0 mmHg ECHO/Echo Complete Interpretation Summary The estimated ejection fraction is 75 %. Mildly dilated right ventricle. Pulmonary artery systolic pressure is 95 mmHg. Severe pulmonary hypertension. Moderate aortic stenosis. Ordering Physician: Hyun De La Cruz Referring Physician: Marcello Cobb M.D. Performed By: Aparna Bautista RCS
--- NOTE | 2022-12-28 09:15 | PCM.PN.HOSP ---
Reason for Visit Reason for Visit: Diagnoses Acute and chronic respiratory failure with hypoxia (12/27/22) Displaced intertrochanteric fracture of left femur, initial encounter for closed fracture (12/27/22) Objective Data Objective Data Vital Signs: Vital Signs Temp Pulse Resp BP Pulse Ox O2 Del Method O2 Flow Rate 100.6 F H 139 H 18 90/56 L 97 Mechanical Ventilator 4 12/28/22 08:00 12/28/22 08:00 12/28/22 08:00 12/28/22 08:00 12/28/22 08:00 12/28/22 08:00 12/27/22 10:05 FiO2 40 12/28/22 08:00 Oxygen Flow Rate (L/min) 4 Oxygen Delivery Method Mechanical Ventilator Weight: 83 lb 8.883 oz Body Mass Index (BMI) 14.3 Intake & Output: Intake and Output for Last 24 Hours 12/26/22 12/27/22 12/28/22 23:59 23:59 23:59 Intake Total 2438.40 / 2481.50 788.85 / 788.85 Output Total 220 / 220 275 / 275 Balance 2218.40 / 2261.50 513.85 / 513.85 Medical Nutrition Assessment Dietitian: Malnutrition Criteria Met Start: 12/27/22 14:30 Freq: Status: Active Protocol: Document 12/27/22 14:30 LO (Rec: 12/27/22 14:30 LO Desktop) Nutrition Malnutrition Evidence of Malnutrition Exists Yes Malnutrition (severe): Chronic Evidenced By Suboptimal Energy Intake ( Severe),Weight Loss (Severe) Clinical Problem Chronic Disease or Condition Related Malnutrition Etiology severe related to decreased ability to consume sufficient energy to meet estimated nutrient needs Signs/Symptoms as evidenced by unintentional significant weight loss of 15. 7% in <3 months based upon wt of 99lb per EMR wt hx, estimated PO intake meeting < 75% of estimated energy needs > 3 months, severe muscle wasting/fat loss evident per physical exam in orbital , clavicle, acromion, and temporal areas as well as BMI 14.3. Status Active Problem Recommendation Dietitian Recommendations/Changes Recommend diet advancement to regular diet when indicated; will add 120mL ensure plus high protein 4x/day w/ medpass as well as Magic Cup with lunch and dinner given evidence of malnutrition. Lab / Micro Data 12/28/22 05:20 12/28/22 05:20 Labs: Laboratory Results - last 24 hr 12/27/22 04:31: Diff Path Review Reviewed, Phosphorus 4.7, Magnesium 2.4, Crossmatch See Detail 12/27/22 11:58: Hgb 7.6 L, Hct 26.4 L 12/27/22 11:59: POC Glucose 131 H 12/27/22 12:05: Lactic Acid 3.2 H* 12/27/22 14:35: Hgb 9.3 L, Hct 31.0 L 12/27/22 17:05: Lactic Acid 7.4 H* 12/27/22 17:15: POC Glucose 131 H 12/27/22 20:00: Hgb 9.0 L, Hct 28.9 L 12/27/22 23:58: POC Glucose 174 H 12/28/22 05:20: WBC 13.7 H, RBC 2.73 L, Hgb 8.2 L, Hct 25.8 L, MCV 94.5 D, MCH 30.0, MCHC 31.8 L D, RDW Std Deviation 57.0 H, RDW Coeff of Toney 16.8 H, Plt Count 98 L, MPV 11.1, Immature Gran % (Auto) 0.700, Neut % (Auto) 92.9 H, Lymph % (Auto) 2.9 L, Boundary % (Auto) 3.4, Eos % (Auto) 0.0, Baso % (Auto) 0.1, Absolute Neuts (auto) 12.7 H, Absolute Lymphs (auto) 0.40 L, Nucleated RBC % 0, Differential Comment SCANNED, Platelet Estimate SLT DEC, Hypochromasia 2+, Sodium 140, Potassium 5.2 H, Chloride 103, Carbon Dioxide 32.0, Anion Gap 5, BUN 44 H, Creatinine 1.21 H, Estim Creat Clear Calc 21.08, Est GFR (MDRD) Af Amer 55 L, Est GFR (MDRD) Non-Af 45 L, BUN/Creatinine Ratio 36.4 H, Glucose 177 H, Lactic Acid 3.9 H*, Calcium 8.1 L, Magnesium 2.0 12/28/22 05:33: POC Glucose 172 H 12/28/22 05:46: Ionized Calcium 4.60 Micro: Microbiology 12/27/22 13:50 Sputum, Induced/Lukens Gram Stain - Final ABG Data ABG results: ABG 12/27/22 12/27/22 12:21 14:33 Specimen Type ART ART Sample Site R Radial R Radial pH 7.12 L* 7.34 L Bicarbonate Actual 41.5 H 34.1 H Total CO2 45 36 Base Excess 12 H 8 H O2 Saturation 99 99 O2 % 4.0 75.0 ABG pCO2 127.0 H* 63.3 H ABG pO2 177 H 144 H Abrahan Test Positive Positive Respiration Rate 18 O2 Delivery Device Cannula Adult Vent Vent Mode Not entered AC Tidal Volume 400.0 POC PEEP 5 Crit Call To/Read Back Yes Blood Gas Notified Whom gonzalo Blood Gas Notified Time 12:23:03 Radiography Diagnostic Testing: Radiology Impression Chest X-Ray 12/27/22 13:35 IMPRESSION: The tip of the endotracheal tube is at 2.6 times approximately the fany. The nasogastric tube is seen within the body of the stomach. Hyperinflation. Electronically Signed: Juan Miguel Beyer MD at 14:42 EST , KUB X-Ray 12/27/22 13:40 IMPRESSION: The tip of the orogastric tube is in the body of the stomach. A right femoral line is seen. Electronically Signed: Juan Miguel Beyer MD at 14:48 EST , KUB X-Ray 12/27/22 13:45 IMPRESSION: The tip of the orogastric tube is in the gastric antrum. Electronically Signed: Juan Miguel Beyer MD at 14:55 EST , Brain CT 12/27/22 14:11 IMPRESSION: Age-related changes of the brain. Electronically Signed: Mauricio Augustine DO at 16:22 EST , Lower Extremity CT 12/27/22 14:11 IMPRESSION: Intertrochanteric left femoral fracture. Probable hematoma of the abductor agnes Electronically Signed: Mauricio Augustine DO at 17:04 EST , Pelvis CT 12/27/22 14:11 IMPRESSION: Comminuted left femoral intertrochanteric fracture. Electronically Signed: Mauricio Augustine DO at 16:53 EST , Rhythm Strip Rhythm Strip: Sinus Rhythm Rate: 90 Ectopy: None Physical Exam Narrative Overnight events were recorded. Patient has fever Tmax 100.6 Fahrenheit. Blood pressure is low, lactic acidosis. Entered volume yesterday and started on norepinephrine. Yesterday. On IV antibiotic. Discussed with Dr. Stover and stevedore hold. Patient is sedated. On 40% FiO2, peak pressure 32, PEEP 5. CT shows comminuted intertrochanteric fracture. Probable hematoma of the abductor agnes estimated 4 x 5.2 x 9 cm. Patient had 1 unit of PRBC transfused. Physical exam General: Sedated. HEENT: Eyes closed. Atraumatic, PERRLA, EOMI, Normocephalic Oral: ET and OG tube. Neck: Supple, No JVD, Negative Carotid Bruits Lungs: On vent support. Cardiovascular: Tachycardic. On pressor. 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 Muffled heart sound. Systolic murmur present. Abdomen: Bowel Sounds Present, Soft, Non Tender, Non-Distended : No renal angle tenderness. No suprapubic tenderness. Extremities: No edema, Capillary Refill Less than 3 Seconds Skin: No rashes, No breakdown Musculoskeletal: Left hip abducted, flexed and externally rotated and tender. No Tenderness to Palpation of other joints or Extremities Neurological: Unresponsive, detailed neuro exam unobtainable Psych/Mental Status: History of dementia. Assessment & Plan Assessment/Plan (1) Closed intertrochanteric fracture of left hip: QUALIFIERS: Encounter type: initial encounter Fracture alignment: displaced Qualified Code(s): S72.142A - Displaced intertrochanteric fracture of left femur, initial encounter for closed fracture PLAN: Plan 1. Left hip fracture after fall but suspect pathological fracture from osteoporosis, perioperative management-patient is being admitted in PCU. She had Mcknight catheter. She was on morphine but blood pressure normal as described below. Dr. Quinn Rouse consulted. She was supposed to go for hip surgery but canceled due to hypotension. 12/28: Overnight events were noticed.Patient was intubated yesterday in the afternoon. ABG was 7.1 2/127/177 and was tried on BiPAP for short time but soon intubated. Repeat gas shows 7.34/63 on 75% FiO2. Currently she is on 40% FiO2. Complicated with hematoma of left abductor agnes knee and hip region from fracture. Hemoglobin dropped from baseline 10.4-7.6. Monitor PRBC transfusion. Repeat hemoglobin 8.2. 2. Hypotension, unresponsive, multiple valvular heart disease, severe pulmonary hypertension: Patient blood pressure was low at 68/32 after morphine was given. 1 L of Ringer lactate fluid bolus ordered. Patient is still unresponsive, transferred to ICU. Discussed with stevedore hold. Discussed with global position system technician consulted for same. No need for repeat echo. 12/28: Lactic acidosis, mild grade fever suspicion of going in sepsis. Lactic acidosis may be due to poor perfusion with significant cardiac disease and IV contrast. Patient empirically on IV ceftriaxone. 2D echo is ordered as patient has severe and severe pulmonary hypertension. Discussed with the global position system technician and consult requested. End-stage COPD with chronic pulmonary fibrosis and chronic hypoxic respiratory insufficiency requiring 4 to 5 L/min continuously complicating #1 - Stable with no evidence of flare at this time. Continue as needed nebulizers as previous. 12/28: Patient on IV Solu-Medrol, IV antibiotic. EMILY: Patient baseline creatinine 0.39, increased from 0.6-1.21 more than 0.6 mg/dL in 24 hours. Concern of prerenal or IV contrast induced possible GREGORY. 3. Chronic dementia - Stable, continue home medications as previous. 4. Essential hypertension - Continue home medications as previous. Give IV hydralazine as needed for systolic blood pressure greater than 160 systolic. 5. Depression with anxiety - Continue home medications as previous. Give low-dose as needed Ativan for breakthrough symptoms. 6. DVT prophylaxis - We will avoid preoperative blood thinners due to increased risk of bleeding complications with traumatic fractures. Orthopedic team to decide on postoperative DVT prophylaxis. I discussed the prognosis with the daughter with all chronic severe medical conditions mentioned above prognosis is poor. The same thing was explained to anesthesiologist and orthopedic surgeon that risk is high. Daughter is going to talk to her father regarding CODE STATUS. For practical purposes now full code. Total time of the visit including total time spent in counseling or coordination of care, (more than 50% of the total time, spent in obtaining medical information from nurses and other ancillary care providers,explaining to the patient about labs, imaging, diagnosis and management of active complex medical conditions), discussion with stevedore hold and anesthesiologist, review of labs and imaging is 50 minutes. 2D echo February 2022 Based upon the 2D echocardiographic images obtained there appears to be normal left ventricular size, wall motion, and systolic function. The estimated ejection fraction is 65 %. There is mild mitral annular calcification. Trivial mitral valve insufficiency. Moderate (2+) tricuspid valve insufficiency. Moderate to severe calcific aortic valve stenosis. Right ventricular systolic pressure estimated to be 52 mmHg c/w pulmonary hypertension. Stage 2 diastolic dysfunction. Charges/Coding Visit Charges Inpatient E&M: 97397 Subs Hosp L3
[2022-12-28] MEDS: Acetaminophen 650 MG/20 ML UDC PO ×3 (09:36→20:53)
[2022-12-28] MEDS: Pantoprazole Sodium 40 MG in 0.9% Normal Saline (100mL MB+) 100 ML 330 MG IV (09:36)
[2022-12-28] MEDS: 0.9% Normal Saline (1000mL) 1,000 ML 100 ML IV (09:36)
[2022-12-28] MEDS: Chlorhexidine 15 ML PO ×2 (09:38→20:53)
[2022-12-28] MEDS: Polyethylene Glycol 3350 17 GM PACKET PO (09:39)
[2022-12-28] MEDS: Senna/Docusate Sodium 1 Tablet 2 TABLET PO ×2 (09:39→20:54)
[2022-12-28 09:48] LABS: Reflex Lactate? Y
--- NOTE | 2022-12-28 09:59 | PN.CC_ITS ---
Assessment & Plan Assessment/Plan (1) Acute on chronic hypoxic respiratory failure: PLAN: Plan Assessment * Acute on chronic hypoxic and hypercapnic respiratory failure s/p intubation on 12/27 * COPD exacerbation * Acute on chronic respiratory acidosis * Closed intra trochanteric fracture of the left hip with hematoma of the abductor agnes * Septic shock * EMILY likely 2/2 ATN * lactic acidosis * End-stage COPD on 4 to 5 L oxygen at home * Severe aortic stenosis * Dementia * Debility * Severe calorie malnutrition BMI 14 Plan * She remains on the vent. FiO2 weaned down to 40% and RR down to 14. She remains on peep of 5 and TV 400. Peak P remains around 30. * Cont duonebs and solumedrol 40 every 6h * H and H has been stable. No signs of GIB. Received a unit of blood with improvement of hemoglobin. Discussed with Ortho, her hip injury is unlikely to cause arterial bleed. * Patient has spiked a fever Tmax of 101.2, leukocytosis improved to 12 from 23. Unclear source of infection at this time except for possible UTI. Will obtain urine culture. Blood cultures and a tracheal aspirate obtained yesterday. Switch antibiotics to Vanco and cefepime for broad coverage. * Patient's hemoglobin has been trending down. Concern for internal bleeding at the site of hip fracture. Orthopedics is on board. She is receiving unit of blood. H&H Q6. Will obtain CT scan * wean levophed as tolerated * She remains in traction for her L hip fx. She is not currently a surgical candidate * GI ppx IV protonix * Bowel regimen * Start tube feeds * DVT ppx SCD * Lines right femoral line * Mcknight: present Pt has poor prognosis given her advanced age and severe COPD as well as other comorbid conditions. Discussion today with ortho (Dr Rouse), anaesthesia (Dr King) and primary (Dr Orlando). Pt is critically ill on the vent and requiring pressor support. She also has severe and is now appearing to be septic with increasing temp. She is not a surgical candidate at the moment. I had a family meeting with the patient OK (her daughter) with the presence of patient's RN and med student. Discussed patient's underlying conditions and comorbidities including end-stage COPD and aortic stenosis as well as her severe calorie malnutrition and her current acute conditions requiring the vent and septic shock as well as EMILY. I discussed that the patient is already very ill to begin with and will unlikely covered to go back to baseline. Daughter wishes to take mother home. I explained that this is very unlikely scenario given her current condition. Daughter switched CODE STATUS to DNR. She would like her father to come see the patient again today and possibly withdraw care tomorrow. Emotional support provided and all questions answered. I spent 40 minutes of critical care time excluding the procedure time. I reviewed lab work, images, previous records and medication list. Subjective Subjective Remains on the vent, she's now febrile. Discussed with ortho (Dr Rouse), anaesthesia (Dr King) and primary (Dr Orlando). Pt is critically ill on the vent and requiring pressor support. She also has severe and is now appearing to be septic with increasing temp. She is not a surgical candidate at the [facility]. Objective Data Objective Data Vital Signs: Vital Signs Temp Pulse Resp BP Pulse Ox O2 Del Method O2 Flow Rate 38.1 C H 139 H 18 90/56 L 97 Mechanical Ventilator 4 12/28/22 08:00 12/28/22 08:00 12/28/22 08:00 12/28/22 08:00 12/28/22 08:00 12/28/22 08:00 12/27/22 10:05 FiO2 40 12/28/22 08:00 Oxygen Flow Rate (L/min) 4 Oxygen Delivery Method Mechanical Ventilator Weight: 37.9 kg Body Mass Index (BMI) 14.3 Intake & Output: Intake and Output for Last 24 Hours 12/26/22 12/27/22 12/28/22 23:59 23:59 23:59 Intake Total 2438.40 / 2481.50 788.85 / 788.85 Output Total 220 / 220 275 / 275 Balance 2218.40 / 2261.50 513.85 / 513.85 Medical Nutrition Assessment Dietitian: Malnutrition Criteria Met Start: 12/27/22 14:30 Freq: Status: Active Protocol: Document 12/28/22 09:42 (Rec: 12/28/22 09:42 [id number]) Nutrition Malnutrition Evidence of Malnutrition Exists Yes Malnutrition (severe): Chronic Evidenced By Suboptimal Energy Intake ( Severe),Weight Loss (Severe) Clinical Problem Chronic Disease or Condition Related Malnutrition Etiology severe chronic malnutrition related to decreased ability to consume sufficient energy to meet estimated nutrient needs Signs/Symptoms as evidenced by unintentional significant weight loss of 15. 7% in <3 months based upon wt of 99lb per EMR wt hx , estimated PO intake meeting <75% of estimated energy needs > 3 months, severe muscle wasting/fat loss evident per physical exam in orbital, clavicle, acromion, and temporal areas as well as BMI 14.3. Status Active Problem Recommendation Dietitian Recommendations/Changes NPO while intubated; Via OGT- Vital AF 1.2 at goal rate of 50mL/hour w/ 75mL H2O flush every 4 hours to provide 1440 calories, 90 g protein, and 1423mL total fluid/day. Would start at 20mL/hour and increase by 10mL/hour every 8- 12 hours as tolerated until goal rate is achieved. Close monitoring of electrolytes given risk for refeeding. Daily wts. Lab / Micro Data 12/28/22 05:20 12/28/22 05:20 Labs: Laboratory Results - last 24 hr 12/27/22 04:31: Diff Path Review Reviewed, Phosphorus 4.7, Magnesium 2.4, Crossmatch See Detail 12/27/22 11:58: Hgb 7.6 L, Hct 26.4 L 12/27/22 11:59: POC Glucose 131 H 12/27/22 12:05: Lactic Acid 3.2 H* 12/27/22 14:35: Hgb 9.3 L, Hct 31.0 L 12/27/22 17:05: Lactic Acid 7.4 H* 12/27/22 17:15: POC Glucose 131 H 12/27/22 20:00: Hgb 9.0 L, Hct 28.9 L 12/27/22 23:58: POC Glucose 174 H 12/28/22 05:20: WBC 13.7 H, RBC 2.73 L, Hgb 8.2 L, Hct 25.8 L, MCV 94.5 D, MCH 30.0, MCHC 31.8 L D, RDW Std Deviation 57.0 H, RDW Coeff of Toney 16.8 H, Plt Count 98 L, MPV 11.1, Immature Gran % (Auto) 0.700, Neut % (Auto) 92.9 H, Lymph % (Auto) 2.9 L, Bucks % (Auto) 3.4, Eos % (Auto) 0.0, Baso % (Auto) 0.1, Absolute Neuts (auto) 12.7 H, Absolute Lymphs (auto) 0.40 L, Nucleated RBC % 0, Differential Comment SCANNED, Platelet Estimate SLT DEC, Hypochromasia 2+, Sod ium 140, Potassium 5.2 H, Chloride 103, Carbon Dioxide 32.0, Anion Gap 5, BUN 44 H, Creatinine 1.21 H, Estim Creat Clear Calc 21.08, Est GFR (MDRD) Af Amer 55 L, Est GFR (MDRD) Non-Af 45 L, BUN/Creatinine Ratio 36.4 H, Glucose 177 H, Lactic Acid 3.9 H*, Calcium 8.1 L, Magnesium 2.0 12/28/22 05:33: POC Glucose 172 H 12/28/22 05:46: Ionized Calcium 4.60 Micro: Microbiology 12/27/22 13:50 Sputum, Induced/Lukens Gram Stain - Final ABG Data ABG results: ABG 12/27/22 12/27/22 12:21 14:33 Specimen Type ART ART Sample Site R Radial R Radial pH 7.12 L* 7.34 L Bicarbonate Actual 41.5 H 34.1 H Total CO2 45 36 Base Excess 12 H 8 H O2 Saturation 99 99 O2 % 4.0 75.0 ABG pCO2 127.0 H* 63.3 H ABG pO2 177 H 144 H Abrahan Test Positive Positive Respiration Rate 18 O2 Delivery Device Cannula Adult Vent Vent Mode Not entered AC Tidal Volume 400.0 POC PEEP 5 Crit Call To/Read Back Yes Blood Gas Notified Whom gonzalo Blood Gas Notified Time 12:23:03 Radiography Diagnostic Testing: Radiology Impression Chest X-Ray 12/27/22 13:35 IMPRESSION: The tip of the endotracheal tube is at 2.6 times approximately the fany. The nasogastric tube is seen within the body of the stomach. Hyperinflation. Electronically Signed: Juan Miguel Beyer MD at 14:42 EST , KUB X-Ray 12/27/22 13:40 IMPRESSION: The tip of the orogastric tube is in the body of the stomach. A right femoral line is seen. Electronically Signed: Juan Miguel Beyer MD at 14:48 EST , KUB X-Ray 12/27/22 13:45 IMPRESSION: The tip of the orogastric tube is in the gastric antrum. Electronically Signed: Juan Miguel Beyer MD at 14:55 EST , Brain CT 12/27/22 14:11 IMPRESSION: Age-related changes of the brain. Electronically Signed: Mauricio Augustine DO at 16:22 EST , Lower Extremity CT 12/27/22 14:11 IMPRESSION: Intertrochanteric left femoral fracture. Probable hematoma of the abductor agnes Electronically Signed: Mauricio Augustine DO at 17:04 EST , Pelvis CT 12/27/22 14:11 IMPRESSION: Comminuted left femoral intertrochanteric fracture. Electronically Signed: Mauricio Augustine DO at 16:53 EST , Rhythm Strip Rhythm Strip: Sinus Rhythm Rate: 90 Ectopy: None Physical Exam Narrative General intubated and sedated HEENT. Normocephalic atraumatic, pupils equal and reactive Respiratory reduced air entry bilaterally, mild end expiratory wheeze, no crackles Cardiac S1-S2, regular rate and rhythm GI abdomen soft and nontender MSK L hip displaced and painful Skin no rashes Neuro intubated and sedated Charges/Coding Procedures Hospitalists Procedures: 31628 Critial Care 1st Hr
--- NOTE | 2022-12-28 10:00 | PCM.RX.CS ---
Consult Antibiotic Management Pharmacy has been consulted to manage selected antiobiotic: Vancomycin Type of Intervention Type of Consult: New start Suspected Infection Suspected Infection: Other Labs Labs: Sodium 140 mmol/L (136-145) 12/28/22 05:20 Potassium 5.2 mmol/L (3.5-5.1) H 12/28/22 05:20 Chloride 103 mmol/L (98-107) 12/28/22 05:20 Carbon Dioxide 32.0 mmol/L (21.0-32.0) 12/28/22 05:20 Anion Gap 5 (5-15) 12/28/22 05:20 BUN 44 mg/dL (7-18) H 12/28/22 05:20 Creatinine 1.21 mg/dL (0.55-1.02) H 12/28/22 05:20 Est GFR (MDRD) Af Amer 55 mL/min (>60) L 12/28/22 05:20 Est GFR (MDRD) Non-Af 45 mL/min (>60) L 12/28/22 05:20 BUN/Creatinine Ratio 36.4 RATIO (10-20) H 12/28/22 05:20 Glucose 177 mg/dL (74-106) H 12/28/22 05:20 Microbiology Microbiology: Microbiology 12/27/22 13:50 Sputum, Induced/Lukens Gram Stain - Final Dosing Weight Weight used for dosin.9 kg Estimated Creatinine Clearance Estimated Creatinine Clearance: 21.1 Goal Trough Goal Trough: 15-20 mcg/mL Pharmacy Plan for Drug Dosing Pharmacy Plan for Drug Dosing: NEW START IV VANCOMYCIN Consulting Physician: Dr. nAdi De La Cruz Indication: Febrile illness Goal Trough: 15-20 SrCr: 1.21 CrCl: 21.1 ml/min Comments: Standard initial dose (15 mg/kg) 500mg x1 to be given @ 11:00 12/28/22 Vancomycin Dose: 250mg Q24H to start @ 11:00 12/29/22 Pending Level: (Random) Vancomycin level @ :12/30/22 Pharmacy Service will continue to monitor and adjust dosing as required. Follow-Up Labs Follow-Up Labs: Trough: Vancomycin (10:30 12/30/22)
--- NOTE | 2022-12-28 10:15 | NURSING ---
Dr. De La Cruz in to speak with daughterFani. Update given regarding patient's condition and poor prognosis. Options discussed regarding plan of care going forward and aggressive versus comfort measures. Daughter agreeable to change code status to DNR-CCA as she does not want her mother to have any more pain. She is considering hospice/comfort measures but is not ready to make that decision yet. Daughter is tearful, emotional support given. VILLA Beckett called to provide additional support.
[2022-12-28 10:24] LABS: Lactic Acid 2.2 mmol/L (0.4-1.9)
[2022-12-28 10:25] LABS: Procalcitonin 0.41 ng/mL (0.00-0.09)
--- NOTE | 2022-12-28 10:34 | RAD_ITS ---
STUDY: X-RAY CHEST REASON FOR EXAM: Female, 82 years old. Suspected pneumonia TECHNIQUE: Single AP portable view of the chest. COMPARISON: Comparison is made with prior study dated December 27, 2022. FINDINGS: An endotracheal tube is in situ. The tip is at the level of the fany. It should be withdrawn approximately 2 cm. An orogastric tube is seen with the tip below the left hemidiaphragm. There is hyperinflation of the lungs consistent with chronic obstructive lung disease (COPD). There is no demonstrated pleural abnormality. Normal size heart. Normal mediastinum and grace. Normal visualized pulmonary arteries. Normal visualized aortic arch and descending thoracic aorta. There are diffuse degenerative changes of the visualized thoracic spine. Dextroscoliosis. Normal visualized ribs, clavicles, and shoulders. There is no demonstrated abnormality of the visualized soft tissue structures of the upper abdomen. RAD/Chest 1 View (Portable) IMPRESSION: Hyperinflation. No acute infiltrate is seen. The tip of the endotracheal tube should be pulled back approximately 2 cm. Electronically Signed: Juan Miguel Beyer MD at 11:13 [facility] ,
[2022-12-28 10:49] LABS: Allen Test Positive; Base Excess 8 mmol/L (-2 to +2); Bicarbonate 31.6 mmol/L (22-26); Blood Gas Specimen Type ART; Mode AC; O2 Delivery Device Adult Vent; PEEP 5; PO2 92 mmHG (75-100); RR 14; SITE R Radial; SO2 98 % (95-99); Total Carbon Dioxide 33 mmol/L; pCO2 42.3 mmHg (35-45); pH 7.48 (7.35-7.45)
[2022-12-28] MEDS: Cefepime HCl 1 GM in 0.9% Normal Saline (50mL MB+) 50 ML IV (10:49)
[2022-12-28] MEDS: Vancomycin IV 500 MG/100 ML BAG 100 MG IV (10:49)
--- NOTE | 2022-12-28 10:59 | NURSING ---
Vascular in room to do Venous duplex U/S. Daughter, Fani requesting not to do test in fear of causing patient more pain. Dr. De La Cruz to room to discuss with daughter. Daughter continued to state she didn't feel test was necessary and didn't want to cause more pain. Dr. De La Cruz canceled test per request of daughter.
[2022-12-28 11:50] LABS: Bedside Glucose 161 mg/dL (74-106)
[2022-12-28] MEDS: Azithromycin 500 MG in Dextrose 5%-Water (250mL Bag) 250 ML 250 MG IV (13:33)
[2022-12-28 13:40] LABS: Ionized Calcium Order ORDER TUBE
[2022-12-28 13:48] LABS: Reflex Lactate? Y
--- NOTE | 2022-12-28 14:05 | CON.PCM.OR_ITS ---
HPI Consult Data Date of Consult: 12/28/22 HPI Narrative HPI Narrative: NEERAJ LYNN, is a 82 F who presents with left hip pain. She sustained a fracture 12/27/2022. Reportedly patient [facility] at the [place] [facility]. Reportedly had symptoms 1 hour prior to arrival at the emergency room. She had noted deformity of the left hip. She denied loss of consciousness. No headache. She originally was admitted to the general medical floor for ongoing care and expected hip surgery. Orthopedics was consulted. Surgery was planned for 12-27. Patient decompensated medically and was deemed not a good surgical candidate at that point. Surgery was rescheduled for today 12-28. However patient was again felt to not be a good surgical candidate by the anesthesia department. Patient has been intubated. She has had blood transfusion. [facility] Medical History Anxiety Anxiety and depression Cachectic Chronic respiratory failure with hypoxia Congestive heart failure (CHF) Dementia Dementia Emphysema lung Non-smoker On home oxygen therapy Protein calorie malnutrition Pulmonary fibrosis Pulmonary HTN Severe protein-calorie malnutrition Valvular heart disease Home Medications albuterol sulfate 90 mcg/actuation aerosol inhaler 1 puff inhalation DAILY shortness of breath 01/30/21 [History Last Taken 12/13/22] ropinirole 0.25 mg tablet 0.25 mg PO QHS restless legs 03/14/22 [History Last Taken 12/13/22] mirtazapine 7.5 mg tablet 7.5 mg PO QHS 07/27/22 [History Last Taken 12/13/22] umeclidinium 62.5 mcg-vilanterol 25 mcg/actuation pow for inhalation (Anoro Ellipta) 1 inh inhalation DAILY 07/27/22 [History Last Taken 12/14/22] metoprolol tartrate 25 mg tablet 25 mg PO BID #60 tabs 07/30/22 [Rx Last Taken 12/14/22] food supplemt, lactose-reduced 0.08 gram-1.5 kcal/mL oral liquid (Ensure Plus High Protein) 120 ml PO 4X/DAY #0 mL 12/18/22 [Rx Last Taken Unknown] acetaminophen 325 mg capsule 650 mg PO Q4H PRN fever or pain 12/26/22 [History Last Taken Unknown] acetaminophen 650 mg rectal suppository 650 mg TN Q4H 12/26/22 [History Last Taken Unknown] albuterol sulfate 90 mcg/actuation aerosol inhaler 2 puff inhalation Q6H PRN sob 12/26/22 [History Last Taken Unknown] lorazepam 0.5 mg tablet 0.5 mg PO BID 12/26/22 [History Last Taken Unknown] prednisone 10 mg tablet 20 mg PO DAILY 12/26/22 [History Last Taken Unknown] sertraline 25 mg tablet 25 mg PO QHS 12/26/22 [History Last Taken Unknown] Allergy/AdvReac Type Severity Reaction Status Date / Time Tetanus Vaccines and Toxoid Allergy Unknown Verified 12/14/22 15:17 [Tetanus Vaccines & Toxoid] Family History Other Heart disease Surgical History History of cholecystectomy Social History household members: spouse and family Smoking Status: Never smoker alcohol intake: never substance use type: does not use ROS ROS Narrative He is currently intubated. Review of systems could not be obtained from the patient. Previous review of systems obtained from emergency room had been reviewed Vital Signs Vital Signs Vital Signs: 12/27/22 14:10 12/27/22 14:47 12/27/22 14:15 Temperature 96.9 F L Temperature Source Temporal Pulse Rate 101 H 101 H 101 H Pulse Strength Respiratory Rate 18 Respiratory Effort Respiratory Depth Respiratory Pattern Blood Pressure 90/79 90/79 90/79 Blood Pressure Mean 82 82 82 Blood Pressure Source Monitor Blood Pressure Position Semi-Fowlers Blood Pressure Location Left Arm Pulse Ox 95 Oxygen Delivery Method Mechanical Ventilator Fraction of Inspired Oxygen (FIO2) 12/27/22 14:30 12/27/22 15:10 12/27/22 15:56 Temperature Temperature Source Pulse Rate 106 H 112 H Pulse Strength Respiratory Rate 18 Respiratory Effort Mechanically Ventilated Respiratory Depth Normal Respiratory Pattern Normal Blood Pressure 111/57 L 105/46 L Blood Pressure Mean 75 65 Blood Pressure Source Blood Pressure Position Semi-Fowlers Blood Pressure Location Left Arm Pulse Ox 91 Oxygen Delivery Method Mechanical Ventilator Mechanical Ventilator Fraction of Inspired Oxygen (FIO2) 50 50 12/27/22 16:00 12/27/22 15:30 12/27/22 16:37 Temperature Temperature Source Pulse Rate 114 H 113 H 109 H Pulse Strength Respiratory Rate 25 H 18 18 Respiratory Effort Respiratory Depth Respiratory Pattern Normal Normal Blood Pressure 107/51 L Blood Pressure Mean 69 Blood Pressure Source Blood Pressure Position Blood Pressure Location Pulse Ox 99 91 96 Oxygen Delivery Method Ambu-Bag Fraction of Inspired Oxygen (FIO2) 40 40 12/27/22 17:00 12/27/22 17:30 12/27/22 16:00 Temperature 98.7 F 98 F Temperature Source Temporal Temporal Pulse Rate 117 H 107 H Pulse Strength Respiratory Rate 18 13 Respiratory Effort Respiratory Depth Respiratory Pattern Blood Pressure 95/75 63/51 L 107/51 L Blood Pressure Mean 81 55 69 Blood Pressure Source Blood Pressure Position Blood Pressure Location Pulse Ox 96 Oxygen Delivery Method Mechanical Ventilator Mechanical Ventilator Fraction of Inspired Oxygen (FIO2) 40 12/27/22 17:45 12/27/22 18:00 12/27/22 18:15 Temperature Temperature Source Pulse Rate 110 H Pulse Strength Respiratory Rate 18 Respiratory Effort Respiratory Depth Respiratory Pattern Blood Pressure 85/64 L 82/58 L 91/63 Blood Pressure Mean 71 66 72 Blood Pressure Source Blood Pressure Position Semi-Fowlers Semi-Fowlers Semi-Fowlers Blood Pressure Location Left Arm Left Arm Left Arm Pulse Ox 97 Oxygen Delivery Method Mechanical Ventilator Fraction of Inspired Oxygen (FIO2) 40 12/27/22 18:30 12/27/22 19:00 12/27/22 20:00 Temperature 98.0 F Temperature Source Temporal Pulse Rate 120 H 125 H Pulse Strength Respiratory Rate 18 18 Respiratory Effort Respiratory Depth Respiratory Pattern Blood Pressure 94/63 131/79 H 91/47 L Blood Pressure Mean 73 96 61 Blood Pressure Source Monitor Blood Pressure Position Semi-Fowlers Semi-Fowlers Blood Pressure Location Left Arm Left Arm Pulse Ox 96 96 Oxygen Delivery Method Mechanical Ventilator Mechanical Ventilator Fraction of Inspired Oxygen (FIO2) 40 40 12/27/22 20:15 12/27/22 20:30 12/27/22 20:45 Temperature Temperature Source Pulse Rate 122 H 116 H 120 H Pulse Strength Respiratory Rate Respiratory Effort Respiratory Depth Respiratory Pattern Blood Pressure 93/68 111/60 104/63 Blood Pressure Mean 76 77 76 Blood Pressure Source Monitor Monitor Monitor Blood Pressure Position Blood Pressure Location Pulse Ox Oxygen Delivery Method Fraction of Inspired Oxygen (FIO2) 12/27/22 21:00 12/27/22 18:45 12/27/22 18:45 Temperature Temperature Source Pulse Rate 124 H 119 H 113 H Pulse Strength Respiratory Rate 18 18 18 Respiratory Effort Respiratory Depth Respiratory Pattern Normal Normal Blood Pressure 115/56 L Blood Pressure Mean 75 Blood Pressure Source Monitor Blood Pressure Position Blood Pressure Location Pulse Ox 96 96 Oxygen Delivery Method Mechanical Ventilator Fraction of Inspired Oxygen (FIO2) 40 40 12/27/22 20:00 12/27/22 21:30 12/27/22 22:00 Temperature 97.9 F Temperature Source Temporal Pulse Rate 124 H 121 H Pulse Strength Respiratory Rate 18 Respiratory Effort Mechanically Ventilated Respiratory Depth Normal Respiratory Pattern Normal Blood Pressure 82/56 L 105/64 Blood Pressure Mean 64 77 Blood Pressure Source Monitor Blood Pressure Position Blood Pressure Location Pulse Ox 40 97 Oxygen Delivery Method Mechanical Ventilator Mechanical Ventilator Fraction of Inspired Oxygen (FIO2) 40 12/27/22 22:00 12/27/22 23:00 12/28/22 00:00 Temperature 97.9 F 98.2 F Temperature Source Temporal Temporal Pulse Rate 121 H 121 H 117 H Pulse Strength Respiratory Rate 18 18 18 Respiratory Effort Respiratory Depth Respiratory Pattern Blood Pressure 105/64 104/68 108/67 Blood Pressure Mean 77 80 80 Blood Pressure Source Monitor Monitor Monitor Blood Pressure Position Blood Pressure Location Pulse Ox 97 97 97 Oxygen Delivery Method Mechanical Ventilator Mechanical Ventilator Mechanical Ventilator Fraction of Inspired Oxygen (FIO2) 40 40 40 12/28/22 00:00 12/28/22 00:00 12/28/22 01:00 Temperature 98.2 F Temperature Source Temporal Pulse Rate 117 H 125 H Pulse Strength Respiratory Rate 18 18 Respiratory Effort Mechanically Ventilated Respiratory Depth Normal Respiratory Pattern Normal Blood Pressure 108/67 98/69 Blood Pressure Mean 80 78 Blood Pressure Source Monitor Monitor Blood Pressure Position Blood Pressure Location Pulse Ox 97 97 Oxygen Delivery Method Mechanical Ventilator Mechanical Ventilator Mechanical Ventilator Fraction of Inspired Oxygen (FIO2) 40 40 40 12/28/22 02:00 12/27/22 22:13 12/28/22 00:59 Temperature Temperature Source Pulse Rate 130 H 120 H 122 H Pulse Strength Respiratory Rate 18 18 18 Respiratory Effort Respiratory Depth Respiratory Pattern Normal Normal Blood Pressure 125/71 H Blood Pressure Mean 89 Blood Pressure Source Monitor Blood Pressure Position Blood Pressure Location Pulse Ox 98 97 Oxygen Delivery Method Mechanical Ventilator Fraction of Inspired Oxygen (FIO2) 40 40 12/28/22 00:59 12/28/22 03:00 12/28/22 03:15 Temperature Temperature Source Pulse Rate 120 H 129 H 128 H Pulse Strength Respiratory Rate 18 18 18 Respiratory Effort Respiratory Depth Respiratory Pattern Normal Blood Pressure 111/67 99/60 Blood Pressure Mean 81 73 Blood Pressure Source Monitor Monitor Blood Pressure Position Blood Pressure Location Pulse Ox 97 97 97 Oxygen Delivery Method Mechanical Ventilator Mechanical Ventilator Fraction of Inspired Oxygen (FIO2) 40 40 40 12/28/22 03:30 12/28/22 03:45 12/28/22 04:00 Temperature Temperature Source Pulse Rate 126 H 127 H 126 H Pulse Strength Respiratory Rate 18 18 Respiratory Effort Respiratory Depth Respiratory Pattern Blood Pressure 105/62 96/61 95/63 Blood Pressure Mean 76 72 73 Blood Pressure Source Monitor Monitor Monitor Blood Pressure Position Blood Pressure Location Pulse Ox 97 97 Oxygen Delivery Method Mechanical Ventilator Mechanical Ventilator Fraction of Inspired Oxygen (FIO2) 40 40 12/28/22 04:30 12/28/22 04:00 12/28/22 05:00 Temperature 99.2 F H Temperature Source Temporal Pulse Rate 126 H 125 H Pulse Strength Respiratory Rate 18 18 Respiratory Effort Mechanically Ventilated Respiratory Depth Normal Respiratory Pattern Normal Blood Pressure 96/64 101/62 Blood Pressure Mean 74 75 Blood Pressure Source Monitor Monitor Blood Pressure Position Blood Pressure Location Pulse Ox 97 97 Oxygen Delivery Method Mechanical Ventilator Mechanical Ventilator Fraction of Inspired Oxygen (FIO2) 40 40 12/28/22 06:00 12/28/22 06:15 12/28/22 04:45 Temperature Temperature Source Pulse Rate 127 H 127 H 125 H Pulse Strength Respiratory Rate 18 18 Respiratory Effort Respiratory Depth Respiratory Pattern Normal Blood Pressure 118/70 84/61 L Blood Pressure Mean 86 68 Blood Pressure Source Monitor Monitor Blood Pressure Position Blood Pressure Location Pulse Ox 97 98 Oxygen Delivery Method Mechanical Ventilator Fraction of Inspired Oxygen (FIO2) 40 40 12/28/22 06:30 12/28/22 06:45 12/28/22 07:00 Temperature Temperature Source Pulse Rate 126 H 124 H 125 H Pulse Strength Respiratory Rate 18 Respiratory Effort Respiratory Depth Respiratory Pattern Blood Pressure 97/58 L 104/58 L 87/68 L Blood Pressure Mean 71 73 74 Blood Pressure Source Monitor Monitor Monitor Blood Pressure Position Blood Pressure Location Pulse Ox 98 Oxygen Delivery Method Mechanical Ventilator Fraction of Inspired Oxygen (FIO2) 40 12/28/22 07:28 12/28/22 07:28 12/28/22 07:15 Temperature Temperature Source Pulse Rate 128 H 129 H Pulse Strength Respiratory Rate 18 18 Respiratory Effort Respiratory Depth Respiratory Pattern Normal Normal Blood Pressure 105/61 Blood Pressure Mean 75 Blood Pressure Source Monitor Blood Pressure Position Semi-Fowlers Blood Pressure Location Left Arm Pulse Ox 97 Oxygen Delivery Method Fraction of Inspired Oxygen (FIO2) 40 12/28/22 08:00 12/28/22 07:45 12/28/22 10:00 Temperature 100.6 F H Temperature Source Temporal Pulse Rate 139 H Pulse Strength Weak (1+) Respiratory Rate 18 Respiratory Effort Non-Labored Mechanically Ventilated Respiratory Depth Normal Respiratory Pattern Normal Blood Pressure 90/56 L Blood Pressure Mean 67 Blood Pressure Source Monitor Blood Pressure Position Semi-Fowlers Blood Pressure Location Left Arm Pulse Ox 97 Oxygen Delivery Method Mechanical Ventilator Mechanical Ventilator Fraction of Inspired Oxygen (FIO2) 40 40 12/28/22 13:05 Temperature Temperature Source Pulse Rate 102 H Pulse Strength Respiratory Rate 12 Respiratory Effort Respiratory Depth Respiratory Pattern Normal Blood Pressure Blood Pressure Mean Blood Pressure Source Blood Pressure Position Blood Pressure Location Pulse Ox 96 Oxygen Delivery Method Fraction of Inspired Oxygen (FIO2) 40 Weight Weight: 37.9 kg Body Mass Index (BMI) 14.3 Physical Exam Narrative Patient is supine in bed. She is intubated. Her daughter was present. Patient has Westfall's traction on left lower extremity. Patient has mild deformity at the left hip. She has mild swelling at the left hip. No severe bruising at this point. No tenseness to the compartments of her thigh or buttock region. No significant swelling at the knee or lower legs. Left hip was not moved. Right lower extremity has JENIFFER hose and SCDs on. Distal pulses are faintly palpable each foot. Hip had no severe pain with gentle motion. Intubated and not following commands. Medical Records Data Medical Nutrition Assessment Dietitian: Malnutrition Criteria Met Start: 12/27/22 14:30 Freq: Status: Active Protocol: Document 12/28/22 09:42 (Rec: 12/28/22 09:42 [id number]) Nutrition Malnutrition Evidence of Malnutrition Exists Yes Malnutrition (severe): Chronic Evidenced By Suboptimal Energy Intake ( Severe),Weight Loss (Severe) Clinical Problem Chronic Disease or Condition Related Malnutrition Etiology severe chronic malnutrition related to decreased ability to consume sufficient energy to meet estimated nutrient needs Signs/Symptoms as evidenced by unintentional significant weight loss of 15. 7% in <3 months based upon wt of 99lb per EMR wt hx , estimated PO intake meeting <75% of estimated energy needs > 3 months, severe muscle wasting/fat loss evident per physical exam in orbital, clavicle, acromion, and temporal areas as well as BMI 14.3. Status Active Problem Recommendation Dietitian Recommendations/Changes NPO while intubated; Via OGT- Vital AF 1.2 at goal rate of 50mL/hour w/ 75mL H2O flush every 4 hours to provide 1440 calories, 90 g protein, and 1423mL total fluid/day. Would start at 20mL/hour and increase by 10mL/hour every 8- 12 hours as tolerated until goal rate is achieved. Close monitoring of electrolytes given risk for refeeding. Daily wts. Lab / Micro Data Attestation: I reviewed the patient's lab results. Lab results narrative: X-rays on admission AP pelvis AP and lateral of left hip showed a displaced intertrochanteric hip fracture with avulsion of the lesser trochanter, varus deformity. [place] anterior angulation on the lateral view. Some hip joint arthritis bilaterally. CT scan of the pelvis and left hip with and without contrast reviewed showing comminuted intertrochanteric left hip fracture. Probable hematoma noted is likely consistent with hip fracture, obvious expect unexpected abnormal bleeding into the site noted by my review. Images and report reviewed. 12/28/22 05:20 12/28/22 05:20 Labs: Laboratory Results - last 24 hr 12/27/22 04:31: Diff Path Review Reviewed, Crossmatch See Detail 12/27/22 14:35: Hgb 9.3 L, Hct 31.0 L 12/27/22 17:05: Lactic Acid 7.4 H* 12/27/22 17:15: POC Glucose 131 H 12/27/22 20:00: Hgb 9.0 L, Hct 28.9 L 12/27/22 23:58: POC Glucose 174 H 12/28/22 05:20: WBC 13.7 H, RBC 2.73 L, Hgb 8.2 L, Hct 25.8 L, MCV 94.5 D, MCH 30.0, MCHC 31.8 L D, RDW Std Deviation 57.0 H, RDW Coeff of Toney 16.8 H, Plt Count 98 L, MPV 11.1, Immature Gran % (Auto) 0.700, Neut % (Auto) 92.9 H, Lymph % (Auto) 2.9 L, [place] % (Auto) 3.4, Eos % (Auto) 0.0, Baso % (Auto) 0.1, Absolute Neuts (auto) 12.7 H, Absolute Lymphs (auto) 0.40 L, Nucleated RBC % 0, Differential Comment SCANNED, Platelet Estimate SLT DEC, Hypochromasia 2+, Sodium 140, Potassium 5.2 H, Chloride 103, Carbon Dioxide 32.0, Anion Gap 5, BUN 44 H, Creatinine 1.21 H, Estim Creat Clear Calc 21.08, Est GFR (MDRD) Af Amer 55 L, Est GFR (MDRD) Non-Af 45 L, BUN/Creatinine Ratio 36.4 H, Glucose 177 H, Lac tic Acid 3.9 H*, Calcium 8.1 L, Magnesium 2.0 12/28/22 05:33: POC Glucose 172 H 12/28/22 05:46: Ionized Calcium 4.60 12/28/22 09:40: Lactic Acid 2.2 H*, Procalcitonin 0.41 H 12/28/22 11:27: POC Glucose 161 H Micro: Microbiology 12/27/22 13:50 Sputum, Induced/Lukens Gram Stain - Final 12/27/22 13:50 Sputum, Induced/Lukens Respiratory Culture - Final Mixed normal respiratory gatito. No Streptococcus pneumoniae, beta-hemolytic Streptococcus or Staphylococcus aureus isolated. ABG Data ABG results: ABG 12/27/22 12/28/22 14:33 10:45 Specimen Type ART ART Sample Site R Radial R Radial pH 7.34 L 7.48 H Bicarbonate Actual 34.1 H 31.6 H Total CO2 36 33 Base Excess 8 H 8 H O2 Saturation 99 98 O2 % 75.0 40.0 ABG pCO2 63.3 H 42.3 ABG pO2 144 H 92 Abrahan Test Positive Positive Respiration Rate 18 14 O2 Delivery Device Adult Vent Adult Vent Vent Mode AC AC Tidal Volume 400.0 400.0 POC PEEP 5 5 Rhythm Strip Rhythm Strip: Sinus Rhythm Rate: 90 Ectopy: None Radiology Impression Chest X-Ray 12/27/22 13:35 IMPRESSION: The tip of the endotracheal tube is at 2.6 times approximately the fany. The nasogastric tube is seen within the body of the stomach. Hyperinflation. Electronically Signed: Juan Miguel Beyer MD at 14:42 EST , KUB X-Ray 12/27/22 13:40 IMPRESSION: The tip of the orogastric tube is in the body of the stomach. A right femoral line is seen. Electronically Signed: Juan Miguel Beyer MD at 14:48 EST , KUB X-Ray 12/27/22 13:45 IMPRESSION: The tip of the orogastric tube is in the gastric antrum. Electronically Signed: Juan Miguel Beyer MD at 14:55 EST , Brain CT 12/27/22 14:11 IMPRESSION: Age-related changes of the brain. Electronically Signed: Mauricio Augustine DO at 16:22 EST , Lower Extremity CT 12/27/22 14:11 IMPRESSION: Intertrochanteric left femoral fracture. Probable hematoma of the abductor agnes Electronically Signed: Mauricio Augustine DO at 17:04 EST , Pelvis CT 12/27/22 14:11 IMPRESSION: Comminuted left femoral intertrochanteric fracture. Electronically Signed: Mauricio Augustine DO at 16:53 EST , Echocardiogram 12/28/22 08:31 Interpretation Summary The estimated ejection fraction is 75 %. Mildly dilated right ventricle. Pulmonary artery systolic pressure is 95 mmHg. Severe pulmonary hypertension. Moderate aortic stenosis. Ordering Physician: Hyun De La Cruz Referring Physician: Marcello Cobb M.D. Performed By: Aparna Bautista RCS Chest X-Ray 12/28/22 10:34 IMPRESSION: Hyperinflation. No acute infiltrate is seen. The tip of the endotracheal tube should be pulled back approximately 2 cm. Electronically Signed: Juan Miguel Beyer MD at 11:13 EST , Assessment & Plan Assessment/Plan (1) Closed intertrochanteric fracture of left hip: QUALIFIERS: Encounter type: initial encounter Fracture alignment: displaced Qualified Code(s): S72.142A - Displaced intertrochanteric fracture of left femur, initial encounter for closed fracture PLAN: Diagnosis and treatment options regarding her left hip fracture discussed with her and her daughter at length. I had been on the phone with her daughter yesterday morning prior to her decline, intubation. At that point we are planning on surgical intervention. At this point based on her current medical status she understands surgery at [facility] is not likely. Case has been discussed with Dr. Stover on multiple occasions, including today. Have been in discussion with the hospitalist as well as the foreman/project manager as well. Also patient's nurses. Possibility of transferring her to another facility has been discussed with the above individuals as well as the patient's family. From an orthopedic standpoint surgery could be done if patient improves medically and is cleared for surgery by the anesthesia department/hospitalist/foreman/project manager. Patient's daughter is aware of this. She can contact me if needed on my cell phone. Reportedly patient has been made a DNR comfort care. Reportedly hospice care is being considered. Can can tear with Westfall's traction as needed. Can be removed if patient seems more comfortable without it. Can do ice to left hip if needed. Patient cannot be weightbearing on the left hip. Orthopedic service to sign off. Can be notified if needed.
--- NOTE | 2022-12-28 14:31 | CHAPLAIN ---
Type of Pastoral Visit _x__ Initial Visit ___ Follow-up Visit ___ On-call Visit ___ General Patient Visit ___ Spiritual Assessment ___ Family Conference ___ Bereavement ___ Rapid Response ___ Code Blue ___ Other (describe below) Pastoral Care Referral From ___ Patient ___ Family ___ Nurse ___ Physician _x__ Php Consultant ___ Cab Station Attendant ___ Other (describe below) Sacrament/Intervention _x__ Active listening ___ Anointing ___ Hinduism ___ Bereavement ___ Communion _x__ Tatyana exploration ___ _x__ Life review _x__ Prayer ___ Reconciliation ___ Sacrament of Sick _x__ Supportive presence ___ Wedding ___ Other (describe below) Pastoral Comments referred by SW due to many questions of a spiritual nature that the daughter is asking; the patient is intubated and only reacts at times with body shakes and opens or closes eyes; daughter is feeling anxiety about probable of patient and having regrets about pt being in the [facility]; daughter expresses need to have assurance that her mother will go to [facility] when she dies; explored tatyana experiences of pt and daughter; informed daughter of previous visits between this patient and this chemist assistant and of prayers given; explored who holds life - us or God; during this visit orthopedic doctor and hospitalist arrive and make their presentation of care to daughter; consideration of hospice is given which daughter is amenable too along as she has assurance of salvation of patient; prayers given by this chemist assistant; patient does open eyes and shake while prayer is given; further exploration with daughter about this situation; daughter is alone in making decisions and offering care to her mother as of pt is also in the [facility] and unable to give support; time given to listen and help daughter reflect on her thoughts and statements
--- NOTE | 2022-12-28 15:20 | CASEMGMT ---
Social Work SW received referral from RN that physician has met with pt's daughter and discussed goals of care. SW met with pt's daughter and offered emotional support. Dgt open to discussion and accepting of support. Referral made to Product Marketer for spiritual support. SW will remain available for support as needed. Pt admitted from [facility]. Discharge planning is on hold at this time due to medical complexity. OZZIE Arias
[2022-12-28] MEDS: Vital AF 1.2 Cal Liquid 1,000 ML 20 ML GT (15:38)
[2022-12-28] MEDS: fentaNYL drip 100 ML 10 MCG CONT INF (16:35)
--- NOTE | 2022-12-28 16:55 | CON.PCM.CA_ITS ---
Assessment & Plan Assessment/Plan (1) Preoperative cardiovascular examination: PLAN: Patient had become hypotensive and is now febrile. She is being treated for possible septic shock. She has preserved EF and moderate aortic stenosis. If she remains hypotensive IV fluids can be given as her LV function appears to be hyperdynamic. Overall patient has multiple comorbidities, is cachectic and it is reasonable that comfort care is being considered for her. She appears stable from a cardiac standpoint. If she ends up going for surgery based on her cardiac conditions alone she would be at low to moderate risk for perioperative cardiac complications. However her overall condition including dementia, cachexia, COPD etc. make comfort care a reasonable choice in her situation. HPI Consult Data Date of Consult: 12/28/22 HPI Narrative Reason for Consultation: Hypotension, preoperative evaluation HPI Narrative: NEERAJ LYNN, is a 82 F who presents after hip fracture. She has history of moderate aortic stenosis. Cardiology consult was requested as patient became hypotensive, unresponsive and getting intubated. Overall patient is cachectic and has had multiple recent admissions to the hospital. [facility], [facility] Medical History Anxiety Anxiety and depression Cachectic Chronic respiratory failure with hypoxia Congestive heart failure (CHF) Dementia Dementia Emphysema lung Non-smoker On home oxygen therapy Protein calorie malnutrition Pulmonary fibrosis Pulmonary HTN Severe protein-calorie malnutrition Valvular heart disease Home Medications albuterol sulfate 90 mcg/actuation aerosol inhaler 1 puff inhalation DAILY shortness of breath 01/30/21 [History Last Taken 12/13/22] ropinirole 0.25 mg tablet 0.25 mg PO QHS restless legs 03/14/22 [History Last Taken 12/13/22] mirtazapine 7.5 mg tablet 7.5 mg PO QHS 07/27/22 [History Last Taken 12/13/22] umeclidinium 62.5 mcg-vilanterol 25 mcg/actuation powdr for inhalation (Anoro Ellipta) 1 inh inhalation DAILY 07/27/22 [History Last Taken 12/14/22] metoprolol tartrate 25 mg tablet 25 mg PO BID #60 tabs 07/30/22 [Rx Last Taken 12/14/22] food supplemt, lactose-reduced 0.08 gram-1.5 kcal/mL oral liquid (Ensure Plus High Protein) 120 ml PO 4X/DAY #0 mL 12/18/22 [Rx Last Taken Unknown] acetaminophen 325 mg capsule 650 mg PO Q4H PRN fever or pain 12/26/22 [History Last Taken Unknown] acetaminophen 650 mg rectal suppository 650 mg NJ Q4H 12/26/22 [History Last Taken Unknown] albuterol sulfate 90 mcg/actuation aerosol inhaler 2 puff inhalation Q6H PRN sob 12/26/22 [History Last Taken Unknown] lorazepam 0.5 mg tablet 0.5 mg PO BID 12/26/22 [History Last Taken Unknown] prednisone 10 mg tablet 20 mg PO DAILY 12/26/22 [History Last Taken Unknown] sertraline 25 mg tablet 25 mg PO QHS 12/26/22 [History Last Taken Unknown] Allergy/AdvReac Type Severity Reaction Status Date / Time Tetanus Vaccines and Toxoid Allergy Unknown Verified 12/14/22 15:17 [Tetanus Vaccines & Toxoid] Family History Other Heart disease Surgical History History of cholecystectomy Social History household members: spouse and family Smoking Status: Never smoker alcohol intake: never substance use type: does not use Physical Exam Const Constitutional Narrative: Intubated HEENT normocephalic Risk Stratification Risk Stratification Applicable: No Charges/Coding Visit Charges Inpatient E&M: 60014 Init Hosp L1 Objective Data Vital Signs: Vital Signs Temp Pulse Resp BP Pulse Ox O2 Del Method O2 Flow Rate 101.3 F H 110 H 14 118/58 L 95 Mechanical Ventilator 4 12/28/22 16:00 12/28/22 16:00 12/28/22 16:00 12/28/22 16:00 12/28/22 16:00 12/28/22 16:00 12/27/22 10:05 FiO2 40 12/28/22 16:00 Oxygen Flow Rate (L/min) 4 Oxygen Delivery Method Mechanical Ventilator Weight: 83 lb 8.883 oz Body Mass Index (BMI) 14.3 Intake & Output: Intake and Output for Last 24 Hours 12/26/22 12/27/22 12/28/22 23:59 23:59 23:59 Intake Total 2438.40 / 2481.50 1585.55 / 1585.55 Output Total 220 / 220 420 / 420 Balance 2218.40 / 2261.50 1165.55 / 1165.55 Lab / Micro Data 12/28/22 05:20 12/28/22 05:20 Labs: Laboratory Results - last 24 hr 12/27/22 17:05: Lactic Acid 7.4 H* 12/27/22 17:15: POC Glucose 131 H 12/27/22 20:00: Hgb 9.0 L, Hct 28.9 L 12/27/22 23:58: POC Glucose 174 H 12/28/22 05:20: WBC 13.7 H, RBC 2.73 L, Hgb 8.2 L, Hct 25.8 L, MCV 94.5 D, MCH 30.0, MCHC 31.8 L D, RDW Std Deviation 57.0 H, RDW Coeff of Toney 16.8 H, Plt Count 98 L, MPV 11.1, Immature Gran % (Auto) 0.700, Neut % (Auto) 92.9 H, Lymph % (Auto) 2.9 L, [place] % (Auto) 3.4, Eos % (Auto) 0.0, Baso % (Auto) 0.1, Absolute Neuts (auto) 12.7 H, Absolute Lymphs (auto) 0.40 L, Nucleated RBC % 0, Differential Comment SCANNED, Platelet Estimate SLT DEC, Hypochromasia 2+, Sodium 140, Potassium 5.2 H, Chloride 103, Carbon Dioxide 32.0, Anion Gap 5, BUN 44 H, Creatinine 1.21 H, Estim Creat Clear Calc 21.08, Est GFR (MDRD) Af Amer 55 L, Est GFR (MDRD) Non-Af 45 L, BUN/Creatinine Ratio 36.4 H, Glucose 177 H, Lactic Acid 3.9 H*, Calcium 8.1 L, Magnesium 2.0 12/28/22 05:33: POC Glucose 172 H 12/28/22 05:46: Ionized Calcium 4.60 12/28/22 09:40: Lactic Acid 2.2 H*, Procalcitonin 0.41 H 12/28/22 11:27: POC Glucose 161 H Micro: Microbiology 12/27/22 13:50 Sputum, Induced/Lukens Gram Stain - Final 12/27/22 13:50 Sputum, Induced/Lukens Respiratory Culture - Final Mixed normal respiratory gatito. No Streptococcus pneumoniae, beta-hemolytic Streptococcus or Staphylococcus aureus isolated. ABG Data ABG results: ABG 12/28/22 10:45 Specimen Type ART Sample Site R Radial pH 7.48 H Bicarbonate Actual 31.6 H Total CO2 33 Base Excess 8 H O2 Saturation 98 O2 % 40.0 ABG pCO2 42.3 ABG pO2 92 Abrahan Test Positive Respiration Rate 14 O2 Delivery Device Adult Vent Vent Mode AC Tidal Volume 400.0 POC PEEP 5 Rhythm Strip Rhythm Strip: Sinus Rhythm Rate: 90 Ectopy: None Cardiology Labs/Tests 12/27/22 17:05: Lactic Acid 7.4 H* 12/27/22 20:00: Hgb 9.0 L, Hct 28.9 L 12/28/22 05:20: WBC 13.7 H, RBC 2.73 L, Hgb 8.2 L, Hct 25.8 L, MCV 94.5 D, MCH 30.0, MCHC 31.8 L D, Plt Count 98 L, MPV 11.1, Immature Gran % (Auto) 0.700, Neut % (Auto) 92.9 H, Lymph % (Auto) 2.9 L, [place] % (Auto) 3.4, Eos % (Auto) 0.0, Baso % (Auto) 0.1, Absolute Neuts (auto) 12.7 H, Nucleated RBC % 0, Sodium 140, Potassium 5.2 H, Chloride 103, Carbon Dioxide 32.0, Anion Gap 5, BUN 44 H, Creatinine 1.21 H, Est GFR (MDRD) Af Amer 55 L, Est GFR (MDRD) Non-Af 45 L, BUN/Creatinine Ratio 36.4 H, Glucose 177 H, Lactic Acid 3.9 H*, Calcium 8.1 L, Magnesium 2.0 12/28/22 05:46: Ionized Calcium 4.60 12/28/22 09:40: Lactic Acid 2.2 H* 12/28/22 10:45: pH 7.48 H, Bicarbonate Actual 31.6 H, Base Excess 8 H, O2 Saturation 98, ABG pCO2 42.3, ABG pO2 92, Abrahan Test Positive Rhythm: EKG: ECHO: Stress Test: Cardiac Cath: PCI: CT Surgery: Holter monitor: EPS: PPM: CXR: Chest CT Scan: Radiography Diagnostic Testing: Radiology Impression Lower Extremity CT 12/27/22 14:11 IMPRESSION: Intertrochanteric left femoral fracture. Probable hematoma of the abductor agnes Electronically Signed: Mauricio Augustine DO at 17:04 EST , Echocardiogram 12/28/22 08:31 Interpretation Summary The estimated ejection fraction is 75 %. Mildly dilated right ventricle. Pulmonary artery systolic pressure is 95 mmHg. Severe pulmonary hypertension. Moderate aortic stenosis. Ordering Physician: Hyun De La Cruz Referring Physician: Marcello Cobb M.D. Performed By: Aparna Bautista RCS Chest X-Ray 12/28/22 10:34 IMPRESSION: Hyperinflation. No acute infiltrate is seen. The tip of the endotracheal tube should be pulled back approximately 2 cm. Electronically Signed: Juan Miguel Beyer MD at 11:13 EST ,
[2022-12-28 18:17] LABS: Bedside Glucose 145 mg/dL (74-106)
[2022-12-28] MEDS: Norepinephrine 8 MG in 0.9% Normal Saline (250mL Bag) 242 ML 9.4 MG CONT INF (19:00)
[2022-12-28] MEDS: Pramipexole Di-HCl 0.125 MG Tablet PO (20:54)
[2022-12-29] VITALS (58 sets, daily range): BP systolic 72–168; BP diastolic 45–77; PULSE 83–150; RESP 12–25; TEMP 37.6–38.3; O2SAT 91–99; BMI 16.3
[2022-12-29 02:34] LABS: Bedside Glucose 158 mg/dL (74-106)
[2022-12-29] MEDS: fentaNYL drip 100 ML 10 MCG CONT INF (02:35)
[2022-12-29 05:10] LABS: Ionized Calcium 4.75 mg/dL (4.36-5.20)
[2022-12-29 05:18] LABS: Magnesium 2.2 mg/dL (1.6-2.6)
[2022-12-29 05:19] LABS: Phosphorus 3.3 mg/dL (2.5-4.9)
[2022-12-29] MEDS: Acetaminophen 650 MG/20 ML UDC PO ×2 (05:22→20:30)
[2022-12-29 05:30] LABS: Procalcitonin 0.26 ng/mL (0.00-0.09)
--- NOTE | 2022-12-29 05:55 | RAD_ITS ---
HISTORY: follow up exam. TECHNIQUE: XR Chest 1 View. COMPARISON: Prior day. FINDINGS: LINES/TUBES: Endotracheal tube tip in the fany. Nasogastric tube again extends to the stomach. CARDIOMEDIASTINAL BORDERS: Stable. LUNGS: Hyperinflated with chronic scarring. PLEURA: No pleural effusion or pneumothorax. RAD/Chest 1 View (Portable) IMPRESSION: Endotracheal tube tip at the fany; recommend 3 cm retraction. Electronically Signed: Haleigh Rutledge MD at 9:28 EST ,
[2022-12-29] MEDS: Midazolam 2 MG/2 ML Syringe IV ×3 (06:10→17:38)
[2022-12-29 08:54] LABS: Absolute Lymphocyte Count 0.14 X10^3/uL (0.83-4.51); Absolute Neutrophil Count 14.7 X10^3/uL (2.0-7.7); Basophil# 0.02 X10^3/uL; Basophil% 0.1 % (0-1); Hematocrit 22.4 % (37-47); Hemoglobin 6.9 g/dL (12.0-15.0); Lymphocyte # 0.14 X10^3/ul (0.83-4.51); Lymphocyte % 0.9 % (19-41); Mean Corp Hgb Conc 30.8 g/dL (32-36); Mean Corpuscular Hgb 30.1 pg (27.0-32.0); Mean Corpuscular Volume 97.8 fL (81-99); Mean Platelet Vol. 10.5 fl (6.2-12.0); Monocyte# 0.36 X10^3/uL; Monocyte% 2.3 % (0-10); NRBC Flagged by Analyzer 0 % (0-5); Neutrophil % 95.7 % (47-70); POSITIVE COUNT YES; POSITIVE DIFFERENTIAL YES; Platelet Count 86 K/mm3 (150-450); RBC Distribution Width CV 16.1 % (11.6-14.6); RBC Distribution Width SD 57.3 fl (35.1-43.9); Red Blood Count 2.29 M/mm3 (4.2-5.4); White Blood Count 15.4 K/mm3 (4.4-11.0)
[2022-12-29 08:56] LABS: Differential Indicated SCAN CRITERIA MET
--- NOTE | 2022-12-29 09:02 | PCM.PN.HOSP ---
Reason for Visit Reason for Visit: Diagnoses Chronic obstructive pulmonary disease with (acute) exacerbation (12/27/22) Acute and chronic respiratory failure with hypoxia (12/27/22) Displaced intertrochanteric fracture of left femur, initial encounter for closed fracture (12/27/22) Encounter for preprocedural cardiovascular examination (12/27/22) Objective Data Objective Data Vital Signs: Vital Signs Temp Pulse Resp BP Pulse Ox O2 Del Method O2 Flow Rate 100.6 F H 150 H 20 H 168/74 H 93 Mechanical Ventilator 4 12/29/22 08:15 12/29/22 08:15 12/29/22 08:15 12/29/22 08:15 12/29/22 08:15 12/29/22 08:15 12/27/22 10:05 FiO2 40 12/29/22 08:15 Oxygen Flow Rate (L/min) 4 Oxygen Delivery Method Mechanical Ventilator Weight: 95 lb 3.835 oz Body Mass Index (BMI) 16.3 Intake & Output: Intake and Output for Last 24 Hours 12/27/22 12/28/22 12/29/22 23:59 23:59 23:59 Intake Total 2438.40 / 2481.50 3022.85 / 3042.25 235.20 / 235.20 Output Total 220 / 220 595 / 595 400 / 400 Balance 2218.40 / 2261.50 2427.85 / 2447.25 -164.80 / -164.80 Medical Nutrition Assessment Dietitian: Malnutrition Criteria Met Start: 12/27/22 14:30 Freq: Status: Active Protocol: Document 12/28/22 09:42 AG (Rec: 12/28/22 09:42 AG [id number]) Nutrition Malnutrition Evidence of Malnutrition Exists Yes Malnutrition (severe): Chronic Evidenced By Suboptimal Energy Intake ( Severe),Weight Loss (Severe) Clinical Problem Chronic Disease or Condition Related Malnutrition Etiology severe chronic malnutrition related to decreased ability to consume sufficient energy to meet estimated nutrient needs Signs/Symptoms as evidenced by unintentional significant weight loss of 15. 7% in <3 months based upon wt of 99lb per EMR wt hx , estimated PO intake meeting <75% of estimated energy needs > 3 months, severe muscle wasting/fat loss evident per physical exam in orbital, clavicle, acromion, and temporal areas as well as BMI 14.3. Status Active Problem Recommendation Dietitian Recommendations/Changes NPO while intubated; Via OGT- Vital AF 1.2 at goal rate of 50mL/hour w/ 75mL H2O flush every 4 hours to provide 1440 calories, 90 g protein, and 1423mL total fluid/day. Would start at 20mL/hour and increase by 10mL/hour every 8- 12 hours as tolerated until goal rate is achieved. Close monitoring of electrolytes given risk for refeeding. Daily wts. Lab / Micro Data 12/29/22 08:45 12/29/22 08:45 Labs: Laboratory Results - last 24 hr 12/28/22 09:40: Lactic Acid 2.2 H*, Procalcitonin 0.41 H 12/28/22 11:27: POC Glucose 161 H 12/28/22 17:55: POC Glucose 145 H 12/28/22 23:23: POC Glucose 158 H 12/29/22 04:50: Phosphorus 3.3, Magnesium 2.2, Procalcitonin 0.26 H 12/29/22 05:06: Ionized Calcium 4.75 12/29/22 08:45: WBC 15.4 H, RBC 2.29 L, Hgb 6.9 L, Hct 22.4 L, MCV 97.8, MCH 30.1, MCHC 30.8 L, RDW Std Deviation 57.3 H, RDW Coeff of Toney 16.1 H, Plt Count 86 L, MPV 10.5, Immature Gran % (Auto) 1.000 H, Neut % (Auto) 95.7 H, Lymph % (Auto) 0.9 L, [place] % (Auto) 2.3, Eos % (Auto) 0.0, Baso % (Auto) 0.1, Absolute Neuts (auto) 14.7 H, Absolute Lymphs (auto) 0.14 L, Nucleated RBC % 0 Micro: Microbiology 12/27/22 13:50 Sputum, Induced/Lukens Gram Stain - Final 12/27/22 13:50 Sputum, Induced/Lukens Respiratory Culture - Final Mixed normal respiratory gatito. No Streptococcus pneumoniae, beta-hemolytic Streptococcus or Staphylococcus aureus isolated. ABG Data ABG results: ABG 12/28/22 10:45 Specimen Type ART Sample Site R Radial pH 7.48 H Bicarbonate Actual 31.6 H Total CO2 33 Base Excess 8 H O2 Saturation 98 O2 % 40.0 ABG pCO2 42.3 ABG pO2 92 Abrahan Test Positive Respiration Rate 14 O2 Delivery Device Adult Vent Vent Mode AC Tidal Volume 400.0 POC PEEP 5 Radiography Diagnostic Testing: Radiology Impression Echocardiogram 12/28/22 08:31 Interpretation Summary The estimated ejection fraction is 75 %. Mildly dilated right ventricle. Pulmonary artery systolic pressure is 95 mmHg. Severe pulmonary hypertension. Moderate aortic stenosis. Ordering Physician: Hyun De La Cruz Referring Physician: Marcello Cobb M.D. Performed By: Aparna Bautista RCS Chest X-Ray 12/28/22 10:34 IMPRESSION: Hyperinflation. No acute infiltrate is seen. The tip of the endotracheal tube should be pulled back approximately 2 cm. Electronically Signed: Juan Miguel Beyer MD at 11:13 EST , Rhythm Strip Rhythm Strip: Sinus Rhythm Rate: 90 Ectopy: None Physical Exam Narrative Overnight events were recorded. Patient has fever Tmax 100.8 Fahrenheit. Blood pressure is low, lactic acidosis. Adequate volume resuscitation was done and then started on norepinephrine. On IV antibiotic. Discussed with Dr. Stover and assembly room supervisor. Patient is sedated. On 35% FiO2, peak pressure 32, PEEP 5. CT shows comminuted intertrochanteric fracture. Probable hematoma of the abductor agnes estimated 4 x 5.2 x 9 cm. Patient had 1 unit of PRBC transfused. Physical exam General: Sedated. HEENT: Eyes closed. Atraumatic, PERRLA, EOMI, Normocephalic Oral: ET and OG tube. Neck: Supple, No JVD, Negative Carotid Bruits Lungs: On vent support. Cardiovascular: Tachycardic. On pressor. Sinus rhythm on cuff knitter. Muffled heart sound. Systolic murmur present. Abdomen: Bowel Sounds Present, Soft, Non Tender, Non-Distended : No renal angle tenderness. No suprapubic tenderness. Extremities: No edema, Capillary Refill Less than 3 Seconds Skin: No rashes, No breakdown Musculoskeletal: Left hip abducted, flexed and externally rotated and tender. No Tenderness to Palpation of other joints or Extremities Neurological: Unresponsive, detailed neuro exam unobtainable Psych/Mental Status: History of dementia. Assessment & Plan Assessment/Plan (1) Closed intertrochanteric fracture of left hip: QUALIFIERS: Encounter type: initial encounter Fracture alignment: displaced Qualified Code(s): S72.142A - Displaced intertrochanteric fracture of left femur, initial encounter for closed fracture PLAN: Plan 1. Left hip fracture after fall but suspect pathological fracture from osteoporosis, perioperative management-patient is being admitted in PCU. She had Mcknight catheter. She was on morphine but blood pressure normal as described below. Dr. Quinn Rouse consulted. She was supposed to go for hip surgery but canceled due to hypotension. 12/28: Overnight events were noticed.Patient was intubated yesterday in the afternoon. ABG was 7.1 2/127/177 and was tried on BiPAP for short time but soon intubated. Repeat gas shows 7.34/63 on 75% FiO2. Currently she is on 40% FiO2. Complicated with hematoma of left abductor agnes knee and hip region from fracture. Hemoglobin dropped from baseline 10.4-7.6. Monitor PRBC transfusion. Repeat hemoglobin 8.2. 12/29: Try to reconcile the patient that anesthesiologist does not want to take and the risk is high even in tertiary care hospital. The risk of on table with patient being on vasopressor, intubated with high pulmonary artery pressures and severe aortic stenosis. Daughter is try to contact her father and contemplating hospice. Hemoglobin further dropped to 6.9. 2. Septic shock and unresponsive, hypotension, multiple valvular heart disease, severe pulmonary hypertension: Patient blood pressure was low at 68/32 after morphine was given. 1 L of Ringer lactate fluid bolus ordered. Patient is still unresponsive, transferred to ICU. Discussed with assembly room supervisor. Discussed with delicatessen department manager consulted for same. No need for repeat echo. 12/28: Lactic acidosis, mild grade fever suspicion of going in sepsis. Lactic acidosis may be due to poor perfusion with significant cardiac disease and IV contrast. Patient empirically on IV ceftriaxone. 2D echo is ordered as patient has severe and severe pulmonary hypertension. Discussed with the delicatessen department manager and consult requested. 12/29: Septic shock: The patient clinical evaluation is consistent with septic shock with clinical indicators of fever,Severe hypoxia, tachycardia, leukocytosis, hypotension most likely due to pneumonia/gram-negative desiree UTI with acute sepsis-related organ dysfunction as evidenced by resistant hypotension requiring vasopressors, acute on chronic combined respiratory failure on ventilator, unresponsiveness/acute metabolic encephalopathy and lactic acidosis. Urine culture growing gram-negative desiree, more than 100,000 colonies. Sputum culture showing mixed normal respiratory gatito. Patient is on IV vancomycin, cefepime and Zithromax. Repeat echo shows pulmonary artery pressure 95 mmHg, moderate aortic stenosis EF 75%, mildly dilated RV. These are all contraindications for surgery. End-stage COPD with chronic pulmonary fibrosis and chronic hypoxic respiratory insufficiency requiring 4 to 5 L/min continuously complicating #1 - Stable with no evidence of flare at this time. Continue as needed nebulizers as previous. 12/28: Patient on IV Solu-Medrol, IV antibiotic. EMILY: Patient baseline creatinine 0.39, increased from 0.6-1.21 more than 0.6 mg/dL in 24 hours. Concern of prerenal or IV contrast induced possible GREGORY. 12/29: BUNs/creatinine 42/0.68. EMILY resolved. 3. Chronic dementia - Stable, continue home medications as previous. 4. Essential hypertension - Continue home medications as previous. Give IV hydralazine as needed for systolic blood pressure greater than 160 systolic. 5. Depression with anxiety - Continue home medications as previous. Give low-dose as needed Ativan for breakthrough symptoms. 6. DVT prophylaxis - We will avoid preoperative blood thinners due to increased risk of bleeding complications with traumatic fractures. Orthopedic team to decide on postoperative DVT prophylaxis. I discussed the prognosis with the daughter with all chronic severe medical conditions mentioned above prognosis is poor. The same thing was explained to anesthesiologist and orthopedic surgeon that risk is high. Daughter is going to talk to her father regarding CODE STATUS. For practical purposes now full code. Total time of the visit including total time spent in counseling or coordination of care, (more than 50% of the total time, spent in obtaining medical information from nurses and other ancillary care providers,explaining to the patient about labs, imaging, diagnosis and management of active complex medical conditions), discussion with assembly room supervisor and anesthesiologist, review of labs and imaging is 50 minutes. Clinical Impression(s) from Imaging Studies Hip/Pelvis X-Ray 12/26/22 23:26 IMPRESSION: Left-sided intertrochanteric fracture as described. 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 No other fractures are seen. Electronically Signed: Grecia Martinez MD at 0:16 EST , Chest X-Ray 12/26/22 23:27 IMPRESSION: Hyperinflated lungs with possible COPD. otherwise no acute cardiopulmonary disease. Electronically Signed: Grecia Martinez MD at 0:14 EST , Chest X-Ray 12/27/22 13:35 IMPRESSION: The tip of the endotracheal tube is at 2.6 times approximately the fany. The nasogastric tube is seen within the body of the stomach. Hyperinflation. Electronically Signed: Juan Miguel Beyer MD at 14:42 EST , KUB X-Ray 12/27/22 13:40 IMPRESSION: The tip of the orogastric tube is in the body of the stomach. A right femoral line is seen. Electronically Signed: Juan Miguel Beyer MD at 14:48 EST , KUB X-Ray 12/27/22 13:45 IMPRESSION: The tip of the orogastric tube is in the gastric antrum. Electronically Signed: Juan Miguel Beyer MD at 14:55 EST , Brain CT 12/27/22 14:11 IMPRESSION: Age-related changes of the brain. Electronically Signed: Mauricio Augustine DO at 16:22 EST , Lower Extremity CT 12/27/22 14:11 IMPRESSION: Intertrochanteric left femoral fracture. Probable hematoma of the abductor agnes Electronically Signed: Mauricio Augustine DO at 17:04 EST , Pelvis CT 12/27/22 14:11 IMPRESSION: Comminuted left femoral intertrochanteric fracture. Electronically Signed: Mauricio Augustine DO at 16:53 EST , Echocardiogram 12/28/22 08:31 Interpretation Summary The estimated ejection fraction is 75 %. Mildly dilated right ventricle. Pulmonary artery systolic pressure is 95 mmHg. Severe pulmonary hypertension. Moderate aortic stenosis. Ordering Physician: Hyun De La Cruz Referring Physician: Marcello Cobb M.D. Performed By: Aparna Bautista RCS Chest X-Ray 12/28/22 10:34 IMPRESSION: Hyperinflation. No acute infiltrate is seen. The tip of the endotracheal tube should be pulled back approximately 2 cm. Chest X-Ray 12/29/22 05:55 IMPRESSION: Endotracheal tube tip at the fany; recommend 3 cm retraction. 2D echo February 2022 Based upon the 2D echocardiographic images obtained there appears to be normal left ventricular size, wall motion, and systolic function. The estimated ejection fraction is 65 %. There is mild mitral annular calcification. Trivial mitral valve insufficiency. Moderate (2+) tricuspid valve insufficiency. Moderate to severe calcific aortic valve stenosis. Right ventricular systolic pressure estimated to be 52 mmHg c/w pulmonary hypertension. Stage 2 diastolic dysfunction. Charges/Coding Visit Charges Inpatient E&M: 40632 [facility] Hosp L3
[2022-12-29 09:05] LABS: Anion Gap 2 (5-15); BUN 42 mg/dL (7-18); BUN/Creat Ratio 61.8 RATIO (10-20); Calcium,Total 7.9 mg/dL (8.5-10.1); Chloride 104 mmol/L (98-107); Creatinine, Serum 0.68 mg/dL (0.55-1.02); EST Glomerular Filtration Rate 88 mL/min (>60); Est Glom Filt Rate - Afr Amer 106 mL/min (>60); Estimated Creatinine Clearance 29.07 ml/min; Glucose 201 mg/dL (74-106); Magnesium 2.1 mg/dL (1.6-2.6); Potassium 4.2 mmol/L (3.5-5.1); Sodium Level 139 mmol/L (136-145)
[2022-12-29 09:13] LABS: Ionized Calcium 4.76 mg/dL (4.36-5.20)
[2022-12-29 09:20] LABS: Allen Test Positive; Base Excess 7 mmol/L (-2 to +2); Bicarbonate 31.1 mmol/L (22-26); Blood Gas Specimen Type ART; Mode AC; O2 Delivery Device Adult Vent; PEEP 5; PO2 76 mmHG (75-100); RR 12; SITE L Radial; SO2 95 % (95-99); Total Carbon Dioxide 33 mmol/L; pCO2 45.4 mmHg (35-45); pH 7.44 (7.35-7.45)
--- NOTE | 2022-12-29 09:26 | PCM.RX.CS ---
Consult Antibiotic Management Pharmacy has been consulted to manage selected antiobiotic: Vancomycin Type of Intervention Type of Consult: Follow-up Suspected Infection Suspected Infection: Other Prior Doses of Antibiotics Prior Doses of Antibiotics Received/Current Regimen: Received a 1x initial dose of 500mg on 12.28.22. Labs Labs: Sodium 139 mmol/L (136-145) 12/29/22 08:45 Potassium 4.2 mmol/L (3.5-5.1) 12/29/22 08:45 Chloride 104 mmol/L (98-107) 12/29/22 08:45 Carbon Dioxide 33.0 mmol/L (21.0-32.0) H 12/29/22 08:45 Anion Gap 2 (5-15) L 12/29/22 08:45 BUN 42 mg/dL (7-18) H 12/29/22 08:45 Creatinine 0.68 mg/dL (0.55-1.02) 12/29/22 08:45 Est GFR (MDRD) Af Amer 106 mL/min (>60) 12/29/22 08:45 Est GFR (MDRD) Non-Af 88 mL/min (>60) 12/29/22 08:45 BUN/Creatinine Ratio 61.8 RATIO (10-20) H 12/29/22 08:45 Glucose 201 mg/dL (74-106) H 12/29/22 08:45 Microbiology Microbiology: Microbiology 12/27/22 13:50 Sputum, Induced/Lukens Gram Stain - Final 12/27/22 13:50 Sputum, Induced/Lukens Respiratory Culture - Final Mixed normal respiratory gatito. No Streptococcus pneumoniae, beta-hemolytic Streptococcus or Staphylococcus aureus isolated. Dosing Weight Weight used for dosin.2 kg Estimated Creatinine Clearance Estimated Creatinine Clearance: 43ml/min Goal Trough Goal Trough: 15-20 mcg/mL Pharmacy Plan for Drug Dosing Pharmacy Plan for Drug Dosing: Renal function improved with Cr change from 1.21 to 0.68. Recommend a dose change to 750mg iv daily starting today. Random level ordered for tomorrow. Pharmacy Service will continue to monitor and adjust dosing as required. Follow-Up Labs Follow-Up Labs: Trough: Other (random level 12.30.22 1030)
[2022-12-29 09:35] LABS: Anisocytosis 1+; Platelet Estimate MOD DEC (ADEQ)
--- NOTE | 2022-12-29 09:49 | PN.CC_ITS ---
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 Peak P remains around 30. Very agitated when the sedation is reduced and thus unable to tolerate SBT. * Cont duonebs. Will reduce solumedrol 40 every 8h. Azithromycin x3 days for COPD exacerbation * hgb this AM down to 6.9. No signs of GIB. Received a unit of blood with impro vement of hemoglobin 2 days ago, will transfuse with another unit * She continues to be febrile, so far cultures are negative and procal is <0.5. She remains on broad spectrum antibiotics. Daughter refused DVT scan of b/l LE extremities concerned for pt's comfort * She is currently off levophed. Will administer 500cc LR bolus given hyperdynamic LV. * Cr is improving but urine output remains low. Will administer a 500 cc LR bolus * She remains in traction for her L hip fx. She is not currently a surgical candidate as discussed with anaesthesia, ortho and primary team * GI ppx IV protonix * Bowel regimen * Cont tube feeds * DVT ppx SCD * Lines right femoral line * Mcknight: present Another discussion with daughter today. She is asking if the hip is fixed will the pt will be able to go home afterwards. Explained that pt's hip fracture is not the only reason why her recovery will be prolonged and unlikely to be successful. Discussed again with the pt's daughter the pt's comorbidities and that in the best case scenario pt will require longterm. Pt's daughter doesn't want her to go to a longterm again. We discussed again that if daughter wishes for the pt comfort and doesn't want to prolong suffering then she should consider palliative extubation and comfort care measures.Daughter would like her dad to come to see the pt before she makes this decision. Emotional support provided and questions answered. Pt's RN was witness to the conversation. I spent 40 minutes of critical care time excluding the procedure time. I reviewed lab work, images, previous records and medication list. Subjective Subjective She remains on the vent. Very agitated when the sedation is reduced and thus unable to tolerate SBT. Daughter at bedside today asking if her hip is fixed if the pt will be able to go home afterwards. Explained that pt's hip fracture is not the only reason why her recovery will be long. Discussed again with the pt's daughter the pt's comorbidities and that in the best case scenario pt will require longterm. Pt's daughter doesn't want her to go to a longterm again. We discussed again that if daughter wishes for the pt comfort and doesn't want to prolong suffering then she should consider palliative extubation and comfort care measures.Daughter would like her dad to come to see the pt before she makes this decision. Emotional support provided and questions answered. Pt's RN was witness to the conversation. Objective Data Objective Data Vital Signs: Vital Signs Temp Pulse Resp BP Pulse Ox O2 Del Method O2 Flow Rate 38.1 C H 128 H 13 168/74 H 94 Mechanical Ventilator 4 12/29/22 08:15 12/29/22 09:12 12/29/22 09:12 12/29/22 08:15 12/29/22 09:12 12/29/22 08:15 12/27/22 10:05 FiO2 35 12/29/22 09:12 Oxygen Flow Rate (L/min) 4 Oxygen Delivery Method Mechanical Ventilator Weight: 43.2 kg Body Mass Index (BMI) 16.3 Intake & Output: Intake and Output for Last 24 Hours 12/27/22 12/28/22 12/29/22 23:59 23:59 23:59 Intake Total 2438.40 / 2481.50 3022.85 / 3042.25 310.20 / 310.20 Output Total 220 / 220 595 / 595 400 / 400 Balance 2218.40 / 2261.50 2427.85 / 2447.25 -89.80 / -89.80 Medical Nutrition Assessment Dietitian: Malnutrition Criteria Met Start: 12/27/22 14:30 Freq: Status: Active Protocol: Document 12/28/22 09:42 AG (Rec: 12/28/22 09:42 [id number]) Nutrition Malnutrition Evidence of Malnutrition Exists Yes Malnutrition (severe): Chronic Evidenced By Suboptimal Energy Intake ( Severe),Weight Loss (Severe) Clinical Problem Chronic Disease or Condition Related Malnutrition Etiology severe chronic malnutrition related to decreased ability to consume sufficient energy to meet estimated nutrient needs Signs/Symptoms as evidenced by unintentional significant weight loss of 15. 7% in <3 months based upon wt of 99lb per EMR wt hx , estimated PO intake meeting <75% of estimated energy needs > 3 months, severe muscle wasting/fat loss evident per physical exam in orbital, clavicle, acromion, and temporal areas as well as BMI 14.3. Status Active Problem Recommendation Dietitian Recommendations/Changes NPO while intubated; Via OGT- Vital AF 1.2 at goal rate of 50mL/hour w/ 75mL H2O flush every 4 hours to provide 1440 calories, 90 g protein, and 1423mL total fluid/day. Would start at 20mL/hour and increase by 10mL/hour every 8- 12 hours as tolerated until goal rate is achieved. Close monitoring of electrolytes given risk for refeeding. Daily wts. Lab / Micro Data 12/29/22 08:45 12/29/22 08:45 Labs: Laboratory Results - last 24 hr 12/28/22 09:40: Lactic Acid 2.2 H*, Procalcitonin 0.41 H 12/28/22 11:27: POC Glucose 161 H 12/28/22 17:55: POC Glucose 145 H 12/28/22 23:23: POC Glucose 158 H 12/29/22 04:50: Phosphorus 3.3, Magnesium 2.2, Procalcitonin 0.26 H 12/29/22 05:06: Ionized Calcium 4.75 12/29/22 08:45: WBC 15.4 H, RBC 2.29 L, Hgb 6.9 L, Hct 22.4 L, MCV 97.8, MCH 30.1, MCHC 30.8 L, RDW Std Deviation 57.3 H, RDW Coeff of Toney 16.1 H, Plt Count 86 L, MPV 10.5, Immature Gran % (Auto) 1.000 H, Neut % (Auto) 95.7 H, Lymph % (Auto) 0.9 L, [place]bon % (Auto) 2.3, Eos % (Auto) 0.0, Baso % (Auto) 0.1, Absolute Neuts (auto) 14.7 H, Absolute Lymphs (auto) 0.14 L, Nucleated RBC % 0, Platelet Estimate MOD DEC, Anisocytosis 1+, Sodium 139, Potassium 4.2, Chloride 104, Carbon Dioxide 33.0 H, Anion Gap 2 L, BUN 42 H, Creatinine 0.68, Estim Creat Clear Calc 29.07, Est GFR (MDRD) Af Amer 106, Est GFR (MDRD) Non-Af 88, BUN/Creatinine Ratio 61.8 H, Glucose 201 H, Calcium 7.9 L, Magnesium 2.1 12/29/22 09:09: Ionized Calcium 4.76 Micro: Microbiology 12/27/22 13:50 Sputum, Induced/Lukens Gram Stain - Final 12/27/22 13:50 Sputum, Induced/Lukens Respiratory Culture - Final Mixed normal respiratory gatito. No Streptococcus pneumoniae, beta-hemolytic Streptococcus or Staphylococcus aureus isolated. ABG Data ABG results: ABG 12/28/22 12/29/22 10:45 09:17 Specimen Type ART ART Sample Site R Radial L Radial pH 7.48 H 7.44 Bicarbonate Actual 31.6 H 31.1 H Total CO2 33 33 Base Excess 8 H 7 H O2 Saturation 98 95 O2 % 40.0 35.0 ABG pCO2 42.3 45.4 H ABG pO2 92 76 Abrahan Test Positive Positive Respiration Rate 14 12 O2 Delivery Device Adult Vent Adult Vent Vent Mode AC AC Tidal Volume 400.0 400.0 POC PEEP 5 5 Radiography Diagnostic Testing: Radiology Impression Echocardiogram 12/28/22 08:31 Interpretation Summary The estimated ejection fraction is 75 %. Mildly dilated right ventricle. Pulmonary artery systolic pressure is 95 mmHg. Severe pulmonary hypertension. Moderate aortic stenosis. Ordering Physician: Hyun De La Cruz Referring Physician: Marcello Cobb M.D. Performed By: Aparna Bautista RCS Chest X-Ray 12/28/22 10:34 IMPRESSION: Hyperinflation. No acute infiltrate is seen. The tip of the endotracheal tube should be pulled back approximately 2 cm. Electronically Signed: Juan Miguel Beyer MD at 11:13 EST , Chest X-Ray 12/29/22 05:55 IMPRESSION: Endotracheal tube tip at the fany; recommend 3 cm retraction. Electronically Signed: Haleigh Rutledge MD at 9:28 EST , Rhythm Strip Rhythm Strip: Sinus Rhythm Rate: 90 Ectopy: None Physical Exam Narrative General intubated and sedated HEENT. Normocephalic atraumatic, pupils equal and reactive Respiratory reduced air entry bilaterally, mild end expiratory wheeze, no crackles Cardiac S1-S2, regular rate and rhythm GI abdomen soft and nontender MSK L hip displaced and painful Skin no rashes Neuro intubated and sedated
[2022-12-29] MEDS: Pantoprazole Sodium 40 MG in 0.9% Normal Saline (100mL MB+) 100 ML 330 MG IV (09:51)
[2022-12-29] MEDS: Cefepime HCl 1 GM in 0.9% Normal Saline (50mL MB+) 50 ML IV (09:53)
[2022-12-29] MEDS: 0.9% Saline Lock 10 ML Syringe IV ×4 (09:55→17:39)
[2022-12-29] MEDS: Senna/Docusate Sodium 1 Tablet 2 TABLET PO ×2 (09:58→20:26)
[2022-12-29] MEDS: Polyethylene Glycol 3350 17 GM PACKET PO (09:59)
[2022-12-29] MEDS: Azithromycin 500 MG in Dextrose 5%-Water (250mL Bag) 250 ML 250 MG IV (10:37)
[2022-12-29] MEDS: LACTATED RINGERS 500 ML 999 ML IV (10:43)
[2022-12-29] MEDS: Chlorhexidine 15 ML PO ×2 (10:43→20:25)
[2022-12-29] MEDS: fentaNYL drip 100 ML 15 MCG CONT INF ×2 (11:53→18:57)
[2022-12-29] MEDS: Vancomycin HCl 750 MG in 0.9% Normal Saline (250mL Bag) 250 ML 250 MG IV (12:01)
[2022-12-29] MEDS: Ipratropium/Albuterol Sulfate 3 ML AMPUL.NEB INHALATION ×2 (12:54→19:13)
[2022-12-29 13:01] LABS: Bedside Glucose 150 mg/dL (74-106)
[2022-12-29 13:04] LABS: Ionized Calcium Order ORDER TUBE
[2022-12-29 13:05] LABS: Bedside Glucose 194 mg/dL (74-106)
[2022-12-29] MEDS: CHLORHEXIDINE GLUC 2% CLOTH 1 EACH TOWELETTE TOPICAL (14:21)
[2022-12-29 17:05] LABS: Hemoglobin 8.3 g/dL (12.0-15.0)
[2022-12-29 18:15] LABS: Bedside Glucose 140 mg/dL (74-106)
[2022-12-29] MEDS: Pramipexole Di-HCl 0.125 MG Tablet PO (20:25)
[2022-12-29] MEDS: Ketorolac 15 MG/ML Vial IV (20:26)
[2022-12-29] MEDS: dexMEDEtomidine 400 MCG in 0.9% Normal Saline (100mL Bag) 96 ML 5.4 MCG CONT INF (21:21)
[2022-12-29] MEDS: Vital AF 1.2 Cal Liquid 1,000 ML 50 ML GT (22:20)
[2022-12-30] VITALS (37 sets, daily range): BP systolic 82–180; BP diastolic 49–151; PULSE 73–165; RESP 9–20; TEMP 37.5–38.3; O2SAT 88–100; BMI 18.6
[2022-12-30] MEDS: 0.9% Saline Lock 10 ML Syringe IV ×5 (00:38→14:36)
[2022-12-30] MEDS: fentaNYL drip 100 ML 20 MCG CONT INF ×3 (00:38→10:57)
[2022-12-30] MEDS: Midazolam 2 MG/2 ML Syringe IV ×2 (00:38→07:30)
[2022-12-30] MEDS: Insulin Lispro 100 UNIT/ML INSULN.PEN SC ×2 (01:02→05:50)
[2022-12-30] MEDS: CHLORHEXIDINE GLUC 2% CLOTH 1 EACH TOWELETTE TOPICAL (01:03)
[2022-12-30 01:18] LABS: Bedside Glucose 214 mg/dL (74-106)
[2022-12-30 03:50] LABS: Absolute Lymphocyte Count 0.19 X10^3/uL (0.83-4.51); Absolute Neutrophil Count 13.9 X10^3/uL (2.0-7.7); Basophil# 0.02 X10^3/uL; Basophil% 0.1 % (0-1); Hematocrit 25.5 % (37-47); Lymphocyte # 0.19 X10^3/ul (0.83-4.51); Lymphocyte % 1.3 % (19-41); Mean Corp Hgb Conc 31.4 g/dL (32-36); Mean Corpuscular Volume 95.5 fL (81-99); Mean Platelet Vol. 10.7 fl (6.2-12.0); Monocyte# 0.63 X10^3/uL; Monocyte% 4.2 % (0-10); NRBC Flagged by Analyzer 0.1 % (0-5); Neutrophil # 13.94 X10^3/uL (2.7-7.7); Neutrophil % 93.8 % (47-70); POSITIVE COUNT YES; POSITIVE DIFFERENTIAL YES; Platelet Count 80 K/mm3 (150-450); RBC Distribution Width CV 16.7 % (11.6-14.6); RBC Distribution Width SD 58.1 fl (35.1-43.9); Red Blood Count 2.67 M/mm3 (4.2-5.4); White Blood Count 14.9 K/mm3 (4.4-11.0)
[2022-12-30 03:52] LABS: Magnesium 2.2 mg/dL (1.6-2.6)
[2022-12-30 03:53] LABS: Ionized Calcium 4.84 mg/dL (4.36-5.20)
[2022-12-30 03:57] LABS: Differential Indicated SCAN CRITERIA MET
[2022-12-30 04:03] LABS: Anion Gap 6 (5-15); BUN 42 mg/dL (7-18); BUN/Creat Ratio 68.3 RATIO (10-20); Calcium,Total 8.1 mg/dL (8.5-10.1); Chloride 104 mmol/L (98-107); Creatinine, Serum 0.62 mg/dL (0.55-1.02); EST Glomerular Filtration Rate 99 mL/min (>60); Est Glom Filt Rate - Afr Amer 119 mL/min (>60); Estimated Creatinine Clearance 29.07 ml/min; Glucose 222 mg/dL (74-106); Phosphorus 2.4 mg/dL (2.5-4.9); Potassium 4.4 mmol/L (3.5-5.1); Sodium Level 140 mmol/L (136-145)
[2022-12-30 04:07] LABS: Procalcitonin 0.15 ng/mL (0.00-0.09)
[2022-12-30 05:07] LABS: Allen Test Positive; Base Excess 4 mmol/L (-2 to +2); Bicarbonate 28.7 mmol/L (22-26); Blood Gas Specimen Type ART; Mode AC/VC; O2 Delivery Device Adult Vent; PEEP 5; PO2 151 mmHG (75-100); RR 12; SITE R Radial; SO2 99 % (95-99); Total Carbon Dioxide 30 mmol/L; pCO2 48.9 mmHg (35-45); pH 7.38 (7.35-7.45)
--- NOTE | 2022-12-30 05:35 | RAD_ITS ---
INDICATION: VDRF EXAMINATION/TECHNIQUE: X-RAY - XR Chest 1 View COMPARISON: 12/29/2022. FINDINGS: LINES/DEVICES: Endotracheal tube tip approximately 2.0 cm from the fany. Enteric tube side-port and distal tip are distal to the GE junction and inferior to the field of view. LUNGS: Right basilar atelectasis versus infiltrate. Possible small right pleural effusion. No evidence of a pneumothorax. MEDIASTINUM AND CARDIOVASCULAR STRUCTURES: Cardiac silhouette is normal in size and contour. Mediastinum is unremarkable. BONES AND SOFT TISSUES: No acute abnormality. RAD/Chest 1 View (Portable) IMPRESSION: Right basilar atelectasis versus infiltrate and possible small right pleural effusion. Electronically Signed: Wai Escobar DO at 6:01 EST ,
[2022-12-30 06:15] LABS: Bedside Glucose 192 mg/dL (74-106)
[2022-12-30 07:04] LABS: Differential Comment SCANNED
[2022-12-30] MEDS: Ipratropium/Albuterol Sulfate 3 ML AMPUL.NEB INHALATION (07:04)
[2022-12-30] MEDS: dexMEDEtomidine 400 MCG in 0.9% Normal Saline (100mL Bag) 96 ML 9.7 MCG CONT INF (07:06)
--- NOTE | 2022-12-30 07:24 | PCM.PN.HOSP ---
Reason for Visit Reason for Visit: Diagnoses Chronic obstructive pulmonary disease with (acute) exacerbation (12/27/22) Acute and chronic respiratory failure with hypoxia (12/27/22) Displaced intertrochanteric fracture of left femur, initial encounter for closed fracture (12/27/22) Encounter for preprocedural cardiovascular examination (12/27/22) Objective Data Objective Data Vital Signs: Vital Signs Temp Pulse Resp BP Pulse Ox O2 Del Method O2 Flow Rate 100.3 F H 76 12 83/49 L 100 Mechanical Ventilator 4 12/30/22 06:00 12/30/22 07:00 12/30/22 07:00 12/30/22 07:19 12/30/22 07:00 12/30/22 07:00 12/27/22 10:05 FiO2 40 12/30/22 07:00 Oxygen Flow Rate (L/min) 4 Oxygen Delivery Method Mechanical Ventilator Weight: 108 lb 11.006 oz Body Mass Index (BMI) 18.6 Intake & Output: Intake and Output for Last 24 Hours 12/28/22 12/29/22 12/30/22 23:59 23:59 23:59 Intake Total 3022.85 / 3042.25 2730.08 / 2830.76 384.92 / 384.92 Output Total 595 / 595 725 / 785 182 / 182 Balance 2427.85 / 2447.25 2005. / 2044.76 202.92 / 202.92 Medical Nutrition Assessment Dietitian: Malnutrition Criteria Met Start: 12/27/22 14:30 Freq: Status: Active Protocol: Document 12/29/22 10:47 RMA (Rec: 12/29/22 10:48 RMA [id number]) Nutrition Malnutrition Evidence of Malnutrition Exists Yes Malnutrition (severe): Chronic Evidenced By Suboptimal Energy Intake ( Severe),Weight Loss (Severe) Clinical Problem Chronic Disease or Condition Related Malnutrition Etiology severe chronic malnutrition related to decreased ability to consume sufficient energy to meet estimated nutrient needs Signs/Symptoms as evidenced by unintentional significant weight loss of 15. 7% in <3 months based upon wt of 99lb per EMR wt hx , estimated PO intake meeting <75% of estimated energy needs > 3 months, severe muscle wasting/fat loss evident per physical exam in orbital, clavicle, acromion, and temporal areas as well as BMI 14.3. Status Active Problem Recommendation Dietitian Recommendations/Changes NPO while intubated; Via OGT- Vital AF 1.2 at goal rate of 50mL/hour w/ 75mL H2O flush every 4 hours to provide 1440 calories, 90 g protein, and 1423mL total fluid/day. Would start at 20mL/hour and increase by 10mL/hour every 8- 12 hours as tolerated until goal rate is achieved. Close monitoring of electrolytes given risk for refeeding. Daily wts. Lab / Micro Data 12/30/22 03:30 12/30/22 03:30 Labs: Laboratory Results - last 24 hr 12/27/22 04:31: Crossmatch See Detail 12/29/22 05:33: POC Glucose 150 H 12/29/22 08:45: WBC 15.4 H, RBC 2.29 L, Hgb 6.9 L, Hct 22.4 L, MCV 97.8, MCH 30.1, MCHC 30.8 L, RDW Std Deviation 57.3 H, RDW Coeff of Toney 16.1 H, Plt Count 86 L, MPV 10.5, Immature Gran % (Auto) 1.000 H, Neut % (Auto) 95.7 H, Lymph % (Auto) 0.9 L, [place] % (Auto) 2.3, Eos % (Auto) 0.0, Baso % (Auto) 0.1, Absolute Neuts (auto) 14.7 H, Absolute Lymphs (auto) 0.14 L, Nucleated RBC % 0, Platelet Estimate MOD DEC, Anisocytosis 1+, Sodium 139, Potassium 4.2, Chloride 104, Carbon Dioxide 33.0 H, Anion Gap 2 L, BUN 42 H, Creatinine 0.68, Estim Creat Clear Calc 29.07, Est GFR (MDRD) Af Amer 106, Est GFR (MDRD) Non-Af 88, BUN/Creatinine Ratio 61.8 H, Glucose 201 H, Calcium 7.9 L, Magnesium 2.1 12/29/22 09:09: Ionized Calcium 4.76 12/29/22 12:46: POC Glucose 194 H 12/29/22 16:50: Hgb 8.3 L 12/29/22 17:55: POC Glucose 140 H 12/30/22 00:59: POC Glucose 214 H 12/30/22 03:30: WBC 14.9 H, RBC 2.67 L, Hgb 8.0 L, Hct 25.5 L, MCV 95.5, MCH 30.0, MCHC 31.4 L, RDW Std Deviation 58.1 H, RDW Coeff of Toney 16.7 H, Plt Count 80 L, MPV 10.7, Immature Gran % (Auto) 0.600, Neut % (Auto) 93.8 H, Lymph % (Auto) 1.3 L, [place] % (Auto) 4.2, Eos % (Auto) 0.0, Baso % (Auto) 0.1, Absolute Neuts (auto) 13.9 H, Absolute Lymphs (auto) 0.19 L, Nucleated RBC % 0.1, Differential Comment SCANNED, Sodium 140, Potassium 4.4, Chloride 104, Carbon Dioxide 30.0, Anion Gap 6, BUN 42 H, Creatinine 0.62, Estim Creat Clear Calc 29.07, Est GFR (MDRD) Af Amer 119, Est GFR (MDRD) Non-Af 99, BUN/Creatinine Ratio 68.3 H, Glucose 222 H, Calcium 8.1 L, Phosphorus 2.4 L, Magnesium 2.2, Procalcitonin 0.15 H 12/30/22 03:48: Ionized Calcium 4.84 12/30/22 05:48: POC Glucose 192 H Micro: Microbiology 12/29/22 10:15 Urine Catheter - Catheter Legionella Antigen - Final 12/28/22 03:11 Urine Catheter - Mcknight Urine Culture - Preliminary Gram negative desiree 12/27/22 14:05 Blood Culture (Wb) - Central Line Blood Culture - Preliminary No growth in 48 hours. 12/27/22 12:05 Blood Culture (Wb) - Left Forearm Blood Culture - Preliminary No growth in 48 hours. 12/27/22 13:50 Sputum, Induced/Lukens Gram Stain - Final 12/27/22 13:50 Sputum, Induced/Lukens Respiratory Culture - Final Mixed normal respiratory gatito. No Streptococcus pneumoniae, beta-hemolytic Streptococcus or Staphylococcus aureus isolated. ABG Data ABG results: ABG 12/29/22 12/30/22 09:17 05:02 Specimen Type ART ART Sample Site L Radial R Radial pH 7.44 7.38 Bicarbonate Actual 31.1 H 28.7 H Total CO2 33 30 Base Excess 7 H 4 H O2 Saturation 95 99 O2 % 35.0 50.0 ABG pCO2 45.4 H 48.9 H ABG pO2 76 151 H Abrahan Test Positive Positive Respiration Rate 12 12 O2 Delivery Device Adult Vent Adult Vent Vent Mode AC AC/VC Tidal Volume 400.0 400.0 POC PEEP 5 5 Radiography Diagnostic Testing: Radiology Impression Chest X-Ray 12/29/22 05:55 IMPRESSION: Endotracheal tube tip at the fany; recommend 3 cm retraction. Electronically Signed: Haleigh Rutledge MD at 9:28 EST , Chest X-Ray 12/30/22 05:35 IMPRESSION: Right basilar atelectasis versus infiltrate and possible small right pleural effusion. Electronically Signed: Wai Escobar DO at 6:01 EST , Rhythm Strip Rhythm Strip: Sinus Rhythm Rate: 90 Ectopy: None Physical Exam Narrative Overnight events were recorded. Patient on norepinephrine drip. Overnight required intermittent midazolam still agitated therefore put on Precedex drip. Patient has fever Tmax 100.7 Fahrenheit. Blood pressure is low, lactic acidosis. On 40% FiO2, PEEP 5. CT shows comminuted intertrochanteric fracture. Probable hematoma of the abductor agnes estimated 4 x 5.2 x 9 cm. Patient had 2 unit of PRBC transfused. Physical exam General: Sedated. On vent support. On fentanyl and Precedex drip. HEENT: Eyes closed. Atraumatic, PERRLA, EOMI, Normocephalic Oral: ET and OG tube. On vent support. Neck: Supple, No JVD, Negative Carotid Bruits Lungs: On vent support. Cardiovascular: Tachycardic. On pressor. Sinus rhythm on nuclear monitoring technician. Muffled heart sound. Systolic murmur present. Abdomen: Bowel Sounds Present, Soft, Non Tender, Non-Distended : No renal angle tenderness. No suprapubic tenderness. Extremities: No edema, Capillary Refill Less than 3 Seconds Skin: No rashes, No breakdown Musculoskeletal: Left hip abducted, flexed and externally rotated and tender. No Tenderness to Palpation of other joints or Extremities Neurological: Unresponsive, detailed neuro exam unobtainable Psych/Mental Status: History of dementia. Assessment & Plan Assessment/Plan (1) Closed intertrochanteric fracture of left hip: QUALIFIERS: Encounter type: initial encounter Fracture alignment: displaced Qualified Code(s): S72.142A - Displaced intertrochanteric fracture of left femur, initial encounter for closed fracture PLAN: Plan 1. Left hip fracture after fall but suspect pathological fracture from osteoporosis, perioperative management-patient is being admitted in PCU. She had Mcknight catheter. She was on morphine but blood pressure normal as described below. Dr. Quinn Rouse consulted. She was supposed to go for hip surgery but canceled due to hypotension. 12/28: Overnight events were noticed.Patient was intubated yesterday in the afternoon. ABG was 7.1 2/127/177 and was tried on BiPAP for short time but soon intubated. Repeat gas shows 7.34/63 on 75% FiO2. Currently she is on 40% FiO2. Complicated with hematoma of left abductor agnes knee and hip region from fracture. Hemoglobin dropped from baseline 10.4-7.6. Monitor PRBC transfusion. Repeat hemoglobin 8.2. 12/29: Try to reconcile the patient that anesthesiologist does not want to take and the risk is high even in tertiary care hospital. The risk of on table with patient being on vasopressor, intubated with high pulmonary artery pressures and severe aortic stenosis. Daughter is try to contact her father and contemplating hospice. Hemoglobin further dropped to 6.9. 12/30: Yesterday evening I talked to the patient's daughter near the bedside. She said patient's is coming and will decide about hospice care. Overnight patient required intermittent midazolam and then Precedex drip. Blood pressure is still low. Chances of the family will decide DNR CC, comfort care and terminal extubation. 2. Septic shock and unresponsive, hypotension, multiple valvular heart disease, severe pulmonary hypertension: Patient blood pressure was low at 68/32 after morphine was given. 1 L of Ringer lactate fluid bolus ordered. Patient is still unresponsive, transferred to ICU. Discussed with presentation team member. Discussed with quality assurance analyst consulted for same. No need for repeat echo. 12/28: Lactic acidosis, mild grade fever suspicion of going in sepsis. Lactic acidosis may be due to poor perfusion with significant cardiac disease and IV contrast. Patient empirically on IV ceftriaxone. 2D echo is ordered as patient has severe and severe pulmonary hypertension. Discussed with the quality assurance analyst and consult requested. 12/29: Septic shock: The patient clinical evaluation is consistent with septic shock with clinical indicators of fever,Severe hypoxia, tachycardia, leukocytosis, hypotension most likely due to pneumonia/gram-negative desiree UTI with acute sepsis-related organ dysfunction as evidenced by resistant hypotension requiring vasopressors, acute on chronic combined respiratory failure on ventilator, unresponsiveness/acute metabolic encephalopathy and lactic acidosis. Urine culture growing gram-negative desiree, more than 100,000 colonies. Sputum culture showing mixed normal respiratory gatito. Patient is on IV vancomycin, cefepime and Zithromax. Repeat echo shows pulmonary artery pressure 95 mmHg, moderate aortic stenosis EF 75%, mildly dilated RV. These are all contraindications for surgery. 12/30: Continue all treatment. End-stage COPD with chronic pulmonary fibrosis and chronic hypoxic respiratory insufficiency requiring 4 to 5 L/min continuously complicating #1 - Stable with no evidence of flare at this time. Continue as needed nebulizers as previous. 12/28: Patient on IV Solu-Medrol, IV antibiotic. EMILY: Patient baseline creatinine 0.39, increased from 0.6-1.21 more than 0.6 mg/dL in 24 hours. Concern of prerenal or IV contrast induced possible GREGORY. 12/29: BUNs/creatinine 42/0.68. EMILY resolved. 3. Chronic dementia - Stable, continue home medications as previous. 4. Essential hypertension - Continue home medications as previous. Give IV hydralazine as needed for systolic blood pressure greater than 160 systolic. 5. Depression with anxiety - Continue home medications as previous. Give low-dose as needed Ativan for breakthrough symptoms. 6. DVT prophylaxis - We will avoid preoperative blood thinners due to increased risk of bleeding complications with traumatic fractures. Orthopedic team to decide on postoperative DVT prophylaxis. I discussed the prognosis with the daughter with all chronic severe medical conditions mentioned above prognosis is poor. The same thing was explained to anesthesiologist and orthopedic surgeon that risk is high. Daughter is going to talk to her father regarding CODE STATUS. For practical purposes now full code. Total time of the visit including total time spent in counseling or coordination of care, (more than 50% of the total time, spent in obtaining medical information from nurses and other ancillary care providers,explaining to the patient about labs, imaging, diagnosis and management of active complex medical conditions), discussion with presentation team member and anesthesiologist, review of labs and imaging is 50 minutes. Clinical Impression(s) from Imaging Studies Hip/Pelvis X-Ray 12/26/22 23:26 IMPRESSION: Left-sided intertrochanteric fracture as described. 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 No other fractures are seen. Electronically Signed: Grecia Martinez MD at 0:16 EST , Chest X-Ray 12/26/22 23:27 IMPRESSION: Hyperinflated lungs with possible COPD. otherwise no acute cardiopulmonary disease. Electronically Signed: Grecia Martinez MD at 0:14 EST , Chest X-Ray 12/27/22 13:35 IMPRESSION: The tip of the endotracheal tube is at 2.6 times approximately the fany. The nasogastric tube is seen within the body of the stomach. Hyperinflation. Electronically Signed: Juan Miguel Beyer MD at 14:42 EST , KUB X-Ray 12/27/22 13:40 IMPRESSION: The tip of the orogastric tube is in the body of the stomach. A right femoral line is seen. Electronically Signed: Juan Miguel Beyer MD at 14:48 EST , KUB X-Ray 12/27/22 13:45 IMPRESSION: The tip of the orogastric tube is in the gastric antrum. Electronically Signed: Juan Miguel Beyer MD at 14:55 EST , Brain CT 12/27/22 14:11 IMPRESSION: Age-related changes of the brain. Electronically Signed: Mauricio Augustine DO at 16:22 EST , Lower Extremity CT 12/27/22 14:11 IMPRESSION: Intertrochanteric left femoral fracture. Probable hematoma of the abductor agnes Electronically Signed: Mauricio Augustine DO at 17:04 EST , Pelvis CT 12/27/22 14:11 IMPRESSION: Comminuted left femoral intertrochanteric fracture. Electronically Signed: Mauricio Augustine DO at 16:53 EST , Echocardiogram 12/28/22 08:31 Interpretation Summary The estimated ejection fraction is 75 %. Mildly dilated right ventricle. Pulmonary artery systolic pressure is 95 mmHg. Severe pulmonary hypertension. Moderate aortic stenosis. Ordering Physician: Hyun De La Cruz Referring Physician: Marcello Cbob M.D. Performed By: Aparna Bautista RCS Chest X-Ray 12/28/22 10:34 IMPRESSION: Hyperinflation. No acute infiltrate is seen. The tip of the endotracheal tube should be pulled back approximately 2 cm. Chest X-Ray 12/29/22 05:55 IMPRESSION: Endotracheal tube tip at the fany; recommend 3 cm retraction. 2D echo February 2022 Based upon the 2D echocardiographic images obtained there appears to be normal left ventricular size, wall motion, and systolic function. The estimated ejection fraction is 65 %. There is mild mitral annular calcification. Trivial mitral valve insufficiency. Moderate (2+) tricuspid valve insufficiency. Moderate to severe calcific aortic valve stenosis. Right ventricular systolic pressure estimated to be 52 mmHg c/w pulmonary hypertension. Stage 2 diastolic dysfunction. Charges/Coding Visit Charges Inpatient E&M: [id number] [facility] L3
[2022-12-30] MEDS: Chlorhexidine 15 ML PO (07:50)
--- NOTE | 2022-12-30 09:43 | PN.CC_ITS ---
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 Peak P remains between 27- 30. She is not tolerating SBT as she is not able to be on cadastral engineer sedation. Precedex started last night and Versed frequency increased. She has failed SBT over the past 2 days * Cont duonebs. Cont solumedrol 40 every 8h. Azithromycin x3 days for COPD exacerbation * hgb stable after her second unit yesterday. * Fever improved. Urine culture growing gram-negative rods. DC vancomycin. Her white count and Pro-Gunnar trending down. She is on 1 mcg of Levophed today. * Daughter refused DVT scan of b/l LE extremities concerned for pt's comfort * Cr is improving as well as urine output * She remains in traction for her L hip fx. * GI ppx IV protonix * Bowel regimen * Cont tube feeds * DVT ppx SCD * Poor prognosis * Lines right femoral line * Mcknight: present Plan was for daughter to proceed with comfort care measures yesterday however she appears to be struggling with this step. Emotional support provided. Discussed again the options with the best case scenario patient requiring mcfp which the daughter does not want for her mom. Concerned that patient continues to fail SBT and may end up requiring tracheostomy and chronic vent. I have discussed that with her as well. Daughter continues to feel guilt for leaving patient in mcfp which resulted in the fall. We discussed over and over that patient has other comorbidities aside from the hip fracture. Patient's was again today at bedside. Continue goals of care discussions I spent 35 minutes of critical care time excluding the procedure time. I reviewed lab work, images, previous records and medication list. Subjective Subjective Remains on the vent. She is not tolerating SBT as she is not able to be on cadastral engineer sedation. Precedex started last night and Versed frequency increased. Objective Data Objective Data Vital Signs: Vital Signs Temp Pulse Resp BP Pulse Ox O2 Del Method O2 Flow Rate 37.9 C H 76 12 143/78 H 100 Mechanical Ventilator 4 12/30/22 06:00 12/30/22 07:28 12/30/22 07:28 12/30/22 07:28 12/30/22 07:28 12/30/22 08:00 12/27/22 10:05 FiO2 40 12/30/22 08:00 Oxygen Flow Rate (L/min) 4 Oxygen Delivery Method Mechanical Ventilator Weight: 49.3 kg Body Mass Index (BMI) 18.6 Intake & Output: Intake and Output for Last 24 Hours 12/28/22 12/29/22 12/30/22 23:59 23:59 23:59 Intake Total 3022.85 / 3042.25 2730.08 / 2830.76 459.92 / 459.92 Output Total 595 / 595 725 / 785 182 / 182 Balance 2427.85 / 2447.25 2004. / 2044.76 277.92 / 277.92 Medical Nutrition Assessment Dietitian: Malnutrition Criteria Met Start: 12/27/22 14:30 Freq: Status: Active Protocol: Document 12/29/22 10:47 RMA (Rec: 12/29/22 10:48 RMA [id number]) Nutrition Malnutrition Evidence of Malnutrition Exists Yes Malnutrition (severe): Chronic Evidenced By Suboptimal Energy Intake ( Severe),Weight Loss (Severe) Clinical Problem Chronic Disease or Condition Related Malnutrition Etiology severe chronic malnutrition related to decreased ability to consume sufficient energy to meet estimated nutrient needs Signs/Symptoms as evidenced by unintentional significant weight loss of 15. 7% in <3 months based upon wt of 99lb per EMR wt hx , estimated PO intake meeting <75% of estimated energy needs > 3 months, severe muscle wasting/fat loss evident per physical exam in orbital, clavicle, acromion, and temporal areas as well as BMI 14.3. Status Active Problem Recommendation Dietitian Recommendations/Changes NPO while intubated; Via OGT- Vital AF 1.2 at goal rate of 50mL/hour w/ 75mL H2O flush every 4 hours to provide 1440 calories, 90 g protein, and 1423mL total fluid/day. Would start at 20mL/hour and increase by 10mL/hour every 8- 12 hours as tolerated until goal rate is achieved. Close monitoring of electrolytes given risk for refeeding. Daily wts. Lab / Micro Data 12/30/22 03:30 12/30/22 03:30 Labs: Laboratory Results - last 24 hr 12/27/22 04:31: Crossmatch See Detail 12/29/22 05:33: POC Glucose 150 H 12/29/22 12:46: POC Glucose 194 H 12/29/22 16:50: Hgb 8.3 L 12/29/22 17:55: POC Glucose 140 H 12/30/22 00:59: POC Glucose 214 H 12/30/22 03:30: WBC 14.9 H, RBC 2.67 L, Hgb 8.0 L, Hct 25.5 L, MCV 95.5, MCH 30.0, MCHC 31.4 L, RDW Std Deviation 58.1 H, RDW Coeff of Toney 16.7 H, Plt Count 80 L, MPV 10.7, Immature Gran % (Auto) 0.600, Neut % (Auto) 93.8 H, Lymph % (Auto) 1.3 L, Mccurtain % (Auto) 4.2, Eos % (Auto) 0.0, Baso % (Auto) 0.1, Absolute Neuts (auto) 13.9 H, Absolute Lymphs (auto) 0.19 L, Nucleated RBC % 0.1, Differential Comment SCANNED, Sodium 140, Potassium 4.4, Chloride 104, Carbon Dioxide 30.0, Anion Gap 6, BUN 42 H, Creatinine 0.62, Estim Creat Clear Calc 29.07, Est GFR (MDRD) Af Amer 119, Est GFR (MDRD) Non-Af 99, BUN/Creatinine Ratio 68.3 H, Glucose 222 H, Calcium 8.1 L, Phosphorus 2.4 L, Magnesium 2.2, Procalcitonin 0.15 H 12/30/22 03:48: Ionized Calcium 4.84 12/30/22 05:48: POC Glucose 192 H Micro: Microbiology 12/29/22 10:15 Urine Catheter - Catheter Legionella Antigen - Final 12/28/22 03:11 Urine Catheter - Mcknight Urine Culture - Preliminary Gram negative desiree 12/27/22 14:05 Blood Culture (Wb) - Central Line Blood Culture - Preliminary No growth in 48 hours. 12/27/22 12:05 Blood Culture (Wb) - Left Forearm Blood Culture - Preliminary No growth in 48 hours. 12/27/22 13:50 Sputum, Induced/Lukens Gram Stain - Final 12/27/22 13:50 Sputum, Induced/Lukens Respiratory Culture - Final Mixed normal respiratory gatito. No Streptococcus pneumoniae, beta-hemolytic Streptococcus or Staphylococcus aureus isolated. ABG Data ABG results: ABG 12/30/22 05:02 Specimen Type ART Sample Site R Radial pH 7.38 Bicarbonate Actual 28.7 H Total CO2 30 Base Excess 4 H O2 Saturation 99 O2 % 50.0 ABG pCO2 48.9 H ABG pO2 151 H Abrahan Test Positive Respiration Rate 12 O2 Delivery Device Adult Vent Vent Mode AC/VC Tidal Volume 400.0 POC PEEP 5 Radiography Diagnostic Testing: Radiology Impression Chest X-Ray 12/30/22 05:35 IMPRESSION: Right basilar atelectasis versus infiltrate and possible small right pleural effusion. Electronically Signed: Wai Escobar DO at 6:01 EST , Rhythm Strip Rhythm Strip: Sinus Rhythm Rate: 90 Ectopy: None Physical Exam Narrative General intubated and sedated HEENT. Normocephalic atraumatic, pupils equal and reactive Respiratory reduced air entry bilaterally, mild end expiratory wheeze, no c rackles Cardiac S1-S2, regular rate and rhythm GI abdomen soft and nontender MSK L hip displaced and painful Skin no rashes Neuro intubated and sedated Charges/Coding Procedures Hospitalists Procedures: 86072 Critial Care 1st Hr
[2022-12-30] MEDS: Azithromycin 500 MG in Dextrose 5%-Water (250mL Bag) 250 ML 250 MG IV (10:09)
[2022-12-30] MEDS: Sodium Phosphate/Na Biphos 21 MMOL in 0.9% Normal Saline (250mL Bag) 250 ML 84 MMOL IV (10:20)
[2022-12-30 11:34] LABS: Ionized Calcium Order ORDER TUBE
[2022-12-30] MEDS: LORazepam 2 MG/ML Syringe IV ×3 (11:52→14:35)
[2022-12-30] MEDS: Morphine 2 MG/ML Syringe IV ×3 (11:52→14:36)
--- NOTE | 2022-12-30 12:05 | NURSING ---
1145 Dr. De La Cruz aware, orders recd, fent/precedex/levophed dc'd 1152 morphine 2mg and ativan 2mg iv push given 1153 pt extubated and OG dc'd per RT 1154 Dtr remains at bedside
--- NOTE | 2022-12-30 16:30 | EXP.PCM_ITS ---
Preliminary Cause of Preliminary Cause of Preliminary Cause of : 1. Septic shock most likely due to pneumonia OR/and Proteus vulgaris UTI and unresponsive, hypotension, multiple valvular heart disease/severe Aortic stenosis, severe pulmonary hypertension: 2. End-stage COPD with chronic pulmonary fibrosis and acute on chronic hypoxic and hypercarbic combined respiratory failure requiring intubation and ventilator support 3. EMILY 4. Left hip fracture after fall but suspected pathological fracture from osteoporosis, 5. Chronic dementia 6. Essential hypertension 7. Depression with anxiety Date of Admission: 12/27/22 Date of : 12/30/22 Principle Diagnosis Problem List: Active and Suspected Problems (Updated 12/28/22 @ 16:[address] Verito Cortes MD) Preoperative cardiovascular examination (Acute) Closed intertrochanteric fracture of left hip (Acute) Skin tear of left elbow without complication (Acute) Fall from slip, trip, or stumble (Acute) Assessment & Plan Assessment/Plan (1) Closed intertrochanteric fracture of left hip: QUALIFIERS: Encounter type: initial encounter Fracture alignment: displaced Qualified Code(s): S72.142A - Displaced intertrochanteric fracture of left femur, initial encounter for closed fracture PLAN: Plan Mrs. Reyes was 82 y/F who was was brought to ED for left hip pain [facility] She was walking in the room and lost her balance and fall without loss of consciousness. She noted severe pain with worsening with attempt to move. She denies loss of consciousness associated with the fall or other significant head trauma and has no headache at this time. She denies associated fever, chills or vomiting Her hospital course, assessment, diagnosis and plan as described below: 1. Left hip fracture after fall but suspect pathological fracture from osteoporosis, perioperative management-patient is being admitted in PCU. She had Mcknight catheter. She was on morphine but blood pressure normal as described below. Dr. Quinn Rouse consulted. She was supposed to go for hip surgery but canceled due to hypotension. 12/28: Overnight events were noticed.Patient was intubated yesterday in the afternoon. ABG was 7.1 2/127/177 and was tried on BiPAP for short time but soon intubated. Repeat gas shows 7.34/63 on 75% FiO2. Currently she is on 40% FiO2. Complicated with hematoma of left abductor agnes knee and hip region from fracture. Hemoglobin dropped from baseline 10.4-7.6. Monitor PRBC transfusion. Repeat hemoglobin 8.2. 12/29: Try to reconcile the patient that anesthesiologist does not want to take and the risk is high even in tertiary care hospital. The risk of on table with patient being on vasopressor, intubated with high pulmonary artery pressures and severe aortic stenosis. Daughter is try to contact her father and contemplating hospice. Hemoglobin further dropped to 6.9. 12/30: Overnight patient required intermittent midazolam and then Precedex drip. Blood pressure is still low. Chances of the family will decide DNR CC, comfort care and terminal extubation. Patient's came later on the day decided for DNR CC hospice care with terminal extubation. Later on patient was terminally extubated as per the wish and patient / at 1545 hrs. on 01/28/2023. 2. Septic shock and unresponsive, hypotension, multiple valvular heart disease, severe pulmonary hypertension: Patient blood pressure was low at 68/32 after morphine was given. 1 L of Ringer lactate fluid bolus ordered. Patient is still unresponsive, transferred to ICU. Discussed with web content executive. Discussed with agriculture inspector consulted for same. No need for repeat echo. 12/28: Lactic acidosis, mild grade fever suspicion of going in sepsis. Lactic acidosis may be due to poor perfusion with significant cardiac disease and IV contrast. Patient empirically on IV ceftriaxone. 2D echo is ordered as patient has severe and severe pulmonary hypertension. Discussed with the agriculture inspector and consult requested. 12/29: Septic shock: The patient clinical evaluation is consistent with septic shock with clinical indicators of fever,Severe hypoxia, tachycardia, leukocytosis, hypotension most likely due to pneumonia/gram-negative desiree UTI with acute sepsis-related organ dysfunction as evidenced by resistant hypotension requiring vasopressors, acute on chronic combined respiratory failure on ventilator, unresponsiveness/acute metabolic encephalopathy and lactic acidosis. Urine culture growing gram-negative desiree, more than 100,000 colonies. Sputum culture showing mixed normal respiratory gatito. Patient is on IV vancomycin, cefepime and Zithromax. Repeat echo shows pulmonary artery pressure 95 mmHg, moderate aortic stenosis EF 75%, mildly dilated RV. These are all contraindications for surgery. 12/30: Continue all treatment. As mentioned above. Patient was extubated and then she . End-stage COPD with chronic pulmonary fibrosis and chronic hypoxic respiratory insufficiency requiring 4 to 5 L/min continuously complicating #1 - Stable with no evidence of flare at this time. Continue as needed nebulizers as previous. 12/28: Patient on IV Solu-Medrol, IV antibiotic. EMILY: Patient baseline creatinine 0.39, increased from 0.6-1.21 more than 0.6 mg/dL in 24 hours. Concern of prerenal or IV contrast induced possible GREGORY. 12/29: BUNs/creatinine 42/0.68. EMILY resolved. 3. Chronic dementia - Stable, continue home medications as previous. 4. Essential hypertension - Continue home medications as previous. Give IV hydralazine as needed for systolic blood pressure greater than 160 systolic. 5. Depression with anxiety - Continue home medications as previous. Give low-dose as needed Ativan for breakthrough symptoms. 6. DVT prophylaxis - We will avoid preoperative blood thinners due to increased risk of bleeding complications with traumatic fractures. Orthopedic team to decide on postoperative DVT prophylaxis. The CODE STATUS was changed to DNR CC hospice car Clinical Impression(s) from Imaging Studies Hip/Pelvis X-Ray 12/26/22 23:26 IMPRESSION: Left-sided intertrochanteric fracture as described. 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 No other fractures are seen. Electronically Signed: Grecia Martinez MD at 0:16 EST , Chest X-Ray 12/26/22 23:27 IMPRESSION: Hyperinflated lungs with possible COPD. otherwise no acute cardiopulmonary disease. Electronically Signed: Grecia Martinez MD at 0:14 EST , Chest X-Ray 12/27/22 13:35 IMPRESSION: The tip of the endotracheal tube is at 2.6 times approximately the fany. The nasogastric tube is seen within the body of the stomach. Hyperinflation. Electronically Signed: Juan Miguel Beyer MD at 14:42 EST , KUB X-Ray 12/27/22 13:40 IMPRESSION: The tip of the orogastric tube is in the body of the stomach. A right femoral line is seen. Electronically Signed: Juan Miguel Beyer MD at 14:48 EST , KUB X-Ray 12/27/22 13:45 IMPRESSION: The tip of the orogastric tube is in the gastric antrum. Electronically Signed: Juan Miguel Beyer MD at 14:55 EST , Brain CT 12/27/22 14:11 IMPRESSION: Age-related changes of the brain. Electronically Signed: Mauricio Augustine DO at 16:22 EST , Lower Extremity CT 12/27/22 14:11 IMPRESSION: Intertrochanteric left femoral fracture. Probable hematoma of the abductor agnes Electronically Signed: Mauricio Augustine DO at 17:04 EST , Pelvis CT 12/27/22 14:11 IMPRESSION: Comminuted left femoral intertrochanteric fracture. Electronically Signed: Mauricio Augustine DO at 16:53 EST , Echocardiogram 12/28/22 08:31 Interpretation Summary The estimated ejection fraction is 75 %. Mildly dilated right ventricle. Pulmonary artery systolic pressure is 95 mmHg. Severe pulmonary hypertension. Moderate aortic stenosis. Ordering Physician: Hyun De La Cruz Referring Physician: Marcello Cobb M.D. Performed By: Aparna Bautista RCS Chest X-Ray 12/28/22 10:34 IMPRESSION: Hyperinflation. No acute infiltrate is seen. The tip of the endotracheal tube should be pulled back approximately 2 cm. Chest X-Ray 12/29/22 05:55 IMPRESSION: Endotracheal tube tip at the fany; recommend 3 cm retraction. 2D echo February 2022 Based upon the 2D echocardiographic images obtained there appears to be normal left ventricular size, wall motion, and systolic function. The estimated ejection fraction is 65 %. There is mild mitral annular calcification. Trivial mitral valve insufficiency. Moderate (2+) tricuspid valve insufficiency. Moderate to severe calcific aortic valve stenosis. Right ventricular systolic pressure estimated to be 52 mmHg c/w pulmonary hypertension. Stage 2 diastolic dysfunction. Visit Charges Inpatient E&M: 78184 Disch Hosp >30min
== END 2022-12-30 15:45 | DRG 542 ==
LOC: ED 12-27 00:42 → PCU 12-27 01:12 → ICU 12-27 12:10
PROVIDERS: Anesthesiology; Internal Medicine; Admitting Provider Internal Medicine; Emergency Provider Emergency Medicine; PCP Internal Medicine; Visit Provider Internal Medicine
DX: M80.052A Age-related osteoporosis with current pathological fracture, left femur, initial encounter for fracture (principal); J96.21 Acute and chronic respiratory failure with hypoxia; R65.21 Severe sepsis with septic shock; A41.9 Sepsis, unspecified organism; G93.41 Metabolic encephalopathy; E43 Unspecified severe protein-calorie malnutrition; J18.9 Pneumonia, unspecified organism; J96.22 Acute and chronic respiratory failure with hypercapnia; N17.9 Acute kidney failure, unspecified; I50.32 Chronic diastolic (congestive) heart failure; D62 Acute posthemorrhagic anemia; N39.0 Urinary tract infection, site not specified; Z68.1 Body mass index [BMI] 19.9 or less, adult; I27.20 Pulmonary hypertension, unspecified; F03.90 Unspecified dementia, unspecified severity, without behavioral disturbance, psychotic disturbance, mood disturbance, and anxiety; I11.0 Hypertensive heart disease with heart failure; J43.9 Emphysema, unspecified; J84.10 Pulmonary fibrosis, unspecified; I08.2 Rheumatic disorders of both aortic and tricuspid valves; F41.9 Anxiety disorder, unspecified; M16.12 Unilateral primary osteoarthritis, left hip; W18.09XA Striking against other object with subsequent fall, initial encounter; S30.1XXA Contusion of abdominal wall, initial encounter; Y93.01 Activity, walking, marching and hiking; Y92.129 Unspecified place in nursing home as the place of occurrence of the external cause; R53.81 Other malaise; Z66 Do not resuscitate; Z99.81 Dependence on supplemental oxygen; Z87.891 Personal history of nicotine dependence; B96.4 Proteus (mirabilis) (morganii) as the cause of diseases classified elsewhere
CPT/HCPCS: 31500; 31720; 36415; 36600; 70450; 71045; 72193; 73502; 73701; 74018; 80048; 81001; 82330; 82803; 82962; 83605; 83735; 84100; 84145; 85014; 85018; 85025; 86850; 86900; 86901; 86920; 86922; 87040; 87070; 87077; 87086; 87088; 87186; 87205; 87449; 93005; 93306; 94002; 94003; 94640; 94660; 94762; 97162; 97802; 99252; 99285; J7030; J7040; J7050; J7120; P9016; Q9967; A4216; G0463; J2405